=== PATIENT | female | born 1955 | race Caucasian/White ===

== ENCOUNTER 2022-12-12 07:56 | Outpatient (OUT) | payer MEDICARE, OTHER, SELFPAY ==
--- NOTE | 2022-12-12 07:59 | MM_ITS ---
Patient: RAZA LUGO Exam Date: 12/12/2022 : 1955 Gender:F Ordering : JESSICA MCKEON M.D. Admission #: [id number] Family : Order #: [id number] CLICK HERE TO VIEW EXAM RADIOLOGY REPORT PROCEDURE: MM TOMOSYNTHESIS DIAGNOSTIC RT, 12/12/2022, 07:55 US BREAST RT LIMITED, 12/12/2022, 08:10 COMPARISON: MG MAMM KESHA SCRN W CAD DIG, 01/25/2016. MG MAMM SCREEN 3D KESHA CAD, 10/31/2022. INDICATIONS: ABNORMAL MAMMOGRAM R92.8 Calculator Name NCI Breast Cancer Risk Assessment Tool 5 Year Breast Cancer Risk 1.90% Lifetime Breast Cancer Risk 6.70% Personal Breast Cancer No Personal Ovarian Cancer No Treatments None Family Cancers Mother with leukemia cancer at age 84; Sister with colon cancer at age 46. LOCATION: [facility] BREAST COMPOSITION: Scattered areas fibroglandular density. FINDINGS: DIAGNOSTIC CATEGORY 2--BENIGN FINDING: Two spot compression views of the right breast demonstrate a persistent oval 6 x 5.2 mm well-circumscribed nodule. Ultrasound demonstrates at the 8 o'clock position a focal oval well-circumscribed 5.7 x 3.6 x 3.4 mm area of anechoic echogenicity with some internal low-level echoes. Mixed increased and decreased is 2 stick through transmission. I favor a complex cyst. Additionally identified at the 9 o'clock position is a nonspecific 1.7 mm area of oval hypoechogenicity. RECOMMENDATIONS: ROUTINE MAMMOGRAM AND CLINICAL EVALUATION IN 12 MONTHS. PLEASE NOTE: A NORMAL MAMMOGRAM DOES NOT EXCLUDE THE POSSIBILITY OF BREAST CANCER. A CLINICALLY SUSPICIOUS PALPABLE LUMP SHOULD BE BIOPSIED. Dictated by: Alfredo Can MD on 12/12/2022 at 08:31 Approved by: Alfredo Can MD on 12/12/2022 at 08:34
--- NOTE | 2022-12-12 08:02 | US_ITS ---
Patient: RAZA LUGO Exam Date: 12/12/2022 : 1955 Gender:F Ordering : JESSICA MCKEON M.D. Admission #: [id number] Family : Order #: [id number] CLICK HERE TO VIEW EXAM RADIOLOGY REPORT PROCEDURE: MM TOMOSYNTHESIS DIAGNOSTIC RT, 12/12/2022, 07:55 US BREAST RT LIMITED, 12/12/2022, 08:10 COMPARISON: MG MAMM KESHA SCRN W CAD DIG, 01/25/2016. MG MAMM SCREEN 3D KESHA CAD, 10/31/2022. INDICATIONS: ABNORMAL MAMMOGRAM R92.8 Calculator Name NCI Breast Cancer Risk Assessment Tool 5 Year Breast Cancer Risk 1.90% Lifetime Breast Cancer Risk 6.70% Personal Breast Cancer No Personal Ovarian Cancer No Treatments None Family Cancers Mother with leukemia cancer at age 84; Sister with colon cancer at age 46. LOCATION: [facility] [place] BREAST COMPOSITION: Scattered areas fibroglandular density. FINDINGS: DIAGNOSTIC CATEGORY 2--BENIGN FINDING: Two spot compression views of the right breast demonstrate a persistent oval 6 x 5.2 mm well-circumscribed nodule. Ultrasound demonstrates at the 8 o'clock position a focal oval well-circumscribed 5.7 x 3.6 x 3.4 mm area of anechoic echogenicity with some internal low-level echoes. Mixed increased and decreased is 2 stick through transmission. I favor a complex cyst. Additionally identified at the 9 o'clock position is a nonspecific 1.7 mm area of oval hypoechogenicity. RECOMMENDATIONS: ROUTINE MAMMOGRAM AND CLINICAL EVALUATION IN 12 MONTHS. PLEASE NOTE: A NORMAL MAMMOGRAM DOES NOT EXCLUDE THE POSSIBILITY OF BREAST CANCER. A CLINICALLY SUSPICIOUS PALPABLE LUMP SHOULD BE BIOPSIED. Dictated by: Alfredo Can MD on 12/12/2022 at 08:31 Approved by: Alfredo Can MD on 12/12/2022 at 08:34
== END 2022-12-12 07:57 | disposition home or self-care (01) ==
LOC: MAMMO 07:56
DX: R92.8 Other abnormal and inconclusive findings on diagnostic imaging of breast (principal); Z80.0 Family history of malignant neoplasm of digestive organs; Z80.6 Family history of leukemia
CPT/HCPCS: 76642; 77065; G0279

== ENCOUNTER 2023-07-24 14:41 | Outpatient (RCR) | payer MEDICARE, OTHER, SELFPAY | END 2023-08-22 13:31 | disposition home or self-care (01) | LOC: PT 14:41 | PROVIDERS: Visit Provider Nurse Practitioner Family | DX: M54.16 Radiculopathy, lumbar region (principal) | CPT/HCPCS: 97110; 97113; 97163 ==

== ENCOUNTER 2023-11-08 08:28 | Outpatient (OUT) | payer MEDICARE, OTHER, SELFPAY ==
--- NOTE | 2023-11-08 | MM_ITS ---
Patient Name: RAZA LUGO MR#: [id number] : 1955 Exam Date: 11/08/2023 Ordering Doctor: Non-Staff Physician RADIOLOGY REPORT PROCEDURE: MM TOMOSYNTHESIS SCREENING BI COMPARISON: MM TOMOSYNTHESIS DIAGNOSTIC RT, 12/12/2022. MG MAMM SCREEN 3D KESHA CAD, 10/31/2022. MG MAMM SCREEN KESHA W CAD, 08/26/2017. MG MAMM KESHA SCRN W CAD DIG, 01/25/2016. INDICATIONS: Encounter for screening mammogram for malignant neoplasm of Calculator Name NCI Breast Cancer Risk Assessment Tool 5 Year Breast Cancer Risk 1.90% Lifetime Breast Cancer Risk 6.40% Personal Breast Cancer No Personal Ovarian Cancer No Treatments None Family Cancers Mother with leukemia cancer at age 84; Sister with colon cancer at age 46. LOCATION: [facility] BREAST COMPOSITION: There are scattered areas of fibroglandular density. FINDINGS: DIAGNOSTIC CATEGORY 2--BENIGN FINDING: RIGHT BREAST: No significant suspicious finding. Scattered benign-appearing calcifications are present. Stable 6 mm circumscribed complex cyst seen on prior mammography and ultrasound within the anterior lower-outer quadrant. No significant change has occurred. LEFT BREAST: No significant suspicious finding. No significant change has occurred. RECOMMENDATIONS: ROUTINE MAMMOGRAM AND CLINICAL EVALUATION IN 12 MONTHS. PLEASE NOTE: A NORMAL MAMMOGRAM DOES NOT EXCLUDE THE POSSIBILITY OF BREAST CANCER. A CLINICALLY SUSPICIOUS PALPABLE LUMP SHOULD BE BIOPSIED. Dictated by: Nahid Morton M.D. on 11/12/2023 at 11:30 Approved by: Nahid Morton M.D. on 11/12/2023 at 11:41
--- NOTE | 2023-11-08 | CT_ITS ---
[address] [address] Patient Name: RAZA LUGO MRN: [id number] date: 1955 Sex: F Assigned Patient Location: CT Current Patient Location: CT Accession/Order Number: [id number] Exam Date: 11/08/2023 08:40 Report Date: 11/08/2023 11:09 At the request of: NON-STAFF PHYSICIAN Procedure: CT lung screening low-dose EXAMINATION: CT lung screening low-dose HISTORY: Tobacco user, Cigarette smoker COMPARISON: No relevant comparison available. TECHNIQUE: Multi-planar CT images were obtained without and/or with IV contrast as indicated by examination type. Axial, Coronal, and Sagittal images. Dose reduction techniques were achieved by using automated exposure control and/or adjustment of mA and/or kV according to patient size and/or use of iterative reconstruction technique. FINDINGS: LUNGS: No visible pulmonary disease. PLEURA: No mass, effusion, or pneumothorax. VASCULATURE: No abnormality. YOLANDA: No mass or adenopathy. MEDIASTINUM: No mass or adenopathy. CARDIAC: No enlargement, pericardial thickening, or significant calcification. Coronary artery calcifications: Absent. AORTA: No aneurysm or dissection. CHEST WALL: No mass or axillary adenopathy. BONES: No bone lesion or fracture. LIMITED ABDOMEN: Stable left renal cyst. Stable bilateral adrenal nodules. Limited images of the upper abdomen. OTHER: Negative. CT/CT lung screening low-dose IMPRESSION: 1. Lung-RADS Category 1 Negative. No nodules and definitely benign nodules. Continue annual screening with LDCT in 12 months. 2. Stable left renal cysts and bilateral nonspecific adrenal nodules. Electronically authenticated by: LUIS FERNANDO HENRIQUEZ Date: 11/08/2023 11:09
== END 2023-11-08 08:29 | disposition home or self-care (01) ==
LOC: CT 08:28
DX: Z12.31 Encounter for screening mammogram for malignant neoplasm of breast (principal); F17.210 Nicotine dependence, cigarettes, uncomplicated; N28.1 Cyst of kidney, acquired; Z80.6 Family history of leukemia; Z80.0 Family history of malignant neoplasm of digestive organs
CPT/HCPCS: 71271; 77063; 77067

== ENCOUNTER 2025-05-14 07:52 | Outpatient (OUT) | payer MEDICARE, OTHER, SELFPAY ==
--- OUTSIDE RECORDS SUMMARY | 2025-05-03 08:30 | XMS_ITS | Encounter Summary ---
Author Organization [facility] tem Address [id number] [address] 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 Inspector Name Role Phone Eyad Tee MD Primary Care Provider [phone] Reason for Referral * Consultation (Routine) - Pending ReviewSpecialtyDiagnoses / ProceduresReferred By ContactReferred To ContactGastroenterology Diagnoses Special screening for malignant neoplasm of colon Gastroesophageal reflux disease without esophagitis Eyad Tee MD [address], [facility] [address] [place] [address] Phone: tel: fax: Alfredo Strickland, [address] [address] Phone: tel: fax: Referral IDStatusReasonStart DateExpiration DateVisits RequestedVisits [id number] Review Specialty Services Required Reason for Visit * ReasonCommentsreview labs Encounter Details DateTypeDepartmentCare Team (Latest Contact Info)Vazqlorseli79/17/2025 8:30 AM ESTOffice Visit [facility] [address] [place] [address] Eyad Tee MD [address] [place] [address] Type 2 diabetes mellitus without complication, without long-term current use of insulin (CMS-HCC) (Primary Dx); Special screening for malignant neoplasm of colon; Primary hypertension; Anxiety; Pure hypercholesterolemia; Gastroesophageal reflux disease without esophagitis; Chronic bilateral low back pain without sciatica; Former cigarette smoker; Vitamin D deficiency Social History Tobacco UseTypesPacks/DayYears UsedDateSmoking Tobacco: FormerCigarettes0.552.6 1971 - 01/27/2024Smokeless Tobacco: Never Tobacco Cessation:Counseling Given: Not Answered Alcohol UseStandard Drinks/WeekCommentsYes0 (1 standard drink = 0.6 oz pure alcohol)MONTHLYPHQ-2AnswerDate RecordedTotal Xdmbj362/17/2025ChildcareAnswerDate PhcmfznrLdkfyibcxXtzlgiu52/12/2019EmploymentAnswerDate RecordedEmploymentUnknown 11/26/2018Hunger ScreeningAnswerDate RecordedWithin the past 12 months we worried whether our food would run out before we got money to buy more.Never True05/03/2025Within the past 12 months the food we bought just didn't last and we didn't have money to get more.Never True05/03/2025Purpose - LifeAnswerDate RecordedPurpose and direction in hxypCmcniyb89/11/2021CommentsNoSex and Gender InformationValueDate RecordedSex Assigned at BirthNot on fileLegal Sex Hjipxy9501/20/2015 12:14 PM EDTGender IdentityNot on fileSexual OrientationNot on filedocumented as of this encounter Last Filed Vital Signs Vital SignReadingTime TakenCommentsBlood Rnoluigr984/6805/03/2025 8:38 AM EST Avkts599105/03/2025 8:38 AM ESTTemperature--Respiratory Rate--Oxygen Sillrqrqiv86% 05/03/2025 8:38 AM ESTInhaled Oxygen Concentration--Rqfbjq67.8 kg (220 lb) 05/03/2025 8:38 AM NOSMwartg247.6 cm (5' 4 )05/03/2025 8:38 AM ESTBody Mass Index37.7611 8:38 AM ESTdocumented in this encounter Progress Notes * Eyad Tai MD - 05/03/2025 8:30 AM EST Subjective Patient ID: Shana Anne is a 70 y.o. female. HPI: Shana Anne is here to evaluate and manage chronic medical problems listed below. Chief Complaint Patient presents with review labs Here in office for a review of labs. JSC,AKIL Follow Up: Diabetes Follow Up: Patient Reports: doing well with diabetes control since last visit Comorbid Illnesses: Eye exam is up to date Symptoms: currently asymptomatic Medications: the patient is adherent with the medication regime, denies medication side effects Interval events: Her A1c now is under control. Patient has no polyuria no polydipsia. Hypertension Follow Up: Patient Reports: BP has been well controlled since last visit Medications: taking medications as prescribed Interval Events: no significant interval events Symptoms: the patient is currently asymptomatic Home Monitoring: the patient reports monitoring blood pressure regularly Goals: the patient is doing well with the BP goals Hyperlipidemia Follow Up: Patient Reports: hyperlipidemia has been under good control Interval events: no significant interval events Symptoms: the patient is currently asymptomatic Medications: the patient is adherent with the medication regime, denies medication side effects, patient is doing well with the hyperlipidemia goals Smoking: patient quit smoking about About a year ago. She was counseled. She is due for CT chest now. Insomnia: patient is taking trazodone. It Is helping her very well. She has no side effects from it. No snoring at night. No apnea. Back pain: Patient's back pain overall is under control. She is following up with pain management. She is following up with Neurosurgery. She is still on gabapentin. She is taking ibuprofen as needed. Depression and anxiety: patient is still working full-time job. Her mood is normal. Patient said she gets stress with her from time to time. Patient declined having any urinary complaints in his last time we saw her. She is still following up with her Urology. No blood in the urine. No dysuria no frequency no hesitancy. Current medication: Outpatient Medications Prior to Visit Medication Sig Dispense Refill BABY ASPIRIN ORAL Take 81 mg by mouth. blood sugar diagnostic (pic5UCH ULTRA TEST) strip USE DIRECTED 2 TIMES DAILY FOR DX E11.9 100 strip 3 cholecalciferol, vitamin D3, (VITAMIN D3) 5,000 units capsule Take 1 capsule (5,000 Units total) bymouth in the morning. escitalopram (LEXAPRO) 20 mg tablet Take 1 tablet (20 mg total) by mouth in the morning. 90 tablet 3 gabapentin (NEURONTIN) 600 mg tablet Take 1 tablet (600 mg total) by mouth in the morning and 1 tablet (600 mg total) before bedtime. 180 tablet 2 glipiZIDE-metFORMIN (METAGLIP) 5-500 mg per tablet Take 1 tablet by mouth in the morning and 1 tablet in the evening. Take before meals. 180 tablet 1 ibuprofen (MOTRIN) 800 mg tablet TAKE 1 TABLET EVERY 12 HOURS NEEDED FOR PAIN 180 tablet 3 lisinopriL (PRINIVIL,ZESTRIL) 10 mg tablet Take 1 tablet (10 mg total) by mouth in the morning. 90 tablet 3 rOPINIRole (REQUIP) 0.5 mg tablet TAKE 1 TABLET EVERY NIGHT 90 tablet 3 traZODone (DESYREL) 100 mg tablet Take 2 tablets (200 mg total) by mouth nightly. 180 tablet 3 atorvastatin (LIPITOR) 20 mg tablet Take 1 tablet (20 mg total) by mouth nightly. 90 tablet 3 TRULICITY 3 mg/0.5 mL pen injector INJECT 3 MG (0.5 ML) UNDER THE SKIN ONCE A WEEK 6 mL 0 tiotropium (SPIRIVA) 18 mcg per inhalation capsule Place 1 capsule into inhaler and inhale in the morning. (Patient not taking: Reported on 05/03/2025) 90 capsule 3 busPIRone (BUSPAR) 10 mg tablet Take 0.5 tablets (5 mg total) by mouth in the morning and 0.5 tablets (5 mg total) before bedtime. (Patient not taking: Reported on 05/03/2025) 180 tablet 1 No facility-administered medications prior to visit. Past Surgical History: Procedure Laterality Date ARTHROSCOPY KNEE wth partial medial and lateral menisectomy chondroplasty medial and lateral femeral condyle Right 03/26/2017 Performed by Jr Raul Massey DO at [facility] BACK SURGERY disc l2-l3 07/03/2022 l3,l4,l5 07/19/22 BACK SURGERY 01/27/2024 fusion rods and screws CARDIAC CATHETERIZATION SECTION x2 CHOLECYSTECTOMY HYSTERECTOMY KNEE SURGERY left, scope KNEE SURGERY Bilateral knee scopes NEUROPLASTY / TRANSPOSITION MEDIAN NERVE AT CARPAL TUNNEL Family History Problem Relation Age of Onset Heart disease Mother Heart disease Father Past Medical History: Diagnosis Date Diabetes mellitus type 2, controlled ([facility]) Hyperlipidemia Hypertension Peptic ulceration Social History Socioeconomic History Marital status: Spouse name: Not on file Number of children: Not on file Years of education: Not on file Highest education level: Not on file Occupational History Not on file Tobacco Use Smoking status: Former Current packs/day: 0.00 Average packs/day: 0.5 packs/day for 52.6 years (26.3 ttl pk-yrs) Types: Cigarettes Start date: 1971 Quit date: 01/27/2024 Years since quittin.2 Smokeless tobacco: Never Substance and Sexual Activity Alcohol use: Yes Comment: MONTHLY Drug use: No Sexual activity: Not on file Other Topics Concern Not on file Social History Narrative Not on file Social Drivers of Health Financial Resource Strain: Not on file Food Insecurity: No Food Insecurity (05/03/2025) Hunger Screening Food Insecurity - Worry: Never True Food Insecurity - Inability: Never True Transportation Needs: Not on file Physical Activity: Not on file Stress: Not on file Social Connections: Not on file Interpersonal Safety: Not on file Housing Instability: Not on file No Known Allergies Current Outpatient Medications Medication Sig Dispense Refill BABY ASPIRIN ORAL Take 81 mg by mouth. blood sugar diagnostic (RewardIt.comTOUCH ULTRA TEST) strip USE DIRECTED 2 TIMES DAILY FOR DX E11.9 100 strip 3 cholecalciferol, vitamin D3, (VITAMIN D3) 5,000 units capsule Take 1 capsule (5,000 Units total) [facility] the morning. escitalopram (LEXAPRO) 20 mg tablet Take 1 tablet (20 mg total) by mouth in the morning. 90 tablet 3 gabapentin (NEURONTIN) 600 mg tablet Take 1 tablet (600 mg total) by mouth in the morning and 1 tablet (600 mg total) before bedtime. 180 tablet 2 glipiZIDE-metFORMIN (METAGLIP) 5-500 mg per tablet Take 1 tablet by mouth in the morning and 1 tablet in the evening. Take before meals. 180 tablet 1 ibuprofen (MOTRIN) 800 mg tablet TAKE 1 TABLET EVERY 12 HOURS NEEDED FOR PAIN 180 tablet 3 lisinopriL (PRINIVIL,ZESTRIL) 10 mg tablet Take 1 tablet (10 mg total) by mouth in the morning. 90 tablet 3 rOPINIRole (REQUIP) 0.5 mg tablet TAKE 1 TABLET EVERY NIGHT 90 tablet 3 traZODone (DESYREL) 100 mg tablet Take 2 tablets (200 mg total) by mouth nightly. 180 tablet 3 albuterol (PROVENTIL HFA;VENTOLIN HFA) 90 mcg/actuation inhaler Inhale 2 puffs every 6 (six) hours as needed for wheezing. 15 g 4 atorvastatin (LIPITOR) 20 mg tablet TAKE 1 TABLET EVERY DAY 90 tablet 3 semaglutide (OZEMPIC) 0.25 mg or 0.5 mg (2 mg/3 mL) pen injector Inject 0.5 mg under the skin once a week. 2 mL 0 tiotropium (SPIRIVA) 18 mcg per inhalation capsule Place 1 capsule into inhaler and inhale in the morning. (Patient not taking: Reported on 05/03/2025) 90 capsule 3 No current facility-administered medications for this visit. Review of Systems: General/Constitutional: Feeling Poorly denies. Feeling Tired denies. Chills denies. Fever denies. Ophthalmologic: Change in Vision denies. Cardiovascular: Lower Extremity Edema denies. Chest pain denies. Palpitations denies. Respiratory: Dyspnea denies. Cough denies. Shortness of breath denies. Wheezing denies. Gastrointestinal: Abdominal pain denies. Constipation denies. Diarrhea denies. Nausea denies. Vomiting denies. Musculoskeletal: Arthralgia denies. Back pain Admits Neurologic: Dizziness denies. Fainting denies. Headache denies. Objective Physical Exam: Vitals: 05/03/25 0838 BP: 134/68 BP Site: Left Arm BP Postition: Sitting BP CUFF SIZE: L (13-17 inches) Pulse: 69 SpO2: 96% Weight: 99.8 kg (220 lb) Height: 162.6 cm (5' 4 ) Wt Readings from Last 3 Encounters: 05/03/25 99.8 kg (220 lb) 10/28/24 99.8 kg (220 lb) 04/21/24 98 kg (216 lb) Temp Readings from Last 3 Encounters: 10/03/23 36.8 ??C (98.2 ??F) 03/26/17 36.3 ??C (97.3 ??F) BP Readings from Last 3 Encounters: 05/03/25 134/68 10/28/24 130/60 04/21/24 122/62 Pulse Readings from Last 3 Encounters: 05/03/25 69 10/28/24 78 04/21/24 80 Body mass index is 37.76 kg/m??. Physical Exam General Examinations: GENERAL APPEARANCE: alert, in no acute distress. obese ENT: Bilateral, Normal, TM, Canals normal, oropharynx normal. EYES: normal sclera/conjunctiva, PERRLA. NECK: normal appearance, supple. Thyroid is normal PULMONARY: no respiratory distress, normal respiratory rhythm and effort, normal breath sounds. LYMPH NODES: no anterior or posterior cervical, supraclavicular and axillary adenopathy. CARDIO: normal PMI, regular rate and rhythm, S1, S2 normal, no gallops, no murmurs, no rubs. ABDOMEN: normal bowel sounds, soft, nontender, no HSM, no masses palpable, no hernias present. MUSCULOSKELETAL normal gait, normal ROM all extremities, normal strength/tone . Lumbar spine: rangeof motion is Slightly limited with flexion. Straight leg raising is negative bilaterally. Did not reflexes 2+ symmetrical bilaterally. SKIN: normal color, good turgor. Extremities: Normal pulses. No edema. Bilateral carotids are normal. No bruit. NEUROLOGIC: nonfocal, cranial nerves 2-12 grossly intact. PSYCH: oriented x3. Mood is normal. Diabetic foot exam: Visual exam was normal without lesions. Left: Pulses Dorsalis Pedis: present Posterior Tibial: present Vibratory sensation not done Filament test present Right: Pulses Dorsalis Pedis: present Posterior Tibial: present Vibratory sensation not done Filament test present No results found for this or any previous visit (from the past 24 hours). Results for orders placed or performed in visit on 04/27/25 CBC auto differential Collection Time: 04/27/25 7:56 AM Result Value Ref Range WBC 5.8 4 - 11 X10^9/L RBC Count 3.86 3.8 - 5.2 X10^12/L Hemoglobin 11.6 (L) 11.7 - 15.5 g/dL Hematocrit 34.3 (L) 35 - 47 % MCV 89 80 - 100 fL MCH 30.2 27 - 34 pg MCHC 34.0 32 - 36 g/dL RDW 13.9 11.5 - 15 % Platelet Count 252 150 - 450 X10^9/L MPV 8.6 7 - 12 fL Neutrophils % 61.4 % Lymphocytes % 28.0 % Monocytes % 8.3 % Eosinophils % 1.4 % Basophils % 0.9 % Neutrophils Absolute (A) 3.5 1.5 - 6.6 X10^9/L Lymphocytes Absolute 1.6 1.0 - 3.5 X10^9/L Monocytes Absolute 0.5 0.0 - 0.9 X10^9/L Eosinophils Absolute 0.1 0.0 - 0.4 X10^9/L Basophils Absolute 0.1 0.0 - 0.2 X10^9/L Differential Type AUTOMATED DIFFERENTIAL Hemoglobin A1c Collection Time: 04/27/25 7:56 AM Result Value Ref Range HEMOGLOBIN A1C 7.8 (H) 4.4 - 5.6 % EST. AVERAGE GLUCOSE 177 mg/dL Basic Metabolic Panel Collection Time: 04/27/25 7:56 AM Result Value Ref Range SODIUM 142 134 - 146 mmol/L POTASSIUM 4.9 3.5 - 5.0 mmol/L CHLORIDE 104 98 - 109 mmol/L CARBON DIOXIDE 29 22 - 32 mmol/L ANION GAP 9 5 - 15 mmol/L BLOOD UREA NITROGEN 24 5 - 27 mg/dL CREATININE 0.89 0.40 - 1.00 mg/dL GLUCOSE 148 (H) 65 - 99 mg/dL CALCIUM 9.6 8.5 - 10.5 mg/dL EGFR Non-Race Dependent 70 >=60 ml/min/1.73sq.m Above labs and x-ray were reviewed. Adjustments were made in the assessment and plan Assessment/Plan Differential diagnosis and medical decision making Below medicines were either prescribed new or a continuation. We evaluated for side effects of these medications and reviewed compliance. Adjustments were made in dosing and frequency in the medicinereconciliation. 1. Type 2 diabetes mellitus without complication, without long-term current use of insulin ([facility]) - semaglutide (OZEMPIC) 0.25 mg or 0.5 mg (2 mg/3 mL) pen injector; Inject 0.5 mg under the skin once a week. Dispense: 2 mL; Refill: 0 - CBC auto differential; Future - Comprehensive metabolic panel; Future - Hemoglobin A1c; Future - TSH; Future - T4, free; Future - Lipid profile; Future - Hepatitis C(HCV) Ab w/ Reflex to PCR; Future - Vitamin D 25 hydroxy; Future - CK Total; Future - Uric acid; Future 2. Special screening for malignant neoplasm of colon - Ambulatory referral to Gastroenterology (Non[facility]); Future 3. Primary hypertension - CBC auto differential; Future - Comprehensive metabolic panel; Future - Hemoglobin A1c; Future - TSH; Future - T4, free; Future - Lipid profile; Future - Hepatitis C(HCV) Ab w/ Reflex to PCR; Future - Vitamin D 25 hydroxy; Future - CK Total; Future - Uric acid; Future 4. Anxiety - CBC auto differential; Future - Comprehensive metabolic panel; Future - Hemoglobin A1c; Future - TSH; Future - T4, free; Future - Lipid profile; Future - Hepatitis C(HCV) Ab w/ Reflex to PCR; Future - Vitamin D 25 hydroxy; Future - CK Total; Future - Uric acid; Future 5. Pure hypercholesterolemia - CBC auto differential; Future - Comprehensive metabolic panel; Future - Hemoglobin A1c; Future - TSH; Future - T4, free; Future - Lipid profile; Future - Hepatitis C(HCV) Ab w/ Reflex to PCR; Future - Vitamin D 25 hydroxy; Future - CK Total; Future - Uric acid; Future 6. Gastroesophageal reflux disease without esophagitis - Ambulatory referral to Gastroenterology (Non-[facility]); Future - CBC auto differential; Future - Comprehensive metabolic panel; Future - Hemoglobin A1c; Future - TSH; Future - T4, free; Future - Lipid profile; Future - Hepatitis C(HCV) Ab w/ Reflex to PCR; Future - Vitamin D 25 hydroxy; Future - CK Total; Future - Uric acid; Future 7. Chronic bilateral low back pain without sciatica 8. Former cigarette smoker - albuterol (PROVENTIL HFA;VENTOLIN HFA) 90 mcg/actuation inhaler; Inhale 2 puffs every 6 (six) hours as needed for wheezing. Dispense: 15 g; Refill: 4 9. Vitamin D deficiency - Vitamin D 25 hydroxy; Future Medications Discontinued During This Encounter Medication Reason busPIRone (BUSPAR) 10 mg tablet TRULICITY 3 mg/0.5 mL pen injector Plan: Blood work discussed With the patient. Her A1c is higher than last time. Medications adjusted. She will be careful with her diet and her carbohydrate intake. She will continue to follow up withthe Neurosurgery and pain management. She was counseled for smoking cessation. She quit smoking 1.5years ago. CT scan is scheduled for next week. Also her mammogram is scheduled for next week. I will wait for the result. Keep follow up with Rheumatology for her DAHLIA.She will follow-up with Cardiology as needed. Her mood is under control. Gynecology has cleared her. Patient did not do her colonoscopy. Another order was given. Colonoscopy was done in May 2018.They recommended repeat in 5 years. Patient has no GERD symptoms a Her EGD was done in November 2021. They recommended repeat in 3-5 years. I will refer her to the GI so that she can do both at the same time. She will continue to followup with her Urology. She never had pancreatitis. Family history is negative for thyroid cancer. Call if any concern Patient noted to have elevated BMI and the following intervention(s) were applied: prescribed diet education. Return in about 6 months (around 11/05/2025). Patient was advised to call us in 2 weeks if they don't hear back from us about any testing results. I advised never to assume that the testing is normal if they do not hear back from us. I advised that if they do not hear back from us, this means that we do not have the results. Patient verbalizedunderstanding. This note is created with the assistance of a speech recognition program. While intending to generate a document that actually reflects the content of the visit, the document can still have some errors including those of syntax and sound a like substitutions which may escape proof reading. It such instances, actual meaning can be extrapolated by contextual derivation documented in this encounter Plan of Treatment DateTypeDepartmentCare Team (Latest Contact Info)Vsilhhevkcx81/19/2026 8:00 AM EDTOffice Visit [facility] [address] [place] [address] Eyad Tee MD [address], [address] [place] [address] NameTypePriorityAssociated DiagnosesOrder ScheduleCBC auto differentialLab Routine Type 2 diabetes mellitus without complication, without long-term current use of insulin ([facility]) Primary hypertension Anxiety Pure hypercholesterolemia Gastroesophageal reflux disease without esophagitis Expected: 08/31/2025 (Approximate), Expires: 05/03/2026omprehensive metabolic panelLabRoutine Type 2 diabetes mellitus without complication, without long-term current use of insulin ([facility]) Primary hypertension Anxiety Pure hypercholesterolemia Gastroesophageal reflux disease without esophagitis Expected: 08/31/2025 (Approximate), Expires: 05/03/2026Hemoglobin [id number] Type 2 diabetes mellitus without complication, without long-term current use of insulin ([facility]) Primary hypertension Anxiety Pure hypercholesterolemia Gastroesophageal reflux disease without esophagitis Expected: 08/31/2025 (Approximate), Expires: 05/03/2026TSHLabRoutine Type 2 diabetes mellitus without complication, without long-term current use of insulin ([facility]) Primary hypertension Anxiety Pure hypercholesterolemia Gastroesophageal reflux disease without esophagitis Expected: 08/31/2025 (Approximate), Expires: 05/03/2026T4, freeLabRoutine Type 2 diabetes mellitus without complication, without long-term current use of insulin ([facility]) Primary hypertension Anxiety Pure hypercholesterolemia Gastroesophageal reflux disease without esophagitis Expected: 08/31/2025 (Approximate), Expires: 05/03/2026Lipid profileLabRoutine Type 2 diabetes mellitus without complication, without long-term current use of insulin ([facility]) Primary hypertension Anxiety Pure hypercholesterolemia Gastroesophageal reflux disease without esophagitis Expected: 10/31/2025 (Approximate), Expires: 05/03/2026Hepatitis C(HCV) Ab w/ Reflex to PCRLabRoutine Type 2 diabetes mellitus without complication, without long-term current use of insulin ([facility]) Primary hypertension Anxiety Pure hypercholesterolemia Gastroesophageal reflux disease without esophagitis Expected: 08/31/2025 (Approximate), Expires: 05/03/2026Vitamin D 25 hydroxyLab Routine Type 2 diabetes mellitus without complication, without long-term current use of insulin ([facility]) Primary hypertension Anxiety Pure hypercholesterolemia Gastroesophageal reflux disease without esophagitis Vitamin D deficiency Expected: 08/31/2025 (Approximate), Expires: 05/03/2026K TotalLabRoutine Type 2 diabetes mellitus without complication, without long-term current use of insulin ([facility]) Primary hypertension Anxiety Pure hypercholesterolemia Gastroesophageal reflux disease without esophagitis Expected: 08/31/2025 (Approximate), Expires: 05/03/2026Uric acidLabRoutine Type 2 diabetes mellitus without complication, without long-term current use of insulin ([facility]) Primary hypertension Anxiety Pure hypercholesterolemia Gastroesophageal reflux disease without esophagitis Expected: 08/31/2025 (Approximate), Expires: 05/03/2026NameTypePriority Associated DiagnosesOrder ScheduleAmbulatory referral to Gastroenterology (Non-[facility])Outpatient ReferralRoutine Special screening for malignant neoplasm of colon Gastroesophageal reflux disease without esophagitis 1 Occurrences starting 05/03/2025 until 05/03/2026documented as of this encounter Visit Diagnoses Diagnosis Type 2 diabetes mellitus without complication, without long-term current use of insulin ([facility])- Primary Special screening for malignant neoplasm of colon Special screening for malignant neoplasms, colon Primary hypertension Unspecified essential hypertension Anxiety Anxiety state, unspecified Pure hypercholesterolemia Gastroesophageal reflux disease without esophagitis Esophageal reflux Chronic bilateral low back pain without sciatica Former cigarette smoker Personal history of tobacco use, presenting hazards to health Vitamin D deficiency documented in this encounter Additional Health Concerns AssessmentNoted TimePHQ-9 Depression Total Score: 8:40 AM ESTA Body Mass Index follow-up plan has been documented for the eozczld1205/09/2025 7:03 PM ESTdocumented as of this encounter Care Teams Team MemberRelationshipSpecialtyStart DateEnd Date Eyad Tee MD [address], [address] [address] PCP - General01/26/14documented as of this encounter
--- OUTSIDE RECORDS SUMMARY | 2025-05-14 07:55 | XMS_ITS | Encounter Summary ---
Author Organization [facility] tem Address [id number] [address] [place] [address] Care Team Providers Care Refrigeration Mechanic Name Role Phone Eyad Tee MD Primary Care Provider +1- [phone] Encounter Details DateTypeDepartmentCare Team (Latest Contact Info)Xwhemkxsrub95/17/2025Travel Social History Tobacco UseTypesPacks/DayYears UsedDateSmoking Tobacco: FormerCigarettes0.552.6 1971 - 01/27/2024Smokeless Tobacco: NeverAlcohol UseStandard Drinks/WeekComments Yes0 (1 standard drink = 0.6 oz pure alcohol)MONTHLYPHQ-2AnswerDate Recorded Total Ukkdy749/17/2025ChildcareAnswerDate QcmjghgrLpiuzcttmEmtjhoj56/12/2019 EmploymentAnswerDate AynlxhkhXftsabsqomDtbfdlt47/12/2019Hunger ScreeningAnswer Date RecordedWithin the past 12 months we worried whether our food would run out before we got money to buy more.Never True05/03/2025Within the past 12 months the food we bought just didn't last and we didn't have money to get more.Never True05/03/2025Purpose - LifeAnswerDate RecordedPurpose and direction in life Eiyykbh0207/28/2020CommentsNoSex and Gender InformationValueDate Recorded Sex Assigned at BirthNot on fileLegal JkmLkfgyg27/06/2015 12:14 PM EDTGender IdentityNot on fileSexual OrientationNot on filedocumented as of this encounter Plan of Treatment DateTypeDepartmentCare Team (Latest Contact Info)Dqpsqgqsdme66/19/2026 8:00 AM EDTOffice Visit [facility] [address] [facility] [address] [place] [address] Eyad Tee MD [address], [facility] [address] [place] [address] documented as of this encounter Visit Diagnoses Not on filedocumented in this encounter Additional Health Concerns AssessmentNoted TimePHQ-9 Depression Total Score: 8:40 AM ESTA Body Mass Index follow-up plan has been documented for the prookrh8505/09/2025 7:03 PM ESTdocumented as of this encounter Care Teams Team MemberRelationshipSpecialtyStart DateEnd Date Eyad Tee MD [address], [facility] [address] [place] [address] PCP - General01/26/14documented as of this encounter
--- OUTSIDE RECORDS SUMMARY | 2025-05-14 07:55 | XMS_ITS | Encounter Summary ---
Author Organization [facility] tem Address [id number] [address] [place] [address] Care Team Providers Care Vmware Consultant Name Role Phone Eyad Tee MD Primary Care Provider +1- [phone] Encounter Details DateTypeDepartmentCare Team (Latest Contact Info)Innnntlrdxo24/15/2025Travel Social History Tobacco UseTypesPacks/DayYears UsedDateSmoking Tobacco: FormerCigarettes0.552.6 1971 - 01/27/2024Smokeless Tobacco: NeverAlcohol UseStandard Drinks/WeekComments Yes0 (1 standard drink = 0.6 oz pure alcohol)MONTHLYPHQ-2AnswerDate Recorded Total Qwwvf679hildcareAnswerDate TyjusjwgPtyckxswcOqfrezv16/12/2019 EmploymentAnswerDate CrdmogywRwasimcwxtLaeakkk69/12/2019Hunger ScreeningAnswer Date RecordedWithin the past 12 months we worried whether our food would run out before we got money to buy more.Never True10/28/2024Within the past 12 months the food we bought just didn't last and we didn't have money to get more.Never True10/28/2024Purpose - LifeAnswerDate RecordedPurpose and direction in life Lqhqcbx4207/28/2020CommentsNoSex and Gender InformationValueDate Recorded Sex Assigned at BirthNot on fileLegal AxeDwwrpt14/06/2015 12:14 PM EDTGender IdentityNot on fileSexual OrientationNot on filedocumented as of this encounter Plan of Treatment DateTypeDepartmentCare Team (Latest Contact Info)Zlxyotbnjie83/19/2026 8:00 AM EDTOffice Visit [facility] [address] [facility] [address] [place] [address] Eyad Tee MD [address], [facility] [address] [place] [address] documented as of this encounter Visit Diagnoses Not on filedocumented in this encounter Additional Health Concerns AssessmentNoted TimePHQ-9 Depression Total Score: 8:13 AM EDTA Body Mass Index follow-up plan has been documented for the utpdctx3910/28/2024 12:51 PM EDTdocumented as of this encounter Care Teams Team MemberRelationshipSpecialtyStart DateEnd Date Eyad Tee MD [address], [facility] [address] [place] [address] PCP - General01/26/14documented as of this encounter
--- OUTSIDE RECORDS SUMMARY | 2025-05-14 07:55 | XMS_ITS | Clinical Summary ---
Author Organization [facility] Address [address] [place] [address] Phone Care Team Providers Care Student Affairs Vice President Name Role Phone Unavailable Primary Care Provider Unavailabl e Social History Tobacco UseTypesPacks/DayYears UsedDateSmoking Tobacco: Never Assessed CommentsUnknownSex and Gender InformationValueDate RecordedSex Assigned at Not on fileLegal YdbGogygc91/26/2022 3:12 PM ESTGender IdentityNot on fileSexual OrientationNot on file Plan of Treatment Not on file
--- OUTSIDE RECORDS SUMMARY | 2025-05-14 07:56 | XMS_ITS | Encounter Summary ---
Author Organization [facility] tem Address [facility]-[id number] [address] [place] [address] Care Team Providers Care Adventure Challenge Instructor Name Role Phone Eyad Tee MD Primary Care Provider +1- [phone] Reason for Visit * ReasonOnset DateCommentsBS issue05/10/2025 Encounter Details DateTypeDepartmentCare Team (Latest Contact Info)Zitmkgcjmbb06/24/2025Telephone [facility] [address] [facility] [address] [place] [address] Rosy Cortes LPN BS issue Social History Tobacco UseTypesPacks/DayYears UsedDateSmoking Tobacco: FormerCigarettes0.552.6 1971 - 01/27/2024Smokeless Tobacco: NeverAlcohol UseStandard Drinks/WeekComments Yes0 (1 standard drink = 0.6 oz pure alcohol)MONTHLYPHQ-2AnswerDate Recorded Total Hmrbz16807/03/2024hildcareAnswerDate LumbejhdBwyuaavsaStlrdkl79/12/2019 EmploymentAnswerDate KkfiodqzLupvaixgfnZszmwba62/12/2019Hunger ScreeningAnswer Date RecordedWithin the past 12 months we worried whether our food would run out before we got money to buy more.Never True05/03/2025Within the past 12 months the food we bought just didn't last and we didn't have money to get more.Never True05/03/2025Purpose - LifeAnswerDate RecordedPurpose and direction in life Cidasfm35/11/2021CommentsNoSex and Gender InformationValueDate Recorded Sex Assigned at BirthNot on fileLegal LpoMsnwwy45/06/2015 12:14 PM EDTGender IdentityNot on fileSexual OrientationNot on filedocumented as of this encounter Miscellaneous Notes * Telephone Encounter - Rosy Cortes LPN - 05/10/2025 4:19 PM EST Pt had incident yest where her BS went up to 430. She only had one meal all day, then felt sick. Ptwas having diarrhea, sweating, felt like she was going to pass out. Pt didn't eat the rest of the day, didn't take any meds, slept from 5pm to 9pm. (No one else was sick) When she woke up, she was weak but felt better, took some Tums. BS 365 at 9pm. Pt took meds then went to bed. This morning felt b manisha but tired and weak, BS was 145. (Pt taking glipizide/metformin 5/500 1 BID, not on ozempic, but is taking trulicity 3mg once a weekand was taken yest in morning) * Telephone Encounter - Eyad Tai MD - 05/10/2025 4:19 PM EST If it happens again she needs to go the emergency room. Please ask her to increase her fluid intake. Ask her to check her blood sugar 3 times a day for tomorrow in his the day after tomorrow. If she has anything above 200 let us know. * Telephone Encounter - Rosy Cortes LPN - 05/10/2025 4:19 PM EST Pt notified, will keep us updated. documented in this encounter Plan of Treatment DateTypeDepartmentCare Team (Latest Contact Info)Iojsecsieyw19/19/2026 8:00 AM EDTOffice Visit [facility] [address] [address] Eyad Tee MD [address] [address] documented as of this encounter Visit Diagnoses Not on filedocumented in this encounter Additional Health Concerns AssessmentNoted TimePHQ-9 Depression Total Score: 8:40 AM ESTA Body Mass Index follow-up plan has been documented for the cpudvqq3305/09/2025 7:03 PM ESTdocumented as of this encounter Care Teams Team MemberRelationshipSpecialtyStart DateEnd Date Eyad Tee MD [address] [address] PCP - General01/26/14documented as of this encounter
--- OUTSIDE RECORDS SUMMARY | 2025-05-14 07:56 | XMS_ITS | Encounter Summary ---
Author Organization [facility] tem Address [facility]-[id number] [address] [place] [address] Care Team Providers Care Hotel General Manager Name Role Phone Eyad Tee MD Primary Care Provider +1- [phone] Reason for Visit * ReasonOnset DateCommentselevated bs05/11/2025 Encounter Details DateTypeDepartmentCare Team (Latest Contact Info)Vswptdzsbrc52/25/2025Telephone [facility] [address] [facility] [address] [place] [address] Rosy Cortes, AIRFRAME DESIGN ENGINEER elevated bs Social History Tobacco UseTypesPacks/DayYears UsedDateSmoking Tobacco: FormerCigarettes0.552.6 1971 - 01/27/2024Smokeless Tobacco: NeverAlcohol UseStandard Drinks/WeekComments Yes0 (1 standard drink = 0.6 oz pure alcohol)MONTHLYPHQ-2AnswerDate Recorded Total Wihza318/17/2025ChildcareAnswerDate KkojwmowKtsdctbswKfdoowb47/12/2019 EmploymentAnswerDate NmyyadphDlknbmdobyIulcqns57/12/2019Hunger ScreeningAnswer Date RecordedWithin the past 12 months we worried whether our food would run out before we got money to buy more.Never True05/03/2025Within the past 12 months the food we bought just didn't last and we didn't have money to get more.Never True05/03/2025Purpose - LifeAnswerDate RecordedPurpose and direction in life Yujiupk68/11/2021CommentsNoSex and Gender InformationValueDate Recorded Sex Assigned at BirthNot on fileLegal PbkHciigg93/06/2015 12:14 PM EDTGender IdentityNot on fileSexual OrientationNot on filedocumented as of this encounter Miscellaneous Notes * Telephone Encounter - Rosy Cortes LPN - 05/11/2025 10:48 AM EST Pt calling with update on bs, yesterday afternoon she ate a turkey sandwich and then 2 hrs later her bs was 230. States she felt fine. This morning her bs was 125, she had some coffee with equal and then bs was 187. Feels fine this morning too. States she made sure to drink fluids yesterday. Pt wondering if elevated bs has to do with her taking motrin 800mg BID for her back pain? Please advise. * Telephone Encounter - Rosy Cortes LPN - 05/11/2025 10:48 AM EST Pt notified, will keep us updated as needed. documented in this encounter Plan of Treatment DateTypeDepartmentCare Team (Latest Contact Info)Xruvwdncrtq42/19/2026 8:00 AM EDTOffice Visit [facility] [address] [place] [address] Eyad Tee MD [address] [place] [address] documented as of this encounter Visit Diagnoses Not on filedocumented in this encounter Additional Health Concerns AssessmentNoted TimePHQ-9 Depression Total Score: 8:40 AM ESTA Body Mass Index follow-up plan has been documented for the nlgpkwf5005/09/2025 7:03 PM ESTdocumented as of this encounter Care Teams Team MemberRelationshipSpecialtyStart DateEnd Date Eyad Tee MD [address], [address] [place] [address] [facility] - General01/26/14documented as of this encounter
--- OUTSIDE RECORDS SUMMARY | 2025-05-14 07:56 | XMS_ITS | Clinical Summary ---
Author Organization [facility] Address [address] [facility] [address], [address] [place] [address] Care Team Providers Care Refiner Operator Name Role Phone Eyad Tee MD Primary Care Provider +1- [phone] Allergies No known active allergies Medications MedicationSigDispense QuantityRefillsLast FilledStart DateEnd DateStatus atorvastatin (LIPITOR) 20 MG tablet Take 1 tablet by mouth daily12/16/2022ctive Cholecalciferol 50 MCG (1999) TABS Take 2.5 tablets by mouth dailyActive dulaglutide (TRULICITY) 1.5 MG/0.5ML SC injection Inject 0.5 mLs into the skin every 7 daysActive escitalopram (LEXAPRO) 20 MG tablet Take 1 tablet by mouth daily05/01/2023ctive gabapentin (NEURONTIN) 300 MG capsule Take 1 capsule by mouth 3 times daily.12/10/2022ctive ONETOUCH ULTRA strip USE DIRECTED 2 TIMES DAILY FOR DX E11.9Active glyBURIDE (DIABETA) 5 MG tablet Take 1 tablet by mouth 2 times daily05/12/2023ctive lisinopril (PRINIVIL;ZESTRIL) 10 MG tablet Take 1 tablet by mouth daily05/01/2023ctive meloxicam (MOBIC) 15 MG tablet Take 1 tablet by mouth daily12/03/2022ctive metFORMIN (GLUCOPHAGE) 1000 MG tablet Take 1 tablet by mouth 2 times daily05/01/2023ctive rOPINIRole (REQUIP) 0.25 MG tablet Take 1 tablet by mouth plgnkuj5110/07/2023ctive tiotropium (SPIRIVA) 18 MCG inhalation capsule Inhale 1 capsule into the lungs daily04/18/2023ctive traZODone (DESYREL) 100 MG tablet TAKE 2 TABLETS ONE TIME DAILY AT CDIECRU1305/01/2023ctive aspirin 81 MG EC tablet Take 1 tablet by mouth dailyActive Sodium Sulfate-Mag Sulfate-KCl (SUTAB) 8068-320-586 MG TABS Indications:Screening for colon cancer,Family history of colon cancerTake as directed by office for colonoscopy. 24 tablet 10/23/2023ctive Active Problems ProblemNoted DateDiagnosed PsfyDlblriyf76/16/2023ardiac uhbawp49 Esophageal ladnfd2504/01/2023Type 2 diabetes mellitus without complication 01/15/2023 Overview (03/17/2025): Replacing diagnoses that were inactivated after the 03/17 regulatory import Essential xjcdumcahdob42/01/2023Lumbar momstfabytsya13/01/2023yslipidemia 01/15/2023Left bundle branch block01/15/2023Osteoarthritis of knee01/15/2023 Social History Tobacco UseTypesPacks/DayYears UsedDateSmoking Tobacco: Every DayCigarettes Smokeless Tobacco: Never Tobacco Cessation:Ready to Q uit: Not Asked; Counseling Given: Not Answered Alcohol UseStandard Drinks/WeekCommentsNever0 (1 standard drink = 0.6 oz pure alcohol)CommentsUnknownSex and Gender InformationValueDate RecordedSex Assigned at BirthNot on fileLegal NapFrhmsv02/10/2013 2:05 PM ESTGender Identity Not on fileSexual OrientationNot on file Last Filed Vital Signs Vital SignReadingTime TakenCommentsBlood Wbxsympf056/7105 9:28 AM EDT Zpkbe695710/17/2023 9:28 AM EDTTemperature--Respiratory Spgm491610/17/2023 9:28 AM EDTOxygen Upmccywspr64%10/17/2023 9:28 AM EDTInhaled Oxygen Concentration-- Ocofvv247.6 kg (224 lb)10/17/2023 9:28 AM PBZHlfkty464.6 cm (5' 4 )10/17/2023 9:28 AM EDTBody Mass Index38.45010/17/2023 9:28 AM EDT Plan of Treatment Health MaintenanceDue DateLast NmzbHccmnmisY3L test (Diabetic or Prediabetic) 02/10/1966Diabetic foot exam02/10/19668511Dlhowl90/27/1966Depression Screen 1968Diabetic Alb to Cr ratio (uACR) test02/10/1974Diabetic retinal exam 02/10/1974GFR test (Diabetes, CKD 3-4, OR last GFR 15-59)02/10/1974Hepatitis C guxdxj6002/10/1974Breast cancer jfpabp0402/11/19961598Otzfmqjyxvd70/27/2001Colorectal Cancer Hblmba6002/10/2001FIT/FOBT: Average risk02/10/2001Fecal-DNA (Cologuard): Average risk02/10/2001Sigmoidoscopy/CT fpxabmiyftoa27/27/2001DEXA (modify frequency per FRAX score)02/10/2011nnual Wellness Visit (Medicare)10/11/2023Flu vaccine (#1)5107/15/2021, 05/01/2021, 09/02/2020, Additional history existsCOVID-19 Vaccine ( - season)2025Respiratory Syncytial Virus (RSV) or age 60 yrs+ (1 - 1-dose 75+ series)1DTaP/Tdap/Td vaccine (3 - Td or Tdap), 12/03/2011Shingles vaccine Mnxdeiimt51/18/2021, 04/27/2020Pneumococcal 50+ years VaccineCompleted 05/15/2022, 05/01/2021, 01/04/2014, Additional history existsHepatitis A vaccine Aged OutNo longer eligible based on patient's age to complete this topic Hepatitis B vaccineAged OutNo longer eligible based on patient's age to complete this topicHib vaccineAged OutNo longer eligible based on patient's age to complete this topicMeningococcal (ACWY) vaccineAged OutNo longer eligible based on patient's age to complete this topicMeningococcal B vaccineAged OutNo longer eligible based on patient's age to complete this topicPolio vaccineAged OutNo longer eligible based on patient's age to complete this topic Insurance Care Teams Team MemberRelationshipSpecialtyStart DateEnd Date Eyad Tee MD [address] [place] [address] PCP - GeneralFamily Medicine10/17/23
--- OUTSIDE RECORDS SUMMARY | 2025-05-14 07:56 | XMS_ITS | Patient Health Record ---
Author Organization [facility] [place] in [place] Address [address] [place] [address] Care Team Providers Care Print Production Associate Name Role Phone None, Unknown or Primary Care Provider Unavailab le Allergies Allergen (clinical drug ingredient) Drug/Non Drug Allergy documented on EMR Reaction Allergy Type Onset Date Status naproxen Naprosyn stomach upset Drug Allergy Active Reason For Referral No Information Medications Medication SIG (Take, Route, Frequency, Duration) Notes Start Date End Date Status Actos 30 MG 1 tablet Orally Once a day; Dura tion: 90 days 05/24/2021Not-TakingMeloxicam 15 MGTAKE 1 TABLET BY MOUTH EVERY DAY FOR 90 DAYS; Duration: 90Not-TakingLovenox 100 MG/ML100 mg Injection every 12 hrs; Duration: 30 days07/30/2022Not-TakingLisinopril 10 MGTAKE 1 TABLET EVERY DAY; Duration: 90 ActiveglyBURIDE 5 MGTAKE 1 TABLET TWICE DAILY; Duration: 90ActiveGabapentin 300 MG1 CAPSULE IN THE MORNING 2 AT BEDTIME Orally DAILYActiveWarfarin Sodium 10 MG TAKE DIRECTED PER COUMADIN CLINIC; Duration: 60ActiveEscitalopram Oxalate 20 MGTAKE 1 TABLET EVERY DAY; Duration: 90ActiveVitamin D 2000 UNITTAKE 5,000 Orally Once a dayActiveAtorvastatin Calcium 20 MGTAKE 1 TABLET EVERY DAY; Duration: 90 daysActiveTrulicity 1.5 MG/0.5MLas directed Subcutaneous inject 1.5mg under the skin once weekly; Duration: 90 days06/22/2021ctiveAspir-Low 81 MG1 tablet Orally Once a dayActiveTriamcinolone Acetonide 0.5 %1 application to affected area Externally Twice a day; Duration: 14 days04/30/2020ActiveLantus SoloStar 100 UNIT/OV06tcqec Subcutaneous Daily; Duration: 90 days05/24/2021 Not-TakingtraZODone HCl 100 MGTAKE 2 TABLETS ONE TIME DAILY AT BEDTIME; Duration: 90ActiveEliquis 5 MG2 tabs twice daily for 7 days and the 1 tab twice daily Orally Twice a day; Duration: 30 day(s)07/30/2022Not-TakingOneTouch Ultra -as directed Dx: Diabetes Type II TWO TIMES; Duration: 30 daysDX E11.9Active metFORMIN HCl 1000 MGTAKE 1 TABLET TWICE DAILY; Duration: 90Active Immunizations Vaccine Route Administration Date Status Comme nts Flu, (05382) -historic- Split, Prsrvtve Free, for Intradermal use Unknown 04/16/2008 Pending 16 Apr 2008 Flu, FluLaval (77050) 6mo+, single-dose syringe (3657-5969) IM Intramuscular 04/27/2020 Administered Flu, Fluzone (34603) 6 mos+, single-dose syringe/vial (7665-3584)IM Mdcqmjifetfhy94/01/2017AdministeredFlu, Fluzone (86469) 6 mos+, single-dose syringe/vial (5309-7341)IM Bjzajhyvyirwb40/14/2019Administeredpt tolerated well Flu, Fluzone High-Dose (77902) 65 yrs+ (7108-5305)IM Bqnmqfgxdonfm97/15/2021 AdministeredFlu, Fluzone High-Dose (42477) 65 yrs+ (1576-1345)IM Intramuscular 2Administeredtolerated wellPneumococcal (Pneumovax 23)Ljycska0504/16/2008 Sytrabs5516 Apr 2008Pneumococcal (Pneumovax 23)IM Pnswoclcfuebf45/21/2014 Sisfevpcwrbz55Lsu0722 02:49PMPneumococcal (Pneumovax 23)IM Intramuscular 1AdministeredPneumococcal (Prevnar 13)IM Octktlsjmnfcu48/04/2016 Wjkoaetjgbuu06Sxb1189 10:18AMPneumococcal (Prevnar 13)IM Phegpahknxuwu02/29/2022 Administeredtolerated vzfrHEET-OIE-2 (COVID 19 Pfizer 30mcg/0.3mL)Unknown 8075IluvicbeqljyXGVY-OSA-3 (COVID 19 Pfizer 30mcg/0.3mL)Kfsvgxh1202/07/2021 AdministeredShingrix (Zoster)IM Tcsiueszhyruw85/11/2020AdministeredShingrix (Zoster)IM Bqstvcsnzxacc83/18/2021AdministeredTb Intradermal TestUnknown 04/16/20087829Prbmmmp61 Mar 2008Td, Adult, absorbedIM Ktezhwylcpnxh94/16/2022 AdministeredTdapIM Nnbhughefdgtn11/18/9128Zwllydcvpwoc31Otr8722 08:28AM Social History Tobacco Use: Social History Observation Description Date Details (start date - stop date) Former Smoker NA - NA Tobacco Use/Smoking Question Answer Notes Patient is a former smoker How long has it been since you last smoked?1-5 yearsAlcohol Screen (Audit-C) Question Answer Notes Did you have a drink containing alcohol in the p ast year? No Eldbvx9TalijoaqxwxarwAxkhhdhiJkwrfjj Notes: quit smoking about 1.5 tears ago smoke 1 pac a day for 40 years quit smoking about 1.5 tears ago smoke 1 pac a day for 40 years quit smoking about 1.5 tears ago smoke 1 pac a day for 40 years Problems Problem Type SNOMED Code ICD Code Onset Dates Problem Status W/U Status Risk Notes Problem Essential hypertension (94138189 ) Essential (primary) hypertension (I10) ActiveconfirmedProblemPure hyperglyceridemia (326208683)Pure hyperglyceridemia (E78.1)ActiveconfirmedProblemHypomagnesemia (717174296)Hypomagnesemia (E83.42) ActiveconfirmedProblemTobacco user (225983628)Nicotine dependence, cigarettes, uncomplicated (F17.210)ActiveconfirmedProblemTobacco user (697985545)Nicotine dependence, cigarettes, in remission (F17.211)ActiveconfirmedProblemMajor depression, single episode (95741521)Major depressive disorder, single episode, unspecified (F32.9)ActiveconfirmedProblemPrimary insomnia (0867567)Primary insomnia (F51.01)ActiveconfirmedProblemInsomnia (321832731)Insomnia, unspecified (G47.00)ActiveconfirmedProblemIrritable bowel syndrome with diarrhea (042996462) Irritable bowel syndrome with diarrhea (K58.0)ActiveconfirmedProblemSolitary sacroiliitis (260823927)Sacroiliitis, not elsewhere classified (M46.1)Active confirmedProblemPain in right leg (651592314)Pain in right leg (M79.604)Active confirmedProblemDisorder of bone (64182261)Other specified disorders of bone density and structure, unspecified site (M85.80)ActiveconfirmedProblemHeart murmur (finding) (83235578)Cardiac murmur, unspecified (R01.1)Activeconfirmed ProblemAbnormal findings on diagnostic imaging of breast (630898264)Other abnormal and inconclusive findings on diagnostic imaging of breast (R92.8)Active confirmedProblemScreening for malignant neoplasm of breast (662163380)Encounter for screening mammogram for malignant neoplasm of breast (Z12.31)Activeconfirmed ProblemTobacco abuse (7521529188)Tobacco abuse (Z72.0)ActiveconfirmedProblemLeft bundle branch block (88988678)LBBB (left bundle branch block) (I44.7)Active confirmedProblemBarrett's esophagus (684543809)Barretts esophagus without dysplasia (K22.70)ActiveconfirmedProblemDegeneration of lumbar intervertebral disc (61993794)Lumbar degenerative disc disease (M51.36)ActiveconfirmedProblem Carotid artery occlusion (236671349)Occlusion and stenosis of unspecified carotid artery (I65.29)ActiveconfirmedProblemHyperlipidemia (14249413) Hyperlipidemia, unspecified (E78.5)ActiveconfirmedProblemGastroesophageal reflux disease without esophagitis (332491313)Gastroesophageal reflux disease without esophagitis (K21.9)ActiveconfirmedProblemMixed anxiety and depressive disorder (945393503)Depression with anxiety (F41.8)ActiveconfirmedProblemPain in limb (78801428)Pain of left leg (M79.605)ActiveconfirmedProblemBilateral carotid bruits (R09.89)ActiveconfirmedProblemDiverticulitis of colon (894632106)Acute diverticulitis (K57.92)ActiveconfirmedProblemRaised antinuclear antibody (800823745)DAHLIA positive (R76.8)ActiveconfirmedProblemAcute maxillary sinusitis (54596213)Acute non-recurrent maxillary sinusitis (J01.00)ActiveconfirmedProblem Type II diabetes mellitus without complication (262107798)Type 2 diabetes mellitus without complication, unspecified terminal superintendent insulin use status (E11.9) ActiveconfirmedProblemIrritable bowel syndrome (75675924)Irritable bowel syndrome with both constipation and diarrhea (K58.2)ActiveconfirmedProblem Adrenal mass (880985675)Adrenal mass (E27.8)Activeconfirmed Plan Of Treatment Pending Test Test Name Order Date T3 FREE, T4 FREE and TSH 01/18/2020 XR Chest 2 Views * 06/21/2021 [facility] Mammo Digital Diagnostic Right 2022 [facility] Mammo Digital Screening Bilateral* US Breast Limited Right 11/05/2022 Future Test Test Name Order Date CT Chest Lung Cancer Scr w/o Contrast VASC Venous Duplex Lower Right CBC w/ Diff 04/13/2023 CMP - Comprehensive Metabolic Panel 03/18 Lipid Panel 04/13/2023 TSH - Thyroid Stimulating Hormone 2022 Uric Acid 04/13/2023 Free T4 04/13/2023 Vitamin D, 25-Hydroxy 04/13/2023 Hemoglobin A1C (HA1C) 04/13/2023 Insurance Providers Payer Name Payer Address Payer Phone Subscriber Number Group Number Insured Name Patient Relationship to Insured Coverage Start Date Coverage End Date MEDICARE RAILROAD [address] [address] [place], [place] [id number] Carol Anne - patient is the [id number] [id number] MEDICARE SUPPLEMENT [address] [place] [id number] Carol Anne - patient is the insured Medical (General) History Medical History History ICD Code HYPERTENSION type 2 diabeteshigh cholesterolSurgical History Surgery Date(Month/Year) L3, L4,L5 disc disease 07/19/2022 cholecystectomy Blood vessel repairNeuroplasty decompression median nerve at carpal tunnelKnee scope right03/20176724tonmujmqwzjr42/2020heart cath06/220left knee scope05/2020L2 and L3 disc07/03/2022
--- OUTSIDE RECORDS SUMMARY | 2025-05-14 07:56 | XMS_ITS | Clinical Summary ---
Author Organization [employer] tem Address [id number] [address] [place] [address] Care Team Providers Care Ore Grader Name Role Phone Eyad Tee MD Primary Care Provider [phone] Allergies No known active allergies Medications MedicationSigDispense QuantityRefillsLast FilledStart DateEnd DateStatus BABY ASPIRIN ORAL Take 81 mg by mouth.Active cholecalciferol, vitamin D3, (VITAMIN D3) 5,000 units capsule Take 1 capsule (5,000 Units total) by mouth in the morning.Active tiotropium (SPIRIVA) 18 mcg per inhalation capsule Indications:SOB (shortness of breath)Place 1 capsule into inhaler and inhale in the morning. 90 capsule 3Active Additional Information Patient not taking.Reported on 05/03/2025 escitalopram (LEXAPRO) 20 mg tablet Indications:AnxietyTake 1 tablet (20 mg total) by mouth in the morning. 90 tablet 5Active lisinopriL (PRINIVIL,ZESTRIL) 10 mg tablet Indications:Primary hypertensionTake 1 tablet (10 mg total) by mouth in the morning. 90 tablet 5Active blood sugar diagnostic (ONETOUCH ULTRA TEST) strip Indications:Type 2 diabetes mellitus without complication, without long-term current use of insulin ([facility])USE DIRECTED 2 TIMES DAILY FOR DX E11.9 100 strip 5Active traZODone (DESYREL) 100 mg tablet Take 2 tablets (200 mg total) by mouth nightly. 180 tablet 5Active gabapentin (NEURONTIN) 600 mg tablet Indications:Chronic bilateral low back pain without sciaticaTake 1 tablet (600 mg total) by mouth in the morning and 1 tablet (600 mg total) before bedtime. 180 tablet 5Active ibuprofen (MOTRIN) 800 mg tablet Indications:Degenerative joint disease of low backTAKE 1 TABLET EVERY 12 HOURS NEEDED FOR PAIN 180 tablet 5Active rOPINIRole (REQUIP) 0.5 mg tablet TAKE 1 TABLET EVERY NIGHT 90 tablet 5Active glipiZIDE-metFORMIN (METAGLIP) 5-500 mg per tablet Indications:Type 2 diabetes mellitus without complication, without long-term current use of insulin ([facility])Take 1 tablet by mouth in the morning and 1 tablet in the evening. Take before meals. 180 tablet 5Active semaglutide (OZEMPIC) 0.25 mg or 0.5 mg (2 mg/3 mL) pen injector Indications:Type 2 diabetes mellitus without complication, without long-term current use of insulin ([facility])Inject 0.5 mg under the skin once a week. 2 mL 5Active albuterol (PROVENTIL HFA;VENTOLIN HFA) 90 mcg/actuation inhaler Indications:Former cigarette smokerInhale 2 puffs every 6 (six) hours as needed for wheezing. 15 g 5Active atorvastatin (LIPITOR) 20 mg tablet Indications:Pure hypercholesterolemiaTAKE 1 TABLET EVERY DAY 90 tablet 5Active busPIRone (BUSPAR) 10 mg tablet Indications:AnxietyTake 0.5 tablets (5 mg total) by mouth in the morning and 0.5 tablets (5 mg total) before bedtime. 180 tablet Discontinued atorvastatin (LIPITOR) 20 mg tablet Indications:Pure hypercholesterolemiaTake 1 tablet (20 mg total) by mouth nightly. 90 tablet /Discontinued metFORMIN (GLUCOPHAGE) 1000 mg tablet Indications:Type 2 diabetes mellitus without complication, without long-term current use of insulin ([facility])Take 1 tablet (1,000 mg total) by mouth in the morning and 1 tablet (1,000 mg total) in the evening. Take with meals. 180 tablet Discontinued glyBURIDE (DIABETA) 5 mg tablet TAKE 1 TABLET TWICE DAILY 180 tablet Discontinued TRULICITY 3 mg/0.5 mL pen injector Indications:Type 2 diabetes mellitus without complication, without long-term current use of insulin ([facility])INJECT 3 MG (0.5 ML) UNDER THE SKIN ONCE A WEEK 6 mL 5106/18/2024Discontinued TRULICITY 3 mg/0.5 mL pen injector Indications:Type 2 diabetes mellitus without complication, without long-term current use of insulin ([facility])INJECT 3 MG (0.5 ML) UNDER THE SKIN ONCE A WEEK 6 mL 5107/03/2024Discontinued Active Problems ProblemNoted DateDiagnosed DateObesity, hnzgfz9910/05/2023iabetes mellitus 04/01/2023ardiac tccauj836655Ogetfhsn84/16/2023Essential hypertension 04/01/20239759Fczngzvoqmlqux71/16/8195Yimqzwwbhatoguqgx77/16/2023Major depressive zperpcpn19/16/2023Esophageal fzqdjt8104/01/2023 Encounters DateTypeDepartmentCare GitsTdmslqfdsun56/25/2025Telephone [facility] [address] [place] [address] Rosy Cortes LPN elevated bs05/10/2025[facility]phone [facility] [address] [facility] [place] [address] Rosy Cortes LPN BS issue05/07/2025[facility] [address] [facility] [phone] Eyad Tee MD Pure svmnciubdlannnyiafss77/17/2025 8:30 AM ESTOffice Visit [facility] [address] [facility] [place] [place] [address] Eyad Tee MD Type 2 diabetes mellitus without complication, without long-term current use of insulin ([facility]) (Primary Dx); Special screening for malignant neoplasm of colon; Primary hypertension; Anxiety; Pure hypercholesterolemia; Gastroesophageal reflux disease without esophagitis; Chronic bilateral low back pain without sciatica; Former cigarette smoker; Vitamin D /17/6696Cawluf19/15/2422Pnrstl78/12/2025Results Follow-Up [facility] [address] [place] [address] Eyad Tee MD CBC auto differential, Hemoglobin A1c, Basic Metabolic Panel04/27/2025Travel 04/18/2025[facility] [address] [place] [id number] Eyad Tee MD Type 2 diabetes mellitus without complication, without long-term current use of insulin ([facility])04/15/2025Telephone [facility] [address] [facility] [place] [address] Catalina Broderick, MARGUERITE Medication Icnftks5903/20/2025Refill [facility] [address] [place] [address] Eyad Tee MD 02/23/2025[facility] [address] [facility] [place] [address] Eyad Tee MD Degenerative joint disease of low backfrom Last 3 Months Immunizations ImmunizationAdministration DatesNext DueInfluenza, High-dose, Quadrivalent 05/15/2022,05/01/2021Influenza, Im Trivalent Xauepfmjrykr86/01/2019Influenza, Injectable, quadrivalent (PF)09/02/2020,04/27/2020,03/30/2019,04/17/2017 Influenza, Trivalent, Rzcsmcxmua14/05/2024Pneumococcal Conjugate 13-Valent 2Pneumococcal Rdpnfurciaminz81/15/2021,01/04/2014,06/17/2012Td (adult), 5 Lf tetanus toxoid, preservative free, rsunrjjf35/16/5372Opft95/18/2012Zoster Vaccine Uftffwrdmgc98/18/2021,04/27/2020 Family History Medical HistoryRelationNameCommentsHeart diseaseFatherHeart diseaseMother RelationNameStatusCommentsFatherMother Social History Tobacco UseTypesPacks/DayYears UsedDateSmoking Tobacco: FormerCigarettes0.552.6 1971 - 01/27/2024Smokeless Tobacco: Never Tobacco Cessation:Counseling Given: Not Answered Alcohol UseStandard Drinks/WeekCommentsYes0 (1 standard drink = 0.6 oz pure alcohol)MONTHLYPHQ-2AnswerDate RecordedTotal Eknro007/17/2025ChildcareAnswerDate UcvltrzvZcibxtbhmWklnwmj43/12/2019EmploymentAnswerDate RecordedEmploymentUnknown 11/26/2018Hunger ScreeningAnswerDate RecordedWithin the past 12 months we worried whether our food would run out before we got money to buy more.Never True05/03/2025Within the past 12 months the food we bought just didn't last and we didn't have money to get more.Never True05/03/2025Purpose - LifeAnswerDate RecordedPurpose and direction in ipwuIhpfnjj54/11/2021CommentsNoSex and Gender InformationValueDate RecordedSex Assigned at BirthNot on fileLegal Sex Fqkwdu8401/20/2015 12:14 PM EDTGender IdentityNot on fileSexual OrientationNot on file Last Filed Vital Signs Vital SignReadingTime TakenCommentsBlood Qumdbfql925/6805/03/2025 8:38 AM EST Ggwjb169305/03/2025 8:38 AM BNOJbaymfmnctd52.8 ??C (98.2 ??F)10/03/2023 4:11 PM EDTRespiratory Jhfj0157 11:48 AM EDTOxygen Clpabzcdly40%05/03/2025 8:38 AM ESTInhaled Oxygen Concentration--Hwiqbv74.8 kg (220 lb)05/03/2025 8:38 AM EST Yaiuab427.6 cm (5' 4 )05/03/2025 8:38 AM ESTBody Mass Index37.7605/03/2025 8:38 AM EST Plan of Treatment DateTypeDepartmentCare Team (Latest Contact Info)Bjnepqyaxhp48/19/2026 8:00 AM EDTOffice Visit [facility] [address] [place] [address] Eyad Tee MD [address] [facility] [address] [place] [address] Health MaintenanceDue DateLast DoneCommentsDiabetic Ophthalmology Exam07/25/2024 07/25/2023Medicare Annual Wellness Visit/OVID-19 Vaccine ( season)/, 02/17/2021, 01/17/2021Influenza Vaccine /10/2023, 05/15/2022, 05/01/2021, Additional history existsAdult BMI Follow Up [place] BMI Giizjwgtc23 Depression Obbcusvoc72Diabetic Foot Exam Fall Risk Qbkzimbln46Tobacco Hasqtwepc56 Statin Use: Mboqmrln94RSV ( or age 60+ yrs) (1 - 1- dose 75+ series)1DTaP,Tdap and Td Vaccines (3 - Td or Tdap)10/31/2031 10/30/2021, 12/03/2011Zoster (Shingles) WgvhrhkWzamkeupq74/18/2021, 04/27/2020 Medical Devices Not on file Procedures Procedure NamePriorityDate/TimeAssociated DiagnosisCommentsBASIC METABOLIC PANEL Pnzfqvu2504/27/2025 7:56 AM EST Type 2 diabetes mellitus without complication, without long-term current use of insulin ([facility]) HEMOGLOBIN U5EHrcguvn03/11/2025 7:56 AM EST Type 2 diabetes mellitus without complication, without long-term current use of insulin ([facility]) CBC WITH AUTO RFXQFYNDMAKYIbwwgwa26/11/2025 7:56 AM EST Type 2 diabetes mellitus without complication, without long-term current use of insulin ([facility]) HM DIABETES EYE IXVRYybfeai87/08/2024from Last 3 Months or Most Recently Relevant to Health Maintenance Results * (ABNORMAL) CBC auto differential (04/27/2025 7:56 AM EST)ComponentValueRef RangeTest MethodAnalysis TimePerformed AtPathologist SignatureWBC5.84 - 11 X10^9/L106/27/2024 1:20 PM [facility] LABORATORYRBC Count3.86 3.8 - 5.2 X10^12/L106/27/2024 1:20 PM [facility] Zsrqfdpsrz69.6(L)11.7 - 15.5 g/dL04/27/2025 1:20 PM [facility] YPXWVNOEJEUjsfflague43.3(L)35 - 47 %04/27/2025 1:20 PM [facility] PBKGHFDBRLXGJ0775 - 100 fL04/27/2025 1:20 PM [facility] BHUJQIGPBHFCR61.227 - 34 pg04/27/2025 1:20 PM [facility] EDTHXMAVGHLSLT69.032 - 36 g/dL04/27/2025 1:20 PM [facility] HEZRXPSEDVAKU25.911.5 - 15 %04/27/2025 1:20 PM [facility] LABORATORYPlatelet Obtpu218699 - 450 X10^9/L106/27/2024 1:20 PM [facility] LABORATORYMPV8.67 - 12 fL04/27/2025 1:20 PM [facility] LABORATORYNeutrophils %61.4%04/27/2025 1:20 PM [facility] LABORATORYLymphocytes %28.0%04/27/2025 1:20 PM [facility] LABORATORYMonocytes %8.3%04/27/2025 1:20 PM [facility] LABORATORYEosinophils %1.4%04/27/2025 1:20 PM [facility] LABORATORYBasophils %0.9%04/27/2025 1:20 PM [facility] LABORATORYNeutrophils Absolute (A)3.51.5 - 6.6 X10^9/L 04/27/2025 1:20 PM [facility] LABORATORYLymphocytes Absolute 1.61.0 - 3.5 X10^9/L106/27/2024 1:20 PM [facility] Monocytes Absolute0.50.0 - 0.9 X10^9/L106/27/2024 1:20 PM [facility] LABORATORYEosinophils Absolute0.10.0 - 0.4 X10^9/L106/27/2024 1:20 PM [facility] LABORATORYBasophils Absolute0.10.0 - 0.2 X10^9/L 04/27/2025 1:20 PM [facility] LABORATORYDifferential Type AUTOMATED LRVVSRTMRAJJ08/11/2025 1:20 PM [facility] LABORATORYSpecimen (Source)Anatomical Location / LateralityCollection Method / VolumeCollection TimeReceived TimeBloodVenous blood / UnknownVenipuncture / Ttxahfy2204/27/2025 7:56 AM EST04/27/2025 7:56 AM EST Narrative Authorizing ProviderResult TypeResult StatusMohammajim TOLBERT BLOOD ORDERABLESFinal ResultPerforming OrganizationAddressCity/State/ZIP CodePhone Number [facility] [address] [place] [address], * (ABNORMAL) Hemoglobin A1c (04/27/2025 7:56 AM EST)ComponentValueRef RangeTest MethodAnalysis TimePerformed AtPathologist SignatureHEMOGLOBIN A1C7.8(H)4.4 - 5.6 %04/27/2025 1:52 PM [facility] LABORATORYComment: ?ADA Guidelines ?Result ?HgbA1c ? Normal : ? less than 5.7 % ? Prediabetes : ?5.7 % ??to 6.4 % Diabetes : > 6.4 % ?Use with caution in patients with abnormal hemoglobin variants as ??the half-life of red blood cells and in vivo glycation rates are ??affected. EST. AVERAGE GLKDPUP932nj/dL04/27/2025 1:52 PM [facility] LABORATORYSpecimen (Source)Anatomical Location / LateralityCollection Method / VolumeCollection TimeReceived TimeBloodVenous blood / UnknownVenipuncture / Kqviexk8504/27/2025 7:56 AM EST04/27/2025 7:56 AM EST Narrative Authorizing ProviderResult TypeResult StatusMohamlilliana TOLBERT BLOOD ORDERABLESFinal ResultPerforming OrganizationAddressCity/State/ZIP CodePhone Number [facility] [address] [place] [address], * (ABNORMAL) Basic Metabolic Panel (04/27/2025 7:56 AM EST)ComponentValueRef RangeTest MethodAnalysis TimePerformed AtPathologist ArbcgxxxsNKDUSI910990 - 146 mmol/L106/27/2024 2:33 PM [facility] LABORATORYPOTASSIUM 4.93.5 - 5.0 mmol/L106/27/2024 2:33 PM [facility] WOAQCYLX01569 - 109 mmol/L106/27/2024 2:33 PM [facility] LABORATORYCARBON FPJYTMS7364 - 32 mmol/L106/27/2024 2:33 PM [facility] LABORATORYANION GAP95 - 15 mmol/L106/27/2024 2:33 PM [facility] LABORATORYBLOOD UREA XVBIJFXU150 - 27 mg/dL04/27/2025 2:33 PM [facility] LABORATORYCREATININE0.890.40 - 1.00 mg/dL 04/27/2025 2:33 PM [facility] LABORATORYComment:METHOD TRACEABLE TO IDMS ZAQLCPUDVRUSLMW455(H)65 - 99 mg/dL04/27/2025 2:33 PM [facility] LABORATORYCALCIUM9.68.5 - 10.5 mg/dL04/27/2025 2:33 PM [facility] LABORATORYEGFR Non-Race Fruwkyosa88>=60 ml/min/1.73sq.m106/27/2024 2:33 PM [facility] Comment: Reported eGFR is based on the CKD-EPI 2020 equation that does not use a race coefficient. Specimen (Source)Anatomical Location / LateralityCollection Method / Volume Collection TimeReceived TimeBloodVenous blood / UnknownVenipuncture / Unknown 04/27/2025 7:56 AM EST04/27/2025 7:56 AM EST Narrative Authorizing ProviderResult TypeResult StatusMoluz maria TOLBERT BLOOD ORDERABLESFinal ResultPerforming OrganizationAddressCity/State/ZIP CodePhone Number [facility] [address] [place] [address], * DIABETES EYE EXAM (07/25/2023) Narrative Authorizing ProviderResult TypeResult StatusScanning Provider ExternalHEALTH MAINTENANCEFinal ResultPerforming OrganizationAddressCity/State/ZIP CodePhone Number MANUALLY TRANSCRIBED RESULTS from Last 3 Months or Most Recently Relevant to Health Maintenance Insurance Care Teams Team MemberRelationshipSpecialtyStart DateEnd Date Eyad Tee MD [address], [address] [address] [facility] - General01/26/14
--- OUTSIDE RECORDS SUMMARY | 2025-05-14 07:56 | XMS_ITS | CCD ---
Author Organization [facility] [employer] [facility] Care Team Providers Care Inspector Rag Sorting Name Role Phone Lala Ramon Unavailable NON STAFF Primary Care Provider UnavailDO Eric Durbin Emergency Provider DO Raul Massey Jr Attending Provider MD Idalmis Rico Attending Provider [phone] MD Idalmis Rico Admit Provider Idalmis Rico Unavailable MISC, DR MCCARTNEY Primary Care Unavailable FAWWAHeydi, MEJIAS H Admitting Unavailable FAWWAHeydi, MEJIAS H Attending Unavailable IMAN, DR SOLEDAD Serna Admitting Unavailabl e MISC, DR MCCARTNEY Primary Care Unavailable NEFTALI, DR LOUISE Smith Consulting Unavailable REINECK, DR SOLEDAD Serna Attending Unavailabl e GRECHNY ., KVNG MANLEY Consulting Unavailabl e MISC, DR MCCARTNEY Primary Care Unavailable MISC, DR MCCARTNEY Admitting Unavailable NEFTALI, DR LOUISE Smith Consulting Unavailable MISC, DR MCCARTNEY Attending Unavailable MISC, DR MCCARTNEY Consulting Unavailable FLORENCE, DR LUIS FERNANDO Hudson Consulting Unavailable MISC, DR MCCARTNEY Admitting Unavailable MISC, DR MCCARTNEY Primary Care Unavailable MISC, DR MCCARTNEY Attending Unavailable MISC, DR MCCARTNEY Consulting Unavailable SATNAM FITZGERALD Consulting Unavailable MISC, DR MCCARTNEY Admitting Unavailable MISC, DR MCCARTNEY Attending Unavailable MISC, DR MCCARTNEY Consulting Unavailable MISC, DR MCCARTNEY Primary Care Unavailable FAWCHRISTY, H Attending Unavailable FAWWAHeydi, MEJIAS H Admitting Unavailable MISC, DR MCCARTNEY Primary Care Unavailable MISC, DR MCCARTNEY Primary Care Unavailable FAWWAHeydi, MEJIAS H Admitting Unavailable FASamiWAHeydi, MEJIAS H Attending Unavailable MISC, DR MCCARTNEY Primary Care Unavailable FAWWAHeydi, MEJAIS H Admitting Unavailable SHAIKH Jose GRIJALVA Attending Unavailable Malathi NURSING UNIT COORDINATOR-C Noemy Attending Provider MD Eyad Garland Primary Care Provider Malathi NURSING UNIT COORDINATOR-Lele Salguero Attending Provider MD Eyad Garland Primary Care Provider MD Eyad Garland Primary Care Provider Malathi NURSING UNIT COORDINATOR-Lele Salguero Attending Provider MD Eyad Garland Primary Care Provider Malatih NURSING UNIT COORDINATOR-Lele Salguero Attending Provider MD Eyad Garland Primary Care Provider MD Jacques Foy Attending Provider MD Jacques Foy Admit Provider MD Misty Hamilton Other Provider MD Ramirez Wallis Other Provider REILLY Pringle Other Provider DO Temo Chavez Jr L Other Provider MD Blake Morris Other Provider [phone] MD Blake Morris Admit Provider MD Blake Morris Attending Provider ROSCOE Shah Other Provider Unavailable ROSCOE Cordova Other Provider Unavailable ROSCOE Crowder Other Provider Unavailable ROSCOE Thomas Other Provider Unavailable ROSCOE Nieto Other Provider Unavailable MD Georgie Foley Other Provider DO Ladan Sánchez Other Provider MD Titi Hare Other Provider DO Manuel Nuñez Other Provider MD Sherwin Mortensen Other Provider [phone] MD Citlaly Raymond Other Provider MD Dino Herman Other Provider Unavailable REILLY Mcrae Other Provider MD Guru Batista Other Provider MD Brenden Mckee Other Provider MD Aliyah Jacinto Other Provider MD Bri Guerrero Other Provider DO Ignacio De La Torre Other Provider MD Jason Leung Other Provider MD Chris Douglas Other Provider RONY Earl-C Rhina Rowe Other Provider REILLY Espinoza Other Provider Unavailable MD Kingsley Aburto Other Provider MD Johnson Lorenz Other Provider MD Ish Beverly Other Provider MD Ben Jacobs Other Provider Unavailable MD Brandon Traore Other Provider DO Abigail Morales Other Provider DO Binu Tate Other Provider REILLY Whittaker Other Provider DO Magdaleno Hernandez Other Provider MD Raúl Martin Other Provider REILLY Arthur Other Provider REILLY Chiu Other Provider MD Raquel Davies Other Provider MD Gaurav Christensen Other Provider DO Missael Hatch Other Provider DO Dallas Ponce Other Provider MD Barry Beverly Other Provider MD Gaston Pike Other Provider REILLY Cheng Other Provider MD Kimberlee Lizarraga Other Provider MD Sid Perez Other Provider ROSCOE Klein Other Provider Unavailable REILLY Pringle Other Provider [phone] EL SAYYAD, MOHAMMAD MAHMOUD Primary Care Physici an MARINA ROCHA Attending Unavailab le EL SAYYAD, MOHAMMAD Primary Care Unavailable JOSEFINAMARINA Attending Unavailab le EL SAYYAD, MOHAMMAD Primary Care Unavailable JOSEFINAMARINA Attending Unavailab le EL SAYYAD, MOHAMMAD Primary Care Unavailable JOSEFINAMARINA Attending Unavailab le EL SAYYAD, MOHAMMAD Primary Care Unavailable JOSEFINAMARINA Attending Unavailab le EL SAYYAD, MOHAMMAD Primary Care Unavailable JOSEFINAMARINA Admitting Unavailab le JOSEFINAMARINA Attending Unavailab le EL SAYYAD, MOHAMMAD Primary Care Unavailable ANNE PringleN Vianney Other Provider EL SAYYAD, MOHAMMAD Referring Unavailable EL SAYYAD, MOHAMMAD Primary Care Unavailable EL SAYYAD, MOHAMMAD Referring Unavailable EL SAYYAD, MOHAMMAD Primary Care Unavailable EL SAYYAD, MOHAMMAD Referring Unavailable EL SAYYAD, MOHAMMAD Primary Care Unavailable Eyad Garland MD Primary Care Provider Eyad Garland MD Primary Care Provider Blake Morris MD Admit Provider [phone] Blake Morris MD Attending Provider [phone] Jessica Shah RN Other Provider Unavailable Art MALHOTRA, Elke Other Provider Unavailable Lakesha RN, Savana Other Provider Unavailable William RN, Michelle Other Provider Unavailable Gerson RN, Chula Other Provider Unavailable Georgie Foley MD Other Provider Ladan Sánchez DO Other Provider Titi Hare MD Other Provider Manuel Nuñez DO Other Provider [phone] Balbina SOLORIO, Sherwin Other Provider [phone] Citlaly Raymond MD Other Provider Virgil SOLORIO, Dino Other Provider Unavailable Clementina GROVER, Holil Other Provider Lynne SOLORIO, Guru Other Provider [phone] Rafi SOLORIO, Brenden Other Provider Ophelia SOLORIO, Aliyah Other Provider Bri Guerrero MD Other Provider Ignacio De La Torre DO Other Provider Jason Leung MD Other Provider Chris Douglas MD Other Provider Mady NURSING UNIT COORDINATOR-C, Rhina Rowe Other Provider Alexis GROVER, Mp Reyes Other Provider Unavailable Lamonte SOLORIO, Kingsley Westbrook Other Provider Johnson Lorenz MD Other Provider Ish Beverly MD Other Provider Arlene SOLORIO, Ben Other Provider Unavailable Brandon Traore MD Other Provider Abigail Morales DO Other Provider Binu Tate DO Other Provider Amanda Whittaker APRN Other Provider Magdaleno Hernandez DO Other Provider [phone] Veronica SOLORIO, Raúl Reyes Other Provider Keren Arthur APRN Other Provider Apple GROVER, Genna Royal Other Provider Keke SOLORIO, Raquel Other Provider Fermin SOLORIO, Gaurav Rowe Other Provider [phone] Hatch DO, Missael T Other Provider Kris DO, Lenyanshu Other Provider Siria SOLORIO, Barry Kaiser Other Provider Shahzad SOLORIO, Gaston Ellison Other Provider Prosper GROVER, Urvashi Other Provider Zia SOLORIO, Kimberlee Other Provider Chris SOLORIO, Sid Other Provider Latoya RN, Kristin Other Provider Unavailable Jacques Foy MD Attending Provider [phone] Amy White MD Primary Care Provider Eyad Garland MD Primary Care Provider Jacques Foy MD Attending Provider Eyad Garland MD Primary Care Provider [phone] EL SAYYAD, MOHAMMAD Referring Unavailable EL SAYYAD, MOHAMMAD Primary Care Unavailable EL SAYYAD, MOHAMMAD Referring Unavailable EL SAYYAD, MOHAMMAD Primary Care Unavailable EL SAYYAD, MOHAMMAD Attending Unavailable EL SAYYAD, MOHAMMAD Referring Unavailable EL SAYYAD, MOHAMMAD Primary Care Unavailable EL SAYYAD, MOHAMMAD Attending Unavailable EL SAYYAD, MOHAMMAD Referring Unavailable EL SAYYAD, MOHAMMAD Primary Care Unavailable EL SAYYAD, MOHAMMAD Attending Unavailable EL SAYYAD, MOHAMMAD Referring Unavailable EL SAYYAD, MOHAMMAD Primary Care Unavailable Eyad Garland MD M Primary Care Provider Jacques Foy MD Attending Provider [phone] Phil SOLORIO, Thom Velazco Attending Provider Phil SOLORIO, Thom Velazco Other Provider Arturo SOLORIO, Blake Soliz Attending Provider Cristopher Mckeon MD, Eyad Primary Care Provider Jacques Foy MD Attending Provider Cristopher Mckeon MD, Galinaheydi Primary Care Provider Phil SOLORIO, Thom Velazco Attending Provider [phone] Cristopher Mckeon MD, Eyad Primary Care Provider Phil SOLORIO, Thom Velazco Attending Provider Cristopher Mckeon MD, Galinaheydi Primary Care Provider Phil SOLORIO, Thom Velazco Attending Provider Cristopher Mckeon MD, Mariluznilson Primary Care Provider Phil SOLORIO, Thom Velazco Attending Provider Jacques Foy Attending Unavailable Eyad Garland Primary Care Unavailabl e Foy, Jacques E Admitting Unavailable Jacques Foy Attending Unavailable Eyad Garland Primary Care Unavailabl e Jacques Foy E Admitting Unavailable El Eyad Mckeon Primary Care Unavailabl e Phil, Thom S Attending Unavailable Phil, Thom S Admitting Unavailable Phil, Thom S Admitting Unavailable Eyad Garland Primary Care Unavailabl e Phil, Thom S Attending Unavailable El Eyad Mckeon Primary Care Unavailabl e Phil, Thom S Attending Unavailable Phil, Thom S Admitting Unavailable Foy Jacques E Attending Unavailable El Eyad Mckeon Primary Care Unavailabl e Foy, Jacques E Admitting Unavailable Danii Jacques E Admitting Unavailable El Eyad Mckeon Primary Care Unavailabl e Foy, Jacques E Attending Unavailable Danii Jacques E Admitting Unavailable El Eyad Mckeon Primary Care Unavailabl e Danii Jacques E Attending Unavailable Amy White MD Primary Care Provider NATHALIE SANCHEZ Attending Unavailable NATHALIE SANCHEZ Attending Unavailable NATHALIE SANCHEZ Attending Unavailable NATHALIE SANCHEZ Attending Unavailable EYAD GARLAND Referring Unavailable EYAD GARLAND Primary Care Unavailable EYAD GARLAND Referring Unavailable EYAD GARLAND Primary Care Unavailable Allergies Allergy ClassificationReported Allergen(s)Allergy TypeDate of OnsetReaction(s) Facility (1 source)Ciprofloxacin; Translations: [ciprofloxacin]Drug AllergyFisher [facility] Repository (10 sources)NaproxenDrug Udsdtyf95-61-8773ZJ intoleranceNOMS Healthcare Medications Current Medications MedicationDrug Class(es)DatesSig (Normalized)Sig (Original)[id number] 200 actuat albuterol 0.09 mg/actuat metered dose inhaler (13 sources)beta2-Adrenergic AgonistStart: 19-76-6672hfnf 2 puff(s) by inhalation every four hours as neededaspirin 81 mg chewable tablet (20 sources)Platelet Aggregation Inhibitor, Nonsteroidal Anti-inflammatory Drug Start: 78-92-4104lplgvgo 81 MG chewable tablet 01/13/2024 ActiveStart: 11-20-2019 End: 34-29-2620gktj 1 tablet by mouth once daily in the eveningAspirin (Aspirin Childrens) 81 mg Tablet,Chewable Discontinued 81 MG PO Every evening November 20, 2019 12:00am August 17, 2023 8:24amBABY ASPIRIN ORAL Take 81 mg by mouth. Active atorvastatin 20 mg oral tablet (20 sources)HMG-CoA Reductase InhibitorStart: 11-20-2019 End: 76-01-1028rogj 1 tablet by mouth once dailyatorvastatin (LIPITOR) 20 mg tablet Indications: Pure hypercholesterolemia Take 1 tablet (20 mg total) by mouth nightly. 90 tablet 3 10/28/2024 ActiveAtorvastatin Calcium Active betamethasone 0.5 mg/ml topical cream (8 sources)CorticosteroidStart: 05-20-2024 End: 72-17-3619zouvnaozprfoh dipropionate 0.05 % cream Indications: Granuloma annulare Apply to affected areas, upto twice a day when flared, do not use one the face, groin, or underarms, 30 day supply 45 g 11 05/20/2024 01/07/2025 Discontinued (Ineffective)bethanechol chloride 10 mg oral tablet (20 sources)Cholinergic Muscarinic AgonistStart: 03-03-2024 End: 49-20-3066skoe 1 tablet by mouth once dailybethanechol 10 mg oral tablet 10 mg = 1 tab(s), Oral, Daily, X 30 day(s), # 30 tab(s), Refills(s) 1, Pharmacy: [facility]/pharmacy #[id number], 162, cm, 02/18/24 14:14:00 EDT, Height/Length Dosing, 90, kg, 02/18/24 14:14:00 EDT, Weight Dosing Start Date: 03/03/24 Stop Date: 05/02/24 Status: OrderedStart: 01-30-2024 End: 67-69-0477gjyz 1 tablet by mouth three times dailyBethanechol Chloride 10 mg Tablet Discontinued 10 MG PO Three times daily 45 15 0 February 06, 2024 10:17am November 20, 2024 9:10ambusPIRone hydrochloride 10 mg oral tablet (9 sources)Start: 90-27-2631nfqq 0.5 tablet by mouth in the morning, then take 0.5 tablet by mouth at bedtimebusPIRone (BUSPAR) 10 mg tablet Indications: Anxiety Take 0.5 tablets (5 mg total) by mouth in the morning and 0.5 tablets (5 mg total) before bedtime. 180 tablet 1 10/28/2024 Activecholecalciferol 0.05 mg oral tablet (20 sources)Vitamin DStart: 01-13-2024 End: 45-24-7358hzmn 1 tablet by mouth once dailyCholecalciferol (Vitamin D3) (Vitamin D3) 50 mcg (2,000 unit) tablet Active 2000 UNIT PO daily 30 0Augus2023 10:17am Complies with drug therapyStart: 06-29-2022 End: 98-02-8483fcag 1 tablet by mouth once dailyCholecalciferol (Vitamin D3) (Vitamin D3) 125 mcg (5,000 unit) Tablet Discontinued 5000 MCG PO Daily June 29, 2022 1:00am August 17, 2023 8:24amtake 1 capsule by mouth in the morning cholecalciferol, vitamin D3, (VITAMIN D3) 5,000 units capsule Take 1 capsule (5,000 Units total) bymouth in the morning. Activetake 2.5 tablets by mouth in the morningcholecalciferol, vitamin D3, 2,000 units tablet Take 2.5 tablets (5,000 Units total) by mouth in the morning. Activeciprofloxacin 500 mg oral tablet (17 sources)Quinolone AntimicrobialStart: 04-21-2024 End: 75-34-4371nzhk 1 tablet by mouth at bedtimeciprofloxacin (Cipro) 500 MG tablet TAKE 1 TABLET (500 MG TOTAL) BY MOUTH IN THE MORNING AND BEFOREBEDTIME FOR 5 DAYS 04/21/2024 01/07/2025 DiscontinuedStart: 53-44-7374zcvf 1 tablet by mouth every twelve hoursCipro 500 MG 1 tablet Orally every 12 hrs for 7 days Jul, Active0.5 ml dulaglutide 3 mg/ml auto-injector (20 sources)GLP-1 Receptor AgonistStart: 44-71-1616qewnqr 1 mg by subcutaneous injection every weekTrulicity Pen 1.5 mg/0.5 mL subcutaneous solution mg, SubCutaneous, qWeek, Refills(s) 0 Start Date:02/18/24 Status: OrderedStart: 07-73-5708Wehvgznrxed (Trulicity) 1.5 mg/0.5 mL Pen Injector Active 1.5 MG SUBCUT every week November 20, 2019 12:00am Sundaystart: 12-02-4806Jmcqwmipwnj (Trulicity) 1.5 mg/0.5 mL Pen Injector Active 3 MG SUBCUT every week November 20, 2019 12:00am Saturday Complies with drug therapyTrulicity Not-Takingdulaglutide (TRULICITY) 3 mg/0.5 mL pen injector (1 source)Start: 04-21-2024 End: 19-28-2445zpbjef 3 mg by subcutaneous injection every weekdulaglutide (TRULICITY) 3 mg/0.5 mL pen injector Indications: Type 2 diabetes mellitus without complication, without long-term current use of insulin ([facility]) Inject 3 mg under the skin once a week.4 mL 5 04/21/2024 04/27/2024 Discontinued escitalopram 20 mg oral tablet (20 sources)Serotonin Reuptake InhibitorStart: 05-01-2023 End: 05-05-8863ccnc 1 tablet by mouth in the morningescitalopram (LEXAPRO) 20 mg tablet Indications: Anxiety Take 1 tablet (20 mg total) by mouth in the morning. 90 tablet 3 10/28/2024 ActiveStart: 11-20-2019 End: 09-73-6424cmlv 2 tablets by mouth once dailyEscitalopram Oxalate (Lexapro) 10 mg Tablet Discontinued 20 MG PO Daily November 20, 2019 12:00am August 17, 2023 8:25amStart: 91-10-3952sudg 1 tablet by mouth once dailyEscitalopram Oxalate (Lexapro) 10 mg Tablet Active 10 MG PO Daily November 19, 2019 11:00pmfluconazole 100 mg oral tablet (12 sources)Azole AntifungalStart: 14-23-4360ckxf 1 tablet by mouth once daily Fluconazole 100 MG 1 tablet Orally per day for 10 day(s) Jul, Active furosemide 20 mg oral tablet (11 sources)Loop DiureticStart: 02-12-2024 End: 02-09-9074swzt 1 tablet by mouth in the morningfurosemide (Lasix) 20 MG tablet Take 20 mg by mouth in the morning. 02/12/2024 01/07/2025 Discontinued gabapentin 600 mg oral tablet (20 sources)Anti-epileptic AgentStart: 79-28-6863xyqq 1 tablet by mouth in the morning, then take 1 tablet by mouth at bedtimegabapentin (NEURONTIN) 600 mg tablet Indications: Chronic bilateral low back pain without sciatica Take 1 tablet (600 mg total) by mouth in the morning and 1 tablet (600 mg total) before bedtime. 180tablet 2 10/28/2024 ActiveStart: 04-09-2024 End: 19-89-6685Wrxqctonya 600 mg tablet Discontinued 900 MG PO Twice daily April 09, 2024 12:00am 2024 9:11amStart: 04-38-3894bdyp 900 mg by mouth twice dailyGabapentin Active 900 MG PO Twice daily April 09, 2024 12:00amStart: 08-17-2023 End: 32-32-0560mxfh 2 capsules by mouth once daily in the morning, then take 3 capsules by mouth at bedtimeGabapentin 300 mg capsule Discontinued 0 PO Daily November 03, 2024 8:22am November 20, 2024 9:12am take 600 mg (2 capsules) in the morning, Take 900 mg (2 capsules at bedtime)Start: 08-17-2023 End: 60-25-9245kisd 600 mg by mouth once daily in the eveningGabapentin Active 600 MG PO Every evening 60 February 06, 2024 10:17amStart: 12-10-2022 End: 52-62-6275fhqrnadfpg (Neurontin) 300 MG capsule 12/10/2022 ActiveStart: 07-12-2022 End: 44-78-4399khkr 1 capsule by mouth after breakfastGabapentin 300 mg capsule Discontinued 300 MG PO After breakfast and lunch 60 July 12, 2022 2:09pm July 21, 2022 10:55amStart: 06-17-2022 End: 82-89-8560ntrm 2 capsules by mouth once daily at bedtimeGabapentin 300 mg Capsule Discontinued 600 MG PO Daily at bedtime 14 June 17, 2022 2:50pm July 20, 2022 3:05pmStart: 06-17-2022 End: 56-24-3658kkrw 600 mg by mouth once daily at bedtimeGabapentin Discontinued 600 MG PO Daily at bedtime June 17, 2022 2:50pm July 20, 2022 3: 05pmStart: 11-20-2019 End: 01-75-8722sita 1 capsule by mouth once dailyGabapentin 300 mg capsule Discontinued 300 MG PO Daily 30 February 06, 2024 10:17am June 30, 2024 10:55amglipiZIDE 5 mg / metFORMIN hydrochloride 500 mg oral tablet (2 sources)Biguanide, SulfonylureaStart: 54-34-3753cxup 1 tablet by mouth once in the morningglipiZIDE-metFORMIN (METAGLIP) 5-500 mg per tablet Indications: Type 2 diabetes mellitus without complication, without long-term current use of insulin (CMS-HCC) Take 1 tablet by mouth in the morningand 1 tablet in the evening. Take before meals. 180 tablet 1 04/15/2025 Activeibuprofen 800 mg oral tablet (20 sources)Nonsteroidal Anti-inflammatory DrugStart: 08-05-1262rpiomlkrb (MOTRIN) 800 mg tablet Indications: Degenerative joint disease of low back TAKE 1 TABLET EVERY 12 HOURS NEEDED FOR PAIN 180 tablet 3 02/23/2025 ActiveStart: 10-28-2024 End: 00-47-9120sbsl 1 tablet by mouth once as neededibuprofen (MOTRIN) 800 mg tablet Indications: Degenerative joint disease of low back Take 1 tablet (800 mg total) by mouth every 12 (twelve) hours as needed for pain. 180 tablet 1 10/28/2024 02/23/2025 DiscontinuedStart: 88-03-4708xdxw 1 tablet by mouth every eight hours for painIbuprofen 800 mg tablet Active 0 .ROUTE .COMPLEX 90 2 September 30, 2024 4:40pm TAKE 1 TABLET BY MOUTH EVERY 8 HOURS FOR PAIN Complies with drug therapyStart: 06-30-2024 End: 52-35-0614zttc 1 tablet by mouth every eight hoursIbuprofen 800 mg tablet Discontinued 800 MG PO Every 8 hours 90 30 2 June 30, 2024 1:00am September 30, 2024 4:41pm painlisinopril 10 mg oral tablet (20 sources)Angiotensin Converting Enzyme InhibitorStart: 11-20-2019 End: 66-24-8788omft 1 tablet by mouth in the morninglisinopriL (PRINIVIL,ZESTRIL) 10 mg tablet Indications: Primary hypertension Take 1 tablet (10 mg total) by mouth in the morning. 90 tablet 3 10/28/2024 ActiveLisinopril ActiveMagnesium (20 sources)Start: 05-51-6817wfkm 2 tablets by mouth once dailyMagnesium 250 mg tablet Active 500 MG PO Daily January 13, 2024 12:00am Complies with drug therapy Start: 89-78-0893jlth 2 tablets by mouth once dailyStart: 22-46-2603erfn 2 tablets by mouth once dailyMagnesium 250 mg tablet Active 500 MG PO Daily January 13, 2024 12:00amStart: 33-43-3495qyvx 2 tablets by mouth once dailyMagnesium 250 mg tablet Active 500 MG PO Daily January 12, 2024 11:00pmStart: 01-13-2024 take 500 mg by mouth once dailyMagnesium Active 500 MG PO Daily January 13, 2024 12:00amStart: 06-29-2022 End: 86-95-3410opfs 1 tablet by mouth at bedtimeMagnesium 250 mg Tablet Discontinued 250 MG PO Bedtime June 29, 2022 1:00am August 17, 2023 8:26am Start: 06-29-2022 End: 27-81-6339exxt 1 tablet by mouth at bedtimeMagnesium 250 mg Tablet Discontinued 250 MG PO Bedtime June 29, 2022 12:00am August 17, 2023 7:26am Start: 06-29-2022 End: 36-51-3223szjm 250 mg by mouth at bedtimeMagnesium Discontinued 250 MG PO Bedtime June 29, 2022 1:00am August 17, 2023 8:26amStart: 52-92-4383uzqe 250 mg by mouth at bedtimeMagnesium Active 250 MG PO Bedtime June 29, 2022 12:00amStart: 20-29-1099phdx 250 mg by mouth once dailyMagnesium Active 250 MG PO Daily June 29, 2022 12:00ammethylPREDNISolone 4 mg oral tablet (13 sources)CorticosteroidStart: 46-30-2050lqhp 4 mg by mouth once daily Multivitamin (Daily Multi-Vitamin) tablet (20 sources)Start: 77-12-8773jhxh 1 tablet by mouth once dailyMultivitamin (Daily Multi-Vitamin) tablet Active 1 TAB PO Daily January 13, 2024 12:00am Complies with drug therapyStart: 70-08-8363lffv 1 tablet by mouth once daily Start: 19-09-3206hzju 1 tablet by mouth once dailyMultivitamin (Daily Multi- Vitamin) tablet Active 1 TAB PO Daily January 12, 2024 11:00pmStart: 01-13-2024 take 1 tablet by mouth once dailyMultivitamin (Daily Multi-Vitamin) tablet Active 1 TAB PO Daily January 13, 2024 12:01rxMllpnzslvuqx-St-Bepr-Minerals (Multiple Vitamin, Womens) Tablet (2 sources)Start: 25-16-3091czvg 1 tablet by mouth once daily Ptbsmpxfxrnm-Zw-Ljza-Minerals (Multiple Vitamin, Womens) Tablet Active 1 TAB PO Daily June 12:00ampioglitazone (13 sources)Peroxisome Proliferator Receptor alpha Agonist, Peroxisome Proliferator Receptor gamma Agonist, ThiazolidinedioneActos ActiverOPINIRole 0.5 mg oral tablet (20 sources)Nonergot Dopamine AgonistStart: 10-28-2024 End: 25-52-8081gGAJKRSnfq (REQUIP) 0.5 mg tablet TAKE 1 TABLET EVERY NIGHT 90 tablet 3 03/21/2025 ActiveStart: 01-13-2024 End: 93-15-0108wwbj 2 tablets by mouth once daily in the eveningRopinirole 0.25 mg tablet Discontinued 0.5 MG PO Every evening January 13, 2024 12:00am January 10:20amStart: 01-13-2024 End: 13-96-6853lmja 0.5 mg by mouth once daily in the eveningRopinirole Discontinued 0.5 MG PO Every evening January 13, 2024 12:00am February 06, 2024 10:20amStart: 01-12-2024 End: 83-58-6325iYMEXVPddu (REQUIP) 0.25 mg tablet TAKE 1 TABLET (0.25 MG TOTAL) BY MOUTH NIGHTLY FOR 1 WEEK AND THEN 2 TABLETS AT NIGHT 173 tablet 3 01/12/2024 10/28/2024 Discontinued (Reorder)traZODone hydrochloride 100 mg oral tablet (20 sources)Serotonin Reuptake InhibitorStart: 21-49-2778xheo 1 tablet by mouth three times dailytraZODONE 100 mg Tab 100 mg = 1 tab(s), Oral, TID, # 90 tab(s), Refills(s) 0 Start Date: 02/18/24 Status: OrderedStart: 01-13-2024 End: 92-41-9203iuby 200 mg by mouth once daily in the eveningTrazodone Active 200 MG PO Every evening 60 30 February 06, 2024 10:17amStart: 11-20-2019 End: 47-47-6428yfyq 2 tablets by mouth once dailytraZODone (DESYREL) 100 mg tablet Take 2 tablets (200 mg total) by mouth nightly. 180 tablet 3 10/28/2024 ActiveStart: 11-20-2019 End: 31-60-5607eltz 200 mg by mouth once daily at bedtimeTrazodone Discontinued 200 MG PO Daily at bedtime November 20, 2019 12:00am August 17, 2023 8:27am traZODone (Desyrel) 100 MG tablet 1 (one) time each day at the same time Active traZODone HCl ActiveTRULICITY 3 mg/0.5 mL pen injector (19 sources)Start: 31-87-2951gnqlxc 3 mg by subcutaneous injection every week TRULICITY 3 mg/0.5 mL pen injector Indications: Type 2 diabetes mellitus without complication, without long-term current use of insulin ([facility]) INJECT 3 MG (0.5 ML) UNDER THE SKIN ONCE A WEEK 6 mL 04/18/2025 ActiveStart: 02-05-2025 End: 00-80-1745ufcpyd 3 mg by subcutaneous injection every weekTRULICITY 3 mg/0.5 mL pen injector Indications: Type 2 diabetes mellitus without complication, without long-term current use of insulin (CMS-HCC) INJECT 3 MG (0.5 ML) UNDER THE SKIN ONCE A WEEK 6 mL 02/05/2025 04/18/2025 Discontinued Start: 62-50-3080jnqkpq 3 mg by subcutaneous injection every weekTRULICITY 3 mg/0.5 mL pen injector Indications: Type 2 diabetes mellitus without complication, without long-term current use of insulin (CMS-HCC) INJECT 3 MG (0.5 ML) UNDER THE SKIN ONCE A WEEK 6 mL 02/05/2025 ActiveStart: 11-27-2024 End: 72-04-9703uldugt 3 mg by subcutaneous injection every weekTRULICITY 3 mg/0.5 mL pen injector Indications: Type 2 diabetes mellitus without complication, without long-term current use of insulin (CMS-HCC) INJECT 3 MG (0.5 ML) UNDER THE SKIN ONCE A WEEK 6 mL 11/27/2024 02/05/2025 Discontinued Start: 00-22-1811takhug 3 mg by subcutaneous injection every weekTRULICITY 3 mg/0.5 mL pen injector Indications: Type 2 diabetes mellitus without complication, without long-term current use of insulin (CMS-HCC) INJECT 3 MG (0.5 ML) UNDER THE SKIN ONCE A WEEK 6 mL 11/27/2024 ActiveStart: 09-18-2024 End: 50-89-6559kdcfap 3 mg by subcutaneous injection every weekTRULICITY 3 mg/0.5 mL pen injector Indications: Type 2 diabetes mellitus without complication, without long-term current use of insulin (CMS-HCC) INJECT 3 MG (0.5 ML) UNDER THE SKIN ONCE A WEEK 6 mL 09/18/2024 11/27/2024 Discontinued Start: 47-12-2727ykhqrp 3 mg by subcutaneous injection every weekTRULICITY 3 mg/0.5 mL pen injector Indications: Type 2 diabetes mellitus without complication, without long-term current use of insulin (CMS-HCC) INJECT 3 MG (0.5 ML) UNDER THE SKIN ONCE A WEEK 6 mL 09/18/2024 ActiveStart: 07-10-2024 End: 24-01-9206rsnhpp 3 mg by subcutaneous injection every weekTRULICITY 3 mg/0.5 mL pen injector Indications: Type 2 diabetes mellitus without complication, without long-term current use of insulin (CMS-HCC) INJECT 3 MG (0.5 ML) UNDER THE SKIN ONCE A WEEK 6 mL 07/10/2024 09/18/2024 Discontinued Start: 02-83-0943wheuzq 3 mg by subcutaneous injection every weekTRULICITY 3 mg/0.5 mL pen injector Indications: Type 2 diabetes mellitus without complication, without long-term current use of insulin (CMS-HCC) INJECT 3 MG (0.5 ML) UNDER THE SKIN ONCE A WEEK 6 mL 07/10/2024 ActiveStart: 04-27-2024 End: 71-45-8379khihzn 3 mg by subcutaneous injection every weekTRULICITY 3 mg/0.5 mL pen injector Indications: Type 2 diabetes mellitus without complication, without long-term current use of insulin (CMS-HCC) INJECT 3 MG (0.5 ML) UNDER THE SKIN ONCE A WEEK 6 mL 04/27/2024 07/10/2024 Discontinued Start: 21-04-0043tdnxff 3 mg by subcutaneous injection every weekTRULICITY 3 mg/0.5 mL pen injector Indications: Type 2 diabetes mellitus without complication, without long-term current use of insulin (CMS-HCC) INJECT 3 MG (0.5 ML) UNDER THE SKIN ONCE A WEEK 6 mL 04/27/2024 Active Completed/Discontinued Medications MedicationDrug Class(es)DatesSig (Normalized)Sig (Original)acetaminophen 325 mg oral tablet (20 sources)Start: 01-30-2024 End: 21-79-4143jyvy 2 tablets by mouth every four hours as needed for pain Acetaminophen (Tylenol) 325 mg Tablet Discontinued 650 MG PO Q4H as needed for pain 1-5 0 0 January 30, 2024 12:00am November 03, 2024 8:22amStart: 01-13-2024 End: 32-18-7532kgvc 2 tablets by mouth every six hours as needed for pain Acetaminophen (Tylenol Extra Strength) 500 mg tablet Discontinued 1000 MG PO Every 6 hours as needed for pain January 13, 2024 12:00am January 30, 2024 1:29pmacetaminophen 325 mg / HYDROcodone bitartrate 5 mg oral tablet (20 sources)Opioid AgonistStart: 07-03-2022 End: 30-75-9060gyor 1 tablet by mouth every six hours as needed for pain Hydrocodone-Acetaminophen 5-325 mg Tablet Discontinued 1 TAB PO Q6H as needed for Pain Scale 1 - 5 56 14 0 July 03, 2022 July 12, 2022 3:04pm Herniation of intervertebral disc Acute lumbar radiculopathy Radiculopathy, lumbar regionaluminum hydroxide 40 mg/ml / magnesium hydroxide 40 mg/ml / simethicone 4 mg/ml oral suspension (20 sources)Start: 01-30-2024 End: 28-02-0722iuat 1 mL by mouth every four hours as needed for gastroesophageal reflux diseaseAlum-Mag Hydroxide-Simeth (Mag-Al Plus) 200-200-20 mg/5 mL Suspension Discontinued 30 ML PO Q4H as needed for Heartburn 0 0 January 30, 2024 12:00am January 30, 2024 1:30pmbacitracin 0.4 unt/mg / neomycin 0.0035 mg/mg / polymyxin b 5 unt/mg topical ointment (20 sources)Aminoglycoside Antibacterial, Polymyxin-class AntibacterialStart: 02-06-2024 End: 16-64-5497Iaajuvjr-Bacitracnzn-Polymyxnb (Triple Antibiotic) 3.5mg-400 unit- 5,000 unit/gram Ointment Discontinued 1 APPLIC TOPICAL Daily 100 0 February 06, 2024 12:00am November 20, 2024 9:12amdocusate sodium 50 mg / sennosides, nursing home 8.6 mg oral tablet (20 sources)Start: 01-30-2024 End: 00-54-1359leqd 2 tablets by mouth twice dailySennosides-Docusate Sodium 8.6-50 mg Tablet Discontinued 2 TAB PO Twice daily 0 0 January 292:00am February 06, 2024 10:20amfamotidine 20 mg oral tablet (20 sources)Histamine-2 Receptor AntagonistStart: 01-30-2024 End: 02-27-7168ehvt 1 tablet by mouth twice dailyFamotidine 20 mg Tablet Discontinued 20 MG PO Twice daily 60 30 0 February 06, 2024 10:17am November 20, 2024 9:10amglyBURIDE 5 mg oral tablet (20 sources)SulfonylureaStart: 86-62-2546wcpa 1 tablet by mouth once daily glyBURIDE micronized 6 mg Tab 6 mg = 1 tab(s), Oral, Daily, # 30 tab(s), Refills(s) 0 Start Date: 02/18/24 Status: OrderedStart: 08-17-2023 End: 17-93-5421qvyp 1 tablet by mouth once dailyGlyburide 2.5 mg tablet Discontinued 2.5 MG PO Daily August 17, 2023 1:00am January 30, 2024 1:33pm Start: 11-20-2019 End: 41-42-6671sqbJYCWCF (DIABETA) 5 mg tablet TAKE 1 TABLET TWICE DAILY 180 tablet 3 12/23/2024 04/15/2025 DiscontinuedStart: 11-20-2019 End: 53-87-4912nxpq 1 tablet by mouth once daily in the eveningGlyburide 5 mg Tablet Discontinued 5 MG PO Every evening November 20, 2019 12:00am June 29, 2022 12:36pmglyBURIDE ActiveInsulin Aspart U-100 (Novolog Flexpen U-100 Insulin) 100 unit/mL (3 mL) Insulin Pen (17 sources)Start: 02-06-2024 End: 27-77-7103Rkvtjbw Aspart U-100 (Novolog Flexpen U-100 Insulin) 100 unit/mL (3 mL) Insulin Pen Discontinued 0 UNIT SUBCUT 3X/Day with meals and bedtime February 06, 2024 12:00am Mary 6th, 2025 9:11am Use while on steroid taper Please contact the information source for Protocol details.Start: 02-06-2024 Insulin Aspart U-100 (Novolog Flexpen U-100 Insulin) 100 unit/mL (3 mL) Insulin Pen Active 0 UNIT SUBCUT 3X/Day with meals and bedtime February 05, 2024 11:00pm Use while on steroid taper Please contact the information source for Protocol details.Start: 03-76-3574Vkhrldt Aspart U-100 (Novolog Flexpen U-100 Insulin) 100 unit/mL (3 mL) Insulin Pen Active 0 UNIT SUBCUT 3X/Day with meals and bedtime February 06, 2024 12:00am Use while on steroid taperStart: 01-30-2024 End: 15-93-7924Bthqhfj Aspart U-100 (Novolog Flexpen U-100 Insulin) 100 unit/mL (3 mL) Insulin Pen Discontinued 0 UNIT SUBCUT 3X/Day with meals and bedtime 0 January 30, 2024 12:00am February 06, 2024 10:20am Please contact the information source for Protocol details.Start: 01-30-2024 End: 11-51-8788Kwqqqdh Aspart U-100 (Novolog Flexpen U-100 Insulin) 100 unit/mL (3 mL) Insulin Pen Discontinued 0 UNIT SUBCUT 3X/Day with meals and bedtime 0 January 29, 2024 11:00pm February 06, 2024 9:20am Please contact the information source for Protocol details.Start: 01-30-2024 End: 63-59-9624Veulbvx Aspart U-100 (Novolog Flexpen U-100 Insulin) 100 unit/mL (3 mL) Insulin Pen Discontinued 0 UNIT SUBCUT 3X/Day with meals and bedtime 0 January 30, 2024 12:00am February 06, 2024 10:20amStart: 17-94-0418Ndchpkv Aspart U-100 (Novolog Flexpen U-100 Insulin) 100 unit/mL (3 mL) Insulin Pen Active 0 UNIT SUBCUT 3X/Day with meals and bedtime 0 January 30, 2024 12:00am3 ml insulin aspart, human 100 unt/ml pen injector (20 sources)Insulin AnalogStart: 02-06-2024 End: 64-93-2654Ecvylyd Aspart U-100 (Novolog Flexpen U-100 Insulin) 100 unit/mL (3 mL) Insulin Pen Discontinued 0 UNIT SUBCUT 3X/Day with meals and bedtime Protocol: *If the corrective scale dose has been administered within the past 4 hours, do not use corrective scale again unless approved by prescriber* Conditi on: Corrective Scale #3 (TDI 51-75 UNITS) Condition: Dose/Route: Instructions: Condition: Fingerstick Blood Glucose Dose/Route:Insulin Units Condition: 150-199 mg/dl Dose/Route: 3 unit Condition: 200-249 mg/dl Dose/Route: 4 unit Condition: 250-299 mg/dl Dose/Route: 7 unit Condition: 300-349 mg/dl Dose/Route: 10 unit Condition: 350-399 mg/dl Dose/Route: 12 unit Condition: greater than or = 400 mg/dl Dose/Route: 14 unit Instructions: Call Provider February 06, 2024 12:00am November 20, 2024 9:11am Use while on steroid taper Please contact the information source for Protocol details.Start: 01-30-2024 End: 64-30-2485Auyxuun Aspart U-100 (Novolog Flexpen U-100 Insulin) 100 unit/mL (3 mL) Insulin Pen Discontinued 0 UNIT SUBCUT 3X/Day with meals and bedtime Protocol: *If the corrective scale dose has been administered within the past 4 hours, do not use corrective scale again unless approved by prescriber* Conditi on: Corrective Scale #2 (TDI 26-50 UNITS) Condition: Dose/Route: Instructions: Condition: Fingerstick Blood Glucose Dose/Route:Insulin Units Condition: 150-199 mg/dl Dose/Route: 2 unit Condition: 200-249 mg/dl Dose/Route: 3 unit Condition: 250-299 mg/dl Dose/Route: 5 unit Condition: 300-349 mg/dl Dose/Route: 7 unit Condition: 350-399 mg/dl Dose/Route: 8 unit Condition: greater than or = 400 mg/dl Dose/Route: 9 unit Instructions: Call Provider 0 0 January 30, 2024 12:00am February 06, 2024 10:20am Please contact the information source for Protocol details.ketorolac tromethamine 10 mg oral tablet (20 sources)Nonsteroidal Anti-inflammatory Drug, Cyclooxygenase InhibitorStart: 08-05-2023 End: 97-86-3225pwop 1 tablet by mouth every six hours as needed for pain Ketorolac 10 mg tablet Discontinued 10 MG PO Every 6 hours as needed for pain 20 5 0 July 1:00am January 13, 2024 10:04amlidocaine 0.05 mg/mg medicated patch (20 sources)Antiarrhythmic, Amide Local AnestheticStart: 08-17-2023 End: 51-77-4108Ypfzligxv 5 % adhesive patch,medicated Discontinued 1 PATCH TOPICAL Daily August 17, 2023 1:00am January 13, 2024 10:04am FreeTextSi patch remove after 12 hours Externally Once a day; Note: SourceStatus: Start; Refills: 1; Provider: Malathi Salguero Rmagnesium hydroxide 80 mg/ml oral suspension (20 sources)Start: 01-30-2024 End: 90-95-1121nqfq 1 mL by mouth at bedtime as needed for constipationMagnesium Hydroxide (Milk Of Magnesia) 400 mg/5 mL Suspension Discontinued 30 ML PO Bedtime as needed for Constipation 0 0 January 30, 2024 12:00am February 06, 2024 10:20amStart: 01-30-2024 End: 37-29-9904cesw 1 mL by mouth at bedtime as needed for constipationMagnesium Hydroxide (Milk Of Magnesia) 400 mg/5 mL Suspension Discontinued 30 ML PO Bedtime as needed for Constipation 0 January 30, 2024 12:00am February 06, 2024 10:20amStart: 01-30-2024 End: 43-36-0565ufrq 1 mL by mouth at bedtime as needed for constipationMagnesium Hydroxide (Milk Of Magnesia) 400 mg/5 mL Suspension Discontinued 30 ML PO Bedtime as needed for Constipation 0 January 29, 2024 11:00pm February 06, 2024 9:20amStart: 01-30-2024 End: 30-47-2962rcnh 1 mL by mouth at bedtimeMagnesium Hydroxide (Milk Of Magnesia) 400 mg/5 mL Suspension Discontinued 30 ML PO Bedtime 0 January 30, 2024 12:00am February 06, 2024 10:20amStart: 74-35-4687vzlw 1 mL by mouth at bedtimeMagnesium Hydroxide (Milk Of Magnesia) 400 mg/5 mL Suspension Active 30 ML PO Bedtime 0 January 30, 2024 12:00ammeloxicam 15 mg oral tablet (20 sources)Nonsteroidal Anti-inflammatory DrugStart: 06-29-2022 End: 11-43-4419xxmj 1 tablet by mouth once dailyMeloxicam 15 mg tablet Discontinued 15 MG PO Daily August 17, 2023 1:00am February 06, 2024 10:20am metFORMIN hydrochloride 1000 mg oral tablet (20 sources)BiguanideStart: 11-20-2019 End: 43-43-7795yipi 1 tablet by mouth in the morning, then take 1 tablet by mouth at mealtimemetFORMIN (GLUCOPHAGE) 1000 mg tablet Indications: Type 2 diabetes mellitus without complication, without long-term current use of insulin ([facility]) Take 1 tablet (1,000 mg total) by mouth in the morning and 1 tablet (1,000 mg total) in the evening. Take with meals. 180 tablet 3 10/28/2024 04/15/2025 Discontinuedtake 1 tablet by mouth in the morning, then take 1 tablet by mouth every twenty-four hours at mealtimemetFORMIN, MOD, (Glumetza) 1000 MG 24 hr tablet Take 1,000 mg by mouth in the morning and 1,000 mg in the evening. Take with meals. ActiveMetformin Activemethocarbamol 500 mg oral tablet (20 sources)Muscle RelaxantStart: 41-72-3765hdsl 1000 mg by mouth every six hoursMethocarbamol Active 1000 MG PO Every 6 hours 240 March 03, 2024 11:50amStart: 02-06-2024 End: 41-58-3616qgua 1 tablet by mouth three times dailymethocarbamoL (ROBAXIN) 500 mg tablet Take 1 tablet (500 mg total) by mouth 3 (three) times a day. 0 02/06/2024 10/28/2024 DiscontinuedStart: 02-06-2024 End: 43-12-0644csafieinyalcy (Robaxin) 500 MG tablet 1,000 mg 02/06/2024 Active Start: 02-06-2024 End: 46-20-3958axyl 1000 mg by mouth every six hoursMethocarbamol Discontinued 1000 MG PO Q6H 60 15 February 20, 2024 8:29am March 03, 2024 11:51am Start: 06-17-2022 End: 08-99-9686Akodgxrebqtlv 750 mg tablet Discontinued 750 MG PO EVERY 8-10 HOURS as needed for pain June 1:00am June 17, 2022 2:49pm Gysveqikjacb-Fq-Vxxd-Minerals (20 sources)Start: 06-29-2022 End: 12-76-3572qufv 1 tablet by mouth once fpvveSyblmowzegsr-Yn-Ffua-Minerals Discontinued 1 TAB PO Daily June 29, 2022 1:00am August 1648:26am Start: 69-87-2548wsvz 1 tablet by mouth once vygquBmnfqtdfijfi-Ns-Krve-Minerals Active 1 TAB PO Daily June 29, 2022 12:10xnTlrwcpfrplpb-It-Bpld-Minerals Tablet (15 sources)Start: 06-29-2022 End: 48-34-9249hnxa 1 tablet by mouth once tpcflMvnzxopyeryi-Ud-Cbvr-Minerals Tablet Discontinued 1 TAB PO Daily June 29, 2022 1:00am August 17, 2023 8:26amStart: 06-29-2022 End: 65-76-2613cqdn 1 tablet by mouth once dcavrZcoxaactbblg-Oz-Vizd-Minerals Tablet Discontinued 1 TAB PO Daily June 29, 2022 12:00am August 17, 2023 7:26amoxyCODONE hydrochloride 5 mg oral tablet (20 sources)Opioid AgonistStart: 04-14-2024 End: 81-95-7730omrz 1 tablet by mouth every twelve hours as needed for pain Oxycodone 5 mg tablet Discontinued 5 MG PO Every 12 hours as needed for Pain Scale 8-10 14 7 0 April 14, 2024 May 07, 2024 1:56pm Spinal stenosis of lumbar region with neurogenic claudication Spinal stenosis, lumbar region with neurogenic claudicationStart: 02-18-2024 End: 54-90-4519iska 1 tablet by mouth every eight hours as needed for pain Oxycodone 5 mg tablet Discontinued 5 MG PO Every 8 hours as needed for Pain Scale 8-10 21 7 0 March 12, 2024 March 19, 2024 3:27pm Spinal stenosis of lumbar region with neurogenic claudication Spinal stenosis, lumbar region with neurogenic claudicationStart: 02-12-2024 End: 84-91-6594vnud 1 tablet by mouth every six hours as needed for pain oxyCODONE (ROXICODONE) 5 mg immediate release tablet Indications: Degenerative joint disease of lowback Take 1 tablet (5 mg total) by mouth every 6 (six) hours as needed for pain. Max Daily Amount: 20 mg 42 tablet 02/12/2024 10/28/2024 DiscontinuedStart: 2024 End: 21-84-8262obvk 2 tablets by mouth every eight hours as needed for pain Oxycodone 5 mg tablet Discontinued 10 MG PO Every 8 hours as needed for Pain Scale 8-10 42 7 0 2024 February 18, 2024 4:40pm Spinal stenosis of lumbar region with neurogenic claudication Spinal stenosis, lumbar region with neurogenic claudicationStart: 2024 End: 94-27-5598dlwb 10 mg by mouth every eight hoursOxycodone Discontinued 10 MG PO Every 8 hours 42 7 2024 February 18, 2024 4:40pmStart: 02-06-2024 End: 08-34-5540mbee 2 tablets by mouth every four hours as needed for pain Oxycodone 5 mg Tablet Discontinued 10 MG PO Every 4 hours as needed for Pain Scale 8-10 42 7 0 February 06, 2024 2024 3:46pm Spinal stenosis of lumbar region with neurogenic claudicationSpinal stenosis, lumbar region with neurogenic claudicationStart: 02-06-2024 End: 04-78-4496omgs 10 mg by mouth every four hoursOxycodone Discontinued 10 MG PO Every 4 hours 42 7 February 06, 2024 2024 3:46pmStart: 01-30-2024 End: 32-37-5558oimx 1 tablet by mouth every six hours as needed for pain Oxycodone 5 mg Tablet Discontinued 5 MG PO Every 6 hours as needed for Pain Scale 6-7 0 0 January 30, 2024 February 06, 2024 10:20amStart: 01-30-2024 End: 48-64-9192cfqt 2 tablets by mouth every six hours as needed for pain Oxycodone 5 mg Tablet Discontinued 10 MG PO Every 6 hours as needed for Pain Scale 8-10 0 0 January 30, 2024 February 06, 2024 10:20amStart: 01-30-2024 End: 31-28-9017hoqs 10 mg by mouth every six hoursOxycodone Discontinued 10 MG PO Every 6 hours 0 January 30, 2024 February 06, 2024 10:20amStart: 07-12-2022 End: 15-17-9821njzg 1 tablet by mouth every six hours as needed for pain Oxycodone 5 mg tablet Discontinued 5 MG PO Q6H as needed for pain 56 14 0 July 12, 2022 August 07, 2023 9:47am Acute lumbar radiculopathy Radiculopathy, lumbar regionpredniSONE 10 mg oral tablet (20 sources)Start: 06-30-2024 End: 03-30-4699Pgiibwxaln 10 mg tablet Discontinued 10 MG PO As Directed 18 9 0 June 30, 2024 1:00am November 03, 2024 8:22am Spinal stenosis of cervical region Spinal stenosis, cervical region take 3 tablets for3 days take 2 tablets for 3 days take 1 tablet for 3 daysStart: 02-06-2024 End: 45-70-0066gvsf 3 tablets by mouth once dailyPrednisone 10 mg Tablet Discontinued 30 MG PO Daily Taper: Start: February 05, 2024 9:00am End: February 08, 2024 8:59am Frequency: DAILY Days: 1 Hours: 0 Dose: 30 Start: February 08, 2024 9:00am End: 2024 8:59am Frequency: DAILY Days: 3 Hours: 0 Dose: 20 Start: 2024 9:00am End: February 14, 2024 8:59am Frequency: DAILY Days: 3 Hours: 0 Dose: 10 10 0 February 06, 2024 12:00am May 07, 2024 1:56pm Please contact the information source for Taper Schedule details.Start: 44-65-2854vhjw 30 mg by mouth once dailyPrednisone Active 30 MG PO Daily February 06, 2024 12:00amStart: 06-17-2022 End: 31-43-6489ccbl 2 tablets by mouth once dailyPrednisone 20 mg tablet Discontinued 40 MG PO Daily June 17, 2022 1:00am June 29, 2022 12:37pm As directedStart: 06-17-2022 End: 60-72-0436cled 40 mg by mouth once dailyPrednisone Discontinued 40 MG PO Daily June 17, 2022 1:00am June 29, 2022 12:37pm As directedtamsulosin hydrochloride 0.4 mg oral capsule (20 sources)alpha-Adrenergic BlockerStart: 02-06-2024 End: 39-56-4546jblb 1 capsule by mouth at bedtimeTamsulosin 0.4 mg Capsule Discontinued 0.4 MG PO Bedtime 30 0 February 06, 2024 12:00am November 20, 2024 9:12am60 actuat tiotropium 0.93284 mg/actuat inhalation spray (20 sources)AnticholinergicStart: 01-13-2024 End: 27-12-5274goje 1 puff(s) by inhalation once dailyTiotropium [place] (Spiriva Respimat) 1.25 mcg/actuation mist Discontinued 2 PUFF INHALATION Daily January 13, 2024 12:00am November 20, 2024 9:12amStart: 21-75-1370xpiq 1 capsule by inhalation once in the morningtiotropium (SPIRIVA) 18 mcg per inhalation capsule Indications: SOB (shortness of breath) Place 1 capsule into inhaler and inhale in the morning. 90 capsule 3 04/18/2023 ActivetiZANidine 4 mg oral tablet (20 sources)Central alpha-2 Adrenergic AgonistStart: 07-03-2022 End: 51-43-2341octg 1 tablet by mouth twice daily as needed for muscle spasms Tizanidine 4 mg Tablet Discontinued 4 MG PO Twice daily as needed for Muscle Spasm 28 14 1 July 12, 2022 2:09pm August 17, 2023 8:26am Herniation of intervertebral disc Acute lumbar radiculopathy Radiculopathy, lumbar region Start: 06-17-2022 End: 34-37-5054ilgc 1 tablet by mouth three times daily as neededTizanidine (Zanaflex) 4 mg tablet Discontinued 4 MG PO Three times daily as needed for muscle spasticity June 17, 2022 1:00am June 29, 2022 12:37pm traMADol hydrochloride 50 mg oral tablet (20 sources)Opioid AgonistStart: 12-05-2023 End: 12-50-6772oouh 1 tablet by mouth every six hours as needed for painTramadol 50 mg tablet Discontinued 50 MG PO Every 6 hours as needed for pain 5 December 042:00am January 30, 2024 8:15am Spondylosis of lumbosacral region Spondylosis without myelopathy or radiculopathy, lumbosacral regiontriamcinolone acetonide 10 mg/ml injectable suspension (6 sources)CorticosteroidStart: 04-15-2025 End: 96-45-3528srjuwpyyfkrfo acetonide (Kenalog) injection 2.5 mgStart: 04-15-2025 End: 52.5 mg, Intradermal, Once, On Evelyn 04/15/25 at 0945, For 1 dose Start: 01-07-2025 End: 98-81-8204cemcbfjvwfved acetonide (Kenalog) injection 2.5 mgStart: 01-07-2025 End: 78-49-0826tbzqfzewzbpcq acetonide (Kenalog) injection 2.5 mgStart: 01-07-2025 End: 52.5 mg, Intra-lesional, Once, On Evelyn 01/07/25 at 0900, For 1 dose Start: 01-07-2025 End: 52.5 mg, Intra-lesional, Once, On Evelyn 01/07/25 at 0900, For 1 dose Problems Active Problems Problem ClassificationProblemDateDocumented DateEpisodic/Chronic Administrative/social admission (20 sources)Other reduced mobility; Translations: [Impaired mobility and activities of daily living]43-76-8591QxcdjzkxDtozxmg disorders (4 sources)Anxiety; Translations: [Anxiety disorder, unspecified]Onset: [id number]b disorders (14 sources)Left bundle branch block; Translations: [Left bundle-branch block, unspecified]Onset: 881631-58-5200WanvxemHpyvhnzrer and other anemia (20 sources)Anemia; Translations: [Anemia, unspecified]74-83-6329Ojcdbhvu Deficiency and other anemia (6 sources)Anemia, unspecified; Translations: [Anemia, unspecified]02-07-2024 EpisodicDiabetes mellitus without complication (20 sources)Type 2 diabetes mellitus without complication; Translations: [Type 2 diabetes mellitus without complications]Onset: hronic Disorders of lipid metabolism (20 sources)Pure hypercholesterolemia; Translations: [Pure hypercholesterolemia, unspecified]Onset: 570205-73-8658SsnehwwVvearfdogi disorders (14 sources)Gastroesophageal reflux disease; Translations: [Gastro-esophageal reflux disease without esophagitis]Onset: 306979-74-5132RcyqhcdWdjracobb hypertension (20 sources)Essential hypertension; Translations: [Essential (primary) hypertension]Onset: 752126-31-5606GlbdsjfEdppyagbkeyvu symptoms and ill- defined conditions (20 sources)Retention of urine; Translations: [Retention of urine, unspecified] Onset: 948202-41-5398AafdpjcgXniga disorders and dislocations; trauma-related (14 sources)Derangement of left knee; Translations: [Unspecified internal derangement of left knee]Onset: 489696-95-6425FbhlcfmQcfi disorders (14 sources)Major depressive disorder; Translations: [Major depressive disorder, single episode, unspecified]Onset: 004602-97-8726RindagqKvqlbuzfaessls (20 sources)Arthropathy of right hip joint; Translations: [Unilateral primary osteoarthritis, right hip]Onset: 125378-62-6142PnvdkufDuzjt acquired deformities (20 sources)Lumbar spondylolisthesis; Translations: [Spondylolisthesis, lumbar region]77-52-5729ZshlwynrZszlg aftercare (5 sources)Encounter for therapeutic drug level monitoring; Translations: [ENC THERAPEUTC DRUG LEVL MONITORING]Onset: 26-68-0190VmitwlzsImjrv aftercare (1 source)[facility] (current) use of anticoagulants; Translations: [CALL CENTER SPECIALIST CURRNT USE ANTICOAGULANTS]Onset: 29-18-1688GzstiebwJzzoy connective tissue disease (1 source)Other specified soft tissue disordersEpisodicOther connective tissue disease (4 sources)Pain in right leg; Translations: [PAIN IN RIGHT LEG]Onset: 09-27-2022 EpisodicOther connective tissue disease (20 sources)History of lumbar fusion; Translations: [Arthrodesis status] 22-56-3470DlssqvbqOamar connective tissue disease (3 sources)Arthrodesis status; Translations: [Arthrodesis status]Onset: 919633-93-9792RczmbqjgGhyjz connective tissue disease (1 source)Foot pain; Translations: [Pain in left foot]69-09-2595KqjjdbchWkjcm connective tissue disease (19 sources)Pain in left foot; Translations: [Pain in left foot]11-20-2024 EpisodicOther inflammatory condition of skin (5 sources)Granuloma annulare; 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]05-20-2024 EpisodicOther inflammatory condition of skin (3 sources)Erythema of skin; Translations: [Other specified erythematous conditions]73-13-3873DibagjpwBwhqv nervous system disorders (20 sources)Chronic pain; Translations: [Other chronic pain]Onset: 01-15-2023 28-75-2312ImxwbxsBvqoe nervous system disorders (20 sources)Other chronic pain; Translations: [Other chronic pain]08-19-2023 ChronicOther nutritional; endocrine; and metabolic disorders (15 sources)Morbid obesity; Translations: [Morbid (severe) obesity due to excess calories]Onset: 492111-17-8701DuphkowHyytq skin disorders (2 sources)Seborrheic keratosis; Translations: [Other seborrheic keratosis] 33-29-4793GwedwumcLeqwr skin disorders (2 sources)Eruption; Translations: [Rash and other nonspecific skin eruption] 89-58-3387DhijstmyYnfacqstj; thrombophlebitis and thromboembolism (11 sources)Acute embolism and thrombosis of unspecified deep veins of distal lower extremity, bilateral; Translations: [Acute embolism and thrombosis of unspecified deep veins of right lower extremity]Onset: 50-19-1951Bvpqdhag Residual codes; unclassified (12 sources)History of operative procedure on lumbar spinal structure; Translations: [Other specified postprocedural states]EpisodicResidual codes; unclassified (1 source)Other specified postprocedural statesEpisodicResidual codes; unclassified (1 source)Asymptomatic menopausal state; Translations: [ASYMPTOMATIC MENOPAUSAL STATE]Onset: 11-12-1128GdfhcwbqJhzzslnt codes; unclassified (1 source)Family history of malignant neoplasm of digestive organs; Translations: [FAM HX MALIG NEOPLASM DIGESTIV ORGN]Onset: 72-62-9056Maxtyzlc Residual codes; unclassified (1 source)Family history of leukemia; Translations: [FAMILY HISTORY OF LEUKEMIA] Onset: 08-25-5643RauuozogRubfbfvzfbt; intervertebral disc disorders; other back problems (20 sources)Displacement of intervertebral disc, site unspecified, without myelopathy; Translations: [Herniation of intervertebral disc]Onset: 06-20-2022 34-95-9130SnemdjpUsdqslj on above:Problem List clean-up per request of Phys. EHR CmteSubstance-related disorders (5 sources)Nicotine dependence, cigarettes, in remission; Translations: [Nicotine dependence, cigarettes, uncomplicated]Onset: 28-16-8890Qkbasds Unclassified (3 sources)LOW BACK PAIN, UNSPECIFIED; Translations: [LOW BACK PAIN, UNSPECIFIED]Onset: 23-52-5937Pmzuoexsdpct (1 source)6 Month Follow UpOnset: 04-21-2024 Past or Other Problems Problem ClassificationProblemDateDocumented DateEpisodic/ChronicChronic obstructive pulmonary disease and bronchiectasis (1 source)Bronchitis, not specified as acute or chronicOnset: 06-13-2021 Resolved: 76-14-4220ZgsbdmarZntrm valve disorders (14 sources)Heart murmur; Translations: [Cardiac murmur, unspecified]Onset: 950158-99-8293TfftkrlwVvoizyebpsgyy and screening for infectious disease (20 sources)Exposure to communicable disease; Translations: [Contact with and (suspected) exposure to unspecified communicable disease]Onset: 06-13-2021 Resolved: 54-35-3300QysamgdpIpws disorders (14 sources)Mood disordersOnset: 04-21-2024 Resolved: 252579-83-0610Rnxxxgmzpgcd breast conditions (15 sources)Unspecified lump in the right breast, lower outer quadrant; Translations: [Breast lump]Onset: 536331-79-3442OrbmwmadZtjar acquired deformities (20 sources)Spondylolisthesis, lumbar region; Translations: [Acquired spondylolisthesis]Onset: 920708-18-1174ThesalyfKdpae aftercare (1 source)Other fpc (current) drug therapy; Translations: [OTH CALL CENTER SPECIALIST CURRENT DRUG THERAPY]Onset: 95-72-2486MueipwnyXmbko aftercare (1 source)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; Translations: [SHELTER USE ORAL HYPOGLYCEMIC DX]Onset: 43-96-3673OlcdjavzQccic connective tissue disease (14 sources)Pain of right calf; Translations: [Pain in right lower leg]Onset: 787771-74-8904VytoitcjNdpbw connective tissue disease (2 sources)Pain in left foot; Translations: [Pain in limb]Onset: 12-09-2024 20-14-6413XrfonjtlVleyz non-traumatic joint disorders (15 sources)Pain in right knee; Translations: [Pain in joint, lower leg]Onset: 857347-01-3793VymlwquoVmagl screening for suspected conditions (not mental disorders or infectious disease) (6 sources)Encounter for screening mammogram for malignant neoplasm of breast; Translations: [Patient encounter status]Onset: 924072-52-1028HudtfiiaOrqqp skin disorders (2 sources)Localized swelling, mass and lump, lower limb, bilateral; Translations: [Localized swelling, mass and lump, lower limb, bilateral]Onset: 04-24-5515SocmoynkJjcuo skin disorders (2 sources)Rash and other nonspecific skin eruption; Translations: [Rash and other nonspecific skin eruption]Onset: 03-34-7656AwmqwxjfPfiielmr codes; unclassified (14 sources)Insomnia; Translations: [Insomnia, unspecified]Onset: 04-01-2023 44-26-8636KlafhpoaIqzjjnyn codes; unclassified (2 sources)Tobacco use; Translations: [Tobacco use]Onset: 10-85-6198Dpfnoesn Residual codes; unclassified (1 source)EdemaOnset: 02-25-8669PwxegpzbLgfzwspf codes; unclassified (1 source)Pain, unspecified; Translations: [Pain, unspecified]Onset: 11-18-2023 EpisodicScreening and history of mental health and substance abuse codes (4 sources)Ex-cigarette smoker; Translations: [Personal history of nicotine dependence]Onset: 765227-15-8089IdbukzavIxgplueiwro; intervertebral disc disorders; other back problems (20 sources)Lumbar radiculopathy; Translations: [Radiculopathy, lumbar region] Onset: 558725-31-6169XlraudztMflhusj on above:Problem List clean-up per request of Phys. EHR CmteUnclassified (1 source)LOW BACK PAIN, UNSPECIFIED; Translations: [LOW BACK PAIN, UNSPECIFIED] Onset: 53-51-4726Lwgarietqlxw (14 sources)Onset: 04-21-2024 Resolved: 293161-88-3643Hoxzutzsdlsi (1 source)Patient encounter rohxjv63-22-6843Uhxtskx tract infections (3 sources)Urinary tract infection, site not specified; Translations: [Urinary tract infection, site not specified]Onset: 40-15-9821Stofyozp Results Test NameValueInterpretationReference RangeFacilityBASIC METABOLIC PANELon 75-42-8079Gimnb gap [Moles/Vol]9 mmol/LNormal5-15[facility] Comment on above:Performed By: #### HA1C #### [facility] ([facility]) [address] [place] [address] VIRCalcium [Mass/Vol]9.6 mg/dLNormal8.5-10.5[facility]'S Health CenterComment on above:Performed By: #### HA1C #### [facility] ([facility]) [address] [place] [address] VIRChloride [Moles/Vol]104 mmol/GPdasog32-098WnaRtfhszMemorial Hermann Sugar Land HospitalComment on above:Performed By: #### HA1C #### [facility] ([facility]) [address] [place] [address] VIRCO2 [Moles/Vol]29 mmol/RHuwbxj35-74NigPvtuja [facility] HospitalComment on above:Performed By: #### HA1C #### [facility] ([facility]) [address] [place] [address] VIRCreatinine [Mass/Vol]0.89 mg/dLNormal0.40-1.00[facility] HospitalComment on above:Result Comment: METHOD TRACEABLE TO IDMS STANDARDPerformed By: #### HA1C #### [facility] ([facility]) [address] [place] [address] VIRGFR/1.73 sq M.predicted among non-blacks MDRD (S/P/Bld) [Vol rate/Area]70 mL/min/{1.73_m2}Normal>=60[facility] HospitalComment on above:Result Comment: Reported eGFR is based on the CKD-EPI 2020 equation that does not use a race coefficient.Performed By: #### HA1C #### [facility] ([facility]) [address] [place] [address] VIRGlucose [Mass/Vol]148 mg/hZItvu92-39LevAcbwqsMemorial Hermann Sugar Land HospitalComment on above:Performed By: #### HA1C #### [facility] ([facility]) [address] [place] [address] VIRPotassium [Moles/Vol]4.9 mmol/LNormal3.5-5.0[facility] HospitalComment on above:Performed By: #### HA1C #### [facility] ([facility]) [address] [place] [address] VIRSodium [Moles/Vol]142 mmol/JKbseig716-532PfrNxjewxWilson Memorial HospitalComment on above:Performed By: #### HA1C #### [facility] ([facility]) [address] [place] [address] VIRUrea nitrogen [Mass/Vol]24 mg/dLNormal5-27ProMemorial Hermann Sugar Land HospitalComment on above:Performed By: #### HA1C #### [facility] ([facility]) [address] [place] [address] VIRCBC WITH AUTO DIFFERENTIALon 90-87-3877ELLAZNGEH ABSOLUTE COUNT BY AUTOMATED COUNT0.1 X10^9/LNormal0.0-0.2PMemorial Health System [facility] on above:Performed By: #### CBCA #### [facility] ([facility]) [address] [place] [address] VIRBASOPHILS RELATIVE PERCENT BY AUTOMATED COUNT0.9 %Normal [facility] HospitalComment on above:Performed By: #### CBCA #### [facility] ([facility]) [address] [place] [address] VIRCELLAVISION DIFFERENTIAL TYPEAUTOMATED DIFFERENTIALNormal [facility] HospitalComment on above:Performed By: #### CBCA #### [facility] ([facility]) [address] [place] [address] VIREosinophils (Bld) [#/Vol]0.1 10*3/uLNormal0.0-0.4[facility] HospitalComment on above:Performed By: #### CBCA #### [facility] ([facility]) [address] [place] [address] VIREOSINOPHILS RELATIVE PERCENT BY AUTOMATED COUNT1.4 %Normal [facility] HospitalComment on above:Performed By: #### CBCA #### [facility] ([facility]) [address] [place] [address] VIRErythrocyte distribution width (RBC) [Ratio]13.9 %Normal 11.5-15ProMemorial Hermann Sugar Land HospitalComment on above:Performed By: #### CBCA #### [facility] ([facility]) [address] [place] [address] VIRHematocrit (Bld) [Volume fraction]34.3 %Swq96-75WxjImomyfMemorial Hermann Sugar Land HospitalComment on above:Performed By: #### CBCA #### [facility] ([facility]) [address] [place] [address] VIRHemoglobin (Bld) [Mass/Vol]11.6 g/dLLow11.7-15.5PAultman Alliance Community HospitalComment on above:Performed By: #### CBCA #### [facility] ([facility]) [address] [place] [address] VIRLymphocytes (Bld) [#/Vol]1.6 10*3/uLNormal1.0-3.5PAultman Alliance Community HospitalComment on above:Performed By: #### CBCA #### [facility] ([facility]) [address] [place] [address] VIRLYMPHOCYTES RELATIVE PERCENT BY AUTOMATED COUNT28.0 %Normal [facility] HospitalComment on above:Performed By: #### CBCA #### [facility] ([facility]) [address] [place] [address] VIRMCH (RBC) [Entitic mass]30.2 qeYamidg16-88OrfSqiksa [facility]remont HospitalComment on above:Performed By: #### CBCA #### [facility] ([facility]) [address] [place] [address] VIRMCHC (RBC) [Mass/Vol]34.0 g/lATfqqzs80-84HztXmcqihMemorial Hermann Sugar Land HospitalComment on above:Performed By: #### CBCA #### [facility] ([facility]) [address] [place] [address] VIRMCV (RBC) [Entitic vol]89 yCJnkonu41-736PbsIumqwvWilson Memorial HospitalComment on above:Performed By: #### CBCA #### [facility] ([facility]) [address] [place] [address] VIRMonocytes (Bld) [#/Vol]0.5 10*3/uLNormal0.0-0.9[facility] HospitalComment on above:Performed By: #### CBCA #### [facility] ([facility]) [address] [place] [address] VIRMONOCYTES RELATIVE PERCENT BY AUTOMATED COUNT8.3 %Normal [facility] HospitalComment on above:Performed By: #### CBCA #### [facility] ([facility]) [address] [place] [address] VIRNEUTROPHILS ABSOLUTE COUNT BY AUTOMATED COUNT3.5 X10^9/L Normal1.5-6.6[facility] HospitalComment on above:Performed By: #### CBCA #### [facility] ([facility]) [address] [place] [address] VIRNEUTROPHILS RELATIVE PERCENT BY AUTOMATED COUNT61.4 %Normal [facility] HospitalComment on above:Performed By: #### CBCA #### [facility] ([facility]) [address] [place] [address] VIRPlatelet mean volume (Bld) [Entitic vol]8.6 fLNormal7-12 [facility] HospitalComment on above:Performed By: #### CBCA #### [facility] ([facility]) [address] [place] [address] VIRPlatelets (Bld) [#/Vol]252 10*3/rLEwsufz888-656NihSxzuux [facility] HospitalComment on above:Performed By: #### CBCA #### [facility] ([facility]) [address] [place] [address] VIRRBC COUNT3.86 X10^12/LNormal3.8-5.2ProMedMotion Picture & Television HospitalComment on above:Performed By: #### CBCA #### [facility] ([facility]) [address] [place] [address] VIRWBC (Bld) [#/Vol]5.8 10*3/uLNormal4-11ProMemorial Hermann Sugar Land HospitalComment on above:Performed By: #### CBCA #### [facility] ([facility]) [address] [place] [address] VIRHEMOGLOBIN A1Con 47-05-6275Wnvjiyn [Mass/Vol]177 mg/dLNormal [facility] HospitalComment on above:Performed By: #### HA1C #### [facility] ([facility]) [address] [place] [address] HRNZnT2n (Bld) [Mass fraction]7.8 %High4.4-5.6[facility] Memorial HospitalComment on above:Result Comment: ADA Guidelines Result HgbA1c Normal : less than 5.7 % Prediabetes : 5.7 % to 6.4 % Diabetes : > 6.4 % Use with caution in patients with abnormal hemoglobin variants as the half-life of red blood cells and in vivo glycation rates are affected.Performed By: #### HA1C #### [facility] ([facility]) [address] [place] [address] VIRCT lumbar spine wo [facility] 23-75-1504CG lumbar spine wo [facility] [address] CT Scan Report Signed Patient: Shana Lugo MR#: [id number] : 1955 Acct:[id number] Age/Sex: 70 / F ADM Date: 02/25/25 Loc: [facility]: Jacques Foy MD Copies to: Jacques Foy MD Ordering Provider: Jacques Foy MD Date of Service: 02/25/25 CT/CT lumbar spine wo con: evaluate fusion CT lumbar spine wo con 02/25/2025 8:20 PM History:Lumbar fusion TECHNIQUE: Multi detector CT axial slices of the lumbar spine were obtained without IV contrast. Volumetric acquisition sagittal, coronal reconstructions were performed and reviewed on a separate workstation. CT was performed with one or more of the following dose reduction techniques: Automated exposure control, adjustment of the mA and/or kV according to patient size, or use of iterative reconstruction technique. COMPARISON: X-ray 03/11/2024 FINDINGS: Mild levocurvature. Redemonstration of postsurgical changes status post multilevel L2-S1 posterior instrumented fusion and multilevel discectomy with spacer spacer device. There is minimal bony ankylosis at L5-S1 interspace with fracture lucency extending through the interspace noted suggestive of incomplete union. There is redemonstration of the fracture lucency extending through the right sacral screw. Remaining hardware is intact. Laminectomy at L3-L4. Multilevel degenerative changes elsewhere. L4-5: diffuse ossific bridging noted causing moderate foraminal narrowing. Mild canal narrowing. L5-S1: Diffuse endplate osteophytosis and bridging noted with moderate neural foraminal narrowing. Mild canal narrowing. Right adrenal nodule noted. CT/CT lumbar spine wo con IMPRESSION: Multilevel postsurgical changes L2-S1 status post posterior instrument fusion and discectomy with spacer devices. Incomplete/failed bony bridging at L5-S1 noted with subtle lucency involving the interspace. Redemonstration of the fracture through the right pedicle screw at S1. Impression dictated by: Trey Lee M.D. 02/26/2025 2:53 PM Dictation Location: [facility] Transcribed By: [facility] 02/26/25 1454 Dictated By: Trey Lee MD 02/26/25 1447 Signed By: 02/26/25 1453[facility] Physician GroupX-ray reportOrdered By: Chris Beckford on 90-68-7092Mfzwo reportPROMEDICA [place]IAL [place] [address] XRay Report Signed Patient: Shana Lugo MR#: [id number] : 1955 Acct:[id number] Age/Sex: 69 / F ADM Date: Loc: XD Room: Type: REG CLI Attending Dr: Jacques Foy MD Copies to: Jacques Foy MD~ Ordering Provider: Jacques Foy MD Date of Service: 02/08/25 XR/XR lumbar spine AP/LAT/FLX/EXT: M48.062 - Spinal stenosis, lumbar region with neurogenic ... AP with lateral neutral, flexion-extension views Lumbar Spine HISTORY: Follow-up lumbar surgery. COMPARISON: 10/29/2024 POSTSURGICAL CHANGES: Stable hardware BONY ALIGNMENT: Stable HYPERMOBILITY:No hypermobility LISTHESIS:None FRACTURE: None DEGENERATIVE CHANGES: Similar degenerative change SOFT TISSUES: Unremarkable BONY MINERALIZATION:Adequate XR/XR lumbar spine AP/LAT/FLX/EXT IMPRESSION: Stable degenerative and postoperative changes. No hypermobility. Impression dictated by: Chris Beckford M.D. 02/08/2025 9:37 AM Dictation Location: [place] [address] Transcribed By: [facility] 02/08/25 0937 Dictated By: Chris Beckford DO 02/08/25 0935 Signed By: 02/08/25 0937 [facility]/LAT/FLX/EXTon 1956ZQ lumbar spine AP/LAT/FLX/EXTPROMEDICA [facility]ORIAL [facility] [place] [address] [place] [address] XRay Report Signed Patient: Shana Lugo MR#: [id number] : 1955 Acct:[id number] Age/Sex: 69 / F ADM Date: 02/08/25 Loc: XD Room: Type: REG CLI Attending Dr: Jacques Foy MD Copies to: Jacques Foy MD Ordering Provider: Jacques Foy MD Date of Service: 02/08/25 XR/XR lumbar spine AP/LAT/FLX/EXT: M48.062 - Spinal stenosis, lumbar region with neurogenic ... AP with lateral neutral, flexion-extension views Lumbar Spine HISTORY: Follow-up lumbar surgery. COMPARISON: 10/29/2024 POSTSURGICAL CHANGES: Stable hardware BONY ALIGNMENT: Stable HYPERMOBILITY:No hypermobility LISTHESIS:None FRACTURE: None DEGENERATIVE CHANGES: Similar degenerative change SOFT TISSUES: Unremarkable BONY MINERALIZATION:Adequate XR/XR lumbar spine AP/LAT/FLX/EXT IMPRESSION: Stable degenerative and postoperative changes. No hypermobility. Impression dictated by: Chris Beckford M.D. 02/08/2025 9:37 AM Dictation Location: [facility] Transcribed By: [facility] 02/08/25 0937 Dictated By: Chris Beckford DO 02/08/25 0935 Signed By: 02/08/25 0937[facility] Physician GroupISTAT XRay CREon 64-19-5913ZKSGH GFR54.733NoOn license of [facility] Physician GroupComment on above:Result Comment: PERFORMED BY: [place] [address] PATHOLOGIST STORE CLERK JOYCE MERCADO M.D.Performed By: #### ISCRE #### [address] lumbar spine wo/w [facility] 29-51-5449SB lumbar spine wo/w [facility] [place] [address] [place] [address] MRI Report Signed Patient: Shana Lugo MR#: [id number] : 1955 Acct:[id number] Age/Sex: 69 / F ADM Date: 12/21/24 Loc: MR Room: Type: [facility] Attending Dr: Thom Villarreal MD Copies to: Thom Villarreal MD Ordering Provider: Thom Villarreal MD Date of Service: 12/21/24 MR/MR lumbar spine wo/w con: M47.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 MR lumbar spine wo/w con 12/21/2024 7:55 AM SIGNS AND SYMPTOMS: Low back pain radiating down left leg PROTOCOL: Multiplanar multisequence MR images of the lumbar spine with and without IV contrast CONTRAST: 20 mL of intravenous ProHance COMPARISON: 08/02/2023 FINDINGS: The bones of the lumbar spine are in anatomic alignment. There is preservation of vertebral body heights. There is posterior decompression with posterior and intervertebral fusion from L2 through S1. Fusion hardware is new compared prior exam. There is mild disc height loss at T11-T12 and T12. The marrow signal is within normal limits. The conus terminates at the L1-L2 intervertebral disc level. No epidural or paraspinous fluid collection is appreciated. There is a simple cyst in the left renal cortex requiring no further follow-up. Adrenal nodules are redemonstrated bilaterally measuring 2.2 cm on the left and 1.3 cm on the right. No abnormal postcontrast enhancement. At T12-L1: There is a normal disc, central canal, and neural foramen. At L1-L2: There is a normal disc, central canal, and neural foramen. At L2-L3: There is a normal disc, central canal, and neural foramen. At L3-L4: There is a normal disc and spinal canal. The neural foramina are partially obscured by hardware artifact. At L4-L5: There is a normal disc and spinal canal. The neural foramina are partially obscured by hardware artifact. At L5-S1: Facet hypertrophy and endplate osteophyte formation contributes to xquy-ye-ekcsxmyw bilateral neural foraminal stenosis similar to her study. No significant spinal canal narrowing. MR/MR lumbar spine wo/w con IMPRESSION: Interval posterior and intervertebral fusion from L2 through S1. No abnormal postcontrast enhancement. At L3-L4: There is a normal disc and spinal canal. The neural foramina are partially obscured by hardware artifact. At L4-L5: There is a normal disc and spinal canal. The neural foramina are partially obscured by hardware artifact. At L5-S1: Facet hypertrophy and endplate osteophyte formation contributes to djqk-lq-trmieagq bilateral neural foraminal stenosis similar to her study. No significant spinal canal narrowing. Impression dictated by: David Ambriz M.D. 12/21/2024 9:50 AM Dictation Location: [place] [address] Transcribed By: SELWYN 12/21/24 0950 Dictated By: David Ambriz II, MD 12/21/24 0944 Signed By: 12/21/24 0950[facility] Physician GroupMagnetic resonance imaging reportOrdered By: David Ambriz on 49-38-5207Gldnd reportPROMEDICA MEMORIAL HOSPITAL [place] [address] [place] [address] MRI Report Signed Patient: Shana Lugo MR#: [id number] : 1955 Acct:[id number] Age/Sex: 69 / F ADM Date: 5 Loc: MR Room: Type: [facility] Attending Dr: Thom Villarreal MD Copies to: Thom Villarreal MD~ Ordering Provider: Thom Villarreal MD Date of Service: 12/21/24 MR/MR lumbar spine wo/w con: M47.817 - Spondylosis without myelopathy orradiculopathy... MR lumbar spine wo/w con 12/21/2024 7:55 AM SIGNS AND SYMPTOMS: Low back pain radiating down left leg PROTOCOL: Multiplanar multisequence MR images of the lumbar spine with and without IV contrast CONTRAST: 20 mL of intravenous ProHance COMPARISON: 08/02/2023 FINDINGS: The bones of the lumbar spine are in anatomic alignment. There is preservation of vertebral body heights. There is posterior decompression with posterior and intervertebral fusion from L2 through S1. Fusion hardware is new compared prior exam. There is mild disc height loss at T11-T12 andT12. The marrow signal is within normal limits. The conus terminates at the L1-L2 intervertebral disc level. No epidural or paraspinous fluid collection is appreciated. There is a simple cyst in the left renal cortex requiring no further follow-up. Adrenal nodules are redemonstrated bilaterally measuring 2.2cm on the left and 1.3 cm on the right. No abnormal postcontrast enhancement. At T12-L1: There is a normal disc, central canal, and neural foramen. At L1-L2: There is a normal disc, central canal, and neural foramen. At L2-L3: There is a normal disc, central canal, and neural foramen. At L3-L4: There is a normal disc and spinal canal. The neural foramina are partially obscured by hardware artifact. At L4-L5: There is a normal disc and spinal canal. The neural foramina are partially obscured by hardware artifact. At L5-S1: Facet hypertrophy and endplate osteophyte formation contributes to nnbb-tb-wiwgmvnk bilateral neural foraminal stenosis similar to her study. No significant spinal canal narrowing. MR/MR lumbar spine wo/w con IMPRESSION: Interval posterior and intervertebral fusion from L2 through S1. No abnormal postcontrast enhancement. At L3-L4: There is a normal disc and spinal canal. The neural foramina are partially obscured by hardware artifact. At L4-L5: There is a normal disc and spinal canal. The neural foramina are partially obscured by hardware artifact. At L5-S1: Facet hypertrophy and endplate osteophyte formation contributes to dgzz-lx-przudgjo bilateral neural foraminal stenosis similar to her study. No significant spinal canal narrowing. Impression dictated by: David Ambriz M.D. 12/21/2024 9:50 AM Dictation Location: [facility]- Transcribed By: [facility] 12/21/24 0950 Dictated By: David Ambriz II, MD 12/21/24 0944 Signed By: 12/21/24 0950 [facility] Work Phone: No Panel InformationOrdered By: Thom Villarreal on 80-00-0905Jgyacwn Estimated GFR (eGFR)54.733[facility] Whole blood creatinine measurementOrdered By: Thom Villarreal on 12-21-2024 Creatinine [Mass/Vol]1.1 mg/dLNormal0.6-1.3FMorrow County Hospital Comment on above:ER/ESD physician is notified/shown all ISTAT results.Critical values may be confirmed by laboratorytesting ifdeemed necessary by ER attending doctor.Result Comment: ER/ESD physician is notified/shown all ISTAT results. Critical values may be confirmed by laboratory testing if deemed necessary by ER attending doctor.Performed By: #### ISCRE #### [address] [address] USAXR lumbar spine 2-3V*on 65-77-8295QG lumbar spine 2-3V* [facility] Main [place] [address] [place], [place] [id number] XRay Report Signed Patient: Shana Lugo MR#: [id number] : 1955 Acct:[id number] Age/Sex: 69 / F ADM Date: 10/29/24 Loc: XD Room: Type: [facility] Attending Dr: Jacques Foy MD Copies to: Jacques Foy MD Ordering Provider: Jacques Foy MD Date of Service: 10/29/24 XR/XR lumbar spine 2-3V*: Z98.1 - Arthrodesis status 2 view Lumbar Spine HISTORY: Follow-up lumbar surgery COMPARISON: 05/07/2024 POSTSURGICAL CHANGES: Stable hardware BONY ALIGNMENT: Adequate HYPERMOBILITY:No bending imaging. LISTHESIS:None FRACTURE: None DEGENERATIVE CHANGES: Similar SOFT TISSUES: Atherosclerosis BONY MINERALIZATION:Adequate XR/XR lumbar spine 2-3V* IMPRESSION: Stable postsurgical changes. Impression dictated by: Chris Beckford M.D. 10/29/2024 3:58 PM Dictation Location: [place] [address] Transcribed By: [facility] 10/29/24 1558 Dictated By: Chris Beckford DO 10/29/24 1558 Signed By: 10/29/24 1558[facility] GroupGOOD [facility] WITH AUTO DIFFERENTIALon 80-26-1090MNYYWFOWO ABSOLUTE COUNT (10*3/UL) BY AUTOMATED COUNT0.0 10*3/uLNormal [facility] HospitalComment on above:Performed By: #### CBCA #### [facility] ([facility]) [address] [place] [address] VIRBASOPHILS RELATIVE PERCENT BY AUTOMATED COUNT0.4 %Normal [facility] HospitalComment on above:Performed By: #### CBCA #### [facility] ([facility]) [address] [place] [address] VIRCELLAVISION DIFFERENTIAL TYPEAUTOMATED DIFFERENTIALNoMorrow County HospitalComment on above:Performed By: #### CBCA #### [facility] ([facility]) [address] [place] [address] VIREosinophils (Bld) [#/Vol]0.1 10*3/uLNoGeorgetown Behavioral HospitalComment on above:Performed By: #### CBCA #### [facility] ([facility]) [address] [place] [address] VIREOSINOPHILS RELATIVE PERCENT BY AUTOMATED COUNT0.9 %Normal [facility] HospitalComment on above:Performed By: #### CBCA #### [facility] ([facility]) [address] [place] [address] VIRErythrocyte distribution width (RBC) [Ratio]13.8 %Normal 11.5-15[facility] HospitalComment on above:Performed By: #### CBCA #### [facility] ([facility]) [address] [place] [address] VIRHematocrit (Bld) [Volume fraction]34.7 %Skf68-56FjnFlgxcfWilson Memorial HospitalComment on above:Performed By: #### CBCA #### [facility] ([facility]) [address] [place] [address] VIRHemoglobin (Bld) [Mass/Vol]11.5 g/dLLow11.7-15.5PAultman Alliance Community HospitalComment on above:Performed By: #### CBCA #### [facility] ([facility]) [address] [place] [address] VIRLYMPHOCYTES ABSOLUTE COUNT (10*3/UL) BY AUTOMATED COUNT1.8 10*3/uLNoGeorgetown Behavioral HospitalComment on above:Performed By: #### CBCA #### [facility] ([facility]) [address] [place] [address] VIRLYMPHOCYTES RELATIVE PERCENT BY AUTOMATED COUNT23.7 %Normal [facility] HospitalComment on above:Performed By: #### CBCA #### [facility] ([facility]) [address] [place] [address] VIRMCH (RBC) [Entitic mass]29.0 jzNfywhf12-07DahUhbqhn [facility]remont HospitalComment on above:Performed By: #### CBCA #### [facility] ([facility]) [address] [place] [address] VIRMCHC (RBC) [Mass/Vol]33.3 g/sXDuhjxn06-19YfxYdwvkmWilson Memorial HospitalComment on above:Performed By: #### CBCA #### [facility] ([facility]) [address] [place] [address] VIRMCV (RBC) [Entitic vol]87 pKIbvewe47-766ExdCphooi [facility]ont HospitalComment on above:Performed By: #### CBCA #### [facility] ([facility]) [address] [place] [address] VIRMONOCYTES ABSOLUTE COUNT (10*3/UL) BY AUTOMATED COUNT0.6 10*3/uLNoGeorgetown Behavioral HospitalComment on above:Performed By: #### CBCA #### [facility] ([facility]) [address] [place] [address] VIRMONOCYTES RELATIVE PERCENT BY AUTOMATED COUNT7.4 %Normal [facility] HospitalComment on above:Performed By: #### CBCA #### [facility] ([facility]) [address] [place] [address] VIRNEUTROPHILS ABSOLUTE COUNT BY AUTOMATED COUNT5.2 10*3/uL NormalWilson Memorial HospitalComment on above:Performed By: #### CBCA #### [facility] ([facility]) [address] [place] [address] VIRNEUTROPHILS RELATIVE PERCENT BY AUTOMATED COUNT67.6 %Normal [facility] HospitalComment on above:Performed By: #### CBCA #### [facility] ([facility]) [address] [place] [address] VIRPlatelet mean volume (Bld) [Entitic vol]8.5 fLNormal7-12 [facility] HospitalComment on above:Performed By: #### CBCA #### [facility] ([facility]) [address] [place] [address] VIRPlatelets (Bld) [#/Vol]249 10*3/aYZsqkov884-491OrtAmngoy [facility]remont HospitalComment on above:Performed By: #### CBCA #### [facility] ([facility]) [address] [place] [address] VIRRBC COUNT3.98 X10E12/LNormal3.8-5.2PAultman Alliance Community HospitalComment on above:Performed By: #### CBCA #### [facility] ([facility]) [address] [place] [address] VIRWBC (Bld) [#/Vol]7.7 10*3/uLNormal4-11[facility] HospitalComment on above:Performed By: #### CBCA #### [facility] ([facility]) [address] [place] [address] VIRCK TOTALon 27-44-2197ANC35 U/FSnipqs60-434YxeIpzwhkWilson Memorial HospitalComment on above:Performed By: #### CPK #### [facility] ([facility]) [address] [place] [address] VIRCOMPREHENSIVE METABOLIC PANELon 40-91-8849Pzljdts [Mass/Vol] 4.0 g/dLNormal3.2-5.3PAultman Alliance Community HospitalComment on above:Performed By: #### CMP #### [facility] ([facility]) [address] [place] [address] VIRALP [Catalytic activity/Vol]57 U/ZWajepr17-096UrtSrgqakMemorial Hermann Sugar Land HospitalComment on above:Performed By: #### CMP #### [facility] ([facility]) [address] [place] [address] VIRALT [Catalytic activity/Vol]14 U/LNormal<=31PAultman Alliance Community HospitalComment on above:Performed By: #### CMP #### [facility] ([facility]) [address] [place] [address] VIRAnion gap [Moles/Vol]11 mmol/LNormal5-15ProMemorial Hermann Sugar Land HospitalComment on above:Performed By: #### CMP #### [facility] ([facility]) [address] [place] [address] VIRAST [Catalytic activity/Vol]18 U/LNormal<=41ProMemorial Hermann Sugar Land HospitalComment on above:Performed By: #### CMP #### [facility] ([facility]) [address] [place] [address] VIRBilirubin [Mass/Vol]0.3 mg/dLNormal0.3-1.2PAultman Alliance Community HospitalComment on above:Performed By: #### CMP #### [facility] ([facility]) [address] [place] [address] VIRCalcium [Mass/Vol]9.4 mg/dLNormal8.5-10.5PAultman Alliance Community HospitalComment on above:Performed By: #### CMP #### [facility] ([facility]) [address] [place] [address] VIRChloride [Moles/Vol]105 mmol/RTvmzfm08-279QxjJbpariMemorial Hermann Sugar Land HospitalComment on above:Performed By: #### CMP #### [facility] ([facility]) [address] [place] [address] VIRCO2 [Moles/Vol]27 mmol/DPurzue33-39LozEaldsvAultman Alliance Community HospitalComment on above:Performed By: #### CMP #### [facility] ([facility]) [address] [place] [address] VIRCreatinine [Mass/Vol]0.84 mg/dLNormal0.40-1.00ProMemorial Hermann Sugar Land HospitalComment on above:Result Comment: METHOD TRACEABLE TO IDMS STANDARDPerformed By: #### CMP #### [facility] ([facility]) [address] [place] [address] VIRGFR/1.73 sq M.predicted among non-blacks MDRD (S/P/Bld) [Vol rate/Area]76 mL/min/{1.73_m2}Normal>=60ProMemorial Hermann Sugar Land HospitalComment on above:Result Comment: Reported eGFR is based on the CKD-EPI 2020 equation that does not use a race coefficient.Performed By: #### CMP #### [facility] ([facility]) [address] [place] [address] VIRGlucose [Mass/Vol]94 mg/dTOwscqo49-78RxaJkkvisMemorial Hermann Sugar Land HospitalComment on above:Performed By: #### CMP #### [facility] ([facility]) [address] [place] [address] VIRPotassium [Moles/Vol]4.4 mmol/LNormal3.5-5.0ProMemorial Hermann Sugar Land HospitalComment on above:Performed By: #### CMP #### [facility] ([facility]) [address] [place] [address] VIRProtein [Mass/Vol]6.9 g/dLNormal6.0-8.0[facility] HospitalComment on above:Performed By: #### CMP #### [facility] ([facility]) [address] [place] [address] VIRSodium [Moles/Vol]143 mmol/XOnkijh632-433AfwRonyyg [facility] HospitalComment on above:Performed By: #### CMP #### [facility] ([facility]) [address] [place] [address] VIRUrea nitrogen [Mass/Vol]17 mg/dLNormal5-27ProMemorial Hermann Sugar Land HospitalComment on above:Performed By: #### CMP #### [facility] ([facility]) [address] [place] [address] VIRHEMOGLOBIN A1Con 74-53-0001Ztoyaje [Mass/Vol]148 mg/dLNormal [facility] HospitalComment on above:Performed By: #### HA1C #### [facility] ([facility]) [address] [place] [address] HLYVyM4n (Bld) [Mass fraction]6.8 %High4.4-5.6Wilson Memorial HospitalComment on above:Result Comment: ADA Guidelines Result HgbA1c Normal : less than 5.7 % Prediabetes : 5.7 % to 6.4 % Diabetes : > 6.4 % Use with caution in patients with abnormal hemoglobin variants as the half-life of red blood cells and in vivo glycation rates are affected.Performed By: #### HA1C #### [facility] ([facility]) [address] [place] [address] VIRLIPID PROFILEon 55-45-3581Pvdwgmkzhlx [Mass/Vol]133 mg/dLLow 150-200ProMemorial Hermann Sugar Land HospitalComment on above:Performed By: #### LIPR #### [facility] ([facility]) [address] [place] [address] VIRCholesterol in HDL [Mass/Vol]58 mg/dLNormal>39ProMemorial Hermann Sugar Land HospitalComment on above:Result Comment: HDL <40 mg/dL - High Risk HDL > or = 40mg/dL- Desirable HDL >60 mg/dL - Negative RiskPerformed By: #### LIPR #### [facility] ([facility]) [address] [place] [address] VIRCholesterol in LDL [Mass/Vol]51 mg/dLNormal<130ProMemorial Hermann Sugar Land HospitalComment on above:Result Comment: LDL <100 mg/dL - Desirable LDL >160 mg/dL - High RiskPerformed By: #### LIPR #### [facility] ([facility]) [address] [place] [address] VIRCHOLESTEROL:HDL2.9Cirsyg8.0-5.0[facility] Comment on above:Performed By: #### LIPR #### [facility] ([facility]) [address] [place] [address] VIRTriglyceride [Mass/Vol]118 mg/uDEjsmvj40-737DxhBvjlog [facility] HospitalComment on above:Performed By: #### LIPR #### [facility] ([facility]) [address] [place] [address] VIRVERY LOW MMDOZCKPOXU79 mg/dLNormal0-30ProMemorial Hermann Sugar [facility] HospitalComment on above:Performed By: #### LIPR #### [facility] ([facility]) [address] [place] [address] VIRT4, FREEon 71-19-8769Abwu T4 [Mass/Vol]0.86 ng/dLNormal 0.61-1.60ProMemorial Hermann Sugar Land HospitalComment on above:Performed By: #### FT4 #### [facility] ([facility]) [address] [place] [address] VIRTSHon 25-17-6959SZZ3.79 uIU/mLNormal0.49-4.67[facility] HospitalComment on above:Performed By: #### TSH #### [facility] ([facility]) [address] [place] [address] VIRURIC ACIDon 73-80-4106Wuzdw [Mass/Vol]5.8 mg/dLNormal2.6-7.2 ProMLakewood Regional Medical CenterComment on above:Performed By: #### URIC #### [facility] ([facility]) [address] [place] [address] VIRNo Panel Informationon 14-10-3718Eggx of biopsy: punch Informed consent: discussed and consent obtained Informed consent comment: The risks and benefits were discussed. Risks include, but are not limited to, bleeding, infection, scarring, pain, & nerve damage. An opportunity to ask questions prior to the procedure was permitted and questions were answered. Patient was prepped and draped in usual sterile fashion: Area cleansed with alcohol. Anesthesia: the lesion was anesthetized in a standard fashion Anesthetic: 1% lidocaine w/ epinephrine 1-100,000 buffered w/ 8.4% NaHCO3 Punch size: 4 mm (A biopsy by punch method was performed using a dermal punch) Suture size: 4-0 Suture type: nylon Suture type comment: Hemostasis was achieved with suture. Hemostasis achieved with: suture Outcome: patient tolerated procedure well Post-procedure details: sterile dressing applied and wound care instructions given Post-procedure details comment: Emphasized the need to contact clinic for any signs of infection, uncontrollable bleeding, or complications. Dressing type: bandage Additional details: Amount of lidocaine used: 1.0 cc Number of sutures used: 2 Specimen sent for: H&E or DIF [facility]*on 05-07-2024 XR lumbar spine 2-3V*[facility] [place] [address] XRay Report Signed Patient: Shana Lugo MR#: [id number] : 1955 Acct:[id number] Age/Sex: 69 / F ADM Date: 05/07/24 Loc: D Room: Type: [facility] Attending Dr: Jacques Foy MD Copies to: Jacques Foy MD Ordering Provider: Jacques Foy MD Date of Service: 05/07/24 XR/XR lumbar spine 2-3V*: M47.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 LUMBAR SPINE - 2 views CLINICAL HISTORY: Follow-up surgery. Left leg and foot tingling. COMPARISON: Lumbar spine 03/04/2024 FINDINGS: Posterior hardware fixation L2-S1 without radiographic complication. Vertebral body heights appear maintained. SI joints demonstrate mild degenerative change. XR/XR lumbar spine 2-3V* IMPRESSION: NO HARDWARE COMPLICATION. Impression dictated by: Ramirez Whitt Jr., D.O.05/07/2024 4:05 PM Dictation Location: [place] [address] Transcribed By: [facility] 05/07/24 1605 Dictated By: Ramirez Whitt Jr, DO 05/07/241604 Signed By: 05/07/24 1605Community Hospital Physician GroupURINE CULTUREon 04-21-2024 Bacteria identified Cx Nom (U)CULTURE RESULTS NO GROWTH AT <1000 CFU/mLNormalProMedica Select Medical Cleveland Clinic Rehabilitation Hospital, BeachwoodComment on above: Performed By: #### 630-4 #### [facility] ([id number]) [address] [place] [address], [address] [place], [place] [address] Urineon 28-45-7183Qpcbunsz identified Cx Nom (U)Microbiology PROCEDURE: Urine Culture [R1] SOURCE: U CleanCatch BODY SITE: COLLECTED DATE/TIME: 03/26/2024 14:26 EDT RECEIVED DATE/TIME: 03/26/2024 18:24 EDT START DATE/TIME: 03/26/2024 18:24 EDT FREE TEXT SOURCE: COREY ROCHA PA-C, PA-C, JENNIFER E FINAL REPORTS Final Report [] Verified Date/Time: 03/28/2024 11:19 EDT >100,000 cfu/ml Enterococcus faecalis 2,000 cfu/ml Mixed skin contaminants SUSCEPTIBILITY RESULTS LEGEND: S=Susceptible, N/R=Not Reported, Blank=Data not available, or drug not advisable or tested, I=Intermediate, ESBL=Extended spectrum beta-lactamase, R=Resistant, TFG=Thymidine-dependent strain, JAYNE=Beta-lactamase positive, KIMO=mcg/m;(mg/L), S*=Predicted susceptible interp, R*=Predicted resistant interp Entfaeca Antibiotic KIMO Dilutn KIMO Interp Ampicillin <=2 S Ciprofloxacin <=1 S Daptomycin <=1 S Levofloxacin <=1 S Linezolid <=2 S Nitrofurantoin <=32 S Penicillin 2 S Rifampin 2 I Tetracycline >8 R Vancomycin 1 S Performing Locations R1: This test was performed at: [facility], [address] [place] [address], [facility] , , NvwrsxSzvfhmMercy Health West HospitalComment on above:Performed By: #### [id number] #### [facility] [address] [place] [id number] Visit Summaryon 62-31-5030Neeuhsuden Visit Summary Ambulatory Visit Summary ROGERIOSHAGGY SHANA Rowe :1955 Visit Date:03/26/2024 Ambulatory Visit Instructions Your Diagnosis Urinary retention Your Care Team Attending Physician - COREY ROCHA PA-C Primary Care Physician - EYAD GARLAND This Is Your Medications List Contact prescribing physician if questions or concerns atorvastatin (atorvastatin 20 mg Tab) dulaglutide (Trulicity Pen 1.5 mg/0.5 mL subcutaneous solution) escitalopram (escitalopram 20 mg Tab) gabapentin (gabapentin 300 mg Cap) glyBURIDE (glyBURIDE micronized 6 mg Tab) lisinopril (lisinopril 10 mg Tab) metformin (metformin 1000 mg Tab) methocarbamol (methocarbamol 500 mg Tab) trazodone (traZODONE 100 mg Tab) [Image Removed: STOP]Stop taking these medications bethanechol (bethanechol 10 mg oral tablet) Procedures Performed Arthroscopy of knee, section, Cholecystectomy, H/O: hysterectomy, Procedure on back. Discharge Vitals Heart Rate (Peripheral) 84 Respiratory Rate 19 Blood Pressure 121/59 Height 162 cm Height 64 in Weight 90 kg Weight 198 lb BMI 34.29 What to do next Scheduled Follow-Up Appointments Saturday 10:30 AM EDT Where: [facility] [address] [place] [address] [place] [address]- You Need to Schedule the Following Appointments Follow Up with 04/07 for PVR When: Medications What How Much When Instructions Unchanged atorvastatin (atorvastatin 20 mg Tab) 1 Tablets By Mouth Every day Contact prescribing physician if questions or concerns Unchanged dulaglutide (Trulicity Pen 1.5 mg/ 0.5 mL subcutaneous solution) Subcutaneous Every week Contact prescribing physician if questions or concerns Unchanged escitalopram (escitalopram 20 mg Tab) 1 Tablets By Mouth Every day Contact prescribing physician if questions or concerns Unchanged gabapentin (gabapentin 300 mg Cap) 1 Capsules By Mouth 3 times a day Contact prescribing physician if questions or concerns Unchanged glyBURIDE (glyBURIDE micronized 6 mg Tab) 1 Tablets By Mouth Every day Contact prescribing physician if questions or concerns Unchanged lisinopril (lisinopril 10 mg Tab) 1 Tablets By Mouth Every day Contact prescribing physician if questions or concerns Unchanged metformin (metformin 1000 mg Tab) 1 Tablets By Mouth 2 times a day Contact prescribing physician if questions or concerns Unchanged methocarbamol (methocarbamol 500 mg Tab) 2 Tablets Contact prescribing physician if questions or concerns Unchanged trazodone (traZODONE 100 mg Tab) 1 Tablets By Mouth 3 times a day Contact prescribing physician if questions or concerns What How Much When Comments Stop Taking bethanechol (bethanechol 10 mg oral tablet) 1 Tablets By Mouth Every day Duration: 30 Days Allergies No Known Allergies Problems Ongoing - Any problem that you are currently receiving treatment for. Anxiety Hyperlipidemia Hypertension Type 2 diabetes mellitus Urinary retention Patient Survey You may receive a survey via text or e-mail asking about your office visit. Please share your experience with us by completing your survey. We appreciate your feedback and thank you for choosing us for your care. Education Materials Acute Urinary Retention, Female Acute urinary retention is a condition in which a person is unable to pass urine or can only pass alittle urine. This condition can happen suddenly and last for a short time. If left untreated, it can become long-term (chronic) and result in kidney damage or other serious complications. What are the causes? This condition may be caused by: ? Obstruction or narrowing of the tube that drains the bladder (urethra). This may be caused by surgery, problems with nearby organs, or injury to the bladder or urethra. ? Problems with the nerves in the bladder. ? Pelvic organ prolapse. ? Tumors in the area of the pelvis, bladder, or urethra. ? Vaginal childbirth. ? Bladder or urinary tract infection. ? Constipation. ? Certain medicines. What increases the risk? This condition is more likely to develop in women over age 50. Other chronic health conditions can increase the risk of acute urinary retention. These include: ? Diseases such as multiple sclerosis. ? Spinal cord injuries. ? Diabetes. ? Degenerative cognitive conditions, such as delirium or dementia. ? Psychological conditions. A woman may hold her urine due to trauma or because she does not want to use the bathroom. ? History of preexisting urinary retention. ? History of prior pelvic surgery, incontinence surgery, or radical pelvic surgery. What are the signs or symptoms? Symptoms of this condition include: ? Trouble urinating. ? Pain in the lower abdomen. How is this diagnosed? This condition is diagnosed based on a physical exam and your medi (more content not included)...[facility] HospitalU[facility] Office/Clinic Noteon 57-89-9358Hrrielt Office/Clinic NoteUrology Office/Clinic Note Chief Complaint Incomplete bladder emptying and cloudy urine HPI Staff 69 yr old female here due to incomplete bladder emptying and cloudy urine Dysuria: Pt. states not having burning with urination but after Pt. is done voiding her insides hurt Incomplete bladder emptying: no, PVR 74mL Hematuria: UA shows trace today Frequency: 2-3x's Urgency: no Nocturia: 2x's Stream: good stream Post void dripping: no Wearing pads/ Depends: no Urge incontinence: no Stress incontinence: no Incontinence without sensory Awareness: no Abdominal pain: no Flank pain: Pt. states she has back pain but not sure if its from having back surgery. Review of Systems PHQ Score Initial Depression Screen Score: 0 SCORE no fever, chills, malaise, myalgia. no rash/lesions. no chest pain, palpitations, or SOB. no abdominal pain, nausea, vomiting. no unilateral calf swelling, redness, pain Physical Exam Vitals & Measurements HR: 84(Peripheral) RR: 19 BP: 121/59 HT: 64 in HT: 162 cm WT: 90 kg WT: 198 lb BMI: 34.29 General: nontoxic, NAD Mouth: moist mucosa Lungs: normal respiratory effort Cardio: regular rate, good distal perfusion Abdomen: nondistended, no suprapubic distention or tenderness, no CVA tenderness Neurologic: Grossly normal Skin: No rashes or suspicious lesions Assessment/Plan 1. Urinary retention (R33.9: Retention of urine, unspecified) Elective lumbar fusion 01/27/24. Bladder scans during inpt stay as follows: 650, 334, 519, 350, 564, 562, 417, 445, 627 Pt states during that time, her entire left side of her abdomen/leg were numb. She also had no sensation of needing to void. Straight cathed several times in hospital. Started Flomax & Bethanechol. which she is still taking. has never had retention previously. no issues w recurrent UTI. 02/17: PVR 194ml. Already stopped the Flomax on her own. Pt states sensation in left side has returned to normal. Urge to void has returned to normal. Mobility is improving. Pain continues, still taking Oxycodone daily. Not too constipated, on Senna. Will dc the Bethanechol, then will need another PVR in 1 week. 02/26: PVR 364 mL so I instructed her to resume Bethanechol TID 03/12: UA shows trace hgb and mod leuks. Pt denies any UTI sx so we will hold off on cx. PVR 127 mL.Pt admits she has really only been taking Bethanechol BID, always forgets the midday dose. Therefore we will decrease to QD. She will f/u in 3-4 week for PVR. If remains low, we can consider completely stopping the Bethanechol completely. TODAY: PVR 74ml only taking Bethanechol once daily. She will go to QOD x 1 week then dc completely. Return for PVR. If <200ml, schedule f/u in 1 mo w [facility]. If PVR >200ml, needs to resume Bethanechol once daily and f/u in 1 mo w [facility]. UA shows trace int hgb and sm leuks. C/o cloudy urine and some bladder spasms. Will send for cx andtreat if +. Ordered: [id number] Measure Post Void residual urine and/or bladder capacity by US- non-imaging Urnls Dip Stick Auto w/o Microscopy POC 39851 Follow-up With When Contact Information 04/07 for PVR Additional Instructions: Patient Education Acute Urinary Retention, Female Problem List/Past Medical History Ongoing Anxiety Hyperlipidemia Hypertension Type 2 diabetes mellitus Urinary retention Historical No qualifying data Procedure/Surgical History Arthroscopy of knee, section, Cholecystectomy, H/O: hysterectomy, Procedure on back. Medications atorvastatin 20 mg Tab, 20 mg= 1 tab(s), Oral, Daily escitalopram 20 mg Tab, 20 mg= 1 tab(s), Oral, Daily gabapentin 300 mg Cap, 300 mg= 1 cap(s), Oral, TID glyBURIDE micronized 6 mg Tab, 6 mg= 1 tab(s), Oral, Daily lisinopril 10 mg Tab, 10 mg= 1 tab(s), Oral, Daily metformin 1000 mg Tab, 1000 mg= 1 tab(s), Oral, BID methocarbamol 500 mg Tab, 1000 mg= 2 tab(s) traZODONE 100 mg Tab, 100 mg= 1 tab(s), Oral, TID Trulicity Pen 1.5 mg/0.5 mL subcutaneous solution, SubCutaneous, qWeek Allergies No Known Allergies Social History Tobacco Never (less than 100 in lifetime) Tobacco Use:. Never Smokeless Tobacco Use:. Household tobacco concerns: No. Yes, 03/26/2024 Family History Cancer of colon: Sister. Diabetes mellitus type 2: Mother. Leukemia: Mother. Lab Results Ambulatory Point of Care Results Bilirubin Urine Dipstick: Negative (03/26/24 13:30:00) Blood Urine Dipstick: Trace-intact (03/26/24 13:30:00) Glucose Urine Dipstick: Negative (03/26/24 13:30:00) Ketones Urine Dipstick: Trace - 5 mg/dl (03/26/24 13:30:00) Leukocytes Urine Dipstick: 1+ Small (03/26/24 13:30:00) Nitrite Urine Dipstick: Negative (03/26/24 13:30:00) Protein Urine Dipstick: 2+ (100 mg/dl) (03/26/24 13:30:00) Specific Portia Urine Dipstick: 1.020 (03/26/24 13:30:00) Urine Appearance Urine Dipstick: Clear (03/26/24 13:30:00) Urine Color Urine Dipstick: Yellow (03/26/24 13:30:00) Urobilinogen Urine Dipstick: Normal 0.2-1 EU/dl (more content not included)... [facility] HospitalComment on above:Result Comment: Electronically Signed By: COREY ROCHA PA-C\Date and Time Signed: 03/26/2414:25 EDT Urology Office/Clinic Noteon [id number] Office/Clinic NoteUrology Office/Clinic Note Chief Complaint urinary retention HPI Staff 69 yr old here f/u for Postoperative Urinary retention. Pt restarted the Bethanechol TID but is no longer taking Tamsulosin. PVR today is 127ml. Dysuria: denies Incomplete bladder emptying: pt feels she is emptying out Hematuria: denies Frequency: every 2-3 hours Urgency: denies Nocturia: 1x now since surgery Stream: good flow no straining involved Leaking: denies Post void dripping: denies Wearing pads/ Depends: denies Urge incontinence: denies Stress incontinence: denies Incontinence without Sensory Awareness: denies Abdominal pain: denies Flank pain: denies Sexual complaints: denies Review of Systems PHQ Score Initial Depression Screen Score: 0 SCORE no fever, chills, malaise, myalgia. no rash/lesions. no chest pain, palpitations, or SOB. no abdominal pain, nausea, vomiting. no unilateral calf swelling, redness, pain Physical Exam Vitals & Measurements T: 37 ?C(Temporal Artery) HR: 71(Peripheral) RR: 18 BP: 139/76 HT: 64 in HT: 162 cm WT: 90 kg WT: 198 lb BMI: 34.29 General: nontoxic, NAD Mouth: moist mucosa Lungs: normal respiratory effort Cardio: regular rate, good distal perfusion Abdomen: nondistended, no suprapubic distention or tenderness, no CVA tenderness Neurologic: Grossly normal Skin: No rashes or suspicious lesions Assessment/Plan 1. Urinary retention (R33.9: Retention of urine, unspecified) Elective lumbar fusion 01/27/24. Bladder scans during inpt stay as follows: 650, 334, 519, 350, 564, 562, 417, 445, 627 Pt states during that time, her entire left side of her abdomen/leg were numb. She also had no sensation of needing to void. Straight cathed several times in hospital. Started Flomax & Bethanechol. which she is still taking. has never had retention previously. no issues w recurrent UTI. 02/17: PVR 194ml. Already stopped the Flomax on her own. Pt states sensation in left side has returned to normal. Urge to void has returned to normal. Mobility is improving. Pain continues, still taking Oxycodone daily. Not too constipated, on Senna. Will dc the Bethanechol, then will need another PVR in 1 week. 02/26: PVR 364 mL so I instructed her to resume Bethanechol TID TODAY: UA shows trace hgb and mod leuks. Pt denies any UTI sx so we will hold off on cx. PVR 127 mL. Pt admits she has really only been taking Bethanechol BID, always forgets the midday dose. Therefore we will decrease to QD. She will f/u in 3-4 week for PVR. If remains low, we can consider completely stopping the Bethanechol completely. Ordered: [id number] Measure Post Void residual urine and/or bladder capacity by US- non-imaging E&M of Est. Patient Moderate 30-39 Min 75867 E&M of Est. Patient Moderate 30-39 Min 24347 Orders: bethanechol, 10 mg = 1 tab(s), Oral, Daily, X 30 day(s), # 30 tab(s), Refills(s) 1, Pharmacy: [facility]/pharmacy #[id number], 162, cm, 02/18/24 14:14:00 EDT, Height/Length Dosing, 90, kg, 02/18/24 14:14:00 EDT, Weight Dosing Urnls Dip Stick Auto w/o Microscopy POC 01545 Follow-up With When Contact Information COREY ROCHA PA-C, URL Within 1 month Additional Instructions: Patient Education Acute Urinary Retention, Female Problem List/Past Medical History Ongoing Urinary retention Historical No qualifying data Procedure/Surgical History Arthroscopy of knee, section, Cholecystectomy, H/O: hysterectomy, Procedure on back. Medications atorvastatin 20 mg Tab, 20 mg= 1 tab(s), Oral, Daily bethanechol 10 mg oral tablet, 10 mg= 1 tab(s), Oral, Daily, 1 refills escitalopram 20 mg Tab, 20 mg= 1 tab(s), Oral, Daily gabapentin 300 mg Cap, 300 mg= 1 cap(s), Oral, TID glyBURIDE micronized 6 mg Tab, 6 mg= 1 tab(s), Oral, Daily lisinopril 10 mg Tab, 10 mg= 1 tab(s), Oral, Daily metformin 1000 mg Tab, 1000 mg= 1 tab(s), Oral, BID traZODONE 100 mg Tab, 100 mg= 1 tab(s), Oral, TID Trulicity Pen 1.5 mg/0.5 mL subcutaneous solution, SubCutaneous, qWeek Allergies No Known Allergies Social History Tobacco Never (less than 100 in lifetime) Tobacco Use:. Never Smokeless Tobacco Use:. Household tobacco concerns: No. Yes, 03/12/2024 Family History Cancer of colon: Sister. Diabetes mellitus type 2: Mother. Leukemia: Mother. Lab Results Ambulatory Point of Care Results Bilirubin Urine Dipstick: Negative (03/12/24 10:45:00) Blood Urine Dipstick: Trace-intact (03/12/24 10:45:00) Glucose Urine Dipstick: Negative (03/12/24 10:45:00) Ketones Urine Dipstick: Negative (03/12/24 10:45:00) Leukocytes Urine Dipstick: 2+ Moderate (03/12/24 10:45:00) Nitrite Urine Dipstick: Negative (03/12/24 10:45:00) Protein Urine Dipstick: 1+ (30 mg/dl) (03/12/24 10:45:00) Specific Portia Urine Dipstick: 1.020 (03/12/24 10:45:00) Urine Appearance Urine Dipstick: Cloudy (03/12/24 10:45:00) Urine Color Urine Dipstick: Yellow (03/12/24 10:45:00) Urobilinogen Urine Dipstick: Normal 0.2-1 EU/dl (03/12 (more content not included)...[facility] HospitalComment on above:Result Comment: Electronically Signed By: COREY ROCHA PA-C\Date and Time Signed: 03/12/2413:35 EDTUrology Office/Clinic Noteon [id number] Office/Clinic NoteUrology Office/Clinic Note 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 pt states she does not feel like she has to urinate, the hospital showed concern and did straight cath her and did fill urinal. pt states she goes to the restroom every couple of hours as [place] [facility] fusion 01/27/24. Bladder scans during inpt stay as follows: 650, 334, 519, 350, 564, 562, 417, 445, 627 Pt states during that time, her entire left side of her abdomen/leg were numb. She also had no sensation of needing to void. Straight cathed several times in hospital. started Flomax & Bethanechol. which she is still taking. PVR IO today much better but still abnl, 194ml. Pt states sensation in left side has returned to normal. Urge to void has returned to normal. Mobility is improving. Pain continues, still taking Oxycodone daily. Not too constipated, on Senna. has never had retention previously. no issues w recurrent UTI. Dysuria: no Hematuria: no Frequency: q3-4 hrs Urgency: no Nocturia: 2x Stream: normal Leaking: no Review of Systems PHQ Score Initial Depression Screen Score: 0 SCORE no fever, chills, malaise, myalgia. no rash/lesions. no chest pain, palpitations, or SOB. no abdominal pain, nausea, vomiting. no unilateral calf swelling, redness, pain Physical Exam Vitals & Measurements HR: 78(Peripheral) BP: 121/48 HT: 64 in HT: 162 cm WT: 90 kg WT: 198 lb BMI: 34.29 General: nontoxic, NAD Mouth: moist mucosa Lungs: normal respiratory effort Cardio: regular rate, good distal perfusion Abdomen: nondistended, no suprapubic distention or tenderness, no CVA tenderness Neurologic: Grossly normal Skin: No rashes or suspicious lesions Assessment/Plan 1. Urinary retention (R33.9: Retention of urine, unspecified) most likely secondary to anesthesia, constipation, and immobility appears to be improving as hospital PVRs were ranging 350-600+ today 194ml will dc the Bethanechol f/u in 1 week for repeat PVR: -as long as no worsening will dc Flomax. then will need another PVR in 1 week after stopping Flomax. -if PVR worse next week, continue Flomax and send message to [facility] for further instructions. Ordered: [id number] Measure Post Void residual urine and/or bladder capacity by US- non-imaging Body Mass Index (BMI) documented 3008F Current tobacco non-user 1036F Depression Screening Negative 3352F E&M of New Patient Moderate 45-59 Min 20140 Influenza immunization status assessed 1030F Medication list documented in medical record 1159F Most recent diastolic blood pressure <80 mm Hg 3078F Patient screen for fall risk: no falls in last year or 1 fall with no injury in last year 1101F Review of all meds by a prescribing practitioner or clinical pharmacist documented in EHR 1160F Systolic BP <130 mm Hg (Most Recent) 3074F Urnls Dip Stick Auto w/o Microscopy POC 36631 Follow-up With When Contact Information JOSEFINA GRAY, COREY [place], URL In 1 week [address] [place] [address] Additional Instructions: Patient Education Acute Urinary Retention, Female Problem List/Past Medical History Ongoing No qualifying data Historical No qualifying data Medications atorvastatin 20 mg Tab, 20 mg= 1 tab(s), Oral, Daily escitalopram 20 mg Tab, 20 mg= 1 tab(s), Oral, Daily gabapentin 300 mg Cap, 300 mg= 1 cap(s), Oral, TID glyBURIDE micronized 6 mg Tab, 6 mg= 1 tab(s), Oral, Daily lisinopril 10 mg Tab, 10 mg= 1 tab(s), Oral, Daily metformin 1000 mg Tab, 1000 mg= 1 tab(s), Oral, BID traZODONE 100 mg Tab, 100 mg= 1 tab(s), Oral, TID Trulicity Pen 1.5 mg/0.5 mL subcutaneous solution, SubCutaneous, qWeek Allergies No Known Allergies Social History Tobacco Never (less than 100 in lifetime) Tobacco Use:. Never Smokeless Tobacco Use:., 02/18/2024 Lab Results Ambulatory Point of Care Results Bilirubin Urine Dipstick: Negative (02/18/24 14:14:00) Blood Urine Dipstick: Negative (02/18/24 14:14:00) Glucose Urine Dipstick: Negative (02/18/24 14:14:00) Ketones Urine Dipstick: Trace - 5 mg/dl (02/18/24 14:14:00) Leukocytes Urine Dipstick: Trace (02/18/24 14:14:00) Nitrite Urine Dipstick: Negative (02/18/24 14:14:00) Protein Urine Dipstick: Trace (02/18/24 14:14:00) Specific Portia Urine Dipstick: >=1.030 (02/18/24 14:14:00) Urine Color Urine Dipstick: Yellow (02/18/24 14:14:00) Urobilinogen Urine Dipstick: Normal 0.2-1 EU/dl (02/18/24 14:14:00) pH Urine Dipstick: 5.5 (02/18/24 14:14:00)[facility] Comment on above:Result Comment: Electronically Signed By: COREY ROCHA PA-C.ro\Date and Time Signed: 02/17/2414:47 EDTGlucose Glucometer ([facility]) [Mass/Vol]Ordered By: Blake Morris on 76-79-4894Dzdcfmf [Mass/Vol]144 mg/dLOhiohealth Riverside Methodist HospitalComment on above:Random Glucose Reference Range is dependent on time and content of last meal. Glucose of more than 200 mg/dL in a nonstressed, ambulatory subject supports the diagnosis of Diabetes Mellitus.Glucose [Mass/Vol]Capillary blood glucose measurement by glucometer (mass/volume)[facility] HospitalComment on above:Random Glucose Reference Range is dependent on time and content of last meal. Glucose of more than 200 mg/dL in a nonstressed, ambulatory subject supports the diagnosis of Diabetes Mellitus.No Panel InformationOrdered By: Blake Morris on 23-74-9405Nsuttgp Glucose CommentGlu2: cleaned [facility] HospitalNo Panel InformationOrdered By: Blake Morris on 11-50-4594Mafkybw Glucose #2 CommentCleaned meterOhiohealth Riverside Methodist HospitalAnisocytosis LM Ql (Bld)Ordered By: Holli Mcrae on 62-90-4599Hcxvulvnctye Ql (Bld) ModerateOhiohealth Riverside Methodist HospitalAnisocytosis Ql (Bld)Anisocytosis [Presence] in Blood by Light microscopyOhiohealth Riverside Methodist Hospital Basophils Auto (Bld) [#/Vol]Ordered By: Holli Mcrae on 02-03-2024 Basophils (Bld) [#/Vol]0.0 10*3/uL0.0-0.2FMorrow County Hospital Basophils (Bld) [#/Vol]Automated basophil count0.0-0.2FMorrow County HospitalBasophils/100 WBC Auto (Bld)Ordered By: Holli Mcrae on 44-40-7129Lvmiyvdrf/100 WBC (Bld)0.1 %.[facility] Basophils/100 WBC (Bld)Automated basophil %.[facility] Eosinophils Auto (Bld) [#/Vol]Ordered By: Holli Mcrae on 02-03-2024 Eosinophils (Bld) [#/Vol]0.0 10*3/uL0.0-0.45[facility] Eosinophils (Bld) [#/Vol]Automated eosinophil count0.0-0.45[facility] HospitalEosinophils/100 WBC Auto (Bld)Ordered By: Holli Mcrae on 36-09-4483Yssefwxwbvm/100 WBC (Bld)0.2 %.[facility] Eosinophils/100 WBC (Bld)Automated eosinophil %.[facility] HospitalErythrocyte distribution width Auto (RBC) [Ratio]Ordered By: Holli Mcrae on 12-94-1208Gifnxeptmct distribution width (RBC) [Ratio]13.2 % 11.9-15.3FMorrow County HospitalErythrocyte distribution width (RBC) [Ratio]Erythrocyte distribution width [Ratio] by Automated count11.9-15.3 [facility] HospitalErythrocyte morphology finding [Identifier] in BloodOrdered By: Holli Mcrae on 81-72-0430YKX morphology finding Nom (Bld)RBC morphologyOhiohealth Riverside Methodist HospitalHematocrit Auto (Bld) [Volume fraction]Ordered By: Holli Mcrae on 71-60-3468Tnzwwujjcp (Bld) [Volume fraction]25.9 %Low34.0-46.4FMorrow County HospitalHematocrit (Bld) [Volume fraction]Hematocrit [Volume Fraction] of Blood by Automated count Low34.0-46.4FMorrow County HospitalHemoglobin [Mass/volume] in Blood Ordered By: Holli Mcrae on 72-84-7893Vkjosobzak (Bld) [Mass/Vol]8.9 g/dLLow11.8-15.4FMorrow County HospitalHemoglobin (Bld) [Mass/Vol] Hemoglobin [Mass/volume] in WqhoeLjw94.8-15.4FMorrow County Hospital Leukocytes [#/volume] corrected for nucleated erythrocytes in Blood by Automated counOrdered By: Holli Mcrae on 98-12-2009KCL corrected for nucl RBC Auto (Bld) [#/Vol]14.8 10*3/uLHigh3.8-11.6FMorrow County HospitalWBC corrected for nucl RBC Auto (Bld) [#/Vol]Leukocytes [#/volume] corrected for nucleated erythrocytes in Blood by Automated counHigh3.8-11.6FMorrow County HospitalLymphocytes Auto (Bld) [#/Vol]Ordered By: Holli Mcrae on 37-68-4673Plxkusdaore (Bld) [#/Vol]3.1 10*3/uL1.00-4.8[facility] HospitalLymphocytes (Bld) [#/Vol]Lymphocytes [#/volume] in Blood by Automated count1.00-4.8[facility] HospitalLymphocytes/100 WBC Auto (Bld) Ordered By: Holli Mcrae on 73-30-1301Olsosqmmwyb/100 WBC (Bld)21.3 %. [facility] HospitalLymphocytes/100 WBC (Bld)Lymphocytes/100 leukocytes in Blood by Automated count.[facility] HospitalMCH Auto (RBC) [Entitic mass]Ordered By: Holli Mcrae on 95-35-0537HLN (RBC) [Entitic mass]30.8 pg24.7-34.3FUniversity Hospitals Portage Medical CenterH (RBC) [Entitic mass]MCH [Entitic mass] by Automated count24.7-34.3FUniversity Hospitals Portage Medical CenterHC Auto (RBC) [Mass/Vol]Ordered By: Holli Mcrae on 26-77-6088QVRY (RBC) [Mass/Vol]34.4 g/dL32.0-35.0[facility] CenterHC (RBC) [Mass/Vol]MCHC [Mass/volume] by Automated count32.0-35.0 [facility] CenterV Auto (RBC) [Entitic vol]Ordered By: Holli Mcrae on 09-01-0856IAK (RBC) [Entitic vol]89.4 zY87-577VlnychuvvSt. Mary's Medical CenterV (RBC) [Entitic vol]MCV [Entitic volume] by Automated ugwow70-653MmmfrkfuaOhiohealth Riverside Methodist HospitalMicrocytes LM Ql (Bld)Ordered By: Holli Mcrae on 72-30-0411Hkbojqdcof Ql (Bld)ModerateOhiohealth Riverside Methodist HospitalMicrocytes Ql (Bld)Microcytes [Presence] in Blood by Light microscopyOhiohealth Riverside Methodist HospitalMonocytes Auto (Bld) [#/Vol]Ordered By: Holli Mcrae on 03-63-1952Gcnffbsdp (Bld) [#/Vol]1.4 10*3/uLHigh 0.0-0.8[facility] HospitalMonocytes (Bld) [#/Vol]Automated blood monocyte countHigh0.0-0.8[facility] HospitalMonocytes/100 WBC Auto (Bld)Ordered By: Holli Mcrae on 84-43-2131Oxpqedxkr/100 WBC (Bld)9.3 % .[facility] HospitalMonocytes/100 WBC (Bld)Automated monocyte %. [facility] HospitalNeutrophils Auto (Bld) [#/Vol]Ordered By: Hloli Mcrae on 99-87-6423Hyeueqxtveg (Bld) [#/Vol]10.2 10*3/uLHigh1.8-7.7 [facility] HospitalNeutrophils (Bld) [#/Vol]Neutrophils [#/volume] in Blood by Automated countHigh1.8-7.7FMorrow County Hospital Neutrophils/100 WBC Auto (Bld)Ordered By: Holli Mcrae on 02-03-2024 Neutrophils/100 WBC (Bld)69.1 %.[facility] HospitalNeutrophils/100 WBC (Bld)Automated neutrophil %.[facility] HospitalNucleated erythrocytes [Presence] in Blood by Automated countOrdered By: Holli Vergara on 12-24-2370Bzxxwmxfi RBC Auto Ql (Bld)0.2 /100{WBC}0-0.5FMorrow County HospitalNucleated RBC Auto Ql (Bld)Nucleated erythrocytes [Presence] in Blood by Automated count0-0.5FMorrow County Hospital Platelet adequacy [Presence] in Blood by Light microscopyOrdered By: Holli Mcrae on 97-39-8608Tjvzkykzh LM Ql (Bld)DecreasedNoSelect Medical Cleveland Clinic Rehabilitation Hospital, Edwin ShawPlatenashoba valley medical center LM Ql (Bld)Platelet adequacy [Presence] in Blood by Light microscopyNoSelect Medical Cleveland Clinic Rehabilitation Hospital, Edwin ShawPlatelet mean volume Auto (Bld) [Entitic vol]Ordered By: Holli Mcrae on 02-03-2024 Platelet mean volume (Bld) [Entitic vol]8.0 fL6.3-10.7FMorrow County HospitalPlatelet mean volume (Bld) [Entitic vol]Platelet mean volume [Entitic volume] in Blood by Automated count6.3-10.7FMorrow County Hospital Platelet morphology finding [Identifier] in BloodOrdered By: Holli Vergara on 43-98-0220Rtjyhpyt morphology finding Nom (Bld)NormalNoSelect Medical Cleveland Clinic Rehabilitation Hospital, Edwin ShawPlatelet morphology finding Nom (Bld)Platelet morphology finding [Identifier] in BloodNoSelect Medical Cleveland Clinic Rehabilitation Hospital, Edwin ShawPlatelets Auto (Bld) [#/Vol]Ordered By: Holli Mcrae on 53-02-1062Kuzauhndp (Bld) [#/Vol]333 10*3/yJ677-770IkxfvhjlkOhiohealth Riverside Methodist HospitalPlatelets (Bld) [#/Vol]Platelets [#/volume] in Blood by Automated nbueo756-194XrtenunvkOhiohealth Riverside Methodist HospitalPolychromasia [Presence] in Blood by Light microscopyOrdered By: Holli Mcrae on 73-27-1468Tcmhvfqzjcdhn LM Ql (Bld)SlightOhiohealth Riverside Methodist HospitalPolychromasia LM Ql (Bld)Polychromasia [Presence] in Blood by Light microscopyOhiohealth Riverside Methodist HospitalRBC Auto (Bld) [#/Vol] Ordered By: Holli Mcrae on 38-80-7992KCO (Bld) [#/Vol]2.90 10*6/uLLow 3.60-5.00[facility] (d) [#/Vol]Erythrocytes [#/volume] in Blood by Automated countLow3.60-5.00[facility] morphologyOrdered By: Holli Mcrae on 42-41-2489TXY morphology finding Nom (Bld)N/AFMorrow County HospitalWBC Auto (Bld) [#/Vol] Ordered By: Holli Mcrae on 16-92-2646DXL (Bld) [#/Vol]14.8 10*3/uLHigh 3.8-11.6FMorrow County HospitalWBC (Bld) [#/Vol]Leukocytes [#/volume] in Blood by Automated countHigh3.8-11.6FMorrow County Hospital Appearance of UrineOrdered By: Vianney Pringle on 28-20-4707Koisthoxew (U)Urine appearanceCleMetroHealth Parma Medical CenterBacteria [Presence] in Urine by AutomatedOrdered By: Vianney Pringle on 30-90-1638Wohlozmq Auto Ql (U)None seen [HPF]None SeenOhiohealth Riverside Methodist HospitalBacteria Auto Ql (U)Bacteria [Presence] in Urine by AutomatedNone SeenOhiohealth Riverside Methodist Hospital Bilirubin Test strip Ql (U)Ordered By: Vianney Pringle on 17-92-5711Fhuwrjbjc Ql (U)NegativeNegativeOhiohealth Riverside Methodist HospitalBilirubin Ql (U) Bilirubin.total [Presence] in Urine by Test stripNegativeOhiohealth Riverside Methodist HospitalColor Auto (U)Ordered By: Vianney Pringle on 17-70-3929Yarzl (U) YellowYellowOhiohealth Riverside Methodist HospitalColor (U)Color of Urine by Auto YellowOhiohealth Riverside Methodist HospitalEpithelial cells.squamous [#/area] in Urine sediment by Automated countOrdered By: iVanney Pringle on 02-02-2024 Epithelial cells.squamous Auto (Urine sed) [#/Area]1-2 [HPF]0-2FMorrow County HospitalEpithelial cells.squamous Auto (Urine sed) [#/Area] Epithelial cells.squamous [#/area] in Urine sediment by Automated count0-2 [facility] HospitalErythrocytes [#/area] in Urine sediment by Automated countOrdered By: Vianney Pringle on 01-19-9624GRR Auto (Urine sed) [#/Area]Innumerable [HPF]High0-4FMorrow County HospitalRBC Auto (Urine sed) [#/Area]Erythrocytes [#/area] in Urine sediment by Automated countHigh0-4 [facility] HospitalGlucose [Mass/volume] in Urine by Test strip Ordered By: Vianney Pringle on 35-31-6731Yjtvooj Test strip (U) [Mass/Vol] >=1000 mg/dLFulton County Health CenterGlucose Test strip (U) [Mass/Vol]Glucose [Mass/volume] in Urine by Test stripHighWilson Street HospitalHemoglobin Test strip Ql (U)Ordered By: Vianney Pringle on 57-04-2264Vwzudoeaal Ql (U)3+HighNegSelect Medical Specialty Hospital [facility] Hemoglobin Ql (U)Hemoglobin [Presence] in Urine by Test stripHighNegative [facility] HospitalHyaline casts [#/area] in Urine sediment by Automated countOrdered By: Vianney Pringle on 98-24-7146Imwgdxt casts Auto (Urine sed) [#/Area]0-8 [LPF]0-8[facility] HospitalHyaline casts Auto (Urine sed) [#/Area]Hyaline casts [#/area] in Urine sediment by Automated count0-8[facility] HospitalKetones Test strip Ql (U)Ordered By: Vianney Pringle on 61-94-8179Ndxhxwn Ql (U)NegativeNegativeOhiohealth Riverside Methodist HospitalKetones Ql (U)Ketones [Presence] in Urine by Test stripNegative [facility] HospitalLeukocyte esterase [Presence] in Urine by Test stripOrdered By: Vianney Pringle on 43-02-0405Vwmyehewc esterase Test strip Ql (U)NegativeNegativeOhiohealth Riverside Methodist HospitalLeukocyte esterase Test strip Ql (U)Leukocyte esterase [Presence] in Urine by Test stripNegative [facility] HospitalLeukocytes [#/area] in Urine sediment by Automated countOrdered By: Vianney Pringle on 99-74-4665SZE Auto (Urine sed) [#/Area]5-9 [HPF]High0-4FMorrow County HospitalWBC Auto (Urine sed) [#/Area]Leukocytes [#/area] in Urine sediment by Automated countHigh0-4FMorrow County HospitalMucus [Presence] in Urine by AutomatedOrdered By: Vianney Pringle on 82-47-7330Mfipp Auto Ql (U)Rare [LPF][facility] HospitalMucus Auto Ql (U)Mucus [Presence] in Urine by AutomatedOhiohealth Riverside Methodist HospitalNitrite Test strip Ql (U)Ordered By: Vianney Pringle on 57-17-0784Pzbqpah Ql (U)NegativeNegSelect Medical Specialty Hospital - ColumbusNitrite Ql (U)Nitrite [Presence] in Urine by Test stripNegSelect Medical Specialty Hospital - ColumbusProtein Test strip (U) [Mass/Vol]Ordered By: Vianney Pringle on 82-09-2620Xvbdsaf (U) [Mass/Vol]30 mg/dLHighNegSelect Medical Specialty Hospital - ColumbusProtein (U) [Mass/Vol]Protein [Mass/volume] in Urine by Test stripHigh NegativeMercy Health Clermont Hospitalpecific gravity Test strip (U) [Rel density]Ordered By: Vianney Pringle on 30-20-4793Tnefzoie gravity (U) [Rel density]1.0231.001-1.030[facility] Hospitalpecific gravity (U) [Rel density]Specific gravity of Urine by Test strip1.001-1.030[facility] HospitalUrine appearanceOrdered By: Vianney Pringle on 07-77-2980Uufmdstqbc (U)ClearClearFMorrow County HospitalUrobilinogen Test strip (U) [Mass/Vol]Ordered By: Vianney Pringle on 48-11-5021Kjcgkdmdkglt (U) [Mass/Vol]Normal mg/dLNoSelect Medical [facility] Hospital, Edwin ShawUrobilinogen (U) [Mass/Vol]Urobilinogen [Mass/volume] in Urine by Test stripNormUC HealthpH Test strip (U)Ordered By: Vianney Pringle on 73-44-4561vF (U)5.0 [pH]5.0-9.0[facility] HospitalpH (U)pH of Urine by Test strip5.0-9.0[facility] HospitalAlanine aminotransferase [Enzymatic activity/volume] in Serum or PlasmaOrdered By: Blake Morris on 75-16-7573PEI [Catalytic activity/Vol]20 U/L7- [facility] HospitalALT [Catalytic activity/Vol]Alanine aminotransferase [Enzymatic activity/volume] in Serum or PlasmaOhiohealth Riverside Methodist HospitalAlbumin [Mass/volume] in Serum or Plasma by Bromocresol green (BCG) dye binding methoOrdered By: Blake Morris on 01-31-2024 Albumin BCG dye [Mass/Vol]3.1 g/dLLow3.5-5.7FMorrow County Hospital Albumin BCG dye [Mass/Vol]Albumin [Mass/volume] in Serum or Plasma by Bromocresol green (BCG) dye binding methoLow3.5-5.7FMorrow County HospitalAlkaline phosphatase [Enzymatic activity/volume] in Serum or PlasmaOrdered By: Blake Morris on 36-99-6336TML [Catalytic activity/Vol]48 U/L34-104 [facility] HospitalALP [Catalytic activity/Vol]Alkaline phosphatase [Enzymatic activity/volume] in Serum or Qwfkzr69-354RksimwzmrOhiohealth Riverside Methodist HospitalAspartate aminotransferase [Enzymatic activity/volume] in Serum or PlasmaOrdered By: Blake Morris on 82-18-0118FHK [Catalytic activity/Vol]21 U/J72-10EdyailpzpOhiohealth Riverside Methodist HospitalAST [Catalytic activity/Vol]Aspartate aminotransferase [Enzymatic activity/volume] in Serum or Xftldh00-59EyucztzddOhiohealth Riverside Methodist HospitalBilirubin.total [Mass/volume] in Serum or PlasmaOrdered By: Blake Morris on 31-00-6997Xnxxtjyxj [Mass/Vol]0.4 mg/dL0.3-1.0[facility] HospitalBilirubin [Mass/Vol] Bilirubin.total [Mass/volume] in Serum or Plasma0.3-1.0[facility] HospitalCalcium [Mass/volume] in Serum or PlasmaOrdered By: Blake Morris on 43-91-7652Csgfntk [Mass/Vol]8.4 mg/dLLow8.6-10.3FMorrow County HospitalCalcium [Mass/Vol]Calcium [Mass/volume] in Serum or PlasmaLow 8.6-10.3FMorrow County HospitalCarbon dioxide, total [Moles/volume] in Serum or PlasmaOrdered By: Blake Morris on 94-04-9496QQ2 [Moles/Vol] 25.6 mmol/L21.0-31.0[facility] HospitalCO2 [Moles/Vol]Carbon dioxide, total [Moles/volume] in Serum or Lhlvdz64.0-31.0[facility] HospitalChloride [Moles/volume] in Serum or PlasmaOrdered By: Blake Morris 46-45-0643Bduxxbgc [Moles/Vol]105 mmol/N64-626AdsqfxyqwOhiohealth Riverside Methodist HospitalChloride [Moles/Vol]Chloride [Moles/volume] in Serum or Plasma 98-107[facility] HospitalCreatinine [Mass/volume] in Serum or PlasmaOrdered By: Blake Morris on 63-88-6041Vxdvczuajf [Mass/Vol]0.74 mg/dL0.60-1.20[facility] HospitalCreatinine [Mass/Vol]Creatinine [Mass/volume] in Serum or Plasma0.60-1.20[facility] Globulin Calc (S) [Mass/Vol]Ordered By: Blake Morris on 01-31-2024 Globulin (S) [Mass/Vol]2.2 g/dLOhiohealth Riverside Methodist HospitalGlobulin (S) [Mass/Vol]Serum globulin measurement by calculation (mass/volume)[facility] HospitalGlucose [Mass/volume] in Serum or PlasmaOrdered By: Blake Morris on 86-92-6593Dimrthc [Mass/Vol]77 mg/bT74-356GmtuwrdtsOhiohealth Riverside Methodist HospitalComment on above:Delta: 212 on 01/29/24 recommended reference rangeRandom Glucose Reference Range is dependent on time and content of last meal. Glucose of more than 200 mg/dL in a nonstressed, ambulatory subject supports the diagnosis of Diabetes Mellitus.Glucose [Mass/Vol]Glucose [Mass/volume] in Serum or PlasmaSignificant change oobo24-345 [facility] HospitalComment on above:Delta: 212 on 01/29/24 recommended reference rangeRandom Glucose Reference Range is dependent on time and content of last meal. Glucose of more than 200 mg/dL in a nonstressed, ambulatory subject supports the diagnosis of Diabetes Mellitus.No Panel InformationOrdered By: Blake Morris on 43-04-6191Rorwezkky GFR (CKD-EPI) > 60.0 mL/MinOhiohealth Riverside Methodist HospitalPharmacy Creatinine Clearance (Chem78.75[facility] HospitalPotassium [Moles/volume] in Serum or PlasmaOrdered By: Blaek Morris on 66-51-0618Alzuxvudk [Moles/Vol]4.4 mmol/L3.5-5.1FMorrow County HospitalPotassium [Moles/Vol]Potassium [Moles/volume] in Serum or Plasma3.5-5.1FMorrow County Hospital Prealbumin [Mass/volume] in Serum or PlasmaOrdered By: Blake Morris on 51-42-5300Byezmsgvdo [Mass/Vol]16.6 mg/dLLow17.0-34.0[facility] HospitalPrealbumin [Mass/Vol]Prealbumin [Mass/volume] in Serum or PlasmaLow 17.0-34.0[facility] HospitalProtein [Mass/volume] in Serum or PlasmaOrdered By: Blake Morris on 19-88-8773Pxizrsj [Mass/Vol]5.3 g/dL Low6.4-8.9[facility] HospitalProtein [Mass/Vol]Protein [Mass/volume] in Serum or PlasmaLow6.4-8.9[facility] Hospitalerum or plasma albumin/globulin mass ratioOrdered By: Blake Morris on 01-50-4391Divojhd/Globulin [Mass ratio]1.4 {ratio}[facility] HospitalAlbumin/Globulin [Mass ratio]Serum or plasma albumin/globulin mass ratio [facility] Hospitalerum or plasma anion gap determinationOrdered By: Blake Morris on 21-28-3244Mnwav gap [Moles/Vol]11.8 mmol/L6.0-15.0 [facility] HospitalAnion gap [Moles/Vol]Serum or plasma anion gap determination6.0-15.0[facility] Hospitalodium [Moles/volume] in Serum or PlasmaOrdered By: Blake Morris on 28-63-3741Pljszu [Moles/Vol] 138 mmol/M913-100UilyempwlMercy Health Clermont Hospitalodium [Moles/Vol]Sodium [Moles/volume] in Serum or Fzypaz290-433DkfwhawcfOhiohealth Riverside Methodist HospitalUrea nitrogen [Mass/volume] in Serum or PlasmaOrdered By: Blake Morris on 65-14-8232Hylj nitrogen [Mass/Vol]26 mg/dLHigh7-25[facility] HospitalUrea nitrogen [Mass/Vol]Urea nitrogen [Mass/volume] in Serum or PlasmaHigh 7-25[facility] HospitalGlucose Glucometer (BldC) [Mass/Vol]Ordered By: Jacques Foy on 59-21-4331Angespg [Mass/Vol]468 mg/dLOhioHealth Doctors HospitalComment on above:Random Glucose Reference Range is dependent on time and content of last meal. Glucose of more than 200 mg/dL in a nonstressed, ambulatory subject supports the diagnosis of Diabetes Mellitus.No Panel InformationOrdered By: Jacques Foy on 35-67-2912Brhcplz Glucose CommentSee [facility] Willard HospitalComment on above:Glu2: WILL NOTIFY DR/ROSCOE Basophils Auto (Bld) [#/Vol]Ordered By: Jacques Foy on 87-20-4882Nkxofcgbm (Bld) [#/Vol]0.0 10*3/uL0.0-0.2FMorrow County HospitalBasophils/100 WBC Auto (Bld)Ordered By: Jacques Foy on 26-72-8395Jdccsmbts/100 WBC (Bld)0.2 %.[facility] HospitalCalcium [Mass/volume] in Serum or PlasmaOrdered By: Jacques Foy on 42-92-9555Chxxrpb [Mass/Vol]8.5 mg/dLLow8.6-10.3FMorrow County HospitalCarbon dioxide, total [Moles/volume] in Serum or PlasmaOrdered By: Jacques Foy on 18-92-7472LP7 [Moles/Vol]23.0 mmol/L21.0-31.0[facility] HospitalChloride [Moles/volume] in Serum or PlasmaOrdered By: Jacques Foy on 43-79-6427Ffwcrenn [Moles/Vol]107 mmol/O56-542LflcylizxOhiohealth Riverside Methodist HospitalCreatinine [Mass/volume] in Serum or PlasmaOrdered By: Jacques Foy on 32-10-5706Zudozwcehp [Mass/Vol]0.79 mg/dL0.60-1.20[facility] HospitalEosinophils Auto (Bld) [#/Vol]Ordered By: Jacques Foy on 01-29-2024 Eosinophils (Bld) [#/Vol]0.0 10*3/uL0.0-0.45[facility] Eosinophils/100 WBC Auto (Bld)Ordered By: Jacques Foy on 01-29-2024 Eosinophils/100 WBC (Bld)0.0 %.[facility] HospitalErythrocyte distribution width Auto (RBC) [Ratio]Ordered By: Jacques Foy on 01-29-2024 Erythrocyte distribution width (RBC) [Ratio]13.4 %11.9-15.3FMorrow County HospitalGlucose [Mass/volume] in Serum or PlasmaOrdered By: Jacques Foy on 20-71-2807Hfmdltn [Mass/Vol]212 mg/mXUscx81-956BvbksiwdnOhiohealth [facility]ide [facility] Hospital Comment on above:ADA recommended reference rangeRandom Glucose Reference Range is dependent on time and content of last meal. Glucose of more than 200 mg/dL in a nonstressed, ambulatory subject supports the diagnosisof Diabetes Mellitus. Hematocrit Auto (Bld) [Volume fraction]Ordered By: Jacques Foy on 01-29-2024 Hematocrit (Bld) [Volume fraction]27.1 %Low34.0-46.4FMorrow County HospitalHemoglobin [Mass/volume] in BloodOrdered By: Jacques Foy on 01-29-2024 Hemoglobin (Bld) [Mass/Vol]9.3 g/dLLow11.8-15.4FMorrow County Hospital Leukocytes [#/volume] corrected for nucleated erythrocytes in Blood by Automated counOrdered By: Jacques Foy on 51-02-8257XHL corrected for nucl RBC Auto (Bld) [#/Vol]14.4 10*3/uLHigh3.8-11.6FMorrow County HospitalLymphocytes Auto (Bld) [#/Vol]Ordered By: Jacques Foy on 38-38-2910Rgmpxmtflvm (Bld) [#/Vol]1.4 10*3/uL1.00-4.8[facility] HospitalLymphocytes/100 WBC Auto (Bld) Ordered By: Jacques Foy on 40-56-1651Hxjabrmubrn/100 WBC (Bld)10.0 %.[facility] Auto (RBC) [Entitic mass]Ordered By: Jacques Foy on 17-23-9163KWY (RBC) [Entitic mass]30.9 pg24.7-34.3FUniversity Hospitals Portage Medical CenterHC Auto (RBC) [Mass/Vol]Ordered By: Jacques Foy on 50-83-4828WNGH (RBC) [Mass/Vol]34.2 g/dL32.0-35.0[facility] HospitalMCV Auto (RBC) [Entitic vol]Ordered By: Jacques Foy on 41-72-3829LTY (RBC) [Entitic vol]90.3 fL 80-100[facility] HospitalMonocytes Auto (Bld) [#/Vol]Ordered By: Jacques Foy on 77-61-3537Vsxzcxcok (Bld) [#/Vol]1.5 10*3/uLHigh0.0-0.8[facility] HospitalMonocytes/100 WBC Auto (Bld)Ordered By: Jacques Foy on 70-59-5509Dclferyjs/100 WBC (Bld)10.6 %.[facility] Neutrophils Auto (Bld) [#/Vol]Ordered By: Jacques Foy on 48-94-7235Boyiizuumwe (Bld) [#/Vol]11.4 10*3/uLHigh1.8-7.7FMorrow County Hospital Neutrophils/100 WBC Auto (Bld)Ordered By: Jacques Foy on 01-29-2024 Neutrophils/100 WBC (Bld)79.2 %.[facility] HospitalNo Panel InformationOrdered By: Jacques Foy on 53-43-1141Heffullrt GFR (CKD-EPI)> 60.0 mL/MinOhiohealth Riverside Methodist HospitalPharmacy Creatinine Clearance (Chem81.03 [facility] HospitalNucleated erythrocytes [Presence] in Blood by Automated countOrdered By: Jacques Foy on 75-13-4729Lnkeocumz RBC Auto Ql (Bld) 0.1 /100{WBC}0-0.5FMorrow County HospitalPlatelet mean volume Auto (Bld) [Entitic vol]Ordered By: Jacques Foy on 46-31-5279Wngueksm mean volume (Bld) [Entitic vol]8.4 fL6.3-10.7FMorrow County HospitalPlatelets Auto (Bld) [#/Vol]Ordered By: Jacques Foy on 40-97-3847Eggbyeujt (Bld) [#/Vol]194 10*3/vV073-546AbwlqdqmnOhiohealth Riverside Methodist HospitalPotassium [Moles/volume] in Serum or PlasmaOrdered By: Jacques Foy on 40-83-9687Hxplhfcmx [Moles/Vol]4.8 mmol/L 3.5-5.1FMorrow County HospitalComment on above:Hemolysis is present at a level that could interfere with the result.Contact lab if redraw is required RBC Auto (Bld) [#/Vol]Ordered By: Jacques Foy on 06-51-3529HCV (Bld) [#/Vol]3.01 10*6/uLLow3.60-5.00[facility] Hospitalerum or plasma anion gap determinationOrdered By: Jacques Foy on 66-85-7056Hedqy gap [Moles/Vol]10.8 mmol/L6.0-15.0[facility] Hospitalodium [Moles/volume] in Serum or PlasmaOrdered By: Jacques Foy on 93-82-4930Dqubvy [Moles/Vol]136 mmol/D100-333 [facility] HospitalUrea nitrogen [Mass/volume] in Serum or Plasma Ordered By: Jacques Foy on 28-30-1595Qtkl nitrogen [Mass/Vol]16 mg/dL7-25 [facility] HospitalWBC Auto (Bld) [#/Vol]Ordered By: Jacques Foy on 79-37-3599GFY (Bld) [#/Vol]14.4 10*3/uLHigh3.8-11.6FMorrow County HospitalBasophils Auto (Bld) [#/Vol]Ordered By: Jacques Foy on 59-23-3377Xmzbobmlu (Bld) [#/Vol]0.0 10*3/uL0.0-0.2FMorrow County HospitalBasophils/100 WBC Auto (Bld)Ordered By: Jacques Foy on 64-71-0605Hexjjqmzc/100 WBC (Bld)0.8 %. [facility] HospitalCalcium [Mass/volume] in Serum or PlasmaOrdered By: Jacques Foy on 75-51-4228Phblscd [Mass/Vol]9.4 mg/dL8.6-10.3FMorrow County HospitalCarbon dioxide, total [Moles/volume] in Serum or Plasma Ordered By: Jacques Foy on 23-72-6419SQ6 [Moles/Vol]28.8 mmol/L21.0-31.0[facility] HospitalChloride [Moles/volume] in Serum or PlasmaOrdered By: Jacques Foy on 08-47-4933Qoiadheo [Moles/Vol]106 mmol/J07-676SambmptvtOhiohealth Riverside Methodist HospitalCreatinine [Mass/volume] in Serum or PlasmaOrdered By: Jacques Foy on 35-42-3660Jleozhnmtc [Mass/Vol]0.78 mg/dL0.60-1.20[facility] HospitalEosinophils Auto (Bld) [#/Vol]Ordered By: Jacques Foy on 01-13-2024 Eosinophils (Bld) [#/Vol]0.1 10*3/uL0.0-0.45[facility] Eosinophils/100 WBC Auto (Bld)Ordered By: Jacques Fyo on 01-13-2024 Eosinophils/100 WBC (Bld)1.6 %.[facility] HospitalErythrocyte distribution width Auto (RBC) [Ratio]Ordered By: Jacques Foy on 01-13-2024 Erythrocyte distribution width (RBC) [Ratio]13.7 %11.9-15.3FMorrow County HospitalGlucose [Mass/volume] in Serum or PlasmaOrdered By: Jacques Foy on 42-04-8386Zljijhb [Mass/Vol]96 mg/pB59-076YjajepjlrOhiohealth [facility]ide [facility] Hospital Comment on above:ADA recommended reference rangeRandom Glucose Reference Range is dependent on time and content of last meal. Glucose of more than 200 mg/dL in a nonstressed, ambulatory subject supports the diagnosisof Diabetes Mellitus. Hematocrit Auto (Bld) [Volume fraction]Ordered By: Jacques Foy on 01-13-2024 Hematocrit (Bld) [Volume fraction]35.9 %34.0-46.4FMorrow County HospitalHemoglobin [Mass/volume] in BloodOrdered By: Jacques Foy on 01-13-2024 Hemoglobin (Bld) [Mass/Vol]12.1 g/dL11.8-15.4FMorrow County Hospital Leukocytes [#/volume] corrected for nucleated erythrocytes in Blood by Automated counOrdered By: Jacques Fyo on 90-97-0452OZP corrected for nucl RBC Auto (Bld) [#/Vol]6.6 10*3/uL3.8-11.6FMorrow County HospitalLymphocytes Auto (Bld) [#/Vol]Ordered By: Jacques Foy on 17-53-7771Smxsniuptue (Bld) [#/Vol]2.5 10*3/uL1.00-4.8[facility] HospitalLymphocytes/100 WBC Auto (Bld) Ordered By: Jacques Foy on 08-80-1831Wdjdsvcdblx/100 WBC (Bld)38.5 %.[facility] Auto (RBC) [Entitic mass]Ordered By: Jacques Foy on 30-43-6362YCL (RBC) [Entitic mass]30.6 pg24.7-34.3FUniversity Hospitals Portage Medical CenterHC Auto (RBC) [Mass/Vol]Ordered By: Jacques Foy on 73-57-7689SVZR (RBC) [Mass/Vol]33.8 g/dL32.0-35.0[facility] HospitalMCV Auto (RBC) [Entitic vol]Ordered By: Jacques Foy on 63-10-7065DJC (RBC) [Entitic vol]90.5 fL 80-100[facility] HospitalMonocytes Auto (Bld) [#/Vol]Ordered By: Jacques Foy on 22-32-7266Kdwohelpf (Bld) [#/Vol]0.6 10*3/uL0.0-0.8[facility] HospitalMonocytes/100 WBC Auto (Bld)Ordered By: Jacques Foy on 15-73-0193Wruvrumys/100 WBC (Bld)8.5 %.[facility] Neutrophils Auto (Bld) [#/Vol]Ordered By: Jacques Foy on 28-21-9561Lmkrvyookfd (Bld) [#/Vol]3.3 10*3/uL1.8-7.7FMorrow County HospitalNeutrophils/100 WBC Auto (Bld)Ordered By: Jacques Foy on 45-50-6357Oxmdzzgwmwk/100 WBC (Bld)50.6 %.[facility] HospitalNo Panel InformationOrdered By: Jacques Foy on 62-59-2308Pxbejdmgm GFR (CKD-EPI)> 60.0 mL/MinOhiohealth Riverside Methodist Hospital Pharmacy Creatinine Clearance (ChemN/AFMorrow County HospitalNucleated erythrocytes [Presence] in Blood by Automated countOrdered By: Jacques Foy on 68-58-4042Nvyhypwhy RBC Auto Ql (Bld)0.1 /100{WBC}0-0.5FMorrow County HospitalPlatelet mean volume Auto (Bld) [Entitic vol]Ordered By: Jacques Foy on 74-60-5646Czwqfhke mean volume (Bld) [Entitic vol]8.3 fL6.3-10.7 [facility] HospitalPlatelets Auto (Bld) [#/Vol]Ordered By: Jacques Foy on 16-32-5160Fnrapphgr (Bld) [#/Vol]217 10*3/eI022-846BtzejqazsOhiohealth Riverside Methodist HospitalPotassium [Moles/volume] in Serum or PlasmaOrdered By: Jacques Foy on 30-34-9268Cihoneyuc [Moles/Vol]4.5 mmol/L3.5-5.1FMorrow County HospitalRBC Auto (Bld) [#/Vol]Ordered By: Jacques Foy on 02-24-8919GGL (Bld) [#/Vol]3.96 10*6/uL3.60-5.00[facility] Hospitalerum or plasma anion gap determinationOrdered By: Jacques Foy on 39-68-6790Squpj gap [Moles/Vol] 9.7 mmol/L6.0-15.0[facility] Hospitalodium [Moles/volume] in Serum or PlasmaOrdered By: Jacques Foy on 88-14-4662Euaktf [Moles/Vol]140 mmol/L 136-145[facility] HospitalUrea nitrogen [Mass/volume] in Serum or PlasmaOrdered By: Jacques Foy on 58-41-7842Rxmp nitrogen [Mass/Vol]24 mg/dL7-25 [facility] HospitalWBC Auto (Bld) [#/Vol]Ordered By: Jacques Foy on 45-03-1220AMW (Bld) [#/Vol]6.6 10*3/uL3.8-11.6FMorrow County Hospital URINE CULTUREon 42-19-3226Quuhupye identified Cx Nom (U)CULTURE RESULTS 10-50,000 ORGANISMS/mL NORMAL UROGENITAL FLORANormalProMedica [facility] [place] Comment on above:Performed By: #### 630-4 #### [facility] ([id number]) [address] [place] [address], [address] [place], [place] [address]Ruyeyfdvf Auto (Bld) [#/Vol]Ordered By: Noemy Shane on 34-59-2880Adlbmclim (Bld) [#/Vol]0.1 10*3/uL0.0-0.2FMorrow County HospitalBasophils/100 WBC Auto (Bld)Ordered By: Noemy Shane on 08-09-2023 Basophils/100 WBC (Bld)0.7 %.[facility] HospitalC reactive protein [Mass/volume] in Serum or PlasmaOrdered By: Noemy Shane on 79-69-2013YEA [Mass/Vol]< 0.5 mg/dL0.0-0.5FMorrow County HospitalEosinophils Auto (Bld) [#/Vol]Ordered By: Noemy Shane on 71-54-4462Wpdqsyfvrvl (Bld) [#/Vol] 0.1 10*3/uL0.0-0.45[facility] HospitalEosinophils/100 WBC Auto (Bld)Ordered By: Noemy Shane on 60-39-1826Zuayjhhmjvg/100 WBC (Bld)1.2 %. [facility] HospitalErythrocyte distribution width Auto (RBC) [Ratio]Ordered By: Noemy Shane on 00-19-5912Qkqxslnihmc distribution width (RBC) [Ratio]13.6 %11.9-15.3FMorrow County HospitalErythrocyte sedimentation rate by Photometric methodOrdered By: Noemy Shane on 11-22-1825LKB Photometric method (Bld) [Velocity]11 mm/hr0-29[facility] HospitalFolate [Mass/volume] in Serum or PlasmaOrdered By: Noemy Shane on 22-86-6842Ayytfm [Mass/Vol]29.0 ng/mL>5.9[facility] HospitalComment on above:Folate reference range: >5.9 ng/mlThe WHO technical consultation on folate and vitamin x05baamuumjpkcp has determined that folate concentrations lessthan 4 ng/ml are considered deficient.Hematocrit Auto (Bld) [Volume fraction]Ordered By: Noemy Shane on 34-09-4409Mfokvglfqn (Bld) [Volume fraction]36.0 %34.0-46.4FMorrow County HospitalHemoglobin [Mass/volume] in BloodOrdered By: Noemy Shane on 04-15-5408Ijcucnpeex (Bld) [Mass/Vol]12.3 g/dL11.8-15.4FMorrow County HospitalLeukocytes [#/volume] corrected for nucleated erythrocytes in Blood by Automated coun Ordered By: Noemy Shane on 88-65-7007DDM corrected for nucl RBC Auto (Bld) [#/Vol]8.6 10*3/uL3.8-11.6FMorrow County HospitalLymphocytes Auto (Bld) [#/Vol]Ordered By: Noemy Shane on 60-55-1700Qjquylxvdqc (Bld) [#/Vol] 2.6 10*3/uL1.00-4.8[facility] HospitalLymphocytes/100 WBC Auto (Bld)Ordered By: Noemy Shane on 85-29-7634Jjfmkbztirm/100 WBC (Bld)30.1 %. [facility] Auto (RBC) [Entitic mass]Ordered By: Noemy Shane on 30-20-2943NBC (RBC) [Entitic mass]29.8 pg24.7-34.3FMorrow County HospitalMCHC Auto (RBC) [Mass/Vol]Ordered By: Noemy Shane on 95-48-6025ZFOX (RBC) [Mass/Vol]34.0 g/dL32.0-35.0[facility] HospitalMCV Auto (RBC) [Entitic vol]Ordered By: Noemy Shane on 54-28-5774YMH (RBC) [Entitic vol]87.8 zH30-794ZkqdydnorOhiohealth Riverside Methodist HospitalMonocytes Auto (Bld) [#/Vol]Ordered By: Noemy Shane on 53-46-5796Skwcmaqxl (Bld) [#/Vol] 0.6 10*3/uL0.0-0.8[facility] HospitalMonocytes/100 WBC Auto (Bld) Ordered By: Noemy Shane on 49-26-6573Rvedsuhnz/100 WBC (Bld)7.5 %.[facility] HospitalNeutrophils Auto (Bld) [#/Vol]Ordered By: Noemy Shane on 36-75-6973Oozpfpinqbx (Bld) [#/Vol]5.2 10*3/uL1.8-7.7FMorrow County HospitalNeutrophils/100 WBC Auto (Bld)Ordered By: Noemy Shane on 92-33-4583Qhahpgubmdf/100 WBC (Bld)60.5 %.[facility] HospitalNo Panel InformationOrdered By: Noemy Shane on 13-45-0708Iuss- Nuclear Antibody Comment 2See comment.[facility] HospitalComment on above:Pattern Potential Disease Association Homogeneous Systemic Lupus Erythematosus, Drug Induced Systemic Lupus Erythematosus, Chronic Autoimmune hepatitis, Juvenile Idiopathic Arthritis Speckled Sjogren Syndrome, Systemic Lupus Erythematosus, Subacute Cutaneous Lupus, Lupus, Congenital Heart Block, Mixed Connective Tissue Disease, Scleroderma-diffuse, Scleroderma- Autoimmune Myositis Overlap Syndrome, Systemic Lupus Aqusfgxbwsfko-Slksxfjzewz-Mzqzamlawi Myositis Overlap Syndrome, Systemic Autoimmune Rheumatic Disease, Undifferentiated Connective Tissue Disease Nucleolar Systemic Sclerosis, Scleroderma-Autoimmune Myositis Overlap Syndrome, Sjogren Syndrome, Raynaud phenomenon, Pulmonary Arterial Hypertension, Systemic Autoimmune Rheumatic Disease, Cancer Centromere Scleroderma-CREST, Limited Cutaneous SSc, Raynaud's Phenomenon, Primary Biliary Cholangit is Nuclear Dot Primary Biliary Cholangitis Nuclear Primary Biliary Cholangitis, AutoimmuneMembrane Hepatitis/Liver disease, Systemic Autoimmune Rheumatic Disease, Autoimmune Cytopenias, Linear Scleroderma, Antiphospholipid Syndrome Performed at: [facility] [address] [id number] Director: Toan Rudd PhD, Phone: [phone] erythrocytes [Presence] in Blood by Automated countOrdered By: Noemy Shane on 65-77-1610Tehpfypsc RBC Auto Ql (Bld)0.0 /100{WBC}0-0.5FMorrow County HospitalPlatelet mean volume Auto (Bld) [Entitic vol]Ordered By: Noemy Shane on 30-29-7248Edjyudpr mean volume (Bld) [Entitic vol]8.5 fL6.3-10.7FMorrow County Hospital Platelets Auto (Bld) [#/Vol]Ordered By: Noemy Shane on 72-98-8315Eucorqyti (Bld) [#/Vol]240 10*3/vB873-543YyvygyfaoOhiohealth Riverside Methodist HospitalRBC Auto (Bld) [#/Vol]Ordered By: Noemy Shane on 81-57-2478LVF (Bld) [#/Vol]4.11 10*6/uL 3.60-5.00[facility] Clermont Hospitalerum homogeneous pattern antinuclear antibody (DAHLIA) titerOrdered By: Noemy Shane on 23-91-1002Hbauirikez nuclear Ab pattern (S) [Titer]1:320.[facility] Methodist HospitalComment on above: ICAP nomenclature: AC-1Serum nuclear antibody titerOrdered By: Noemy Shane on 99-40-8454Qpkiejy Ab (S) [Titer]Positive.[facility] Comment on above:Negative <1:80 Borderline 1:80 Positive >1:80Serum or plasma pyridoxine measurement (mass/volume)Ordered By: Noemy Shane on 08-09-2023 Pyridoxine [Mass/Vol]20.9 ug/L3.4-65.2FMorrow County HospitalComment on above:This test was developed and its performance characteristicsdetermined by [employer]. It has not been cleared orapproved by the Food and Drug Administration. Deficiency: <3.4 Marginal: 3.4 - 5.1 Adequate: >5.1Performed at: [facility] [address] [id number] Director: Jorge Concepcion MD, Phone: [phone] or plasma rheumatoid factor measurement (units/volume)Ordered By: Noemy Shane on 97-98-0716Uvsfsxngzm factor Qn[IU]/mL<14.0[facility] Methodist HospitalComment on above:Performed at: [facility] [employer] [id number] Director: Toan Rudd PhD, Phone: [phone] B12 ser/plasOrdered By: Noemy Shane on 10-30-0661Ehamqqggg (Vitamin B12) [Mass/Vol]304 pg/jK123-091 [facility] HospitalWBC Auto (Bld) [#/Vol]Ordered By: Noemy Shane on 84-56-1266KWA (Bld) [#/Vol]8.6 10*3/uL3.8-11.6FMorrow County HospitalCreatinine (Bld) [Mass/Vol]Ordered By: Noemy Shane on 38-76-7175Vozdlyzled [Mass/Vol]0.8 mg/dL0.6-1.3FMorrow County Hospital Comment on above:ER/ESD physician is notified/shown all ISTAT results.Critical values may be confirmed by laboratorytesting ifdeemed necessary by ER attending doctor.No Panel InformationOrdered By: Noemy Shane on 79-09-3368Zjqayyl Estimated GFR (eGFR)> 60.0[facility] Methodist HospitalCT LUNG CANCER SCREENINGon 94-71-4996NZ LUNG CANCER SCREENINGEXAMINATION: CT LUNG CANCER SCREENING HISTORY: Nicotine dependence in remission COMPARISON: CT abdomen pelvis 12/04/2020, 04/06/2019 TECHNIQUE: Axial, Coronal, and Sagittal images were created without the administration of IV contrast material. Dose reduction techniques were achieved by using automated exposure control and/or adjustment of mA and/or kV according to patient size and/or use of iterative reconstruction technique. FINDINGS: LUNGS: No visible pulmonary disease. PLEURA: No mass, effusion, or pneumothorax. VASCULATURE: No abnormality. YOLANDA: No mass or pathologic adenopathy. MEDIASTINUM: No mass or pathologic adenopathy. CARDIAC: No enlargement, pericardial thickening, or significant calcification. AORTA: No aneurysm or dissection. CHEST WALL: No mass or axillary adenopathy BONES: No bone lesion or fracture. LIMITED ABDOMEN: Bilateral adrenal masses, 2.0 cm on right, 2.9 cm on left; both contain areas of fat density favoring benign adenomas. Limited images of the upper abdomen. OTHER: Negative. IMPRESSION: 1. Lung-RADS Category 1 Negative. No nodules and definitely benign nodules. Continue annual screening with LDCT in 12 months. 2. Chronic bilateral adrenal masses favoring benign adenomas. Electronically authenticated by: LUIS FERNANDO HENRIQUEZ Date: 2022-10-31 08:[address] [place], [place] [address]MG MAMM SCREEN 3D ABDI CADon 11-19-7220OW MAMM SCREEN 3D ABDI CAD Patient: SHANA LUGO Exam Date: 10/31/2022 : 1955 Gender:F Ordering : EYAD MCKEON M.D. Admission #: [id number] Family : Order #: [id number] CLICK HERE TO VIEW EXAM RADIOLOGY REPORT PROCEDURE: MAMMOGRAM SCREENING 3D BILATERAL CAD COMPARISON: MG MAMM SCREEN ABDI W CAD, 08/26/2017. MG MAMM ABDI SCRN W CAD DIG, 01/25/2016. INDICATIONS: Screening mammography Calculator Name NCI Breast Cancer Risk Assessment Tool 5 Year Breast Cancer Risk 1.90% Lifetime Breast Cancer Risk 6.70% Personal Breast Cancer No Personal Ovarian Cancer No Treatments None Family Cancers Mother with leukemia cancer at age 84; Sister with colon cancer at age 46. LOCATION: [facility] BREAST COMPOSITION: Scattered areas fibroglandular density. FINDINGS: DIAGNOSTIC CATEGORY 0--INCOMPLETE: NEED ADDITIONAL IMAGING EVALUATION. RIGHT BREAST: New 6 mm circumscribed nodule within anterior lower-outer quadrant. While not overtly suspicious, spot magnification views and ultrasound evaluation are recommended. LEFT BREAST: No significant suspicious finding. No significant change has occurred. RECOMMENDATIONS: ADDITIONAL MAMMOGRAPHIC VIEWS REQUIRED: RIGHT BREAST - RIGHT CRANIOCAUDAL SPOT MAGNIFICATION VIEW - RIGHT OBLIQUE SPOT MAGNIFICATION VIEW - ULTRASOUND: RIGHT BREAST PLEASE NOTE: A NORMAL MAMMOGRAM DOES NOT EXCLUDE THE POSSIBILITY OF BREAST CANCER. A CLINICALLY SUSPICIOUS PALPABLE LUMP SHOULD BE BIOPSIED. Dictated by: Luis Fernando Henriquez M.D. on 10/31/2022 at 11:43 Approved by: Luis Fernando Henriquez M.D. on 10/31/2022 at 12:03[facility] CampusXR DEXA BONE DENSITYon 67-12-6228JL DEXA BONE DENSITYEXAMINATION: XR DEXA BONE DENSITY, 10/31/2022 7:30 AM EDT HISTORY: Menopause present COMPARISON: None. TECHNIQUE: Dual-energy X-ray absorptiometry (DEXA) bone density study performed for the axial skeleton. FINDINGS: Bone mineral density left forearm radius measures 0.737 g/sq cm. T score 0.3. WHO classification: Normal. Lowest bone mineral density right femoral trochanter measures 0.841 g/sq cm. T score -0.1. WHO classification: Normal IMPRESSION: Normal bone mineral density. Low fracture risk Electronically authenticated by: LOUISE LINDSAY Date: 2022-10-31 08:18[facility] CampusUS SHAYY DOP LEG RTon 17-74-9557YG SHAYY DOP LEG RTUltrasound venous duplex scan right lower extremity CLINICAL: History of DVT from outside hospital imaging. TECHNIQUE: Carreno-scale, color Doppler and Duplex examination of the right lower extremity was performed with and without provocative maneuvers. FINDINGS: Comparison: None. Previous outside hospital imaging not available for review at time of dictation. Sonographic examination of the right lower extremity deep venous system to include the common femoral, superficial femoral and popliteal veins, demonstrates normal compressibility, color-flow, respiratory variation, and augmentation. The origin of the greater saphenous vein demonstrates normal compression, and there is normal color-flow in the proximal profunda femoral vein. There is normal color-flow in the peroneal, posterior tibial, and anterior tibial veins. Normal compression of the greater saphenous and small saphenous veins in the calf. There is mild subcutaneous edema in the calf. IMPRESSION: 1. Negative for deep venous thrombosis in the right lower extremity. Patient has history of deep venous thrombosis from outside hospital imaging, but no thrombus seen on current study. Electronically authenticated by: SATNAM FITZGERALD Date: 2022-09-27 15:41[facility] CampusPROTIMEon 29-83-2893SSJ Coag (PPP) [Relative time]1.01 {INR} NormalUk HealthcareComment on above:Performed By: #### PT #### [facility] [address] [place] [address] Dr. Gopi MarcosR GUIDELINESSEE BELOWFirelands Regional Medical Center South CampusComment on above:Result Comment: DESIRED INR: 2.0 - 3.0 CONDITIONS NOT LISTED BELOW 2.5 - 3.5 FOR PROSTHETIC HEART VALVE REPLACEMENT 2.5 - 3.5 RECURRENT THROMBOSIS Performed By: #### PT #### [facility] [address] [address] [address] Gopi Arriaga Coag (PPP) [Time]10.7 sNormal9.0-11.6ThOur [facility] of Mercy [facility] Comment on above:Performed By: #### PT #### [facility] [address] [address] [address] Gopi Owens venous duplex LE BIo 28-84-5888CO venous duplex LE [facility] Balanced Other [place] venous duplex LE [facility] [employer] Other US venous duplex LE [address] Balanced Other US venous duplex LE [address] [employer] Other US venous duplex LE [facility] [employer] Other US venous duplex LE [facility] [employer] Other US venous duplex LE BIPatient: Shana Lugo MR#: [id number] [employer] Other US venous duplex LE [id number] [employer] Other US venous duplex LE BIDOB: 1955 Acct:[id number] [place] [employer] Other US venous duplex LE BIAge/Sex: 67 / F ADM Date: 07/30/22[place] [employer] Other US venous duplex LE BILoc: UL Room: Type: [facility] Balanced Other US venous duplex LE BIAttending Dr: Idalmis Rico MDSan Antonio [employer] Other US venous duplex LE BIOrdering Provider: Idalmis Rico MDSan [place] [employer] Other US venous duplex LE BIDate of Service: 07/30/22[place] [employer] Other US venous duplex LE BIAccession #: ([id number]) US/US venous duplex LE BI: [id number] [employer] Other US venous duplex LE BICopies to: Idalmis Rico MD [place] [employer] Other US venous duplex LE BIINDICATION: Edema pain and tenderness status post recent lumbar surgerySan [place] [employer] Other US venous duplex LE BIFINDINGS:[employer] Other US venous duplex LE BILeft lower extremity: Compression color flow and augmentation were all normal. No thrombus wasSan [place] [employer] Other US venous duplex LE BIidentified.[employer] Other US venous duplex LE BIRight lower extremity: Compression and color flow were abnormal in the right lower extremitySan Antonio [employer] Other US venous duplex LE BIpopliteal posterior tibial and peroneal veins. Thrombus was identified.[employer] Other US venous duplex LE BIORDER #: [id number] US/US venous duplex LE [facility] [employer] Other us venous duplex LE BIImpression: Positive study for right lower extremity DVT involving the popliteal, posterior tibialSan [place] [employer] Other [place] venous duplex LE BIand peroneal veins. Anechoic area identified in the left popliteal space measuring 3.6 x 1.8 x 2.3Nosouthpointe hospital [employer] Other US venous duplex LE BIcm. This may represent a Cortez's cyst.[employer] Other US venous duplex LE BIImpression dictated by: Robin Akhtar MD07/31/2022 10:39 [facility] [employer] Other us venous duplex LE BIDictation Location: [place] [address] [employer] Other us venous duplex LE BITech: Korin MosenricoSaint John'S HospitalSeniorlink Other us venous duplex LE BITranscribed By: PWS 07/31/22 [facility] Other us venous duplex LE BIDictated By: Robin Akhtar MD 07/31/[address] [place], [place] [address] Other us venous duplex LE BISigned By:[employer] Other us venous duplex LE BI07/31/22 [facility] HospitalEc[facility] Other Urine Cultureon 33-34-7970Cwzvitdp identified Cx Nom (U)[employer] Other basophils Auto (Bld) [#/Vol]Ordered By: Idalmis Rico on 07-45-5301Ctnmdobii (Bld) [#/Vol]0.0 10*3/uL0.0-0.2FMorrow County HospitalBasophils/100 WBC Auto (Bld)Ordered By: Idalmis Rico on 14-73-6173Stinbgxti/100 WBC (Bld)0.2 %.[facility] Creatinine and Glomerular filtration rate.predicted panel (S/P/Bld)Ordered By: Idalmis Rico on 88-65-8800Hdelnqxgcb [Mass/Vol]0.95 mg/dL0.44-1.03[facility] HospitalEosinophils Auto (Bld) [#/Vol]Ordered By: Idalmis Rico on 06-43-4953Eefaudmzjvw (Bld) [#/Vol]0.0 10*3/uL0.0-0.45[facility] Methodist HospitalEosinophils/100 WBC Auto (Bld)Ordered By: Idalmis Rico on 42-57-2301Tvovrqmszso/100 WBC (Bld)0.0 %.[facility] Erythrocyte distribution width Auto (RBC) [Ratio]Ordered By: Idalmis Rico on 04-52-3935Iacovjqknmw distribution width (RBC) [Ratio]13.2 %11.9-15.3FMorrow County HospitalEstimated glomerular filtration rate (GFR) non- AmericanOrdered By: Idalmis Rico on 17-10-6934COW/1.73 sq M.predicted among non-blacks MDRD (S/P/Bld) [Vol rate/Area]59 mL/MinOhiohealth Riverside Methodist HospitalGlucose Glucometer (BldC) [Mass/Vol]Ordered By: Idalmis Rico on 23-93-3873Kvqkueh [Mass/Vol]192 mg/dLOhiohealth Riverside Methodist HospitalComment on above:Random Glucose Reference Range is dependent on time and content of last meal. Glucose of more than 200 mg/dL in a nonstressed, ambulatory subject supports the diagnosis of Diabetes Mellitus.Hematocrit Auto (Bld) [Volume fraction]Ordered By: Idalmis Rico on 45-99-9846Ekctcmwmgu (Bld) [Volume fraction]32.9 %34.0-46.4FMorrow County HospitalHemoglobin [Mass/volume] in BloodOrdered By: Idalmis Rico on 81-07-1636Xvcylzpetd (Bld) [Mass/Vol]11.0 g/dL11.8-15.4FMorrow County HospitalLeukocytes [#/volume] corrected for nucleated erythrocytes in Blood by Automated coun Ordered By: Idalmis Blades on 82-27-3866BYB corrected for nucl RBC Auto (Bld) [#/Vol]15.4 10*3/uL3.8-11.6FMorrow County HospitalLymphocytes Auto (Bld) [#/Vol]Ordered By: Idalmis Blades on 73-23-8270Qskcmnzlzwa (Bld) [#/Vol] 2.9 10*3/uL1.00-4.8[facility] Methodist HospitalLymphocytes/100 WBC Auto (Bld)Ordered By: Idalmis Blades on 26-33-1620Ggeaseubnmu/100 WBC (Bld)18.9 %. [facility] HospitalMCH Auto (RBC) [Entitic mass]Ordered By: Idalmis Blades on 39-84-2693NQL (RBC) [Entitic mass]29.9 pg24.7-34.3FMorrow County HospitalMCHC Auto (RBC) [Mass/Vol]Ordered By: Idalmis Blades on 61-48-7708MLMO (RBC) [Mass/Vol]33.4 g/dL32.0-35.0[facility] HospitalMCV Auto (RBC) [Entitic vol]Ordered By: Idalmis Blades on 97-65-0906HTH (RBC) [Entitic vol]89.5 uH17-846ZyrtsuiuyOhiohealth Riverside Methodist HospitalMonocytes Auto (Bld) [#/Vol]Ordered By: Idalmis Blades on 14-09-9190Eoplzbqct (Bld) [#/Vol]1.7 10*3/uL0.0-0.8[facility] HospitalMonocytes/100 WBC Auto (Bld) Ordered By: Idalmis Blades on 72-38-1581Iqpwtlwaa/100 WBC (Bld)11.2 %.[facility] Methodist HospitalNeutrophils Auto (Bld) [#/Vol]Ordered By: Idalmis Blades on 17-73-0836Debsvenmddz (Bld) [#/Vol]10.8 10*3/uL1.8-7.7FMorrow County HospitalNeutrophils/100 WBC Auto (Bld)Ordered By: Idalmis Rico on 96-02-5427Keqjiofqhra/100 WBC (Bld)69.7 %.[facility] HospitalNo Panel InformationOrdered By: Idalmis Rico on 31-55-5903Evxpmsd Glucose Comment Glu2: cleaned meterOhiohealth Riverside Methodist HospitalEstimated GFR ()> 60 mL/MinOhiohealth Riverside Methodist HospitalComment on above:GFR estimated reference range: According to KDOQI guidelines, <60 ml/min/1.73m2 is sufficient todiagnose a patient with chronic kidney disease.Pharmacy Creatinine Clearance (Chem68.62Ohio[facility] Methodist HospitalNucleated erythrocytes [Presence] in Blood by Automated countOrdered By: Idalmis Rico on 07-21-2022 Nucleated RBC Auto Ql (Bld)0.0 /100{WBC}0-0.5FMorrow County Hospital Platelet adequacy [Presence] in Blood by Light microscopyOrdered By: Idalmis Rico on 92-51-5620Zvafwghnf LM Ql (Bld)NormalNormalOhiohealth Riverside Methodist HospitalPlatelet mean volume Auto (Bld) [Entitic vol]Ordered By: Idalmis Rico on 11-65-1088Wxuvatsk mean volume (Bld) [Entitic vol]8.5 fL6.3-10.7FMorrow County HospitalPlatelet morphology finding [Identifier] in BloodOrdered By: Idalmis Rico on 59-82-2418Ybsqgvcq morphology finding Nom (Bld)Normal NormalOhiohealth Riverside Methodist HospitalPlatelets Auto (Bld) [#/Vol]Ordered By: Idalmis Rico on 53-40-1525Esqltxyhe (Bld) [#/Vol]244 10*3/wO943-318LdgxhnjvfOhiohealth Riverside Methodist HospitalRBC Auto (Bld) [#/Vol]Ordered By: Idalmis Rico on 26-77-3948OCO (Bld) [#/Vol]3.67 10*6/uL3.60-5.00[facility] Methodist HospitalRBC morphologyOrdered By: Idalmis Rico on 19-50-7837GMJ morphology finding Nom (Bld)NormalNormalMercy Health Clermont Hospitalerum or plasma anion gap determinationOrdered By: Idalmis Rico on 19-74-6075Hycvf gap [Moles/Vol]9.9 mmol/L6.0-15.0Mer[facility] Clerm[facility] Hospitalerum or plasma calcium measurement (mass/volume)Ordered By: Idalmis Rico on 24-59-1959Whxeqzz [Mass/Vol]9.0 mg/dL8.2-10.2FTrinity Health System East Campuserum or plasma chloride measurement (moles/volume)Ordered By: Idalmis Rico on 07-21-2022 Chloride [Moles/Vol]102 mmol/S38-448EuptfrrrrMercy Health Clermont Hospitalerum or plasma glucose measurement (mass/volume)Ordered By: Idalmis Rico on 07-21-2022 Glucose [Mass/Vol]158 mg/fV92-872IaooszqegOhiohealth Riverside Methodist HospitalComment on above:Delta: 356 on 07/20/22-0438ADA recommended reference rangeRandom Glucose Reference Range is dependent on time and content of last meal. Glucose of more than 200 mg/dL in a nonstressed, ambulatory subject supports the diagnosis of Diabetes Mellitus.Serum or plasma potassium measurement (moles/volume)Ordered By: Idalmis Rico on 70-59-3632Lkhkmdcmy [Moles/Vol]4.1 mmol/L3.5-5.1FTrinity Health System East Campuserum or plasma sodium measurement (moles/volume)Ordered By: Idalmis Rico on 85-83-5968Mmqgsz [Moles/Vol]136 mmol/S008-029SauzmawkxMercy Health Clermont Hospitalerum or plasma total carbon dioxide measurement (moles/volume)Ordered By: Idalmis Rico on 6969XU8 [Moles/Vol]28.2 mmol/L 22.0-30.0Mer[facility] Clermont Hospitalerum or plasma urea nitrogen measurement (mass/volume)Ordered By: Idalmis Rico on 82-67-0504Pjcm nitrogen [Mass/Vol]20 mg/dL9-23Ohio[facility] Methodist HospitalWBC Auto (Bld) [#/Vol] Ordered By: Idalmis Rico on 91-82-9259AOU (Bld) [#/Vol]15.4 10*3/uL3.8-11.6 [facility] HospitalUrine culture routineOrdered By: Idalmis Blades on 57-54-4238Yhlkdrom identified Cx Nom (U)2 DaysOhiohealth Riverside Methodist HospitalBasophils Auto (Bld) [#/Vol]Ordered By: Idalmis Blades on 07-11-2022 Basophils (Bld) [#/Vol]0.1 10*3/uL0.0-0.2FMorrow County Hospital Basophils/100 WBC Auto (Bld)Ordered By: Idalmis Blades on 07-11-2022 Basophils/100 WBC (Bld)0.8 %.[facility] HospitalCreatinine and Glomerular filtration rate.predicted panel (S/P/Bld)Ordered By: Idalmis Blades on 51-87-5032Lkusthrdsx [Mass/Vol]0.81 mg/dL0.44-1.03[facility] HospitalEosinophils Auto (Bld) [#/Vol]Ordered By: Idalmis Blades on 07-11-2022 Eosinophils (Bld) [#/Vol]0.0 10*3/uL0.0-0.45[facility] Eosinophils/100 WBC Auto (Bld)Ordered By: Idalmis Blades on 07-11-2022 Eosinophils/100 WBC (Bld)0.3 %.[facility] Methodist HospitalErythrocyte distribution width Auto (RBC) [Ratio]Ordered By: Idalmis Blades on 07-11-2022 Erythrocyte distribution width (RBC) [Ratio]13.2 %11.9-15.3FMorrow County HospitalEstimated glomerular filtration rate (GFR) non- Ordered By: Idalmis Blades on 75-49-6922TAS/1.73 sq M.predicted among non-blacks MDRD (S/P/Bld) [Vol rate/Area]> 60 mL/MinOhiohealth Riverside Methodist Hospital Hematocrit Auto (Bld) [Volume fraction]Ordered By: Idalmis Blades on 07-11-2022 Hematocrit (Bld) [Volume fraction]37.0 %34.0-46.4FMorrow County HospitalHemoglobin [Mass/volume] in BloodOrdered By: Idalmis Blades on 07-11-2022 Hemoglobin (Bld) [Mass/Vol]12.1 g/dL11.8-15.4FMorrow County Hospital Leukocytes [#/volume] corrected for nucleated erythrocytes in Blood by Automated counOrdered By: Idalmis Blades on 85-59-1258RKC corrected for nucl RBC Auto (Bld) [#/Vol]12.6 10*3/uL3.8-11.6FMorrow County HospitalLymphocytes Auto (Bld) [#/Vol]Ordered By: Idalmis Blades on 38-43-5589Utifytsdljj (Bld) [#/Vol]1.9 10*3/uL1.00-4.8[facility] HospitalLymphocytes/100 WBC Auto (Bld)Ordered By: Idalmis Blades on 76-36-7404Dedskzsclij/100 WBC (Bld)15.0 %.[facility] Methodist HospitalMCH Auto (RBC) [Entitic mass]Ordered By: Idalmis Blades on 40-80-7767KFO (RBC) [Entitic mass]29.5 pg24.7-34.3FMorrow County HospitalMCHC Auto (RBC) [Mass/Vol]Ordered By: Idalmis Blades on 94-56-6994UUTR (RBC) [Mass/Vol]32.8 g/dL32.0-35.0[facility] HospitalMCV Auto (RBC) [Entitic vol]Ordered By: Idalmis Blades on 81-80-0467WTM (RBC) [Entitic vol]90.1 iH41-377SxtdxiioiOhiohealth Riverside Methodist HospitalMonocytes Auto (Bld) [#/Vol]Ordered By: Idalmis Blades on 60-89-9432Qvvwfcekh (Bld) [#/Vol]1.0 10*3/uL0.0-0.8[facility] HospitalMonocytes/100 WBC Auto (Bld) Ordered By: Idalmis Blades on 06-62-7772Yggcfhuvv/100 WBC (Bld)7.7 %.[facility] Methodist HospitalNeutrophils Auto (Bld) [#/Vol]Ordered By: Idalmis Rico on 94-20-7236Rneohtxxxht (Bld) [#/Vol]9.6 10*3/uL1.8-7.7FMorrow County HospitalNeutrophils/100 WBC Auto (Bld)Ordered By: Idalmis Rico on 84-89-8429Provdgzghqv/100 WBC (Bld)76.2 %.[facility] HospitalNo Panel InformationOrdered By: Idalmis Rico on 11-56-1873Jyibngslw GFR ()> 60 mL/MinOhiohealth Riverside Methodist HospitalComment on above:GFR estimated reference range: According to KDOQI guidelines, <60 ml/min/1.73m2 is sufficient todiagnose a patient with chronic kidney disease.Pharmacy Creatinine Clearance (Chem78.67[facility] Methodist HospitalNucleated erythrocytes [Presence] in Blood by Automated countOrdered By: Idalmis Rico on 07-11-2022 Nucleated RBC Auto Ql (Bld)0.0 /100{WBC}0-0.5FMorrow County Hospital Platelet mean volume Auto (Bld) [Entitic vol]Ordered By: Idalmis Rico on 90-56-2772Txhjyhvq mean volume (Bld) [Entitic vol]7.9 fL6.3-10.7FMorrow County HospitalPlatelets Auto (Bld) [#/Vol]Ordered By: Idalmis Rico on 10-40-5871Hbkowtztw (Bld) [#/Vol]317 10*3/kF784-046UcoafjvzeOhiohealth Riverside Methodist HospitalRBC Auto (Bld) [#/Vol]Ordered By: Idalmis Rico on 19-22-0698UWR (Bld) [#/Vol]4.11 10*6/uL3.60-5.00Mer[facility]ermont Hospitalerum or plasma anion gap determinationOrdered By: Idalmis Rico on 16-88-2270Fqqfb gap [Moles/Vol]16.3 mmol/L6.0-15.0Mer[facility] Clermont Hospitalerum or plasma calcium measurement (mass/volume)Ordered By: Idalmis Rico on 93-28-1403Qcsocmp [Mass/Vol]10.6 mg/dL8.2-10.2FTrinity Health System East Campuserum or plasma chloride measurement (moles/volume)Ordered By: Idalmis Rico on 07-11-2022 Chloride [Moles/Vol]99 mmol/F50-625JgejyupdsMercy Health Clermont Hospitalerum or plasma glucose measurement (mass/volume)Ordered By: Idalmis Rico on 07-11-2022 Glucose [Mass/Vol]144 mg/dB48-640BfsyhiktyOhiohealth Riverside Methodist HospitalComment on above:ADA recommended reference rangeRandom Glucose Reference Range is dependent on time and content of last meal. Glucose of more than 200 mg/dL in a nonstressed, ambulatory subject supports the diagnosisof Diabetes Mellitus.Serum or plasma potassium measurement (moles/volume)Ordered By: Idalmis Rico on 56-48-3310Fqwkidhma [Moles/Vol]5.1 mmol/L3.5-5.1FTrinity Health System East Campuserum or plasma sodium measurement (moles/volume)Ordered By: Idalmis Rico on 34-58-3728Ifdmup [Moles/Vol]136 mmol/V548-092JhsoracweMercy Health Clermont Hospitalerum or plasma total carbon dioxide measurement (moles/volume) Ordered By: Idalmis Rico on 29-13-5579PV5 [Moles/Vol]25.8 mmol/L22.0-30.0 [facility] Hospitalerum or plasma urea nitrogen measurement (mass/volume)Ordered By: Idalmis Rico on 07-61-7303Ojyg nitrogen [Mass/Vol]18 mg/dL9-23[facility] HospitalWBC Auto (Bld) [#/Vol]Ordered By: Idalmis Rico on 23-03-7348YGG (Bld) [#/Vol]12.6 10*3/uL3.8-11.6FMorrow County HospitalGlucose Glucometer (BldC) [Mass/Vol]Ordered By: Idalmis Rico on 83-71-6765Hcqoqgq [Mass/Vol]161 mg/dLOhiohealth Riverside Methodist Hospital Comment on above:Random Glucose Reference Range is dependent on time and content of last meal. Glucose of more than 200 mg/dL in a nonstressed, ambulatory subject supports the diagnosis of Diabetes Mellitus.Automated erythrocytes count in urine sediment (number/area)Ordered By: Idalmis Rico on 66-94-5134DSK Auto (Urine sed) [#/Area]0-1 [HPF]0-4FMorrow County HospitalAutomated leukocytes count in urine sediment (number/area)Ordered By: Idalmis Rico on 77-96-0100FIH Auto (Urine sed) [#/Area]0-1 [HPF]0-4FMorrow County HospitalBilirubin Test strip Ql (U)Ordered By: Idalmis Rico on 07-02-2022 Bilirubin Ql (U)NegativeNegativeOhiohealth Riverside Methodist HospitalColor Auto (U) Ordered By: Idalmis Rico on 72-73-3150Szump (U)YellowYellowOhiohealth Riverside Methodist HospitalKetones Auto test strip (U) [Mass/Vol]Ordered By: Idalmis Rico on 65-48-4681Njfrbyt (U) [Mass/Vol]TraceNegativeOhiohealth Riverside Methodist HospitalLaboratory - UrinalysisOrdered By: Idalmis Rico on 99-19-4273Lkmuepb casts LM Ql (Urine sed)0-8 [LPF]0-8[facility] HospitalNitrite Test strip Ql (U)Ordered By: Idalmis Rico on 29-17-9690Ddxuhuz Ql (U)Negative NegativeOhiohealth Riverside Methodist HospitalProtein Auto test strip (U) [Mass/Vol] Ordered By: Idalmis Rico on 32-45-1774Fsxnmbg (U) [Mass/Vol]30 mg/dLNegative [facility] Hospitalpecific gravity Auto test strip (U) [Rel density]Ordered By: Idalmis Rico on 94-71-5491Ggvjjchh gravity (U) [Rel density]1.0231.001-1.030[facility] Hospitalquamous epithelial cells detection in urine sediment by light microscopyOrdered By: Idalmis Rico on 60-49-4212Tmycnuouea cells.squamous LM Ql (Urine sed)None seen [HPF]0-2 [facility] HospitalUrine bacteria detection by automated method Ordered By: Idalmis Rico on 90-05-2302Ceqlazma Auto Ql (U)None seenNone Seen [facility] HospitalUrine clarity by refractometry automatedOrdered By: Idalmis Rico on 12-51-2881Ryptqec Refractometry automated (U)ClearClear [facility] HospitalUrine glucose measurement by automated test strip (mass/volume)Ordered By: Idalmis Rico on 10-94-4714Aiqnoce Auto test strip (U) [Mass/Vol]100 mg/dLNormUC HealthUrine hemoglobin detection by automated test stripOrdered By: Idalmis Rico on 94-40-9025Fxnhooajmc Auto test strip Ql (U)NegativeNegativeOhiohealth Riverside Methodist HospitalUrine leukocyte esterase detection by automated test stripOrdered By: Idalmis Rico on 38-91-3030Iibwwsvpb esterase Auto test strip Ql (U)1+ NegativeOhiohealth Riverside Methodist HospitalUrobilinogen Auto test strip (U) [Mass/Vol]Ordered By: Idalmis Rico on 28-47-0222Wluoydnietny (U) [Mass/Vol] Normal mg/dLNormUC HealthpH Auto test strip (U)Ordered By: Idalmis Rico on 77-28-3962wX (U)7.0 [pH]5.0-9.0[facility] HospitalAutomated erythrocytes count in urine sediment (number/area)Ordered By: Idalmis Rico on 70-79-8120KEL Auto (Urine sed) [#/Area]3-4 [HPF]0-4FMorrow County HospitalAutomated leukocytes count in urine sediment (number/area)Ordered By: Idalmis Rico on 86-70-3416GNU Auto (Urine sed) [#/Area]20-49 [HPF]0-4FMorrow County HospitalAutomated urine hyaline casts count (number/volume)Ordered By: Idalmis Rico on 01-48-6454Gycamgd casts Auto (U) [#/Vol]50-100 [LPF]0-1FMorrow County HospitalAutomated urine sediment calcium oxalate crystal count by microscopy (number/high powOrdered By: Idalmis Rico on 47-30-2034Xsttbqg oxalate crystals LM.HPF (Urine sed) [#/Area]1+ [HPF][facility] HospitalBasophils Auto (Bld) [#/Vol] Ordered By: Idalmis Rico on 10-56-0202Vbzuyence (Bld) [#/Vol]0.1 10*3/uL 0.0-0.2FMorrow County HospitalBasophils/100 WBC Auto (Bld)Ordered By: Idalmis Rico on 88-77-3994Zzeptlilf/100 WBC (Bld)0.7 %.[facility] HospitalBilirubin Test strip Ql (U)Ordered By: Idalmis Rico on 76-61-9455Uplncrtdx Ql (U)NegativeNegativeOhiohealth Riverside Methodist HospitalCast typing in urine sediment by light microscopyOrdered By: Idalmis Rico on 20-83-7419Dcrnl LM Nom (Urine sed)None seen [LPF]None SeenOhiohealth Riverside Methodist HospitalColor Auto (U)Ordered By: Idalmis Rico on 25-70-9508Nkdyx (U) Dark yellowYellowOhiohealth Riverside Methodist HospitalCreatinine and Glomerular filtration rate.predicted panel (S/P/Bld)Ordered By: Idalmis Rico on 15-44-5278Qopowsyorx [Mass/Vol]1.08 mg/dL0.44-1.03[facility] HospitalEosinophils Auto (Bld) [#/Vol]Ordered By: Idalmis Rico on 06-29-2022 Eosinophils (Bld) [#/Vol]0.1 10*3/uL0.0-0.45[facility] Eosinophils/100 WBC Auto (Bld)Ordered By: Idalmis Rico on 06-29-2022 Eosinophils/100 WBC (Bld)1.1 %.[facility] HospitalErythrocyte distribution width Auto (RBC) [Ratio]Ordered By: Idalmis Rico on 06-29-2022 Erythrocyte distribution width (RBC) [Ratio]13.5 %11.9-15.3FMorrow County HospitalEstimated glomerular filtration rate (GFR) non- Ordered By: Idalmis Rico on 26-65-1325YZD/1.73 sq M.predicted among non-blacks MDRD (S/P/Bld) [Vol rate/Area]51 mL/MinOhiohealth Riverside Methodist Hospital Hematocrit Auto (Bld) [Volume fraction]Ordered By: Idalmis Rico on 06-29-2022 Hematocrit (Bld) [Volume fraction]36.0 %34.0-46.4FMorrow County HospitalHemoglobin [Mass/volume] in BloodOrdered By: Idalmis Rico on 06-29-2022 Hemoglobin (Bld) [Mass/Vol]12.0 g/dL11.8-15.4FMorrow County Hospital Ketones Auto test strip (U) [Mass/Vol]Ordered By: Idalmis Rico on 06-29-2022 Ketones (U) [Mass/Vol]TraceNegativeOhiohealth Riverside Methodist HospitalLeukocytes [#/volume] corrected for nucleated erythrocytes in Blood by Automated coun Ordered By: Idalmis Rico on 01-17-3203ATJ corrected for nucl RBC Auto (Bld) [#/Vol]9.0 10*3/uL3.8-11.6FMorrow County HospitalLymphocytes Auto (Bld) [#/Vol]Ordered By: Idalmis Rico on 38-99-5423Ezkdsqrzwss (Bld) [#/Vol] 2.7 10*3/uL1.00-4.8[facility] HospitalLymphocytes/100 WBC Auto (Bld)Ordered By: Idalmis Rico on 38-00-8072Idkzmglrobc/100 WBC (Bld)30.4 %. [facility] HospitalMCH Auto (RBC) [Entitic mass]Ordered By: Idalmis Rico on 81-83-9667ZOR (RBC) [Entitic mass]29.9 pg24.7-34.3FMorrow County HospitalMCHC Auto (RBC) [Mass/Vol]Ordered By: Idalmis Rico on 14-13-0401ISQA (RBC) [Mass/Vol]33.3 g/dL32.0-35.0[facility] HospitalMCV Auto (RBC) [Entitic vol]Ordered By: Idalmis Rico on 35-20-0667SNW (RBC) [Entitic vol]89.8 dH05-049NqgepryfzOhiohealth Riverside Methodist HospitalMonocytes Auto (Bld) [#/Vol]Ordered By: Idalmis Rico on 24-04-2590Wcfwfoykl (Bld) [#/Vol]0.7 10*3/uL0.0-0.8[facility] HospitalMonocytes/100 WBC Auto (Bld) Ordered By: Idalmis Rico on 81-61-7025Fecpigyga/100 WBC (Bld)7.3 %.[facility] HospitalNeutrophils Auto (Bld) [#/Vol]Ordered By: Idalmis Rico on 38-16-2922Lwfzccvdvsx (Bld) [#/Vol]5.4 10*3/uL1.8-7.7FMorrow County HospitalNeutrophils/100 WBC Auto (Bld)Ordered By: Idalmis Rico on 87-11-5937Qskeaaxefmp/100 WBC (Bld)60.5 %.[facility] Nitrite Test strip Ql (U)Ordered By: Idalmis Rico on 08-82-2230Fpyolwu Ql (U) NegativeNegativeOhiohealth Riverside Methodist HospitalNo Panel InformationOrdered By: Idalmis Rico on 21-25-7134Llslmwfgw GFR ()> 60 mL/Min [facility] HospitalComment on above:GFR estimated reference range: According to KDOQI guidelines, <60 ml/min/1.73m2 is sufficient todiagnose a patient with chronic kidney disease.Pharmacy Creatinine Clearance (ChemN/A [facility] HospitalNucleated erythrocytes [Presence] in Blood by Automated countOrdered By: Idalmis Rico on 33-81-0479Ucrglqmip RBC Auto Ql (Bld)0.1 /100{WBC}0-0.5FMorrow County HospitalPlatelet mean volume Auto (Bld) [Entitic vol]Ordered By: Idalmis Rico on 26-85-5314Iwsgrnlt mean volume (Bld) [Entitic vol]8.5 fL6.3-10.7FMorrow County Hospital Platelets Auto (Bld) [#/Vol]Ordered By: Idalmis Rico on 17-09-4460Sohwfbplg (Bld) [#/Vol]229 10*3/aS040-731SwavdrnncOhiohealth Riverside Methodist HospitalProtein Auto test strip (U) [Mass/Vol]Ordered By: Idalmis Rico on 18-81-6013Dlyvivl (U) [Mass/Vol]Trace mg/dLNegativeOhiohealth Riverside Methodist HospitalRBC Auto (Bld) [#/Vol]Ordered By: Idalmis Rico on 82-15-9291SOA (Bld) [#/Vol]4.01 10*6/uL 3.60-5.00[facility] Hospitalerum or plasma anion gap determinationOrdered By: Idalmis Rico on 02-35-1908Rgqwc gap [Moles/Vol]10.5 mmol/L6.0-15.0[facility] Hospitalerum or plasma calcium measurement (mass/volume)Ordered By: Idalmis Rico 99-50-7089Ccpjtws [Mass/Vol]10.3 mg/dL8.2-10.2FTrinity Health System East Campuserum or plasma chloride measurement (moles/volume)Ordered By: Idalmis Rico on 06-29-2022 Chloride [Moles/Vol]100 mmol/M79-291QzueqvormMercy Health Clermont Hospitalerum or plasma glucose measurement (mass/volume)Ordered By: Idalmis Rico on 06-29-2022 Glucose [Mass/Vol]143 mg/wZ61-338AypcgxqyzOhiohealth Riverside Methodist HospitalComment on above:ADA recommended reference rangeRandom Glucose Reference Range is dependent on time and content of last meal. Glucose of more than 200 mg/dL in a nonstressed, ambulatory subject supports the diagnosisof Diabetes Mellitus.Serum or plasma potassium measurement (moles/volume)Ordered By: Idalmis Rico 16-64-0905Mvklikgjv [Moles/Vol]4.7 mmol/L3.5-5.1FTrinity Health System East Campuserum or plasma sodium measurement (moles/volume)Ordered By: Idalmis Rico 06-24-1584Zdpxcx [Moles/Vol]135 mmol/S029-412PkezedugzMercy Health Clermont Hospitalerum or plasma total carbon dioxide measurement (moles/volume) Ordered By: Idalmis Rico 89-19-0319QT8 [Moles/Vol]29.2 mmol/L22.0-30.0 [facility] Hospitalerum or plasma urea nitrogen measurement (mass/volume)Ordered By: Idalmis Rico on 64-74-5112Xixb nitrogen [Mass/Vol]26 mg/dL9-23Mer[facility] Hospitalpecific gravity Auto test strip (U) [Rel density]Ordered By: Idalmis Rico on 48-07-8031Mdoctijw gravity (U) [Rel density]1.0241.001-1.030[facility] Hospitalquamous epithelial cells detection in urine sediment by light microscopyOrdered By: Idalmis Rico on 27-53-2464Tgmoutuvgf cells.squamous LM Ql (Urine sed)5-9 [HPF]0-2FMorrow County HospitalUrine bacteria detection by automated methodOrdered By: Idalmis Rico on 84-28-1391Cbdcvfoz Auto Ql (U)None seenNone SeenOhiohealth Riverside Methodist HospitalUrine clarity by refractometry automatedOrdered By: Idalmis Rico on 24-06-0820Ctnnnkb Refractometry automated (U)ClearClear [facility] HospitalUrine culture routineOrdered By: Idalmis Rico on 01-84-7927Cthuiico identified Cx Nom (U)Staphylococcus aureusOhiohealth Riverside Methodist HospitalUrine glucose measurement by automated test strip (mass/volume)Ordered By: Idalmis Rico 99-71-4472Zfkxedw Auto test strip (U) [Mass/Vol]250 mg/dLNormalOhiohealth Riverside Methodist HospitalUrine hemoglobin detection by automated test stripOrdered By: Idalmis Rico on 06-29-2022 Hemoglobin Auto test strip Ql (U)NegativeNegativeOhiohealth Riverside Methodist HospitalUrine leukocyte esterase detection by automated test stripOrdered By: Idalmis Rico on 46-76-7684Jpcuikmeu esterase Auto test strip Ql (U)4+Negative [facility] HospitalUrine sediment renal epithelial cell count by microscopy (number/high power field)Ordered By: Idalmis Rico on 06-29-2022 Epithelial cells.renal LM.HPF (Urine sed) [#/Area]None seen [HPF]0-1FMorrow County HospitalUrobilinogen Auto test strip (U) [Mass/Vol]Ordered By: Idalmis Rico on 81-01-9560Gmjqtlodbyub (U) [Mass/Vol]Normal mg/dLNormal [facility] HospitalWBC Auto (Bld) [#/Vol]Ordered By: Idalmis Blades on 54-07-9516IHW (Bld) [#/Vol]9.0 10*3/uL3.8-11.6FMorrow County HospitalpH Auto test strip (U)Ordered By: Idalmis Blades on 62-99-6232lV (U)5.0 [pH]5.0-9.0[facility] HospitalCT LSPINE WO CONon 06-15-2022 [facility] WO CONEXAMINATION: [facility] WO CON HISTORY: DORSALGIA, UNSPECIFIED COMPARISON: No relevant comparison available. TECHNIQUE: Axial, Coronal, and Sagittal CT images were created without I.V. contrast material. Dose reduction techniques were achieved by using automated exposure control and/or adjustment of mA and/or kV according to patient size and/or use of iterative reconstruction technique. FINDINGS: PARASPINAL AREA: Normal with no visible mass. BONES: Levocurvature centered at L3. Moderate degenerative spondylosis and facet osteoarthropathy. No acute fracture or spondylolisthesis DISC LEVELS: 12-L1: Moderate degenerative disc disease is present without visible neural impingement. L1-L2: Early degenerative disc disease is present without focal protrusion or neural impingement. L2-L3: Moderate disc space narrowing with endplate sclerosis, right greater than left. Moderate diffuse disc bulge with posterior central disc herniation the protrusion type best seen on sagittal image 25 extending up to 4.6 mm. No foraminal stenosis. L3-L4: Disc collapse with endplate sclerosis and vacuum disc. Broad-based disc herniation of the protrusion type extending posteriorly up to 3.3 mm best seen on sagittal image #24. Bilateral facet osteoarthropathy. Right foraminal stenosis. L4-L5: Disc collapse with endplate sclerosis and vacuum disc. Moderate posterior disc/osteophyte complex and facet osteoarthropathy. No definite central canal stenosis. No right foraminal stenosis. Moderate left foraminal stenosis. L5-S1: Disc collapse with endplate sclerosis and vacuum disc. Mild diffuse disc/osteophyte complex. Posterior broad-based disc herniation the protrusion type measuring up to 3.5 mm. No definite central or foraminal stenosis IMPRESSION: Moderate degenerative changes with disc herniations at multiple levels as detailed above. Consider MRI for further evaluation Electronically authenticated by: LOUISE LINDSAY Date: 2022-06-15 16:43[facility] Metabolic Panelon 39-79-1334Xndgq gap [Moles/Vol]13 mmol/QXvnwff19-59Loqutwug [place] Medical SpecialistComment on above:Result Comment: Effective 06/22/2019 reference range changed.Performed By: #### BMP #### [facility] [address], [place] [id number] [Mass/Vol]9.4 mg/dLNormal8.6-10.2[facility] [place] [facility] SpecialistComment on above:Performed By: #### BMP #### [facility] [address] [place], [place] [id number] [Moles/Vol]106 mmol/DZmbmod17-764Wdbhpify [place] [facility] SpecialistComment on above:Performed By: #### BMP #### [facility] [address], [place] [id number] [Moles/Vol]28 mmol/FQqmbop01-36Itmbbfbs [place] [facility] SpecialistComment on above:Performed By: #### BMP #### [facility] [address], [place] [id number] [Mass/Vol]0.6 mg/dLNormal0.6-1.4[facility] [place] [facility] SpecialistComment on above:Performed By: #### BMP #### [facility] [address], [place] [id number] mL/min/1.09d1Hroizf>60[facility] [place] [facility] SpecialistComment on above:Performed By: #### BMP #### [facility] [address], [place] [id number] mL/min/1.60d5Kwfdbz>60[facility] [place] [facility] SpecialistComment on above:Performed By: #### BMP #### [facility] [address], [place] [id number] [Mass/Vol]77 mg/nJPyrzwr93-80Erjgslxt [place] [facility] SpecialistComment on above:Result Comment: For FASTING Glucose --- ADA reference ranges: Normal 65-99 mg/dl Prediabetes 100-125 Diabetes >/= 126Performed By: #### BMP #### [facility] [address], [place] [id number] [Moles/Vol]4.4 mmol/LNormal3.5-5.5Nobetsy johnson regional hospitaln [facility] SpecialistComment on above:Performed By: #### BMP #### [facility] [address], [place] [id number] [Moles/Vol]143 mmol/WGsuqqu800-214Ydbjtptj [facility] SpecialistComment on above:Performed By: #### BMP #### [facility] [address], [place] [id number] nitrogen [Mass/Vol]19 mg/dLNormal7-25NortCleveland Clinic Lutheran Hospital SpecialistComment on above:Performed By: #### BMP #### [facility] [address], [place] [id number] A1Con 28-45-6654UKZ912.33NormalNortCleveland Clinic Lutheran Hospital SpecialistComment on above:Performed By: #### A1C #### [facility] [address], [place] [id number] (Bld) [Mass fraction]6.9 %High4.0-6.0NoLima Memorial Hospital SpecialistComment on above:Performed By: #### A1C #### [facility] [address], [place] [id number] Note - ED v2on 95-11-6746Pjgwxdpc Note - ED v2 Provider Note - ED v2: Chart Review: ED NOTES ED NOTES: 64-year-old female presents the ER with chief complaint of pain in her hand. Patient reports that she was bit by her dog yesterday. Patient has some slight redness associated with this bite at this time. Patient in the ED for evaluation. Patient is able to move her thumb without difficulty today HISTORY OF PRESENTING ILLNESS SHANA is a 64 year old Female and was seen by me at 28-Nov-2019 15:43 for a chief complaint of animal bite (dog) . Other complaints include: patient bit by her dog yesterday on her left thumb(1). Triage Information: Most recent Vital Sign Value Date Temp (F): 99.8 11-28-2019 15:42 Temp (C): 37.6 11-28-2019 15:42 Heart Rate (beats/min): 97 11-28-2019 15:42 Respirations (breaths/min): 18 11-28-2019 15:42 SpO2 (%): 97 11-28-2019 15:42 BP Systolic (mm Hg): 150 11-28-2019 15:42 BP Diastolic (mm Hg): 77 11-28-2019 15:42 PAST MEDICAL HISTORY ATTESTATION: I have reviewed and confirmed nurse's/medic's notes for patient's medications, allergies, medical history, and surgical history ALLERGIES/INTOLERANCES: No Known Allergies HEALTH HISTORY: No documented data. OUTPATIENT MEDICATIONS: Home Medications Review Status for Reconciliation: N/A Med Status: N/A No documented data. SIGNIFICANT EVENTS: No documented data. REVIEW OF SYSTEMS CONSTITUTIONAL: Negative for: anorexia, chills and fever EYES: Negative for: pain and vision changes ENMT Throat/Neck: Negative for: dysphagia, neck pain and neck stiffness CARDIOVASCULAR: Negative for: chest pain and tachycardia RESPIRATORY: Negative for: cough, dyspnea and wheezing GASTROINTESTINAL: Negative for: abdominal pain, diarrhea, nausea and vomiting; GENITOURINARY: Negative for: dysuria, frequency, hematuria and urgency; MUSCULOSKELETAL: Negative for: back pain, sensory deficits and weakness INTEGUMENTARY: Negative for: lesions; NEUROLOGICAL: Negative for: altered mental status, dizziness, headache, loss of consciousness, loss of function and low extremity numbness; PSYCHIATRIC: Negative for: anxiety, hallucinations and mood swings HEME/LYMPH: Negative for: anemia and jaundice ALLERGIC/IMMUNOLOGIC: Negative for: HIV; latex allergy PHYSICAL EXAM CONSTITUTIONAL: Well appearing, well nourished, awake, alert, oriented to person, place, time/situation and in no apparent distress. HENMT: Airway patent, ears with clear tympanic membranes bilaterally. Nasal mucosa clear. Mouth with normal mucosa. Throat has no vesicles, no oropharyngeal exudates and uvula is midline. Face with no lymph node enlargement. EYES: Clear bilaterally, pupils equal, round and reactive to light. CARDIOVASCULAR: Normal rate, regular rhythm. Heart sounds S1, S2. No murmurs, rubs or gallops. PMI non-displaced. RESPIRATORY: Breath sounds clear and equal bilaterally. GASTROINTESTINAL: Abdomen soft, non-distended, no rebound, no guarding. Bowel sounds normal in all 4 quadrants. GENITOURINARY: MUSCULOSKELETAL: Spine appears normal, range of motion is not limited, no muscle or joint tenderness. NEUROLOGICAL: Alert and oriented, no focal deficits, no motor or sensory deficits. SKIN: left thenar emence small puncture wound slight redness PSYCHIATRIC: Alert and oriented to person, place, time/situation. normal mood and affect. No apparent risk to self or others. HEME/LYMPH: No adenopathy or splenomegaly. No cervical, supraclavicular or inguinal lymphadenopathy. CLINICAL IMPRESSION Diagnosis/Annotation: ED Dx Name:Dog bite Code:W54.0XXA Name:Dog bite of hand Code:S61.459A Dispostion: discharged Type: home ATTESTATION Comments/Additional Findings: 64-year-old female presents the ER with chief complaint of pain in her hand. Patient reports that she was bit by her dog yesterday. Patient has some slight redness associated with this bite at this time. Patient in the ED for evaluation. Patient is able to move her thumb without difficulty today educated the patient that this should improve within 12 hours if it does not improve within 12 hours she is return to the ER for further intervention potential IV antibiotics. Patient understands and she will follow-up with her family doctor otherwise if it gets worse she will return to the ER. CRITICAL CARE TIME Is this a critically ill patient: no Electronic Signatures: Jonn Cheng) (Signed 28-Nov-2019 16:04) Authored: Provider Note - ED v2 Last Updated: 28-Nov-2019 16:04 by Jonn Cheng () References: 1. Data Referenced From Triage - ED 28-Nov-2019 15:42[facility]manRisk Screen - Adult Emergencyon 02-56-1434Pxph Screen - Adult Emergency Preferred Language: Preferred Language: Preferred Language for Discussing Health Care (patient/designee)Japanese Advanced Directives: Advance Directive/DNRno Family Violence Adult: Abuse Screen: Are you or have you been threatened or abused physically, emotionally, or sexually by anyoneno Learning Assessment (Patient): Learning Assessment (Patient): Patient is Able to be Assessed for Learningyes Factors Influencing Readiness to Learnacuteness of illness Factors that Impact Ability to Learnnone Devices/Methods Used to Communicatenone Learning Preferencesverbal instruction; written material Cultural Considerationsnone Developmental Considerationsnone Amish Considerationsnone Learning Assessment (Other Learner): Learning Assessment (Other Learner): Other learner availableno Pressure Injury/TB/Substance: Pressure Injury: Pressure Injury Present on Admissionno Do you have a coughno Substance Use Current or Former Historynever: e-Cigarette/Vaping, Alcohol, Street Drugs YES: Cigarette/Tobacco Smoking Statuslight tobacco smoker (<10 cigs or cigar/pipe equivalent) Admission Risk Screen: Significant IndicatorsComplete CAGE: CAGE: Is this an injured [place] a [place] Center [place] [place]/[place]): no Electronic Signatures: Brennan Kunz (RN) (Signed 28-Nov-2019 15:45) Authored: Preferred Language, Advanced Directives, Family Violence Adult, Learning Assessment (Patient), Learning Assessment (Other Learner), Pressure Injury/TB/Substance, CAGE Last Updated: 28-Nov-2019 15:45 by Brennan Kunz (RN)[facility] KaufmanTriage - EDon [id number] - EDChart Review: CHIEF COMPLAINT SHANA LUGO is a Female patient with a chief complaint of animal bite (dog). Onset of the Complaint: 27-Nov-2019 17:00 Other Complaints: patient bit by her dog yesterday on her left thumb Triage Date/Time: 28-Nov-2019 15:32 Pain location: left thumb Vital Signs: Temperature: 99.8F ( 37.6C) taken temporal Blood Pressure: 150/77 Mean: Heart Rate: 97 Respiratory Rate: 18 Pulse Oximetry: 97% on room air, no respiratory support. Height: 5 feet 4.00 inches. 162.5 CM Weight: 220.4 pounds. Calculated 100.0 kg. (stated) Calculated BMI (kg/m2): 37.869 Calculated BSA (m2) 2.12 Jaskaran Coma Scale: Best Eye Response: (E4) spontaneous Best Motor Response: (M6) obeys commands Best Verbal Response: (V5) oriented Jaskaran Score: 15 Cough lasting greater than 3 weeks: no Allergies: no Patient has homicidal thoughts: no FLAVIA: 3 Problem: Problem Type: dog bite on the left anterior hand. Image has been removed. Symptoms Are POSITIVE For: swelling. Symptoms Are Negative For: anxiety, bleeding, chills, diaphoresis, dyspnea, fever, nausea, rash and tingling. Risk Screens Suicide Risk Screen In the Past Month: Have you wished you were or wished you could go to sleep and not wake up no In the Past Month: Have you had any actual thoughts of killing yourself no In Your Lifetime: Have you ever done anything, started to do anything, or prepared to do anything to end your life no De Jesus Fall Scale Screening Has the patient fallen before (or is the patient in the ED as a result of a fall) has not had a fall Does the patient have an impaired gait does not have impaired gait Is the patient cognitively impaired not cognitively impaired Interventions: De Jesus Fall Interventions: *patient oriented to surroundings and call system, * patient/family falls education completed and documented, *patients fall status communicated during bedside handoff, *whiteboard updated, *mode of toileting discussed with patient, *bed in low position with brakes locked, *call light in reach, * non-skid footwear PAIN Pain Scale Used: GRAZYNA TRAVEL HISTORY Travel History Coronavirus Screening: no exposure or symptoms Past Medical History: Past Medical History Reviewedyes Electronic Signatures: Brennan Kunz (ROSCOE) (Signed 28-Nov-2019 15:44) Authored: Triage, Past Medical History Last Updated: 28-Nov-2019 15:44 by Brennan Kunz (ROSCOE)[facility] Vital Signs Date TimeVital SignValuePerforming HmbzbacniGfoloscs60-81-1920 08:14-0400Body waevsk42.5 kgEyad Mckeon MD Work Phone: [facility]10-09-2025 16:32-0400 Heart rate74 /minEyad Mckeon MD Work Phone: [facility]10-09-2025 16:32-0400 SaO2% (BldA) [Mass fraction]94 %Eyad Mckeon MD Work Phone: [facility]09-16-2025 10:38-0400 Diastolic blood plqdtqno22 mm[Hg]Eyad Mckeon MD Work Phone: 1(226)[address]09-16-2025 10:38-0400 Heart rate86 /Ashley Mckeon MD Work Phone: 1(478)[address]09-16-2025 10:38-0400 SaO2% (BldA) [Mass fraction]96 %Eyad Mckeon MD Work Phone: 1(930)[address]09-16-2025 10:38-0400 Systolic blood udvsdxfe319 mm[Hg]Eyad Mckeon MD Work Phone: 1(006)[address] [place], [place] 0607308-28-2025 08:27-0400 Body saidqx56.4 kgEyad Mckeon MD Work Phone: 1(677)[address]07-21-2025 16:23-0400 Diastolic blood yqjywkvv39 mm[Hg]Eyad Mckeon MD Work Phone: 1(913)[address]07-21-2025 16:23-0400 Heart rate77 /Ashley Mckeon MD Work Phone: 1(886)[address] [place], [place] 0607307-21-2025 16:23-0400 SaO2% (BldA) [Mass fraction]99 %Eyad Mckeon MD Work Phone: 1(176)46[address]07-21-2025 16:23-0400 Systolic blood aftjuarv993 mm[Hg]Eyad Mckeon MD Work Phone: 1(869)[address]07-07-2025 07:19-0400 Body .56 cmEyad Mckeon MD Work Phone: 1(194)05165 [address]07-07-2025 07:19-0400 Body .79 kgEyad Mckeon MD Work Phone: 1(081)[address]06-24-2025 09:27-0400 Diastolic blood qvdvdplo55 mm[Hg]Eyad Mckeon MD Work Phone: 1(561)[address]06-24-2025 09:27-0400 Heart rate78 /Ashley Mckeon MD Work Phone: 1419)[address] [place], [place] 0607306-24-2025 09:27-0400 SaO2% (BldA) [Mass fraction]98 %Eyad Mckeon MD Work Phone: 1419)[address] [place], [place] 0607306-24-2025 09:27-0400 Systolic blood npqtbqto901 mm[Hg]Eyad Mckeon MD Work Phone: 1(362)[address] [place], [place] 0607306-06-2025 09:06-0400 Body ortamq808.56 cmEyad Mckeon MD Work Phone: 1(918)[address] [place], [place] 0607306-06-2025 09:06-0400 Body mass index (BMI) [Ratio]38 kg/e6ChzetiysEyad Mckeon MD Work Phone: 1(479)[address] [place], [place] 0607306-06-2025 09:06-0400 Body .35 kgEyad Mckeon MD Work Phone: 1(724)[address] [place], [place] 0607306-06-2025 09:06-0400 Diastolic blood nzimtkcm41 mm[Hg]Eyad Mckeon MD Work Phone: 1419)[address] [place], [place] 0607306-06-2025 09:06-0400 Heart rate72 /Ashley Mckeon MD Work Phone: 1(621)[address] [place], [place] 0607306-06-2025 09:06-0400 SaO2% (BldA) [Mass fraction]97 %Eyad Mckeon MD Work Phone: 1(583)[address] [place], [place] 0607306-06-2025 09:06-0400 Systolic blood ymcortwr127 mm[Hg]Eyad Mckeon MD Work Phone: 1(976)50365 [address]05-20-2025 08:18-0400 Body exuxpx172.56 cmEyad Mckeon MD Work Phone: 1(975)[address]65 [address]05-20-2025 08:18-0400 Body mass index (BMI) [Ratio]38.1 kg/q7GydkvlnsEyad Mckeon MD Work Phone: 1(736)[address]05-20-2025 08:18-0400 Body uzhqpp266.8 kgEyad Mckeon MD Work Phone: 1(535)[address]05-20-2025 08:18-0400 Diastolic blood hxkhoekr22 mm[Hg]Eyad Mckeon MD Work Phone: 1(110)[address]05-20-2025 08:18-0400 Systolic blood lkhpypvy595 mm[Hg]Eyad Mckeon MD Work Phone: 1(283)[address]05-14-2025 08:11-0400 Body yyohwx773.6 cmMoluz maria Mckeon MD Work Phone: 1(137)[address]05-14-2025 08:11-0400Body mass index (BMI) [Ratio]37.76 kg/o4QygeqebbEyad Mckeon MD Work Phone: 1(105)[address]05-14-2025 08:11-0400Body klumhb08.79 kgEyad Mckeon MD Work Phone: 1(269)[address]05-14-2025 08:11-0400Diastolic blood vzudvsab38 mm[Hg]Eyad Mckeon MD Work Phone: 1(943)[address]05-14-2025 08:11-0400Heart rate 78 /minEyad Mckeon MD Work Phone: 1(960)628-[address] [place], [place] 6935005-14-2025 08:11-4977CaB5% (BldA) [Mass fraction]95 %Eyad Mckeon MD Work Phone: 1(608)865-[address] [place], [place] 6935005-14-2025 08:11-0400Systolic blood evohypvz623 mm[Hg]Eyad Mckeon MD Work Phone: 1(971)154-[address] [place], [place] 6935001-14-2025 08:24-0500Body wevzoa016.56 cmEyad Mckeon MD Work Phone: 1(765)[address]11-21-2024 12:54-0500 Body rmdvua41.97 kgEyad Mckeon MD Work Phone: 1(387)[address] [place], [place] 0607310-24-2024 10:33-0400 Body tllsel643.56 cmMD Eyad Mckeon Work Phone: 1(526)[address] [place], [place] 0607310-24-2024 10:33-0400 Body mass index (BMI) [Ratio]37.9 kg/m2MD Eyad Mckeon Work Phone: 1(612)[address]10-24-2024 10:33-0400 Body qndzuc397.24 kgMD Eyad Mckeon Work Phone: 1(409)[address]10-10-2024 13:20-0400 Blood Pressure LocationJENNIFER JOSEFINA [facility]10-10-2024 13:20-0400Diastolic blood urgfhdik13 mm[Hg]COREY JOSEFINA [facility]10-10-2024 13:20-0400Heart rate84 /minJENNIFER JOSEFINA [facility]10-10-2024 13:20-0400Respiratory rate19 /minJENNIFER JOSEFINA [facility]10-10-2024 13:20-0400Systolic blood qwptifvp217 mm[Hg]COREY JOSEFINA [facility]09-26-2024 13:01-0400Body .56 cmMD Eyad Mckeon Work Phone: [facility]09-26-2024 10:47-0400 Blood Pressure LocationJENNIFER JOSEFINA [facility]09-26-2024 10:47-0400Body pyhakzdpvph68.6 [degF]COREY JOSEFINA [facility]09-26-2024 10:47-0400Diastolic blood ubwcmnly06 mm[Hg]COREY JOSEFINA [facility]09-26-2024 10:47-0400Heart rate71 /minJENNIFER JOSEFINA [facility]09-26-2024 10:47-0400Respiratory rate18 /minJENNIFER JOSEFINA [facility]09-26-2024 10:47-0400Systolic blood oklmhblh136 mm[Hg]COREY JOSEFINA [facility]09-03-2024 14:11-0400Blood Pressure LocationJENNIFER JOSEFINA [facility]09-03-2024 14:11-0400Diastolic blood ehzwvrnv42 mm[Hg]COREY JOSEFINA [facility]09-03-2024 14:11-0400Heart rate78 /minCOREY ROCHA [facility]09-03-2024 14:11-0400Systolic blood plzxtear531 mm[Hg]COREY ROCHA [facility]08-27-2024 14:15-0400Body .56 cmMD Eyad Mckeon Work Phone: 1(991)850-[address] [place], [place] 6363708-23-2024 10:03-0400 Body zmfiacioort29.3 [degF]MD Eyad Mckeon Work Phone: 1(915)99465 [address]08-23-2024 10:03-0400 Diastolic blood eiwqyysj33 mm[Hg]MD Eyad Mckeon Work Phone: 1(673)214[address]08-23-2024 10:03-0400 Heart rate80 /minMD Eyad Mckeon Work Phone: 1(357)917-[address] [place], [place] 6363708-23-2024 10:03-0400 Respiratory rate18 /minMD Eyad Mckeon Work Phone: 1(222)219-[address] [place], [place] 6363708-23-2024 10:03-0400 SaO2% (BldA) [Mass fraction]94 %MD Eyad Mckeon Work Phone: 1(637)102-[address] [place], [place] 6363708-23-2024 10:03-0400 Systolic blood mm[Hg]MD Eyad Mckeon Work Phone: 1(132)434-[address] [place], [place] 6363708-23-2024 06:00-0400 Body qgaqpv296.9 kgMD Eyad Mckeon Work Phone: 1(042)409[address]08-20-2024 12:13-0400 Body orblpg868.56 cmMD Eyad Mckeon Work Phone: 1(525)907-[address] [place], [place] 6363708-15-2024 11:34-0400 Body vfifpqhihml17.6 [degF]MD Eyad Mckeon Work Phone: 1(962)[address]08-15-2024 11:34-0400 Diastolic blood lwcsiwvc82 mm[Hg]MD Eyad Mckeon Work Phone: 1(490)[address] [place], [place] 0607308-15-2024 11:34-0400 Heart rate99 /minMD Eyad Mckeon Work Phone: 1(356)[address]08-15-2024 11:34-0400 Respiratory rate16 /minMD Eyad Mckeon Work Phone: 1(693)[address]08-15-2024 11:34-0400 SaO2% (BldA) [Mass fraction]95 %MD Eyad Mckeon Work Phone: 1(693)[address]08-15-2024 11:34-0400 Systolic blood ysdrfrmt318 mm[Hg]MD Eyad Mckeon Work Phone: 1(501)[address] [place], [place] 0607308-15-2024 06:39-0400 Body xtgavd146 kgMD Eyad Mckeon Work Phone: 1(386)[address]08-13-2024 03:10-0400 Inhaled oxygen flow rate1 L/minMD Eyad Mckeon Work Phone: 1(171)[address]08-12-2024 05:45-0400 Body .56 cmMD Eyad Mckeon Work Phone: 1(927)[address]07-25-2024 09:26-0400 Body ysalui051.56 [facility]07-25-2024 09:26-0400Body mass index (BMI) [Ratio]38 kg/o7FjzwmxolwOhiohealth [facility]07-25-2024 09:26-0400Body xvsvvfebeny43.8 [degF][facility]07-25-2024 09:26-0400Body nrjdxy028.69 kgOhio[facility]07-25-2024 09:-0400Diastolic blood fxodsyeg21 mm[Hg][facility] 01-09-2024 09:0400Heart rate70 /[facility] 01-09-2024 09:0400Respiratory rate16 /[facility] 01-09-2024 09:8827OpW6% (BldA) [Mass fraction]98 %[facility]07-25-2024 09:0400Systolic blood spdccliq671 mm[Hg][facility]06-28-2024 12:11-0400Body uxkrml005.56 cmOhio[facility]06-28-2024 12:11-0400Body mass index (BMI) [Ratio]37.8 kg/m2 [facility]06-28-2024 12:11-0400Body kofqoq30.79 kg [facility]06-26-2024 11:17-0400Body uqtrdn810.56 cm [facility]06-26-2024 11:17-0400Body mass index (BMI) [Ratio]37.8 kg/w8GnnnmxumyOhiohealth [facility]ide [facility] Hospital06-26-2024 11:17-0400Body xytdlq73.[address] [facility]06-20-2024 09:00-0400Body height 162.56 cmOhio[facility]06-20-2024 09:00-0400Body mass index (BMI) [Ratio]37.8 kg/t2OukzzexnqOhiohealth [facility]06-20-2024 09:00-0400 Body .79 kg[facility]06-20-2024 09:00-0400 Diastolic blood cumtivuc19 mm[Hg][facility]06-20-2024 09:00-0400Heart rate69 /[facility]06-20-2024 09:00-2888MoY5% (BldA) [Mass fraction]96 %[facility] 12-05-2023 09:00-0400Systolic blood mm[Hg][facility]05-29-2024 16:03-0400Diastolic blood iabzpfvt85 mm[Hg]MD Eyad Mckeon Work Phone: 1(051)751-[address] [place], [place] 6363705-29-2024 16:03-0400 Heart rate75 /minMD Eyad Mckeon Work Phone: 1(757)[address]05-29-2024 16:03-0400 SaO2% (BldA) [Mass fraction]98 %MD Eyad Mckeon Work Phone: 1(570)36265 [address]05-29-2024 16:03-0400 Systolic blood wraunjns205 mm[Hg]MD Eyad Mckeon Work Phone: 1(939)[address]05-13-2024 15:47-0400 Diastolic blood mm[Hg]MD Eyad Mckeon Work Phone: 1(060)64865 [address]05-13-2024 15:47-0400 Heart rate81 /minMD Eyad Mckeon Work Phone: 1(279)20865 [address]05-13-2024 15:47-0400 SaO2% (BldA) [Mass fraction]98 %MD Eyad Mckeon Work Phone: 1(911)34165 [address]05-13-2024 15:47-0400 Systolic blood jwaevhzl455 mm[Hg]MD Eyad Mckeon Work Phone: 1(413)23365 [address]04-29-2024 16:35-0400 Diastolic blood fxpzguxr86 mm[Hg]MD Eyad Mckeon Work Phone: 1(402)[address]65 [address]04-29-2024 16:35-0400 Heart rate74 /minMD Eyad Mckeon Work Phone: 1(765)43765 [address]04-29-2024 16:35-0400 SaO2% (BldA) [Mass fraction]97 %MD Eyad Mckeon Work Phone: 1(545)272-[address] [place], [place] 6363704-29-2024 16:35-0400 Systolic blood kgqsyado915 mm[Hg]MD Eyad Mckeon Work Phone: 1(927)148[address]04-09-2024 10:10-0400 Diastolic blood ddfziifi98 mm[Hg]MD Eyad Mckeon Work Phone: 1(118)444[address]04-09-2024 10:10-0400 Heart rate72 /minMD Eyad Mckeon Work Phone: 1(614)40665 [address]04-09-2024 10:10-0400 SaO2% (BldA) [Mass fraction]98 %MD Eyad Mckeon Work Phone: 1(052)095[address]04-09-2024 10:10-0400 Systolic blood hrzeikrt504 mm[Hg]MD Eyad Mckeon Work Phone: 1(593)[address]03-20-2024 13:34-0400 Diastolic blood mm[Hg]MD Eyad Mckeon Work Phone: 1(478)[address]03-20-2024 13:34-0400 Heart rate83 /minMD Eyad Mckeon Work Phone: 1(211)[address]03-20-2024 13:34-0400 SaO2% (BldA) [Mass fraction]97 %MD Eyad Mckeon Work Phone: 1(164)888[address]03-20-2024 13:34-0400 Systolic blood mhlatfes945 mm[Hg]MD Eyad Mckeon Work Phone: 1(217)[address]03-04-2024 09:05-0500 Diastolic blood aejwwpyk88 mm[Hg]MD Eyad Mckeon Work Phone: 1(745)07[address]03-04-2024 09:05-0500 Heart rate76 /minMD Eyad Mckeon Work Phone: 1(952)171-[address] [place], [place] 6363703-04-2024 09:05-0500 SaO2% (BldA) [Mass fraction]96 %MD Eyad Mckeon Work Phone: 1(173)[address]03-04-2024 09:05-0500 Systolic blood ikhtkwef969 mm[Hg]MD Eyad Mckeon Work Phone: 1(364)[address]02-21-2024 08:43-0500 Body xqyxiw035.56 cmMD Mariluznilson Johnsonlenyheydi Work Phone: 1(288)[address] [place], [place] 0607302-21-2024 08:43-0500 Body mass index (BMI) [Ratio]38.6 kg/m2MD Mariluznilson Johnsonlenyheydi Work Phone: 1(889)[address] [place], [place] 0607302-21-2024 08:43-0500 Body blxapz391.05 kgMD Eyad Johnsonlenyheydi Work Phone: 1(370)[address] [place], [place] 0607302-01-2024 13:00-0500 Body zkjjvy645.56 cmMD Galinaheydi Cristopher Sweeneyheydi Work Phone: 1(174)[address]02-01-2024 13:00-0500 Body smancu476.51 kgMD Galinaheydi Cristopher Sweeneyheydi Work Phone: 1(828)[address] [place], [place] 0607304-10-2023 11:00-0400 Body gbgaqk155.56 cmDeborah Blades Other [employer] Other 04-10-2023 11:00-0400Body mass index (BMI) [Ratio]38.1 kg/s5Vnczvgv Blades Other [employer] Other 04-10-2023 11:00-0400Body yoqqee651.7 kgDeborah Blades Other [employer] Other 02-13-2023 09:40-0500Body esrbit244.56 cmDeborah Blades Other [employer] Other 02-13-2023 09:40-0500Body mass index (BMI) [Ratio]38.1 kg/e9Xvampvz Blades Other [employer] Other 02-13-2023 09:40-0500Body vszxyw883.7 kgDeborah Blades Other [employer] Other 02-13-2023 09:40-0500Diastolic blood xswybcqn58 mm[Hg] Idalmis Blades Other [employer] Other 02-13-2023 09:40-0500Systolic blood mm[Hg] Idalmis Blades Other [employer] Other 02-04-2023 08:30-0500Body tojojqgeqli39 [degF] [facility]02-04-2023 08:30-0500Diastolic blood nrfahfoy67 mm[Hg][facility]02-04-2023 08:30-0500Heart rate73 /min [facility]02-04-2023 08:30-0500Respiratory rate12 /min [facility]02-04-2023 08:30-1751UuJ7% (BldA) [Mass fraction]96 %[facility]02-04-2023 08:30-0500Systolic blood mm[Hg][facility]02-04-2023 04:51-0500 Body vqeppo788.5 kgOhio[facility]02-03-2023 00:15-0500Inhaled oxygen flow rate2 L/minOhio[facility]02-02-2023 11:30-0500 Body byzyak563.56 cmOhio[facility]02-02-2023 11:30-0500Body mass index (BMI) [Ratio]37.8 kg/i5WmilboeukOhiohealth Riverside [facility] Hospital01-26-2023 11:09-0500Body dfyciqwpcqd12.1 [degF][facility]01-26-2023 11:09-0500Diastolic blood eozposlb29 mm[Hg][facility] 07-12-2022 11:09-0500Heart rate76 /[facility] 07-12-2022 11:09-0500Respiratory rate16 /[facility] 07-12-2022 11:09-6188LoH0% (BldA) [Mass fraction]97 %[facility]01-26-2023 11:09-0500Systolic blood evodwgnb689 mm[Hg][facility]01-26-2023 06:00-0500Body xemgsd037 kgOhio[facility]01-25-2023 13:51-0500Body ayennl101.56 cmOhio[facility] 07-03-2022 17:00-0500Diastolic blood ytcljyzp03 mm[Hg][facility]01-17-2023 17:00-0500Heart rate86 /[facility] 07-03-2022 17:00-0500Respiratory rate16 /[facility] 07-03-2022 17:00-5174MaE2% (BldA) [Mass fraction]93 %[facility]01-17-2023 17:00-0500Systolic blood claynrdl791 mm[Hg][facility]01-17-2023 15:21-0500Body ykcfvbviybb48.8 [degF][facility]01-17-2023 14:46-0500Inhaled oxygen flow rate10 L/[facility]01-17-2023 12:58-0500Body .56 cmOhio[facility]01-17-2023 12:58-0500Body mass index (BMI) [Ratio]38 kg/c9LmowsdoxrOhiohealth Riverside [facility] Hospital01-17-2023 12:58-0500Body zqupgt626.6 kg [facility]01-13-2023 10:40-0500Body rhdpeq197.56 cm Idalmis Blades Other [employer] Other 01-13-2023 10:40-0500Body mass index (BMI) [Ratio] 38.17 kg/n7Gmglcea Blades Other [employer] Other 01-13-2023 10:40-0500Body jbqhet256.88 kgDebor Blades Other [employer] Other 01-01-2023 14:03-0500Diastolic blood kklfogzh92 mm[Hg] [facility]01-01-2023 14:03-0500Heart rate76 /[facility]01-01-2023 14:03-0500Respiratory rate20 /[facility]01-01-2023 14:03-9307WoI3% (BldA) [Mass fraction]97 % [facility]01-01-2023 14:03-0500Systolic blood osnsndlm257 mm[Hg][facility]01-01-2023 11:47-0500Body mlieqe868.1 cm [facility]01-01-2023 11:47-0500Body ekcryn05.71 kg [facility]01-01-2023 11:46-0500Body bemaxnrzimo92.8 [degF][facility]12-28-2021 17:35-0500Body vvifcy402.56 cm Lala Ramon Other [employer] Other 12-28-2021 17:35-0500Body mass index (BMI) [Ratio] 36.04 kg/r8KarocmtorLala Ramon Other [employer] Other 12-28-2021 17:35-0500Body bkjwthcyylf30.4 [degF] Lala Ramon Other [employer] Other 12-28-2021 17:35-0500Body qujylt49.26 kgStmelvi Ramon Other [employer] Other 12-28-2021 17:35-0500Respiratory rate18 /minSmike Ramon Other [employer] Other 12-28-2021 17:35-3100TgI0% (BldA) [Mass fraction]97 % Lala Ramon Other [employer] Other Encounters Encounter DateEncounter TypeCare ProviderFacilityStart: 85-95-7423gsnpgvyymnsterling [facility]: 04-18-2025 End: 41-95-9021IbpqhyRzbhvsul El Sayyad MD Work Phone: [facility] PHYSICIANSComment on above:Type 2 diabetes mellitus without complication, without long-term current use of insulin ([facility])Start: 04-15-2025 End: 51-61-0946Rmdzfv Tamela CALDERON Work Phone: no [facility]atologyStart: 04-15-2025 End: 77-40-0190Wxeqbn Tamela CALDERON Work Phone: no [facility]atologyStart: 04-15-2025 End: 96-42-4224Aybpxjwjb encounterCheryl Meggan CMAProMedica Physicians Family PracticeComment on above:Medication ProblemStart: 04-15-2025 End: 36-05-8836Opdijun encounter procedureNathalie CALDERON Work Phone: no [facility] DermatologyComment on above:Granuloma annulare (Primary Dx); Other specified erythematous conditionsStart: 04-15-2025 End: 96-97-1846befzzduyzhUSSWG NORTHEIMNot AvailableStart: 04-06-2025 End: 07-28-9385ptpxrdpakdIoxzpghzNavin Mckeon MD Work Phone: [phone]-Nmsogbmss Health NeurosurgeryStart: 04-06-2025 End: 00-70-8342Mgelpgg encounter procedureJacques Foy MD-[facility] Work Phone: start: 03-25-2025 End: 17-17-0060lqbkjtbmccYfxpxargNavin Mckeon MD Work Phone: [facility] Work Phone: Start: 03-25-2025 End: 92-85-0702Ybivylx encounter procedureSzach Villarreal MD-[facility] Pain [facility] Work Phone: Start: 03-20-2025 End: 70-52-5319VjswglFnzzqshs El Sayyad MD Work Phone: [facility] PracticeStart: 03-18-2025 End: 97-36-9819rorgxzpvysHjzzjsisNavin Mckeon MD Work Phone: [facility] Work Phone: Start: 03-18-2025 End: 52-80-8935Ugosmtm encounter procedureSzach Villarreal MD-[facility] Work Phone: Start: 03-02-2025 End: 10-25-5679rfbsbxqeazQiulphjwNavin Mckeon MD Work Phone: [facility] Work Phone: Start: 03-02-2025 End: 21-00-0910Qfvzjku encounter procedureSzach Villarreal MD-[facility] Pain [facility] Work Phone: Start: 02-25-2025 End: 72-93-0762Hoodizg encounter procedureJacques Foy MD-[facility] Work Phone: Start: 02-25-2025 End: 92-42-3157kaodyojcziXlouuykvNavin Mckeon MD Work Phone: [facility] Work Phone: Start: 02-23-2025 End: 21-07-7743MvahrtLswrbqku El Sayyad MD Work Phone: pPsych[facility] Hospital at VanderbiltComment on above: Degenerative joint disease of low backStart: 2025 End: 82-49-7822ybhvygnuxnBkrijcrmNavin Mckeon MD Work Phone: [facility] Work Phone: Start: 2025 End: 95-96-3779Pjffehf encounter procedureJacques Foy MD-[facility] Work Phone: start: 02-08-2025 End: 49-72-7941Tsbdpss encounter procedureJacques Foy MD-[facility] Work Phone: Start: 02-08-2025 End: 78-37-5575njqbtnpmrfQdqcqzgoNavin Mckeon MD Work Phone: [facility] Work Phone: Start: 02-05-2025 End: 70-56-7116PtxnqaBlgrnyreMary Mckeon MD Work Phone: [facility] CLINICSComment on above:Type 2 diabetes mellitus without complication, without long-term current use of insulin ([facility])Start: 98-08-3010Vnz-patient / Non-visitSzach Villarreal MD-[facility] Work Phone: Start: 01-26-2025 End: 67-98-7999plznvcoznvEgnaofatNavin Mckeon MD Work Phone: [facility] Work Phone: Start: 01-26-2025 End: 99-06-2732Vtvcqci encounter procedureSzach Villarreal MD-[facility] Work Phone: Start: 01-18-2025 End: 66-85-7003mqkodzlpkoSlwozovaNavin Mckeon MD Work Phone: [facility] Work Phone: Start: 01-18-2025 End: 23-05-7599Fhqvzlttzq Jose Villarreal MD-[facility] [place] Work Phone: start: 01-07-2025 End: 95-94-2110Dqnmmgw encounter procedureRyjacqueline Sanchez PA Work Phone: [facility] DERMComment on above:Granuloma annulare; Other specified erythematous conditionsStart: 01-07-2025 End: 35-83-3129tmdjouymifFMYJN NORTHEIMNot AvailableStart: 01-04-2025 End: 62-67-5421xbklvxmjvfSzrhepflNavin Mckeon MD Work Phone: [facility] Work Phone: Start: 01-04-2025 End: 68-16-7622Jnjvdne encounter procedureSzach Villarreal MD-[facility] Work Phone: Start: 19-68-6405Sjjenylmzx Jose Villarreal MD- [facility] [place] Work Phone: start: 12-23-2024 End: 40-40-5253TnthwuVfftynvb El Sayyad MD Work Phone: [facility] PHYSICIANSStart: 12-21-2024 End: 66-95-2438Xplrfxf encounter procedureSzach Villarreal MD-[facility] [place] Work Phone: Start: 12-21-2024 End: 06-54-1915myvhoitgoeEgttexhnNavin Mckeon MD Work Phone: [facility] Work Phone: Start: 97-82-2771Klxtokgkst Jose Villarreal MD- [facility] [place] Work Phone: start: 12-09-2024 End: 01-34-3216Kyldvhk encounter procedureSzach Villarreal MD-[facility] Work Phone: Start: 12-09-2024 End: 01-06-7414khhxmzgrjoRovrwcobNavin Mckeon MD Work Phone: [facility] Work Phone: Start: 44-90-0385Ocj-patient / Non-visitChristian Arturo Soliz MD-[facility] Work Phone: Start: 12-08-2024 End: 88-10-2945Zpjeulp encounter procedureSzach Villarreal MD-[facility] Work Phone: Start: 61-62-9218Zlpavzbjuo Recurringjem Villarreal MD- [facility] [place] Work Phone: start: 11-27-2024 End: 42-61-9531BkvmasTqldgpjt El Sayyad MD Work Phone: [facility]Comment on above:Type 2 diabetes mellitus without complication, without long-term current use of insulin ([facility])Start: 38-27-8081Rht-patient / Non-visitSzach Villarreal MD-[facility] Work Phone: Start: 11-20-2024 End: 13-22-8538xtpghfmlmaJbhrwuoaNavin Mckeon MD Work Phone: [facility] Work Phone: Start: 11-20-2024 End: 59-75-3765Bawyvly encounter procedureEyad Mckeon MD Work Phone: [facility] Work Phone: Start: 11-03-2024 End: 76-14-3637Igxfgjidt encounterRobin [facility], [facility] Department of [facility] Hospitaltart: 11-03-2024 End: 78-75-6028Luumjkw encounter procedureEyad Mckeon MD Work Phone: [facility] Neurosurgery Work Phone: start: 10-29-2024 End: 97-06-7351Eprzoki encounter procedureEyad Mckeon MD Work Phone: [facility] Work Phone: Start: 10-29-2024 End: 48-24-0263jjxjnkjizdKjqk E BraunFacility:[facility] Start: 10-28-2024 End: 41-71-1127Ntabiy outpatient visit 25 minutesEyad Mckeon MD Work Phone: [facility] Family PracticeComment on above: Type 2 diabetes mellitus without complication, without long-term current use of insulin ([facility]) (Primary Dx); Primary hypertension; Pure hypercholesterolemia; Anxiety; Encounter for screening mammogram for malignant neoplasm of breast; Special screening for malignant neoplasm of colon; Former cigarette smoker; Degenerative joint disease of low back; Chronic bilateral low back pain without sciatica; Obesity, morbid ([facility])Start: 10-28-2024 End: 09-10-0227lgcpsegipzDCKQZDDL [facility] Start: 03-14-5413snscxgunfoOOXOCJUK [facility] HospitalStart: 09-18-2024 End: 69-95-6929RtnxyuDuyhnwlg El Sayyad MD Work Phone: REPLACED BY [facility] PHYSICIANSComment on above:Type 2 diabetes mellitus without complication, without long-term current use of insulin ([facility])Start: 07-10-2024 End: 77-61-0556SzvneeLgqyyxwl El Sayyad MD Work Phone: [facility] PHYSICIANSComment on above:Type 2 diabetes mellitus without complication, without long-term current use of insulin ([facility])Start: 06-30-2024 End: 16-42-5675Xjpniz flowsheetRylee [facility] Work Phone: NOMS SWS DERMStart: 06-30-2024 End: 33-63-4624Ltxyhp flowsheetRylee [facility] Work Phone: NOXS SWS DERMStart: 06-30-2024 End: 48-72-2760iwbjgjulaoOceqfzimSheila Mckeon MD Work Phone: [facility] Work Phone: Start: 06-30-2024 End: 95-14-8912Ukphnxp encounter procedureEyad Mckeon MD Work Phone: [facility] Work Phone: start: 06-28-2024 End: 94-15-1188NmlqkeAuvlojji El Sayyad MD Work Phone: [facility] PHYSICIANSComment on above: Chronic bilateral low back pain without sciaticaStart: 06-18-2024 End: 32-96-0306Onzqxe flowsheetRylee [facility] Work Phone: NOMS SWS DERMStart: 06-18-2024 End: 00-16-7104Aswpmb flowsheetRylee [facility] Work Phone: NOMS SWS DERMStart: 06-18-2024 End: 48-84-5490Gqbypbv encounter procedureRylee [facility] Work Phone: NOMS SWS DERMComment on above:Rash and other nonspecific skin eruption (Primary Dx)Start: 06-18-2024 End: 76-62-2183ovpzgkbqmfGDMPL [facility]ITALMNot AvailableStart: 06-09-2024 End: 26-79-0588UgneyeNecplbjpLeeann Mckeon MD Work Phone: [facility] PHYSICIANSStart: 06-05-2024 End: 46-68-7618kjjcibgjdfNsmr E BraunFacility:[facility] Start: 06-05-2024 End: 70-73-8771Rxsvwknwty RecurringEyad Mckeon MD Work Phone: [facility]-Physical Therapy [place] Work Phone: start: 05-20-2024 End: 73-47-0080Pfxaeh flowsheetHorizon Medical Center PA Work Phone: NOMS SWS DERMStart: 05-20-2024 End: 95-00-5555Xwvrnl flowsHalifax Health Medical Center of [facility] PA Work Phone: NOMX SWS DERMStart: 05-20-2024 End: 94-81-3008Rzokdc outpatient new 30 minutesHorizon Medical Center PA Work Phone: noms SWS DERMComment on above:Granuloma annulare (Primary Dx); Seborrheic keratosisStart: 05-20-2024 End: 19-20-2173iwiqhejhgpGWFKX [facility]OSPITALMNot AvailableStart: 05-07-2024 End: 50-07-5534mpmyzdvbexJxfvrcwv M El Sayyad MD Work Phone: [facility] Work Phone: Start: 05-07-2024 End: 92-87-1828Rrxymsl encounter procedureEyad Mckeon MD Work Phone: [facility] Work Phone: start: 05-07-2024 End: 35-14-9420Tuepwgm encounter procedureEyad Mckeon MD Work Phone: [facility]-ay [facility] Work Phone: Start: 05-07-2024 End: 84-30-5720osnoddzxcrUwra E BraunFacility:[facility] Start: 65-32-7134Fqdcyzryjw RecurringEyad Mckeon MD Work Phone: [facility] [place] Work Phone: start: 04-25-2024 End: 66-75-1650GbomptYovgewaaLeeann Mckeon MD Work Phone: [facility] PHYSICIANSComment on above:Type 2 diabetes mellitus without complication, without long-term current use of insulin ([facility])Start: 04-21-2024 End: 94-41-9387uaaugulxxoHGUIZFKKKettering Health Main Campustart: 04-21-2024 End: 31-01-4762wqbrgzztclXQEAJEODOklahoma [facility] Start: 04-09-2024 End: 10-69-1591xbaxmtzjtaGBMD Eyad Mckeon Work Phone: [facility] Work Phone: Start: 04-09-2024 End: 69-32-3637Upfpgkt encounter procedureMD Eyad Mckeon Work Phone: [facility] Neurosurgery Work Phone: start: 90-30-0600Hxqjxjmxqa RecurringMD Eyad Mckeon Work Phone: [facility] [place] Work Phone: start: 64-03-0429ijctfgmxrxMMDanielito ROCHA Facility:EU [place]vueStart: 03-26-2024 End: 83-25-3866duucgicltqRPJules ROCHAFacility:FTMCStart: 03-26-2024 End: 46-70-9481Pri Nuvia ROCHA [facility] Start: 03-26-2024 End: 96-96-9108eqlwybpahoPXAmorC [place] PERKENYATTAFacility:EU BellevueStart: 03-26-2024 End: 90-22-2697Tlilqyk encounter procedureJENNIFER E JOSEFINA [facility] start: 03-12-2024 End: 43-41-0013yftyjkjllcWN Mariluzspenserheydi Nicholas Patelheydi Work Phone: [facility] Work Phone: Start: 03-12-2024 End: 34-54-0466Fvtdqrf encounter procedureMD Galinaheydi Nicholas Patelheydi Work Phone: [facility] Work Phone: start: 03-12-2024 End: 64-80-5794ufvlwmowvbAM-C [place] PERKENYATTAFacility:EU ueStart: 03-12-2024 End: 91-96-6055Wishtnq encounter procedureJENNIFER E JOSEFINA [facility] start: 53-72-6190Okeaxeynmf RecurringMD Galinaheydi Cristopher Sweeneyheydi Work Phone: [facility] [place] Work Phone: start: 03-04-2024 End: 38-97-8737bliylkwrblVU Mohammad M El Patelheydi Work Phone: [facility] Work Phone: Start: 03-04-2024 End: 45-25-5574Akwcfhn encounter procedureMD Mariluznilson Cristopher Sweeneyheydi Work Phone: [facility] Work Phone: Start: 02-27-2024 End: 25-41-0851bwtxhtzjrgMU-C [place] PERRYFacility:EU BellevueStart: 02-27-2024 End: 93-20-6662Preimyk encounter procedureJENNIFER E JOSEFINA [facility] start: 02-26-2024 End: 57-82-5948Unrhzxebw encounterSanitra Pradhan PTNOMS CI PTComment on above:re: OP PT (She called noting the PT's she has scheduled out, post PT Eval on 02/23, she'd like to cx out. I asked if there was anything we can help with or need to address; and she said due to being more convenient location [place] she wants to return to Home Health. I told her if she needs anything notto hesitate and contact.)Start: 02-24-2024 End: 55-80-4551Zzwyfn flowsheetSspenserntgiuseppe Pradhan PTNOMS CI PTStart: 02-24-2024 End: 78-05-6986Snztfw flowsheetSammantha Pradhan PTNOMS CI PTStart: 02-24-2024 End: 91-54-2308rxbdkvgyqnZiududrca Pradhan PTNOMS CI PTComment on above:Spinal stenosis, lumbar region with neurogenic claudication (Primary Dx)Start: 02-18-2024 End: 05-02-7672ztenuezrzgGH-C JENNIFER E PERRYFacility:EU [place]vueStart: 02-18-2024 End: 95-66-0503Oejrnpy encounter procedureCOREY ROCHA [facility] start: 02-12-2024 End: 42-69-3793bhcigwmukwNDCFILGZ [facility] Systemtart: 02-12-2024 End: 29-80-5371uzklbgiercACEVZUJVHill Country Memorial Hospital PPG Start: 2024 End: 61-85-0117kfqomoqcppEQ Eyad Mckeon Work Phone: [facility] Work Phone: Start: 2024 End: 23-99-5565Cehbeqz encounter procedureMD Eyad Sweeneyd Work Phone: [facility] Work Phone: start: 02-07-2024 End: 57-64-1202Sfp-patient / Non-visitMD Eyad Sweeneyd Work Phone: [facility] Work Phone: Start: 96-96-7901xflxtdjqfxOW-C [facility] Facility: [place]vueStart: 05-78-5421Crp-patient / Non-visitMD Eyad Sweeneyd Work Phone: [facility] Work Phone: Start: 01-30-2024 End: 98-52-6265Ungpgmxbkd and management of inpatientMD Eyad Sweeneyd Work Phone: [facility] [place] [facility] Work Phone: Start: 01-28-2024 End: 77-57-9774Nei-patient / Non-visitMD Eyad Sweeneyd Work Phone: [facility] Work Phone: Start: 01-28-2024 End: 17-58-0313Bzm-patient / Non-visitMD Eyad Sweeneyd Work Phone: [facility] Work Phone: start: 01-27-2024 End: 40-82-2398Kqs-patient / Non-visitMD Eyad Sweeneyd Work Phone: [facility] Work Phone: Start: 01-27-2024 End: 90-40-6158Pvnoexsgeb and management of inpatientMD Eyad Sweeneyd Work Phone: [facility] Work Phone: Start: 01-13-2024 End: 41-53-2236jtijzegifsWX Eyad Mckeon Work Phone: [facility] Work Phone: Start: 01-13-2024 End: 31-69-1352Xkcceuz encounter procedureMD Eyad Mckeon Work Phone: [facility]-Pre-Surgical Testing Work Phone: Start: 01-09-2024 End: 10-51-7289mhbxaedpntHjybgxmyjC[facility] Clinic [facility] Work Phone: Start: 01-09-2024 End: 24-01-8422Qrypesu encounter procedureFirsthealthcharis [facility] Work Phone: Start: 12-13-2023 End: 75-99-0920qapjpmsfqmLizyssdrzCleveland Clinic [facility] Work Phone: Start: 12-13-2023 End: 68-31-4007Sluelub encounter procedureFirelands Physician Group-[facility] Neurosurgery Work Phone: start: 12-11-2023 End: 56-86-5575rjqkpdqhmiVyakuvaukCleveland Clinic Medina Hospital Work Phone: Start: 12-11-2023 End: 63-51-7898Xrjypmr encounter procedureFirelands Physician Group-[facility] Neurosurgery Work Phone: start: 12-05-2023 End: 74-12-0088wbdhgwzailMyryoqmvnOhioHealth [facility] Work Phone: Start: 12-05-2023 End: 53-43-6926Aqqhvwx encounter procedureFirelands Physician Group-[facility] Management Work Phone: Start: 11-19-2023 End: 47-04-7183ymhcjqjodqUhkyuipyzCleveland Clinic [facility] Work Phone: Start: 11-19-2023 End: 37-10-9070Arhjivz encounter procedureFirchari Physician GroupSpearfish Regional Hospital Work Phone: Start: 16-77-0864Vhw-patient / Non-visitNov[facility] GroupSpearfish [facility] Work Phone: Start: 09-45-1576wbvlqqohtvMREXNCLR EL SAYYAKettering [facility] Ambulatory PPGStart: 11-13-2023 End: 07-78-3955imtwpgyoqxKXMD Eyad Mckeon Work Phone: [facility] Work Phone: Start: 11-13-2023 End: 59-01-4118Refstgf encounter procedureMD Eyad Mckeon Work Phone: [facility] Pain Management Work Phone: Start: 11-05-2023 End: 14-11-8537gsyyssrpaoEDMD Eyad Mckeon Work Phone: [facility] Work Phone: Start: 11-05-2023 End: 75-02-1770Yauwrsg encounter procedureMD Eyad Mckeon Work Phone: [facility] GroupSpearfish [facility] Hospital Work Phone: Start: 99-02-0064Vtr-patient / Non-visitMD Eyad Mckeon Work Phone: [facility] Work Phone: Start: 10-28-2023 End: 82-42-4274dsfxhqzxbpKAMarion Mckeon Work Phone: [facility] Work Phone: Start: 10-28-2023 End: 59-43-4547Mrzgzla encounter procedureMD Eyad Mckeon Work Phone: [facility] Work Phone: Start: 10-22-2023 End: 67-69-1613vsplvbmqrzNC Eyad Reyes El Sayyad Work Phone: [facility] Work Phone: Start: 10-22-2023 End: 54-53-2795Twunwka encounter procedureMD Eyad Nicholas Saylenyd Work Phone: [facility] Work Phone: Start: 95-93-5418Svq-patient / Non-visitMD Eyad Mckeon Work Phone: [facility] Work Phone: Start: 10-14-2023 End: 24-68-8120zdpcrfdiepDM Eyad Nicholas Sayloli Work Phone: [facility] Work Phone: Start: 10-14-2023 End: 85-25-4909Vchraah encounter procedureMD Eyad Mckeon Work Phone: [facility] Work Phone: Start: 10-03-2023 End: 33-59-1991xrceessqrmXXOLLHWE EL SAYYADPCrystal Clinic Orthopedic Centertart: 10-03-2023 End: 66-83-2083ffmhjlcnosOV Eyad Reyes El Sayyad Work Phone: [facility] Work Phone: Start: 10-03-2023 End: 40-08-1472Kfjkkgo encounter procedureMD Eyad Nicholas Sayloli Work Phone: [facility] Work Phone: Start: 57-68-4208Wnk-patient / Non-visitMD Mariluznilson Nicholas Sayyad Work Phone: [facility] Work Phone: Start: 09-24-2023 End: 29-79-6520qmgplcmpcuBG Eyad Reyes El Sayyad Work Phone: [facility] Work Phone: Start: 09-24-2023 End: 92-84-4899Lnaabpa encounter procedureMD Mariluznilson Nicholas Sayyad Work Phone: [facility] Work Phone: Start: 44-99-5628Nen-patient / Non-visitMD Mariluznilson Nicholas Sayyad Work Phone: [facility] Work Phone: Start: 09-12-2023 End: 66-46-2367xuvncrusddPS Eyad Reyes El Sayyad Work Phone: [facility] Work Phone: Start: 09-12-2023 End: 89-38-0287Zshfine encounter procedureMD Galinaheydi Nicholas Sayyad Work Phone: [facility] Work Phone: Start: 09-04-2023 End: 92-81-5795xalhtnqlodHV Eyad Reyes El Sayyad Work Phone: [facility] Work Phone: Start: 09-04-2023 End: 37-81-0301Uhpckyz encounter procedureMD Mariluznilson Nicholas Sayyad Work Phone: [facility] Work Phone: Start: 08-30-2023 End: 84-90-6248qrgbysjxgtWM Eyad Reyes El Sayyad Work Phone: [facility] Work Phone: Start: 08-30-2023 End: 41-94-9777Xbwywwr encounter procedureMD Eyad Mckeon Work Phone: [facility] Work Phone: Start: 53-22-8282Iwd-patient / Non-visitMD Eyad Mckeon Work Phone: [facility] Work Phone: Start: 08-19-2023 End: 59-34-7793Xdddqss encounter procedureMD Eyad Mckeon Work Phone: [facility] Pain Management Work Phone: Start: 08-19-2023 End: 03-30-6756Qwszvmu encounter procedureMD Eyad Mckeon Work Phone: [facility] [place] Work Phone: Start: 08-09-2023 End: 65-73-3610jsomzanbabIUMD Eyad Mckeon Work Phone: [facility] Work Phone: Start: 08-09-2023 End: 00-24-4707Upnfbcr encounter procedureMD Eyad Mckeon Work Phone: [facility] [place] Work Phone: Start: 08-07-2023 End: 18-00-4962pafivutgpfBJDiego Mckeon Work Phone: [facility] Work Phone: Start: 08-07-2023 End: 20-15-0416Tqdyigr encounter procedureMD Eyad Mckeon Work Phone: [facility] Work Phone: start: 08-02-2023 End: 81-51-2271usrvphiqneGYMD Eyad Mckeon Work Phone: [facility] Work Phone: Start: 08-02-2023 End: 37-62-3629Tmqanpy encounter procedureMD Eyad Mckeon Work Phone: [facility]-MRI [facility] [place] Work Phone: Start: 07-18-2023 End: 68-01-3057Nnjeogd encounter procedureMD Eyad Mckeon Work Phone: [facility] [place] Work Phone: Start: 07-18-2023 End: 15-14-3829Flirabj encounter procedureMD Eyad Mckeon Work Phone: [facility]-Start: 10-31-2022 End: 28-97-0116geaubfspdySV DOCTOR MISCFacility:P9Khwrp: 10-15-2022 End: 70-59-5754dogmjczhyfDIKVAT H FAWWADFacility:G1Snmlo: 09-27-2022 End: 20-49-4442lxbzevkvqeUA DOCTOR MISCFacility:F2Wgufm: 09-24-2022 End: 36-92-1121alezufxmtuUorsfiw [employer] Other [employer] Other start: 01-80-8070Qvvtby follow up visit related to original pxDeborah BladesFPG [facility] NeurosurgeryStart: 09-17-2022 End: 54-84-1064timhjxbetkFJ DOCTOR MISCFacility:C6Wfjty: 08-22-2022 End: 47-27-9202hvusecrahdThxfaue [employer]ades Other [employer] Other start: 67-95-5930Aflymlkdu encounterDeborah BladesFPG [facility] NeurosurgeryStart: 08-15-2022 End: 03-11-9274mifejbtmudRF DOCTOR MISCFacility:R6Kqnpj: 08-03-2022 End: 25-73-2711bpsnxaoxtjCV DOCTOR MISCFacility:O0Ulbin: 08-03-2022 End: 51-26-5595pelehcajeeWK DOCTOR MISCFacility:L8Gacyo: 08-01-2022 End: 49-61-5327vsooavjrurShfqxkw [employer] Other [employer] Other start: 76-68-7766Sdluerlmd encounterIdalmis CruzG [facility] NeurosurgeryStart: 06-45-2351Lvzkjw follow up visit related to original pxIdalmis BladesCLINTG [facility] NeurosurgeryStart: 07-30-2022 End: 58-72-9561crdbqighndTDC [facility] Work Phone: Start: 07-30-2022 End: 40-15-8539Hxcdzfy encounter procedureAkron [facility]- [facility] [place] Work Phone: Start: 07-25-2022 End: 19-66-4606dkrsxhmkihOzdrktm [employer] Other [employer] Other start: 02-34-3432Oawqiymwm encounterDemimi BladesCLINTG [facility] NeurosurgeryStart: 07-24-2022 End: 54-21-1311clliwkzkkkLirtlse [employer]ades Other [employer] Other start: 79-32-2951Hjittyzad encounterDemimi BladesFPG [facility] NeurosurgeryStart: 07-19-2022 End: 14-98-1661Qcmrmdayv to same day surgery [facility] Main CampusStart: 07-19-2022 End: 91-33-6830kwmanmaageGSH [facility] Work Phone: Start: 07-16-2022 End: 10-84-1927Bnfabmx encounter procedureAkron Children'S [facility]-Lab [facility] [place] Work Phone: Start: 07-16-2022 End: 53-45-5496koseumooopTUJ [facility] Work Phone: Start: 25-03-1259Rintuz follow up visit related to original pxDemimi BladesFPG [facility] NeurosurgeryStart: 07-13-2022 End: 71-31-4494jedjcjldcoDljdwcf [employer] Other [employer] Other start: 68-84-3765Fdfpezvfn encounterDemimi BladesFPG [facility] NeurosurgeryStart: 07-11-2022 End: 48-99-3978Zlhpczyqev and management of inpatientAkron Children'S Hospital [facility] [place] [facility] Work Phone: Start: 07-09-2022 End: 52-47-9316rnhtnuypydCfmgttd [employer] Other [employer] Other start: 64-69-4420Dbmbmcdqs encounterDemimi BladesFPG [facility] NeurosurgeryStart: 07-04-2022 End: 45-28-7579sbyxduxpavBmfrrru [employer]ades Other [employer] Other start: 00-29-4584Djmribofe encounterDemimi BladesFPG [facility] NeurosurgeryStart: 07-03-2022 End: 42-38-8334Ilrqqxdft to same day surgery [facility] Main CampusStart: 07-03-2022 End: 18-62-2377fzynpbvwwjIXP [facility] Work Phone: Start: 07-02-2022 End: 42-74-5200Lavphll encounter procedureAkron [facility] Paw-Ctl-Kiqwilsg Testing Work Phone: Start: 53-85-4687Admxwk outpatient new 30 minutes Idalmisjose CruzG [facility] NeurosurgeryStart: 06-29-2022 End: 23-04-4765mclinjihcrURF [facility] Work Phone: Start: 06-29-2022 End: 66-74-0422Hfcglgy encounter procedureAkron [facility]S Hospital Fks-Sma-Qmtoihkm Testing Work Phone: Start: 06-27-2022 End: 40-35-7233qtrdreocphVRI [facility] Work Phone: Start: 06-27-2022 End: 65-79-7262Poysirf encounter procedureAkron Children'S [facility]-MRI [facility] [place] Work Phone: Start: 06-17-2022 End: 97-89-0333Ksbbtjgnv department patient visitAkron Children'S Hospital Ctr- Emergency Room Work Phone: Start: 06-15-2022 End: 52-89-9417tqhmtwirtbBI SOLEDAD Serna REINECKFacility:C7Udanv: 06-13-2021 End: 66-25-6968npnhquqpidNsfpzabwo Breault Other [place] [employer] Other Start: 22-20-5830Upvgby outpatient visit 15 minutes [facility]ala [facility] Procedures DateProcedureProcedure DetailPerforming ClinicianStart: 24-16-7669LB of lumbar spine without contrastEyad Mckeon MD Work Phone: start: 06-19-2775O-ray of lumbar spine, four views Eyad Mckeon MD Work Phone: start: 01-27-0527YCX of lumbar spine with contrast Eyad Mckeon MD Work Phone: start: 49-66-9527H-ray of lumbar spine, two or three viewsEyad Mckeon MD Work Phone: start: 11-45-7795Ygpkh depression screening assessment Eyad Mckeon MD Work Phone: start: 44-33-8113HMYS / NAIL BIOPSYRylee Daniel CALDERON Work Phone: Start: 77-53-3752I-ray of lumbar spine, two or three viewsMoluz maria Mckeon MD Work Phone: start: 93-12-9782Hvmam depression screening assessment Eyad Mckeon MD Work Phone: start: 64-45-2469Gqvgruoijmal [Mass/volume] in Urine by Test stripEyad Mckeon MD Work Phone: start: 79-77-8680X-ray of lumbar spine, two or three viewsMD Eyad Mckeon Work Phone: start: 43-26-5044N-ray of lumbar spine, two or three viewsMD Eyad Mckeon Work Phone: start: 32-18-9759Hnlmgbwoj fusion of lumbar spine by anterior approachMD Eyad Mckeon Work Phone: start: 00-78-3114NuhouleymwxBeztsqumw Pradhan PT Start: 29-43-3977Pbdns X-ray of right hipMD Eyad Mckeon Work Phone: start: 58-98-3524Q-ray of lumbar spine, six views including bending viewsMD Eyad Mckeon Work Phone: start: 25-38-9058KOS of lumbar spine with contrastMD Eyad Mckeon Work Phone: start: 47-00-8407Nqmbeygv retinal eye examMoluz maria Mckeon MD Work Phone: start: 07-39-8068D-ray of lumbar spine, two or three viewsMD Eyad Mckeon Work Phone: start: 36-05-2445Dlepdttt of lumbar intervertebral discStart: 88-47-5755K-ray of lumbar spine, single viewStart: 99-86-0493Sbygv cultureStart: 04-03-9179YCR of right kneeStart: 83-97-5885N-ray of right knee Start: 42-26-8764QQJ of lumbar spine with contrastStart: 43-51-5674Pzuccpvd of lumbar intervertebral discStart: 22-41-2387W-ray of lumbar spine, two or three viewsStart: 54-62-9553Fmtnn cultureStart: 39-31-8959OA lumbar spine wo conStart: 44-13-2944YB pre/post mri xrayStart: 36-96-6361Yhvhb X-ray of right hip Arthroscopy of kneeJENNIFER JOSEFINA Cesarean sectionJENNIFER JOSEFINA Comment on above:x6XnjgiiizucgsotbFWPAWGOQ JOSEFINA H/O: hysterectomyJENNIFER JOSEFINA Procedure on backJENNIFER JOSEFINA Plan of Treatment DateCare ActivityDetailAuthorStart: 13-61-7049GLbA,Tdap and Td Vaccines (3 - Td or Tdap)DTaP,Tdap and Td Vaccines (3 - Td or Tdap)[facility] Yoono SystemStart: 09-66-2961BJC ( or age 60+ yrs) (1 - 1-dose 75+ series)RSV ( or age 60+ yrs) (1 - 1-dose 75+ series)[facility] Yoono SystemStart: 10-28-2025 Adult BMI Follow Up PlanAdult BMI Follow Up PlanProOhiohealth SystemStart: 88-06-8319Dffxy BMI ScreeningAdult BMI ScreeningProOhiohealth SystemStart: 60-93-0041Jrfcpkdsbv ScreeningDepression ScreeningProOhiohealth SystemStart: 16-63-3879Youx Risk ScreeningFall Risk ScreeningProOhiohealth SystemStart: 58-80-3127Gvmqxu Use: DiabeticStatin Use: DiabeticProOhiohealth SystemStart: 11-61-2613Rbjmuux ScreeningTobacco ScreeningProCleveland Clinic Akron Generaltart: 05-03-2025 End: 97-87-9241Wvnlyhk encounter vomopnypj70/17/2025 8:30 AM EST Office Visit [facility] [address] [place] [address] Eyad Garland MD [address] [place], [place] [facility]tart: 60-19-2031Ajrfv BMI Follow Up PlanAdult BMI Follow Up PlanFormerly [facility] Hospitaltart: 14-28-1353Evaei BMI ScreeningAdult BMI ScreeningProOhiohealth SystemStart: 21-12-5221Nfhsmtgmkt Screening Depression ScreeningCleveland Clinic SystemStart: 59-07-6023Liuq Risk Screening Fall Risk ScreeningCleveland Clinic SystemStart: 84-45-8547Kozvkpe Screening Tobacco ScreeningCleveland Clinic SystemStart: 35-80-2723Wqkaa screening for proteinUrine MicroalbuminFormerly [facility] Hospitaltart: 04-15-2025 End: 96-22-0359Ngceais encounter kymeaqzad17/30/2025 9:10 AM EDT Office Visit [facility] [address] [place] [address] Nathalie Sanchez PA [address] [place] [address] Jorge Grullon DermatologyComment on above:ArrivedStart: 03-01-2025 End: 48-70-1047Fvmnkad encounter bwucxyxia19/15/2025 8:40 AM EDT Office Visit [facility] [address] [place] [address] Nathalie Sanchez PA [address] [place] [address] [facility]MStart: 28-90-8005RL Lumbar spine WO contrastAkron Children'S Hospital CenterStart: 27-53-7164BG of lumbar spine without contrastCT lumbar spine wo [facility]tart: 02-25-2025 End: 46-37-4048Qxifa metabolic 2000 panel - Serum or PlasmaBasic Metabolic Panel Lab Routine Type 2 diabetes mellitus without complication, without long-term c urrent use of insulin ([facility]) Expected: 02/25/2025 (Approximate), Expires: 10/28/2025[facility] SystemComment on above:Expected: 02/25/2025 (Approximate), Expires: 10/28/2025Start: 02-25-2025 End: 18-55-8568MAZ W Auto Differential panel - BloodCBC auto differential Lab Routine Type 2 diabetes mellitus without complication, without long-term current use of insulin ([facility]) Expected: 02/25/2025 (Approximate), Expires: 10/28/2025[facility] SystemComment on above:Expected: 02/25/2025 (Approximate), Expires: 10/28/2025Start: 02-25-2025 End: 74-69-5936Zbqueiztyy A1c/Hemoglobin.total in BloodHemoglobin A1c Lab Routine Type 2 diabetes mellitus without complication, without long-term current use of insulin ([facility]) Expected: 02/25/2025 (Approximate), Expires: 10/28/2025 [facility] SystemComment on above:Expected: 02/25/2025 (Approximate), Expires: 10/28/2025Start: 38-00-3811KXVPA-19 Vaccine ( season)COVID- 19 Vaccine ( season)[facility] SystemStart: 76-39-4198ZLMMM-19 Vaccine ( season)COVID-19 Vaccine ( season)[facility] Start: 87-85-0077Rzhysgukl vaccinationProOhiohealth SystemStart: 11-07-2024 Screening for malignant neoplasm of breastMammogramNOMS HealthcareStart: 10-28-2024 End: 79-25-4904PC Chest for screening WO contrastCT low dose lung screening (Annual) Imaging Routine Former cigarette smoker Expected: 10/28/2024, Expires: 10/28/2025ProOhiohealth SystemComment on above:Expected: 10/28/2024, Expires: 10/28/2025Start: 10-28-2024 End: 29-26-6873TXZ Breast - bilateral screeningMammography screening bilateral with CAD Imaging Routine Encounter for screening mammogram for malignant neoplasm of breast Expected: 10/28/2024, Expires: 10/28/2025ProOhiohealth SystemComment on above:Expected: 10/28/2024, Expires: 10/28/2025Start: 10-21-2024 End: 65-78-7394Sucgkbd encounter procedureProGrove Hill [facility] (JUAN DANIEL FRANK)Start: 04-18-2025Medicare Annual Wellness VisitMedicare Annual Wellness VisitProCleveland Clinic Akron Generaltart: 81-36-0693Lanwlikp screeningDiabetic Ophthalmology ExamProCleveland Clinic Akron Generaltart: 06-30-2024 End: 93-58-0314Kcthlfl encounter /14/2025 11:20 AM EST Office Visit [facility] [address] [place] [address] Nathalie Sanchez PA [address] [place] [address] [facility] DERMStart: 06-18-2024 End: 63-62-7495Jrestws encounter procedureNOMS SWS DERMComment on above:Arrived Start: 05-20-2024 End: 77-51-0575Metepwb encounter zppmmfovf95/04/2024 1:00 PM EST Office Visit [facility] [address] [place] [address] Nathalie Sanchez PA [address] [place] [address] ArrivedNOMS SWS DERMComment on above:ArrivedStart: 21-93-9314Q-ray of lumbar spine, two or three viewsXR lumbar spine 2-3V* [facility]tart: 03-20-2024 End: 80-79-8028pgybxcapqu39/04/2024 12:30 PM EDT Treatment [facility] [address] [place] [address] Shadia Pradhan PTNOMS CI PTStart: 03-17-2024 End: 64-25-5308hmjnoedewq08/01/2024 12:30 PM EDT Treatment [facility] [address] [place] [address] Shadia Pradhan PTNOMS CI PTStart: 03-11-2024 End: 40-90-9511hisbkpawnw96/25/2024 1:00 PM EDT Treatment [facility] [address] [place] [address] Shadia Pradhan, PTNOMS CI PTStart: 03-09-2024 End: 47-35-6707prtksgcmqr38/23/2024 12:00 PM EDT Treatment [facility] [address] [place] [address] Shadia Pradhan, PTNOMS CI PTStart: 03-06-2024 End: 80-61-3960wudrhwnawg75/20/2024 9:00 AM EDT Treatment [facility] [address] [place] [address] Shadia Pradhan, PTNOMS CI PTStart: 03-04-2024 End: 30-02-3816jwhzavshjq43/18/2024 10:00 AM EDT Treatment [facility] [address] [place] [address] Shadia Pradhan, PTNOMS CI PTStart: 02-26-2024 End: 88-95-5793lvbfvrgeny41/11/2024 11:00 AM EDT Treatment [facility] [address] [place] [address] EmmanuelAraceli, HOLTER TECHNICIAN [facility] PTStart: 02-24-2024 End: 88-26-2437bfnwcnqylw68/09/2024 12:00 PM EDT Evaluation [facility] [address] [place] [address] Shadia Pradhan, PT ArrivedNOMS CI PTComment on above:ArrivedStart: 73-25-0220IPTWF-19 Vaccine ( season)COVID-19 Vaccine ( season)[facility] Start: 73-77-7743XRHVZ-19 Vaccine ( season)COVID-19 Vaccine ( season)[facility] SystemStart: 89-43-9845Vbqaokwch vaccination Influenza Vaccine (#1)[facility] HealthcareStart: 89-04-4377Yrhndcy referralParkview Health [facility] Hospital Work Phone: Start: 69-09-8213YrijvrikuOhiohealth [facility]ide [facility] Start: 85-69-4074Vslyjnhj admissionMercy Health Clermont Hospitaltart: 74-72-9851Iucfqdfd to clinical allergistMercy Health Clermont Hospitaltart: 25-15-2687NbakhtcdkMercy Health Clermont Hospitaltart: 07-13-0180Loaiucqt to rehabilitation physicianMercy Health Clermont Hospitaltart: 01-28-2024 Arrangement of care procedureMercy Health Clermont Hospitaltart: 01-27-2024 Hospital admissionMercy Health Clermont Hospitaltart: 96-04-4806Jhagzbnb of Left Thorax Muscle, Open ApproachDivision of Left Thorax Muscle, Open Approach [facility] Hospitaltart: 25-71-9535Ujmnpj of 2 or more Lumbar Vertebral Joints with Interbody Fusion Device, Anterior Approach, Anterior Column, Open ApproachFusion of 2 or more Lumbar Vertebral Joints with Interbody Fusion Device, Anterior Approach, Anterior Column, Open ApproachMercy Health Clermont Hospitaltart: 43-28-7265Ytwvly of Lumbosacral Joint with Interbody Fusion Device, Anterior Approach, Anterior Column, Open ApproachFusion of Lumbosacral Joint with Interbody Fusion Device, Anterior Approach, Anterior Column, Open ApproachMercy Health Clermont Hospitaltart: 93-05-9258Zswiurohg of Internal Fixation Device into Lumbar Vertebral Joint, Open ApproachInsertion of Internal Fixation Device into Lumbar Vertebral Joint, Open ApproachMercy Health Clermont Hospitaltart: 96-81-2998Yofleyy [facility] Work Phone: Start: 84-01-4539Hiupxwx [facility] Work Phone: Start: 60-43-7991Pissyfgoxh [Mass/volume] in Serum or PlasmaMercy Health Clermont Hospitaltart: 25-74-4459Ekqrgrxhbe factor [Units/volume] in Serum or PlasmaMercy Health Clermont Hospitaltart: 50-61-4819InscxobzwMercy Health Clermont Hospitaltart: 88-87-3598Gbweuhtq identified in Urine by CultureMercy Health Clermont Hospitaltart: 33-71-8564LftgkdhmbMercy Health Clermont Hospitaltart: 68-57-3738Qoslko scan of lower limb veinsUS venous duplex LE [facility]tart: 78-91-8889ED Lower extremity vein - bilateralMercy Health Clermont Hospitaltart: 07-21-2022 [facility]tart: 16-19-7458Oxgcpnfe admissionMercy Health Clermont Hospitaltart: 32-08-4428Jhfccebc identified in Urine by Culture [facility] Hospitaltart: 68-77-9999HjfxfmugbMercy Health Clermont Hospitaltart: 24-65-7068LpkijlokxMercy Health Clermont Hospitaltart: 07-06-2022 [facility]tart: 07-03-2022 End: 28-23-2058KgvgxrvfiMercy Health Clermont Hospitaltart: 43-71-2987Ajraqsge identified in Urine by CultureUrine CultureOhiohealth Riverside Methodist Hospital Start: 63-47-4378YE lumbar spine wo conMR lumbar spine wo [facility]tart: 82-54-7637NF Lumbar spine WO contrastMercy Health Clermont Hospitaltart: 39-86-1619NL pre/post mri xrayXR pre/post mri xrayMercy Health Clermont Hospitaltart: 80-83-9037PhxluxpimMercy Health Clermont Hospitaltart: 33-16-4814CSxV/Tdap/Td Vaccines (3 - Td or Tdap)DTaP/Tdap/Td Vaccines (3 - Td or Tdap)[facility] HealthcareStart: 93-22-6348Kjilqkzsw for malignant neoplasm of breastMammogramNOMS HealthcareStart: 73-96-4968Oexcnikx foot examinationDiabetic Foot ExamProOhiohealth SystemStart: 42-30-9465Vqqgcmity for malignant neoplasm of colonSANPETE [facility] HealthcareBilirubin measurement, urineOhiohealth Riverside Methodist HospitalColor of UrineOhiohealth Riverside Methodist HospitalCT Lumbar spine WO contrastOhiohealth Riverside Methodist HospitalDermatopathology examDermatopathology exam Pathology and Cytology Timed Rash and other nonspecific skin eruption ReleaseUpon Ordering for 1 Occurrences starting 06/18/2024NOSaint Luke's [facility] Work Phone: comment on above:Release Upon Ordering for 1 Occurrences starting 06/18/2024Detection of hemoglobinOhiohealth Riverside Methodist HospitalElectromyographyOhiohealth Riverside Methodist HospitalGlucose [Mass/volume] in Urine by Test stripOhiohealth Riverside Methodist HospitalHomogenous nuclear Ab pattern [Titer] in SerumOhiohealth Riverside Methodist HospitalMeasurement of ketones in urine using dipstickOhiohealth Riverside Methodist HospitalMR Lumbar spine WO and W contrast [facility] HospitalNuclear Ab [Titer] in Serum [facility] End: 23-37-3417Oolb Access ColonoscopyOpen Access Colonoscopy GI Routine Special screening for malignant neoplasm of colon 1 Occurrences starting 10/28/2024 until 10/28/2025[facility] Work Phone: comment on above:1 Occurrences starting 10/28/2024 until 10/28/2025Patient EducationAkron Children'S Hospital Ctr Work Phone: Patient referralAkron Children'S Hospital Ctr Work Phone: Protein measurement, urineOhiohealth Riverside Methodist HospitalPyridoxine [Mass/volume] in Serum or PlasmaOhiohealth Riverside Methodist HospitalRheumatoid factor [Units/volume] in Serum or PlasmaOhiohealth Riverside Methodist HospitalUrinalysis, specific gravity measurementOhiohealth Riverside Methodist HospitalUrine dipstick for nitriteOhiohealth Riverside Methodist HospitalUrine dipstick for specific gravityOhiohealth Riverside Methodist HospitalUrine pH testOhiohealth Riverside Methodist HospitalUrobilinogen concentration, test strip measurement [facility] HospitalXR Cervical spine Views W flexion and W extensionOhiohealth Riverside Methodist HospitalXR Lumbar spine 4 ViewsOhiohealth Riverside Methodist HospitalXR Lumbar spine ViewsOhiohealth Riverside Methodist HospitalXR Lumbar spine ViewsOhiohealth Riverside Methodist HospitalXR Thoracic spine 3 Views [facility] Immunizations Immunization DateImmunizationNotesCare RtlmovnaNrpwnron64-18-6117Smlhqacv trivalent influenza vaccine, adjuvanted, preservative freeEyad Mckeon MD Work Phone: pTriHealth Good Samaritan HospitalZsdtve04-69-0149ihxhtauci virus vaccine, unspecified formulationEyad Mckeon MD Work Phone: [phone] [place], [place] [address]11-29-2022Fluzone QIV High-Dose 65YR+MD Eyad Mckeon Work Phone: [facility]11-29-2022 pneumococcal conjugate vaccine, 13 valentMD Eyad Mckeon Work Phone: [facility]11-29-2022influenza virus vaccine, unspecified formulationSammantAmery Hospital and Clinic 54-23-6999hsbvzcy and diphtheria toxoids, adsorbed, preservative free, for adult use (5 Lf of tetanus toxoid and 2 Lf of diphtheria toxoid)MD Eyad Mckeon Work Phone: [facility]11-15-2021Fluzone QIV High-Dose 65YR+MD Eyad Mckeon Work Phone: [phone] [place], [place] [address]11-15-2021 pneumococcal polysaccharide vaccine, 23 valentMD Eyad Mckeon Work Phone: [phone] [place], [place] [address]09-24-2021COVID-19 mRNA, Comirnaty (Pfizer)[facility]09-03-2021COVID-19 Nahum Han (Pfizer)[facility]03-19-2021influenza, injectable, quadrivalent, preservative freeSammantgiuseppe [facility] 72-09-6955xfoann vaccine recombinantMD Mohammad El Sayyad Work Phone: [phone] [place], [place] [address]11-11-2020influenza, injectable, quadrivalent, preservative freeMD Mohammad El Sayyad Work Phone: [phone] [place], [place] [address]11-11-2020zoster vaccine recombinantMD Mohammad El Sayyad Work Phone: [phone]-14-2019influenza, injectable, quadrivalent, preservative freeMD Mohammad El Sayyad Work Phone: [phone] [place], [place] [address]10-01-2019influenza, seasonal, injectableMD Mohammad El Sayyad Work Phone: [phone] [place], [place] [address]11-01-2017influenza, injectable, quadrivalent, preservative freeMD Mohammad El Sayyad Work Phone: [phone] [place], [place] [address]07-21-2014 pneumococcal polysaccharide vaccine, 23 valentMD Mohammad El Sayyad Work Phone: [phone] [place], [place] 6363701-01-2013 pneumococcal polysaccharide vaccine, 23 valentMD Mohammad El Sayyad Work Phone: [phone] [place], [place] [address]06-18-2012tetanus toxoid, reduced diphtheria toxoid, and acellular pertussis vaccine, adsorbedMD Mohammad El Sayyad Work Phone: [phone] [place] [address] Payers DatePayer CategoryPayerPolicy [id number]-nmi [id number] IndemnityMED[employer] Member Subscriber Plan / Payer (Effective 2022-Present) Name: Shana Lugo Relation to Subscriber: Self Name: Shana Lugo Payer ID: Not on file Type: Not on file Address: [facility] [address] [id number]3-2046Hqjmlob Health Insurance1.2.840.737613.1.13.693.2.7.9.093705.051197.49116-75-5526QjyffbbNovant Health [facility] [id number] 2022- [address] [place] [address].2.840.727972.1.13.693.2.7.3.690135. Medicare1.2.840.194473.1.13.424.2.7.9.412762.102.315 2021Medicare [id number] [id number] 2..2.029399.943519 1960Medicare [id number] 2..8.89484[id number] 2..1.291072.3.57[id number] 2.0.1.680490.3.579.2.[id number] 2.0.1.970965.3.57[id number] 2.840.1.093093.3.579.2.88928-90-0953Ljfsshx0089232 2.840.1.870940.3.57[id number] 2.16.840.1.605203.3.579.2.74586-58-4400Bpbnlzu5124131 2.16.840.1.041066.3.579.2.72303-71-3761Yhewavf5120950 2.16840.1.423080.3.579.2.88684-13-0873Udhnnkn12113499 2.16840.1.473975.3.57[id number] 2.16840.1.243607.3.579.2.23922-75-9433Mowaddz68579262 2.840.1.790405.3.579.2.31164-02-6639Hrmngmf64251612 2.840.1.455926.3.57[id number] 2.16840.1.302353.3.579.2.53865-90-1141Zazqehz69157294 2.16840.1.015509.3.579.2.37557-84-9954Haxrute07750682 2.16840.1.400920.3.579.2.374492-33-8347Vpbvctp64400548 2.16840.1.816873.3.579.2.090014-85-3844Gdiyihs72140509 2.16840.1.482803.3.579.2.14[id number] 2.16840.1.937906.3.57[id number] 2.16840.1.095940.3.579.2.678547-91-0018Zmzufek31157792 2.16.840.1.436806.3.579.2.336986-30-9113Grgilwo69423663 2.16.840.1.122622.3.57[id number] 2.16.840.1.290645.3.579.2.757013-54-6676Rlcjcao07293810 2.16.840.1.737777.3.579.2.690399-97-4196Tdanzkb01148338 2.0.1.307538.3.579.2.810214-60-6876Ukcrnkm6140428 2.0.1.594044.3.579.2.839857-67-4994Jhhhgfh7519205 2.0.1.223810.3.579.2.006912-65-0208Rysabaz603792375 2.0.1.788794.3.579.2.2245[id number] 2.840.1.8772[id number] [id number]-[id number]-vqfBmhi Pay Cosmetic/Pain [id number] 3o1o6ca1-y16n-294g-[id number] 2.16.840.1.025066.3.579.2.732Lsscuvv98254785 2.16.840.1.494373.3.579.2.531 [id number] 2.16.840.1.600965.3.579.2.282Srdlajy48229545 2.16.840.1.275575.3.579.2.189Slxvexu75444345 2.16.840.1.007848.3.579.2.531 [id number] 2.16.840.1.100252.3.579.2.699Pmttsyx12383727 2.16.840.1.233955.3.579.2.452Bqaftum92185096 2.16.840.1.694025.3.579.2.531 Social History DateTypeDetailFacilityUnknown if ever smokedNorth [employer] Other Start: 07-28-2020 End: 38-91-1671Nve [facility] 06-17-1971 End: 38-05-7662Btuuxst smoking status NHISSmoker (finding)[facility]tart: 73-80-5219Fnh [facility]: 01-13-2024 End: 98-61-4325Qsuobvw smoking status NHISCurrent some day smokerMercy Health Clermont Hospitaltart: 02-18-2024 End: 77-38-4878Jqmlwqs smoking statusNever smoked tobacco (finding)[facility]: 12-24-8739Cpzrffb smoking statusNeverExecutive Urology of St. [facility] Hospitaltart: 02-12-2024 End: 99-72-8712Vbyhhiz smoking status NHISEx-smokerProMedica Health SystemStart: 06-17-1971 End: 68-57-3070Lmxhhzt of tobacco useCigarette SmokerNOMS HealthcareStart: 07-28-2020 End: 73-42-4183Kogunikgor smoked current (pack per day) - Reported0.5NOMS HealthcareStart: 80-29-3909Pejnoni use and exposureSmokeless tobacco non-user [facility] SystemStart: 04-21-2024 End: 12-14-2711Xwbxyucqe beverage intakeCurrent drinker of alcohol (finding) [facility] SystemStart: 38-01-3854Ljkqatm CommentMisericordia Hospital SystemStart: 17-85-5841Kbk assigned at birthNot on [facility] Start: 01-20-2015 End: 63-32-3989DrdHkcyjg (finding)[facility] SystemStart: 01-15-2023 Tobacco smoking status NHISSmokes tobacco dailyNOMS HealthcareStart: 2023 End: 61-78-4642Iydjghlvx beverage intakeLifetime non-drinker (finding)[facility] HealthcareStart: 01-32-4670Fldnkzv CommentSmokes 60 mins after waking upNOMS HealthcareStart: 33-69-4224Fsqhjl identityIdentifies as female gender (finding) [facility] Medical Equipment Procedure CodeEquipment CodeEquipment Original TextEquipment IdentifierDates Discectomy, lumbarDura mater sealant()[id number] FDA Start: 74-11-0079Zdsegllj lumbar interbody fusion (ALIF)STRATOFUSE DBM 10CCFDA Start: 07-96-5093Wgdigvyd lumbar interbody fusion (ALIF)Nvcdv-pofdh-zipqo internal spinal fixation system, sterile()[id number] FDAStart: 01-27-2024 Anterior lumbar interbody fusion (ALIF)Bone-screw internal spinal fixation system, non-sterile+[id number] FDAStart: 79-33-6281Zwcqrjiw lumbar interbody fusion (ALIF)STRATOFUSE DBM 5CCFDAStart: 67-67-2108Mfgvekqt lumbar interbody fusion (ALIF)Orthopaedic bone screw, non-bioabsorbable, non-sterile +[id number] FDAStart: 17-05-3724Ojaglnbr lumbar interbody fusion (ALIF) Orthopaedic bone screw, non-bioabsorbable, non-sterile+[id number] FDAStart: 13-69-6521Huhqyefp lumbar interbody fusion (ALIF)Orthopaedic bone screw, non- bioabsorbable, non-sterile+[id number] FDAStart: 81-27-9178Aacgbqvo lumbar interbody fusion (ALIF)Spinal fusion graft kit ()[id number] FDAStart: 88-68-9091Jqswauyc lumbar interbody fusion (ALIF)Bone-screw internal spinal fixation system, non-sterile +[id number] FDAStart: 55-26-7184Sxkjfxvy lumbar interbody fusion (ALIF)Bone- screw internal spinal fixation system, non-sterile+[id number] FDAStart: 85-67-4225Mampbfpz lumbar interbody fusion (ALIF)Metallic spinal fusion cage, non-sterile()[id number] FDAStart: 93-28-4036Zgliommn lumbar interbody fusion (ALIF)Metallic spinal fusion cage, non-sterile()[id number] FDA Start: 87-78-4185Icufufxa lumbar interbody fusion (ALIF)Metallic spinal fusion cage, non-sterile()[id number] FDAStart: 20-35-1619Ebrdykgz lumbar interbody fusion (ALIF)Metallic spinal fusion cage, non-sterile ()[id number] FDAStart: 14-14-3835Xefxpqkh lumbar interbody fusion (ALIF) Nznxy-bcoio-bxhyo internal spinal fixation system, sterile()[id number] FDA Start: 83-27-5273Yeyexinp lumbar interbody fusion (ALIF)STRATOFUSE DBM 10CCFDA Start: 42-76-4434Yietsydn lumbar interbody fusion (ALIF)STRATOFUSE DBM 5CCFDA Start: 78-67-8004Zadtljbz lumbar interbody fusion (ALIF)STRATOFUSE DBM 10CCFDA Start: 43-06-3064Foknzger lumbar interbody fusion (ALIF)STRATOFUSE DBM 5CCFDA Start: 33-63-2206Uetortwx lumbar interbody fusion (ALIF)STRATOFUSE DBM 10CCFDA Start: 48-92-0825Uuojrbph lumbar interbody fusion (ALIF)STRATOFUSE DBM 5CCFDA Start: 61-45-2352Mscwrxtl lumbar interbody fusion (ALIF)STRATOFUSE DBM 10CCFDA Start: 86-20-8624Fuxmwjaz lumbar interbody fusion (ALIF)STRATOFUSE DBM 5CCFDA Start: 88-96-4064Pzzvoyen lumbar interbody fusion (ALIF)STRATOFUSE DBM 10CCFDA Start: 18-27-7540Wxijfjju lumbar interbody fusion (ALIF)STRATOFUSE DBM 5CCFDA Start: 14-06-5784Ebkoiaiv lumbar interbody fusion (ALIF)STRATOFUSE DBM 10CCFDA Start: 71-80-5119Gftyrbgu lumbar interbody fusion (ALIF)STRATOFUSE DBM 5CCFDA Start: 57-59-9374Jdtwnqlr lumbar interbody fusion (ALIF)STRATOFUSE DBM 10CCFDA Start: 40-12-7578Bqjkfjqn lumbar interbody fusion (ALIF)STRATOFUSE DBM 5CCFDA Start: 12-03-4284Pxwygrna lumbar interbody fusion (ALIF)STRATOFUSE DBM 10CCFDA Start: 74-25-3510Aupleeiu lumbar interbody fusion (ALIF)STRATOFUSE DBM 5CCFDA Start: 80-65-9460Ptfxbvfv lumbar interbody fusion (ALIF)STRATOFUSE DBM 10CCFDA Start: 99-63-0652Jefcffyp lumbar interbody fusion (ALIF)STRATOFUSE DBM 5CCFDA Start: 02-46-2495Mgfttran lumbar interbody fusion (ALIF)STRATOFUSE DBM 10CCFDA Start: 11-79-9000Sieqthns lumbar interbody fusion (ALIF)STRATOFUSE DBM 5CCFDA Start: 81-61-5359Zsublvji lumbar interbody fusion (ALIF)STRATOFUSE DBM 10CCFDA Start: 94-31-9113Atlrmvdn lumbar interbody fusion (ALIF)STRATOFUSE DBM 5CCFDA Start: 18-90-7983Xcwrdjqh lumbar interbody fusion (ALIF)STRATOFUSE DBM 10CCFDA Start: 74-80-5302Dxsyryze lumbar interbody fusion (ALIF)STRATOFUSE DBM 5CCFDA Start: 21-92-5089Sgvnlone lumbar interbody fusion (ALIF)STRATOFUSE DBM 10CCFDA Start: 51-40-0856Utyjsghv lumbar interbody fusion (ALIF)STRATOFUSE DBM 5CCFDA Start: 70-07-8468Ygduetod lumbar interbody fusion (ALIF)STRATOFUSE DBM 10CCFDA Start: 04-47-8308Wfqepmrv lumbar interbody fusion (ALIF)STRATOFUSE DBM 5CCFDA Start: 36-70-1767Lrtjmlhj lumbar interbody fusion (ALIF)STRATOFUSE DBM 10CCFDA Start: 40-93-0020Zezrpiyg lumbar interbody fusion (ALIF)STRATOFUSE DBM 5CCFDA Start: 89-00-5686Hwtojkah lumbar interbody fusion (ALIF)STRATOFUSE DBM 10CCFDA Start: 70-70-5105Uzhduryg lumbar interbody fusion (ALIF)STRATOFUSE DBM 5CCFDA Start: 66-09-9162Rjthoyyr lumbar interbody fusion (ALIF)STRATOFUSE DBM 10CCFDA Start: [id number] lumbar interbody fusion (ALIF)STRATOFUSE DBM 5CCFDA Start: 55-16-1507Bxykatky lumbar interbody fusion (ALIF)STRATOFUSE DBM 10CCFDA Start: 79-31-3904Ganyubrk lumbar interbody fusion (ALIF)STRATOFUSE DBM 5CCFDA Start: [id number]: 01-02-2023 End: 17-87-7343BXF DIRECTED 2 TIMES DAILY FOR DX [id number]: 10-28-2024 Goals DatePatient GoalDesired Activity/State Functional Status VhhnTrgittdjvxSgffvkMnuunfcf29-33-3716Nbphghyzoz StatusN/A[facility]26-2024Functional StatusN/A[facility]09-03-2024Functional StatusN/A [facility]08-23-2024Functional statusPatient is Progressing [facility] Work Phone: [phone] statusPatient is Progressing Toward [facility] Work Phone: [phone] statusFunctional Status Comment [facility] Work Phone: [phone] statusPatient at Baseline [facility] Work Phone: [phone] statusPatient at Baseline [facility] Work Phone: Mental Status YuspFmiqowdithTaodfgOehiepze04-65-7732Bzbqnttft functionCognitive Status Patient at [facility] Work Phone: [phone]nr functionCognitive Status Patient at [facility] Work Phone: [phone] functionCognitive Status Patient at [facility] Work Phone: [phone] functionCognitive Status Patient at [facility] Work Phone: Clinical Notes 06-13-2021 to 04-15-2025 Note Date & [id number] Miscellaneous Notes* Telephone Encounter - Catalina Broderick CMA - 04/15/2025 9:52 AM EDT Glyburide will not be covered by her insurance starting in June. Glipizide is covered. Patient will need to change medications. Is there a pill that is a combination of metformin and glipizide? * Telephone Encounter - Josefina Sherwood CMA - 04/15/2025 9:52 AM EDT Pt advised. Will bring log to her next appt documented in this [facility] Telephone encounter Note* Telephone Encounter - Catalina Broderick CMA - 04/15/2025 9:52 AM EDT Glyburide will not be covered by her insurance starting in June. Glipizide is covered. Patient will need to change medications. Is there a pill that is a combination of metformin and glipizide? [facility] [id number] Telephone encounter Note* Telephone Encounter - Josefina Sherwood CMA - 04/15/2025 9:52 AM EDT Pt advised. Will bring log to her next appt [facility] [id number] History of Present illness Narrative* KVNG Burton - 04/15/2025 9:10 AM EDT Images from the original note were not included. Follow up Diagnosis: GA Location: right upper arm Last visit: 01/07/2025 Symptoms: red, scaly, painful Status: improvement with itching, redness, and pain. Patient denies any pain or itching today. Procedure: Kenalog injection K2.5 mg (1.0 ml) Date: last injection 01/07/2025 Treatments Tried: betamethasone dipropionate 0.05 % Current treatment: Patient tolerated last injection well. All pertinent medical history, medications, and allergies were reviewed. General Exam: alert, oriented to person, place, and time, normal affect, well appearing Unaccompanied A focused exam completed based on patient reported problems, see below: Skin Exam 1. 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 Improvement since last visit. Discussed that GA is a benign condition that often self-resolves in 1-2 years but in some patients can become a more chronic issue. Discussed the cause of this condition is unknown and treatment can be difficult. Discussed treatment options including topical steroids and ILK. Given symptoms, recommend treatment with ILK today. ILK today, see MAR for details. Consent: The risks and benefits of intralesional kenalog were discussed prior to the procedure. Specifically, the risk of skin atrophy was reviewed. It was also emphasized that multiple treatments may be necessary. Verbal consent was obtained from the patient/parent. Method: See MAR for details on administration. 0.2 ml of K2.5 was injected intradermally. The patient was instructed to massage the injection site(s) following the procedure. Instructed to call for any questions or problems that occur. Follow up as needed - triamcinolone acetonide (Kenalog) injection 2.5 mg - Right Upper Arm - Posterior 2. OTHER SPECIFIED ERYTHEMATOUS CONDITIONS Next Visit: prn for any new/bothersome lesions documented in this encounterSSM [facility]Paul Health [id number] Evaluation note* Diagnosis Onset Date Resolution Status Admit Date History of lumbar fusion acuteAu2024 8:15amLumbar stenosis with neurogenic claudicationacute 2025 8:15amSpondylolisthesis, lumbar regionacuteAugus2024 8:15amChronic painacuteSeptember 2024 10:26amPost laminectomy syndrome acuteSept2024 10:26amSacroiliitisacuteSeptember 2024 10:26am Chronic painacuteOctober 2024 4:11pmLumbosacral spondylosisacuteOctober 2024 4:11pmSacroiliitisacuteOctober 2024 4:11pmChronic painacute April 06, 2025 7:59amLumbosacral spondylosisacuteOctober 2024 7:59am SacroiliitisacuteOctober 2024 7:59am [facility] Work Phone: 1([phone] History of Present illness Narrative* KVNG Burton - 01/07/2025 8:50 AM EDT Images from the original note were not included. Follow up Diagnosis: GA Location: right upper arm Last visit: 06/18/2024 Symptoms: red, scaly, painful Status: no change Treatments Tried: betamethasone dipropionate 0.05 % Current treatment: Patient states she would like to try ILK injections All pertinent medical history, medications, and allergies were reviewed. General Exam: alert, oriented to person, place, and time, normal affect, well appearing Unaccompanied A focused exam completed based on patient reported problems, see below: Skin Exam 1. 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 Flaring today Discussed that GA is a benign condition that often self-resolves in 1-2 years but in some patients can become a more chronic issue. Discussed the cause of this condition is unknown and treatment can be difficult. Discussed treatment options including topical steroids and ILK. Patient tried and failed Betamethasone 0.05 % cream. Given symptoms, recommend treatment with ILK today. ILK today, see [facility] for details. Consent: The risks and benefits of intralesional kenalog were discussed prior to the procedure. Specifically, the risk of skin atrophy was reviewed. It was also emphasized that multiple treatments may be necessary. Verbal consent was obtained from the patient/parent. Method: See [facility] for details on administration. 1.0 ml of K2.5 was injected intradermally. The patient was instructed to massage the injection site(s) following the procedure. Instructed to call for any questions or problems that occur. Related Medications triamcinolone acetonide (Kenalog) injection 2.5 mg 2. OTHER SPECIFIED ERYTHEMATOUS CONDITIONS Next Visit: 4 weeks, follow up documented in this encounterSSM DePaul Health CenterQmzjhzxigw21-06-1449 Evaluation note* Diagnosis Onset Date Resolution Status Admit Date Chronic pain acuteJuly 2024 4:14pmLumbar radiculopathyacuteJuly 2024 4:14pm Lumbosacral spondylosisacuteJuly 2024 4:14pmSacroiliitisacuteJuly 2024 4:14pmHistory of lumbar fusionacuteAugust 2024 8:15amLumbar stenosis with neurogenic claudicationacuteAugust 2024 8:15amSpondylolisthesis, lumbar regionacuteAugust 2024 8:15amChronic painacuteSeptember 2024 10:26amPost laminectomy syndromeacuteSeptember 2024 10:26amSacroiliitis acuteSeptember 2024 10:26am [facility] Work Phone: 1([phone] 339-982307-21-2025 Evaluation note* Diagnosis Onset Date Resolution Status Admit Date Chronic pain acuteJuly 2024 4:14pmLumbar radiculopathyacuteJuly 2024 4:14pm Lumbosacral spondylosisacuteJuly 2024 4:14pmSacroiliitisacuteJuly 2024 4:14pmHistory of lumbar fusionacuteAugust 2024 8:15amLumbar stenosis with neurogenic claudicationacuteAugus2024 8:15amSpondylolisthesis, lumbar regionacuteAugust 2024 8:15amChronic painacuteSeptember 2024 10:26amPost laminectomy syndromeacuteSeptember 2024 10:26amSacroiliitis acuteSeptember 2024 10:26amChronic painacuteOctober 2024 4:11pm Lumbosacral spondylosisacuteOctober 2024 4:11pmSacroiliitisacuteOctober 2024 4:11pm [facility] Work Phone: 1([phone] 707-255206-24-2025 Evaluation note* Diagnosis Onset Date Resolution Status Admit Date Chronic pain acuteJune 2024 8:52amLumbosacral spondylosisacuteJune 2024 8:52am SacroiliitisacuteJune 2024 8:52amChronic painacuteJuly 2024 4:14pm Lumbar radiculopathyacuteJuly 2024 4:14pmLumbosacral spondylosisacuteJuly 2024 4:14pmSacroiliitisacuteJuly 2024 4:14pmHistory of lumbar fusion acuteAugust 2024 8:15amLumbar stenosis with neurogenic claudicationacute [place] 2024 8:15amSpondylolisthesis, lumbar regionacuteAugust 2024 8:15am [facility] Work Phone: 1(542) 431-410406-24-2025 Evaluation note* Diagnosis Onset Date Resolution Status Admit Date Chronic pain acuteJune 2024 8:52amLumbosacral spondylosisacuteJune 2024 8:52am SacroiliitisacuteJune 2024 8:52amChronic painacuteJuly 2024 4:14pm Lumbar radiculopathyacuteJuly 2024 4:14pmLumbosacral spondylosisacuteJuly 2024 4:14pmSacroiliitisacuteJuly 2024 4:14pmHistory of lumbar fusion acuteAugust 2024 8:15amLumbar stenosis with neurogenic claudicationacute 2025 8:15amSpondylolisthesis, lumbar regionacuteAugust 2024 8:15amChronic painacuteSeptember 2024 10:26amPost laminectomy syndrome acuteSeptember 2024 10:26amSacroiliitisacuteSeptember 2024 10:26am [facility] Work Phone: 1([phone] Evaluation note* Diagnosis Onset Date Resolution Status Admit Date Chronic pain acuteJune 2024 8:54amLeft foot painacuteJune 2024 8:54amLumbar stenosis with neurogenic claudicationacuteJune 2024 8:54amLumbosacral spondylosisacuteJune 2024 8:54amSacroiliitisacuteJune 2024 8:54am Chronic painacuteJune 2024 8:52amLumbosacral spondylosisacuteJune 2024 8:52amSacroiliitisacuteJune 2024 8:52amChronic painacuteJuly 2024 4:14pmLumbar radiculopathyacuteJuly 2024 4:14pmLumbosacral spondylosisacuteJuly 2024 4:14pmSacroiliitisacuteJuly 2024 4:14pm [facility] Work Phone: 1(772) 154-920806-06-2025 Evaluation note* Diagnosis Onset Date Resolution Status Admit Date Chronic pain acuteJune 2024 8:54amLeft foot painacuteJune 2024 8:54amLumbar stenosis with neurogenic claudicationacuteJune 2024 8:54amLumbosacral spondylosisacuteJune 2024 8:54amSacroiliitisacuteJune 2024 8:54am Chronic painacuteJune 2024 8:52amLumbosacral spondylosisacuteJune 2024 8:52amSacroiliitisacuteJune 2024 8:52amChronic painacuteJuly 2024 4:14pmLumbar radiculopathyacuteJuly 2024 4:14pmLumbosacral spondylosisacuteJuly 2024 4:14pmSacroiliitisacuteJuly 2024 4:14pm History of lumbar fusionacuteAugust 2024 8:15amLumbar stenosis with neurogenic claudicationacuteAugust 2024 8:15amSpondylolisthesis, lumbar regionacuteAugust 2024 8:15am [facility] Work Phone: 1([phone] Miscellaneous Notes* Telephone Encounter - Partha Ingram MA - 11/03/2024 11:44 AM EDT Attempted to reach patient today regarding OAC referral from PCP. A voicemail message was left. [employer] message sent as well. [employer] phone number provided as well. documented in this encounterC[facility]05-[facility]-2025 Telephone encounter Note* Telephone Encounter - Partha Ingram MA - 11/03/2024 11:44 AM EDT Attempted to reach patient today regarding OAC referral from PCP. A voicemail message was left. [employer] message sent as well. [employer] phone number provided as well. [facility]05-20-[facility]25 Evaluation note* Diagnosis Onset Date Resolution Status Admit Date History of lumbar fusion acuteMay 2024 8:13amLumbar stenosis with neurogenic claudicationacuteMay 2024 8:13amSpondylolisthesis, lumbar regionacuteMay 2024 8:13am Chronic painacuteJune 2024 8:54amLeft foot painacuteJune 2024 8:54am Lumbar stenosis with neurogenic claudicationacuteJune 2024 8:54am Lumbosacral spondylosisacuteJune 2024 8:54amSacroiliitisacuteJune 2024 8:54am [facility] Work Phone: 1(272) 527-212205-20-2025 Evaluation note* Diagnosis Onset Date Resolution Status Admit Date History of lumbar fusion acuteMay 2024 8:13amLumbar stenosis with neurogenic claudicationacuteMay 2024 8:13amSpondylolisthesis, lumbar regionacuteMay 2024 8:13am Chronic painacuteJune 2024 8:54amLeft foot painacuteJune 2024 8:54am Lumbar stenosis with neurogenic claudicationacuteJune 2024 8:54am Lumbosacral spondylosisacuteJune 2024 8:54amSacroiliitisacuteJune 2024 8:54amChronic painacuteJune 2024 8:52amLumbosacral spondylosisacuteJune 2024 8:52amSacroiliitisacuteJune 2024 8:52am [facility] Work Phone: 1([phone]) 476-778105-20-2025 Evaluation note* Diagnosis Onset Date Resolution Status Admit Date History of lumbar fusion acuteMay 2024 8:13amLumbar stenosis with neurogenic claudicationacuteMay 2024 8:13amSpondylolisthesis, lumbar regionacuteMay 2024 8:13am Chronic painacuteJune 2024 8:54amLeft foot painacuteJune 2024 8:54am Lumbar stenosis with neurogenic claudicationacuteJune 2024 8:54am Lumbosacral spondylosisacuteJune 2024 8:54amSacroiliitisacuteJune 2024 8:54amChronic painacuteJune 2024 8:52amLumbosacral spondylosisacuteJune 2024 8:52amSacroiliitisacuteJune 2024 8:52amChronic painacuteJuly 2024 4:14pmLumbar radiculopathyacuteJuly 2024 4:14pmLumbosacral spondylosisacuteJuly 2024 4:14pmSacroiliitisacuteJuly 2024 4:14pm [facility] Work Phone: 1([phone]) 601-104505-14-2025 History of Present illness Narrative* Eyad Mckeon MD - 10/28/2024 8:15 AM EDT Subjective Patient ID: Shana Lugo is a 69 y.o. female. HPI: Shana Lugo is here to evaluate and manage chronic medical problems listed below. Chief Complaint Patient presents with review labs Here in office for a review of labs. Wants to ask if she can goon 600 mg of gabapentin. BRANNON,AKIL Follow Up: Diabetes Follow Up: Patient Reports: [...] is still following up with her Urology. Current medication: Outpatient Medications Prior to Visit Medication Sig Dispense Refill BABY ASPIRIN ORAL Take 81 mg by mouth. cholecalciferol, vitamin D3, (VITAMIN D3) 5,000 units capsule Take 1 capsule (5,000 Units total) bymouth in the morning. glyBURIDE (DIABETA) 5 mg tablet take 1 tablet twice daily 180 tablet 3 TRULICITY 3 mg/0.5 mL pen injector INJECT 3 MG (0.5 ML) UNDER THE SKIN ONCE A WEEK 6 mL 0 atorvastatin (LIPITOR) 20 mg tablet TAKE 1 TABLET EVERY DAY 90 tablet 3 escitalopram (LEXAPRO) 20 mg tablet TAKE 1 TABLET EVERY DAY 90 tablet 3 gabapentin (NEURONTIN) 300 mg capsule TAKE 1 CAPSULE IN THE MORNING AND TAKE 2 CAPSULES AT BEDTIME (Patient taking differently: TAKE 2 CAPSULE IN THE MORNING AND TAKE 2 CAPSULES AT BEDTIME) 270 capsule 3 ibuprofen (MOTRIN) 800 mg tablet Take 1 tablet (800 mg total) by mouth every 12 (twelve) hours as needed for pain. lisinopriL (PRINIVIL,ZESTRIL) 10 mg tablet TAKE 1 TABLET EVERY DAY 90 tablet 3 metFORMIN (GLUCOPHAGE) 1000 mg tablet TAKE 1 TABLET TWICE DAILY 180 tablet 3 ONETOUCH ULTRA TEST strip USE DIRECTED 2 TIMES DAILY FOR DX E11.9 100 strip 3 rOPINIRole (REQUIP) 0.25 mg tablet TAKE 1 TABLET (0.25 MG TOTAL) BY MOUTH NIGHTLY FOR 1 WEEK AND THEN 2 TABLETS AT NIGHT 173 tablet 3 traZODone (DESYREL) 100 mg tablet TAKE 2 TABLETS ONE TIME DAILY AT BEDTIME 180 tablet 3 tiotropium (SPIRIVA) 18 mcg per inhalation capsule Place 1 capsule into inhaler and inhale in the morning. (Patient not taking: Reported on 10/28/2024) 90 capsule 3 furosemide (LASIX) 20 mg tablet Take 1 tablet (20 mg total) by mouth daily. (Patient not taking: Reported on 10/28/2024) 10 tablet 0 meloxicam (MOBIC) 15 mg tablet take 1 tablet every day (Patient not taking: Reported on 10/28/2024) 90 tablet 3 methocarbamoL (ROBAXIN) 500 mg tablet Take 1 tablet (500 mg total) by mouth 3 (three) times a day. (Patient not taking: Reported on 10/28/2024) oxyCODONE (ROXICODONE) 5 mg immediate release tablet Take 1 tablet (5 mg total) by mouth every 6 (six) hours as needed for pain. Max Daily Amount: 20 mg (Patient not taking: Reported on 10/28/2024) 42tablet 0 No facility-administered medications prior to visit. Past Surgical History: Procedure Laterality Date ARTHROSCOPY KNEE wth partial medial and lateral menisectomy chondroplasty medial and lateral femeral condyle Right 03/26/2017 Performed by Jr Ralu Massey, at [facility] BACK SURGERY disc l2-l3 07/03/2022 l3,l4,l5 07/19/22 BACK SURGERY 01/27/2024 fusion rods and screws CARDIAC CATHETERIZATION SECTION x2 CHOLECYSTECTOMY HYSTERECTOMY KNEE SURGERY left, scope KNEE SURGERY Bilateral knee scopes NEUROPLASTY / TRANSPOSITION MEDIAN NERVE AT CARPAL TUNNEL Family History Problem Relation Age of Onset Heart disease Mother Heart disease Father Past Medical History: Diagnosis Date Diabetes mellitus type 2, controlled ([facility]) Hyperlipidemia Hypertension Peptic ulceration Social History Socioeconomic [...] date: 1970 Quit date: 01/27/2024 Years since quittin.7 Smokeless tobacco: Never Substance and Sexual Activity Alcohol use: Yes Comment: MONTHLY Drug use: No Sexual activity: Not on file Other Topics Concern Not on file Social History Narrative Not on file Social Drivers of Health Financial Resource Strain: Not on file Food Insecurity: No Food Insecurity (10/28/2024) Hunger Screening Food Insecurity - Worry: Never True Food Insecurity - Inability: Never True Transportation Needs: Not on file Physical Activity: Not on file Stress: Not on file Social Connections: Not on file Interpersonal Safety: Not on file Housing Instability: Not on file No Known Allergies Current Outpatient Medications Medication Sig Dispense Refill BABY ASPIRIN ORAL Take 81 mg by mouth. cholecalciferol, vitamin D3, (VITAMIN D3) 5,000 units capsule Take 1 capsule (5,000 Units total) bymouth in the morning. glyBURIDE (DIABETA) 5 mg tablet take 1 tablet twice daily 180 tablet 3 TRULICITY 3 mg/0.5 mL pen injector INJECT 3 MG (0.5 ML) UNDER THE SKIN ONCE A WEEK 6 mL 0 atorvastatin (LIPITOR) 20 mg tablet Take 1 tablet (20 mg total) by mouth nightly. 90 tablet 3 blood sugar diagnostic ([employer] ULTRA TEST) strip USE DIRECTED 2 TIMES DAILY FOR DX E11.9 100 strip 3 busPIRone (BUSPAR) 10 mg tablet Take 0.5 tablets (5 mg total) by mouth in the morning and 0.5 tablets (5 mg total) before bedtime. 180 tablet 1 escitalopram (LEXAPRO) 20 mg tablet Take 1 tablet (20 mg total) by mouth in the morning. 90 tablet 3 gabapentin (NEURONTIN) 600 mg tablet Take 1 tablet (600 mg total) by mouth in the morning and 1 tablet (600 mg total) before bedtime. 180 tablet 2 ibuprofen (MOTRIN) 800 mg tablet Take 1 tablet (800 mg total) by mouth every 12 (twelve) hours as needed for pain. 180 tablet 1 lisinopriL (PRINIVIL,ZESTRIL) 10 mg tablet Take 1 tablet (10 mg total) by mouth in the morning. 90 tablet 3 metFORMIN (GLUCOPHAGE) 1000 mg tablet Take 1 tablet (1,000 mg total) by mouth in the morning and 1 tablet (1,000 mg total) in the evening. Take with meals. 180 tablet 3 rOPINIRole (REQUIP) 0.5 mg tablet Take 1 tablet (0.5 mg total) by mouth nightly. 90 tablet 1 tiotropium (SPIRIVA) 18 mcg per inhalation capsule Place 1 capsule into inhaler and inhale in the morning. (Patient not taking: Reported on 10/28/2024) 90 capsule 3 traZODone (DESYREL) 100 mg tablet Take 2 tablets (200 mg total) by mouth nightly. 180 tablet 3 No current facility-administered medications for this [...] denies. Headache denies. Objective Physical Exam: Vitals: 10/28/24 0811 BP: 130/60 BP Site: Left Arm BP Postition: Sitting BP CUFF SIZE: L (13-17 inches) Pulse: 78 SpO2: 95% Weight: 99.8 kg (220 lb) Height: 162.6 cm (5' 4 ) Wt Readings from Last 3 Encounters: 10/28/24 99.8 kg (220 lb) 04/21/24 98 kg (216 lb) 02/12/24 98.4 kg (217 lb) Temp Readings from Last 3 Encounters: 10/03/23 36.8 C (98.2 F) 03/26/17 36.3 C (97.3 F) BP Readings from Last 3 Encounters: 10/28/24 130/60 04/21/24 122/62 02/12/24 136/70 Pulse Readings from Last 3 Encounters: 10/28/24 78 04/21/24 80 02/12/24 80 Body mass index is 37.76 kg/m . Physical Exam General Examinations: GENERAL APPEARANCE: alert, [...] intact. PSYCH: oriented x3. Mood is normal. No results found for this or any previous visit (from the past 24 hours). Results for orders placed or performed in visit on 10/21/24 CBC auto differential Collection Time: 10/21/24 8:50 AM Result Value Ref Range WBC 7.7 4 - 11 x10E9/L RBC Count 3.98 3.8 - 5.2 X10E12/L Hemoglobin 11.5 (L) 11.7 - 15.5 g/dL Hematocrit 34.7 (L) 35 - 47 % MCV 87 80 - 100 fL MCH 29.0 27 - 34 pg MCHC 33.3 32 - 36 g/dL RDW 13.8 11.5 - 15 % Platelet Count 249 150 - 450 X10E9/L MPV 8.5 7 - 12 fL Neutrophils Relative 67.6 % Lymphocytes Relative 23.7 % Monocytes Relative 7.4 % Eosinophils Relative 0.9 % Basophils Relative 0.4 % Neutrophils Absolute (A) 5.2 10*3/uL Lymphocytes Absolute 1.8 10*3/uL Monocytes Absolute 0.6 10*3/uL Eosinophils Absolute 0.1 10*3/uL Basophils Absolute 0.0 10*3/uL Differential Type AUTOMATED DIFFERENTIAL Comprehensive metabolic panel Collection Time: 10/21/24 8:50 AM Result Value Ref Range SODIUM 143 134 - 146 mmol/L POTASSIUM 4.4 3.5 - 5.0 mmol/L CHLORIDE 105 98 - 109 mmol/L CARBON DIOXIDE 27 22 - 32 mmol/L ANION GAP 11 5 - 15 mmol/L BLOOD UREA NITROGEN 17 5 - 27 mg/dL CREATININE 0.84 0.40 - 1.00 mg/dL GLUCOSE 94 65 - 99 mg/dL CALCIUM 9.4 8.5 - 10.5 mg/dL TOTAL PROTEIN 6.9 6.0 - 8.0 g/dL ALBUMIN 4.0 3.2 - 5.3 g/dL ALKALINE PHOSPHATASE 57 39 - 130 U/L AST 18 <=41 U/L ALT 14 <=31 U/L BILIRUBIN,TOTAL 0.3 0.3 - 1.2 mg/dL EGFR Non-Race Dependent 76 >=60 ml/min/1.73sq.m Hemoglobin A1c Collection Time: 10/21/24 8:50 AM Result Value Ref Range HEMOGLOBIN A1C 6.8 (H) 4.4 - 5.6 % EST. AVERAGE GLUCOSE 148 mg/dL TSH Collection Time: 10/21/24 8:50 AM Result Value Ref Range TSH 1.79 0.49 - 4.67 uIU/mL T4, free Collection Time: 10/21/24 8:50 AM Result Value Ref Range FREE T4 0.86 0.61 - 1.60 ng/dL Lipid profile Collection Time: 10/21/24 8:50 AM Result Value Ref Range CHOLESTEROL 133 (L) 150 - 200 mg/dL TRIGLYCERIDE 118 27 - 150 mg/dL HDL CHOLESTEROL 58 >39 mg/dL LDL (CALC) 51 <130 mg/dL CHOLESTEROL:HDL 2.3 1.0 - 5.0 VERY LOW LIPOPROTEIN 24 0 - 30 mg/dL CK Total Collection Time: 10/21/24 8:50 AM Result Value Ref Range CPK 73 24 - 170 U/L Uric acid Collection Time: 10/21/24 8:50 AM Result Value Ref Range URIC ACID 5.8 2.6 - 7.2 mg/dL Above labs and x-ray were reviewed. Adjustments [...] complication, without long-term current use of insulin ([facility]) - CBC auto differential; Future - Hemoglobin A1c; Future - Basic Metabolic Panel; Future - blood sugar diagnostic ([employer] ULTRA TEST) strip; USE DIRECTED 2 TIMES DAILY FOR DX E11.9 Dispense: 100 strip; Refill: 3 - metFORMIN (GLUCOPHAGE) 1000 mg tablet; Take 1 tablet (1,000 mg total) by mouth in the morning and1 tablet (1,000 mg total) in the evening. Take with meals. Dispense: 180 tablet; Refill: 3 2. Primary hypertension - lisinopriL (PRINIVIL,ZESTRIL) 10 mg tablet; Take 1 tablet (10 mg total) by mouth in the morning. Dispense: 90 tablet; Refill: 3 3. Pure hypercholesterolemia - atorvastatin (LIPITOR) 20 mg tablet; Take 1 tablet (20 mg total) by mouth nightly. Dispense: 90 tablet; Refill: 3 4. Anxiety - busPIRone (BUSPAR) 10 mg tablet; Take 0.5 tablets (5 mg total) by mouth in the morning and 0.5 tablets (5 mg total) before bedtime. Dispense: 180 tablet; Refill: 1 - escitalopram (LEXAPRO) 20 mg tablet; Take 1 tablet (20 mg total) by mouth in the morning. Dispense: 90 tablet; Refill: 3 5. Encounter for screening mammogram for malignant neoplasm of breast - Mammography screening bilateral with CAD; Future 6. Special screening for malignant neoplasm of colon - Open Access Colonoscopy; Future - Ambulatory referral to Gastroenterology (Non-[facility]); Future 7. Former cigarette smoker - CT low dose lung screening (Annual); Future 8. Degenerative joint disease of low back - ibuprofen (MOTRIN) 800 mg tablet; Take 1 tablet (800 mg total) by mouth every 12 (twelve) hours as needed for pain. Dispense: 180 tablet; Refill: 1 9. Chronic bilateral low back pain without sciatica - gabapentin (NEURONTIN) 600 mg tablet; Take 1 tablet (600 mg total) by mouth in the morning and 1 tablet (600 mg total) before bedtime. Dispense: 180 tablet; Refill: 2 10. Obesity, morbid (CMS-HCC) Medications Discontinued During This Encounter Medication Reason oxyCODONE (ROXICODONE) 5 mg immediate release tablet furosemide (LASIX) 20 mg tablet meloxicam (MOBIC) 15 mg tablet methocarbamoL (ROBAXIN) 500 mg tablet ibuprofen (MOTRIN) 800 mg tablet Reorder gabapentin (NEURONTIN) 300 mg capsule rOPINIRole (REQUIP) 0.25 mg tablet Reorder ONETOUCH ULTRA TEST strip Reorder atorvastatin (LIPITOR) 20 mg tablet Reorder traZODone (DESYREL) 100 mg tablet Reorder lisinopriL (PRINIVIL,ZESTRIL) 10 mg tablet Reorder metFORMIN (GLUCOPHAGE) 1000 mg tablet Reorder escitalopram (LEXAPRO) 20 mg tablet Reorder Plan: Blood work discussed With the patient. Her A1c is better from last time. Her diabetes is under control. She will continue with the same medication. She will continue to follow up with the Neurosurgery and pain management. She is not getting any injections in his back now. Smoking cessation discussed with her. She stopped smoking. CT chest discussed and ordered. Mammogram discussed and ordered. Her breathing is under control. Keep follow up with Rheumatology for her DAHLIA.She will follow-up with Cardiology as needed. Her mood is under control. She is having some anxiety. She is under stress at home. I will add [facility] has cleared her. Patient did not do her colonoscopy. Anotherorder was given. Colonoscopy was done in May 2018.They recommended repeat in 5 years. Patient has no GERD symptoms a Her EGD was done in November 2021. They recommended repeat in 3-5 years. Patient declined doing EGD at the same time. She will continue to follow up with her Urology. Call if any concern Patient noted to have elevated BMI and the following intervention(s) were applied: encouragement toexercise. Return in about 6 months (around 04/30/2025). Patient was advised to call us in [...] extrapolated by contextual derivation documented in this encounterMiami [facility] HospitalLRN [id number] History of Present illness Narrative* KVNG Burton - 06/18/2024 8:30 AM EST Images from the original note were not included. Follow up Diagnosis: GA Location: right upper arm Last visit: 1 month ago Symptoms: gets red when she applies the cream Status: no change Current treatment: betamethasone dipropionate 0.05 % All pertinent medical history, medications, and allergies were reviewed. General Exam: alert, oriented to person, place, and time, normal affect, well appearing Unaccompanied A focused exam completed based on patient reported problems, see below: 1. Rash and other nonspecific skin eruption Right Upper Arm - Posterior [place] annular plaque Lesion biopsy - Right Upper Arm - Posterior Type of biopsy: punch Informed consent: discussed and consent obtained Informed consent comment: The risks and benefits were discussed. Risks include, but are not limitedto, bleeding, infection, scarring, pain, & nerve damage. An opportunity to ask questions prior to the procedure was permitted and questions were answered. Patient was prepped and draped in usual sterile fashion: Area cleansed with alcohol. Anesthesia: the lesion was anesthetized in a standard fashion Anesthetic: 1% lidocaine w/ epinephrine 1-100,000 buffered w/ 8.4% NaHCO3 Punch size: 4 mm (A biopsy by punch method was performed using a dermal punch) Suture size: 4-0 Suture type: nylon Suture type comment: Hemostasis was achieved with suture. Hemostasis achieved with: suture Outcome: patient tolerated procedure well Post-procedure details: sterile dressing applied and wound care instructions given Post-procedure details comment: Emphasized the need to contact clinic for any signs of infection, uncontrollable bleeding, or complications. Dressing type: bandage Additional details: Amount of lidocaine used: 1.0 cc Number of sutures used: 2 Specimen sent for: H&E or DIF Photo taken yes Specimen A - Dermatopathology exam Differential Diagnosis: Granuloma annulare vs. Tinea corporis vs. Other Next Visit: 10-12 day S/R documented in this encounterSSM [facility] [id number] History of Present illness Narrative* KVNG Burton - 05/20/2024 1:00 PM EST Images from the original note were not included. Lesions: Location: right upper arm Duration: 3 years Quality: denies pain, denies itch, denies bleeding Associated symptoms: enlarged, non-healing Treatments: ring worm ointment it was ineffective New patient All pertinent medical history, medications, and allergies were reviewed. General Exam: alert, oriented to person, place, and time, normal affect, well appearing Unaccompanied A focused exam completed based on patient reported problems, see below: 1. Seborrheic keratosis Left Shoulder - Anterior Stuck on verrucous, barron-brown papules and plaques. Patient was counseled regarding these benign growths. Removal is normally not necessary, but they may be removed if they are symptomatic or for cosmetic reasons. 2. 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 Flaring today Discussed that GA is a benign condition that often self-resolves in 1-2 years but in some patients can become a more chronic issue. Discussed the cause of this condition is unknown and treatment can be difficult. Discussed treatment options including topical steroids and ILK. Start Betamethasone cream apply to affected areas, up to twice a day when flared, do not use one the face, groin, or underarms. Follow up 4 weeks. May consider biopsy vs. ILK at next appointment if not improved. betamethasone dipropionate 0.05 % cream - Right Upper Arm - Posterior Apply to affected areas, up to twice a day when flared, do not use one the face, groin, or underarms, 30 day supply Next Visit: 4 weeks, follow up documented in this encounterSSM [facility] [id number] Evaluation note* Diagnosis Onset Date Resolution Status Admit Date Lumbar stenosis with neurogenic claudica tion acuteOctober 2023 10:11amLumbar radiculopathyacuteNovember 2023 12:48pmSpondylolisthesis, lumbar regionacuteNovember 2023 12:48pmHistory of lumbar fusionacuteJanuary 2024 8:13amLumbar stenosis with neurogenic claudicationacuteJanuary 2024 8:13amSpondylolisthesis, lumbar regionacute [place] 2024 8:13am [facility] Phone: 1(226) 522-647410-10-2024 Hospital Discharge instructions Patient Education 03/26/2024 14:24:18 Acute Urinary Retention, Female Acute Urinary Retention, Female Acute urinary retention is a condition in which a person is unable to pass urine or can only pass alittle urine. This condition can happen suddenly and last for a short time. If left untreated, it can become long-term (chronic) and result in kidney damage or other serious complications. What are the causes? This condition may be caused by: Obstruction or narrowing of the tube that drains the bladder (urethra). This may be caused by surgery, problems with nearby organs, or injury to the bladder or urethra. Problems with the nerves in the bladder. Pelvic organ prolapse. Tumors in the area of the pelvis, bladder, or urethra. Vaginal childbirth. Bladder or urinary tract infection. Constipation. Certain medicines. What increases the risk? This condition is more likely to develop in women over age 50. Other chronic health conditions can increase the risk of acute urinary retention. These include: Diseases such as multiple sclerosis. Spinal cord injuries. Diabetes. Degenerative cognitive conditions, such as delirium or dementia. Psychological conditions. A woman may hold her urine due to trauma or because she does not want to use the bathroom. History of preexisting urinary retention. History of prior pelvic surgery, incontinence surgery, or radical pelvic surgery. What are the signs or symptoms? Symptoms of this condition include: Trouble urinating. Pain in the lower abdomen. How is this diagnosed? This condition is diagnosed based on a physical exam and your medical history. You may also have other tests, including: An ultrasound of the bladder or kidneys or both. Blood tests. A urine analysis. Additional tests may be needed, such as a CT scan, MRI, and kidney or bladder function tests. How is this treated? Treatment for this condition may include: Medicines. Placing a thin, sterile tube (catheter) into the bladder to drain urine out of the body. This is called an indwelling urinary catheter. After it is inserted, the catheter is held in place with a small balloon that is filled with sterile water. Urine drains from the catheter into a collection bag outside of the body. Behavioral therapy. Treatment for other conditions. If needed, you may be treated in the hospital for kidney function problems or to manage other complications. Follow these instructions at home: Medicines Take dhue-apc-xffxiph and prescription medicines only as told by your health care provider. Avoid certain medicines, such as decongestants, antihistamines, and some prescription medicines. Do not take any medicine unless your health care provider approves. If you were prescribed an antibiotic medicine, take it as told by your health care provider. Do notstop using the antibiotic even if you start to feel better. General instructions Do not use any products that contain nicotine or tobacco. These products include cigarettes, chewing tobacco, and vaping devices, such as e-cigarettes. If you need help quitting, ask your health careprovider. Drink enough fluid to keep your urine pale yellow. If you have an indwelling urinary catheter, follow the instructions from your health care provider. Monitor any changes in your symptoms. Tell your health care provider about any changes. If instructed, monitor your blood pressure at home. Report changes as told by your health care provider. Keep all follow-up visits. This is important. Contact a health care provider if: You have uncomfortable bladder contractions that you cannot control (spasms). You leak urine with the spasms. Get help right away if: You have chills or a fever. You have blood in your urine. You have a catheter and the following happens: ?Your catheter stops draining urine. ?Your catheter falls out. Summary Acute urinary retention is a condition in which a person is unable to pass urine or can only pass alittle urine. If left untreated, this can result in kidney damage or other serious complications. One cause of this condition may be obstruction or narrowing of the tube that drains the bladder (urethra). This may be caused by surgery, problems with nearby organs, or injury to the bladder or urethra. Treatment may include medicines and placement of an indwelling urinary catheter. Monitor any changes in your symptoms. Tell your health care provider about any changes. This information is not intended to replace advice given to you by your health care provider. Make sure you discuss any questions you have with your health care provider. Document Revised: 02/22/2021 Document Reviewed: 02/22/2021 [employer] Patient Education 2023 [employer]. Follow Up Care 03/25/2024 08:42:13 With:04/07 for PVR Address:Unknown When: Unknown [facility] 10-10-2024 NotePatient Education Obstetrics and Gynecology Acute Urinary Retention, Female Acute urinary retention is a condition in which a person is unable to pass urine or can only pass alittle urine. This condition can happen suddenly and last for a short time. If left untreated, it can become long-term (chronic) and result in kidney damage or other serious complications. What are the causes? This condition may be caused by: ? Obstruction or narrowing of the tube that drains the bladder (urethra). This may be caused by surgery, problems with nearby organs, or injury to the bladder or urethra. ? Problems with the nerves in the bladder. ? Pelvic organ prolapse. ? Tumors in the area of the pelvis, bladder, or urethra. ? Vaginal childbirth. ? Bladder or urinary tract infection. ? Constipation. ? Certain medicines. What increases the risk? This condition is more likely to develop in women over age 50. Other chronic health conditions can increase the risk of acute urinary retention. These include: ? Diseases such as multiple sclerosis. ? Spinal cord injuries. ? Diabetes. ? Degenerative cognitive conditions, such as delirium or dementia. ? Psychological conditions. A woman may hold her urine due to trauma or because she does not want to use the bathroom. ? History of preexisting urinary retention. ? History of prior pelvic surgery, incontinence surgery, or radical pelvic surgery. What are the signs or symptoms? Symptoms of this condition include: ? Trouble urinating. ? Pain in the lower abdomen. How is this diagnosed? This condition is diagnosed based on a physical exam and your medical history. You may also have other tests, including: ? An ultrasound of the bladder or kidneys or both. ? Blood tests. ? A urine analysis. ? Additional tests may be needed, such as a CT scan, MRI, and kidney or bladder function tests. How is this treated? Treatment for this condition may include: ? Medicines. ? Placing a thin, sterile tube (catheter) into the bladder to drain urine out of the body. This is called an indwelling urinary catheter. After it is inserted, the catheter is held in place with a small balloon that is filled with sterile water. Urine drains from the catheter into a collection bag outside of the body. ? Behavioral therapy. ? Treatment for other conditions. If needed, you may be treated in the hospital for kidney function problems or to manage other complications. Follow these instructions at home: Medicines ? Take ewyj-wfw-qieynge and prescription medicines only as told by your health care provider. Avoidcertain medicines, such as decongestants, antihistamines, and some prescription medicines. Do not take any medicine unless your health care provider approves. ? If you were prescribed an antibiotic medicine, take it as told by your health care provider. Do not stop using the antibiotic even if you start to feel better. General instructions ? Do not use any products that contain nicotine or tobacco. These products include cigarettes, chewing tobacco, and vaping devices, such as e-cigarettes. If you need help quitting, ask your health care provider. ? Drink enough fluid to keep your urine pale yellow. ? If you have an indwelling urinary catheter, follow the instructions from your health care provider. ? Monitor any changes in your symptoms. Tell your health care provider about any changes. ? If instructed, monitor your blood pressure at home. Report changes as told by your health care provider. ? Keep all follow-up visits. This is important. Contact a health care provider if: ? You have uncomfortable bladder contractions that you cannot control (spasms). ? You leak urine with the spasms. Get help right away if: ? You have chills or a fever. ? You have blood in your urine. ? You have a catheter and the following happens: ? Your catheter stops draining urine. ? Your catheter falls out. Summary ? Acute urinary retention is a condition in which a person is unable to pass urine or can only passa little urine. If left untreated, this can result in kidney damage or other serious complications. ? One cause of this condition may be obstruction or narrowing of the tube that drains the bladder (urethra). This may be caused by surgery, problems with nearby organs, or injury to the bladder or urethra. ? Treatment may include medicines and placement of an indwelling urinary catheter. ? Monitor any changes in your symptoms. Tell your health care provider about any changes. This information is not intended to replace advice given to you by your health care provider. Make sure you discuss any questions you have with your health care provider. Document Revised: 02/22/2021 Document Reviewed: 02/22/2021 [employer] Patient Education ? 2023 [employer] 03-12-2024 Hospital Discharge instructions Patient Education 03/12/2024 13:34:51 Acute Urinary Retention, Female Acute Urinary Retention, Female Acute urinary retention is a condition in which a person is unable to pass urine or can only pass alittle urine. This condition can happen suddenly and last for a short time. If left untreated, it can become long-term (chronic) and result in kidney damage or other serious complications. What are the causes? This condition may be caused by: Obstruction or narrowing of the tube that drains the bladder (urethra). This may be caused by surgery, problems with nearby organs, or injury to the bladder or urethra. Problems with the nerves in the bladder. Pelvic organ prolapse. Tumors in the area of the pelvis, bladder, or urethra. Vaginal childbirth. Bladder or urinary tract infection. Constipation. Certain medicines. What increases the risk? This condition is more likely to develop in women over age 50. Other chronic health conditions can increase the risk of acute urinary retention. These include: Diseases such as multiple sclerosis. Spinal cord injuries. Diabetes. Degenerative cognitive conditions, such as delirium or dementia. Psychological conditions. A woman may hold her urine due to trauma or because she does not want to use the bathroom. History of preexisting urinary retention. History of prior pelvic surgery, incontinence surgery, or radical pelvic surgery. What are the signs or symptoms? Symptoms of this condition include: Trouble urinating. Pain in the lower abdomen. How is this diagnosed? This condition is diagnosed based on a physical exam and your medical history. You may also have other tests, including: An ultrasound of the bladder or kidneys or both. Blood tests. A urine analysis. Additional tests may be needed, such as a CT scan, MRI, and kidney or bladder function tests. How is this treated? Treatment for this condition may include: Medicines. Placing a thin, sterile tube (catheter) into the bladder to drain urine out of the body. This is called an indwelling urinary catheter. After it is inserted, the catheter is held in place with a small balloon that is filled with sterile water. Urine drains from the catheter into a collection bag outside of the body. Behavioral therapy. Treatment for other conditions. If needed, you may be treated in the hospital for kidney function problems or to manage other complications. Follow these instructions at home: Medicines Take ebby-lte-ywlymne and prescription medicines only as told by your health care provider. Avoid certain medicines, such as decongestants, antihistamines, and some prescription medicines. Do not take any medicine unless your health care provider approves. If you were prescribed an antibiotic medicine, take it as told by your health care provider. Do notstop using the antibiotic even if you start to feel better. General instructions Do not use any products that contain nicotine or tobacco. These products include cigarettes, chewing tobacco, and vaping devices, such as e-cigarettes. If you need help quitting, ask your health careprovider. Drink enough fluid to keep your urine pale yellow. If you have an indwelling urinary catheter, follow the instructions from your health care provider. Monitor any changes in your symptoms. Tell your health care provider about any changes. If instructed, monitor your blood pressure at home. Report changes as told by your health care provider. Keep all follow-up visits. This is important. Contact a health care provider if: You have uncomfortable bladder contractions that you cannot control (spasms). You leak urine with the spasms. Get help right away if: You have chills or a fever. You have blood in your urine. You have a catheter and the following happens: ?Your catheter stops draining urine. ?Your catheter falls out. Summary Acute urinary retention is a condition in which a person is unable to pass urine or can only pass alittle urine. If left untreated, this can result in kidney damage or other serious complications. One cause of this condition may be obstruction or narrowing of the tube that drains the bladder (urethra). This may be caused by surgery, problems with nearby organs, or injury to the bladder or urethra. Treatment may include medicines and placement of an indwelling urinary catheter. Monitor any changes in your symptoms. Tell your health care provider about any changes. This information is not intended to replace advice given to you by your health care provider. Make sure you discuss any questions you have with your health care provider. Document Revised: 02/22/2021 Document Reviewed: 02/22/2021 [employer] Patient Education 2023 [employer]. Follow Up Care 02/27/2024 11:41:55 With:COREY ROCHA PA-C, ENEIDA Address: When:1 month [facility] 09-26-2024 NotePatient Education Obstetrics and Gynecology Acute Urinary Retention, Female Acute urinary retention is a condition in which a person is unable to pass urine or can only pass alittle urine. This condition can happen suddenly and last for a short time. If left untreated, it can become long-term (chronic) and result in kidney damage or other serious complications. What are the causes? This condition may be caused by: ? Obstruction or narrowing of the tube that drains the bladder (urethra). This may be caused by surgery, problems with nearby organs, or injury to the bladder or urethra. ? Problems with the nerves in the bladder. ? Pelvic organ prolapse. ? Tumors in the area of the pelvis, bladder, or urethra. ? Vaginal childbirth. ? Bladder or urinary tract infection. ? Constipation. ? Certain medicines. What increases the risk? This condition is more likely to develop in women over age 50. Other chronic health conditions can increase the risk of acute urinary retention. These include: ? Diseases such as multiple sclerosis. ? Spinal cord injuries. ? Diabetes. ? Degenerative cognitive conditions, such as delirium or dementia. ? Psychological conditions. A woman may hold her urine due to trauma or because she does not want to use the bathroom. ? History of preexisting urinary retention. ? History of prior pelvic surgery, incontinence surgery, or radical pelvic surgery. What are the signs or symptoms? Symptoms of this condition include: ? Trouble urinating. ? Pain in the lower abdomen. How is this diagnosed? This condition is diagnosed based on a physical exam and your medical history. You may also have other tests, including: ? An ultrasound of the bladder or kidneys or both. ? Blood tests. ? A urine analysis. ? Additional tests may be needed, such as a CT scan, MRI, and kidney or bladder function tests. How is this treated? Treatment for this condition may include: ? Medicines. ? Placing a thin, sterile tube (catheter) into the bladder to drain urine out of the body. This is called an indwelling urinary catheter. After it is inserted, the catheter is held in place with a small balloon that is filled with sterile water. Urine drains from the catheter into a collection bag outside of the body. ? Behavioral therapy. ? Treatment for other conditions. If needed, you may be treated in the hospital for kidney function problems or to manage other complications. Follow these instructions at home: Medicines ? Take trii-qka-xbopxhg and prescription medicines only as told by your health care provider. Avoidcertain medicines, such as decongestants, antihistamines, and some prescription medicines. Do not take any medicine unless your health care provider approves. ? If you were prescribed an antibiotic medicine, take it as told by your health care provider. Do not stop using the antibiotic even if you start to feel better. General instructions ? Do not use any products that contain nicotine or tobacco. These products include cigarettes, chewing tobacco, and vaping devices, such as e-cigarettes. If you need help quitting, ask your health care provider. ? Drink enough fluid to keep your urine pale yellow. ? If you have an indwelling urinary catheter, follow the instructions from your health care provider. ? Monitor any changes in your symptoms. Tell your health care provider about any changes. ? If instructed, monitor your blood pressure at home. Report changes as told by your health care provider. ? Keep all follow-up visits. This is important. Contact a health care provider if: ? You have uncomfortable bladder contractions that you cannot control (spasms). ? You leak urine with the spasms. Get help right away if: ? You have chills or a fever. ? You have blood in your urine. ? You have a catheter and the following happens: ? Your catheter stops draining urine. ? Your catheter falls out. Summary ? Acute urinary retention is a condition in which a person is unable to pass urine or can only passa little urine. If left untreated, this can result in kidney damage or other serious complications. ? One cause of this condition may be obstruction or narrowing of the tube that drains the bladder (urethra). This may be caused by surgery, problems with nearby organs, or injury to the bladder or urethra. ? Treatment may include medicines and placement of an indwelling urinary catheter. ? Monitor any changes in your symptoms. Tell your health care provider about any changes. This information is not intended to replace advice given to you by your health care provider. Make sure you discuss any questions you have with your health care provider. Document Revised: 02/22/2021 Document Reviewed: 02/22/2021 [employer] Patient Education ? 2023 [email or web address] 02-24-2024 History of Present illness Narrative* Shadia Pradhna, PT - 02/24/2024 12:00 PM EDT Physical Therapy Evaluation Visit Patient Name: Shana Lugo Today's Date: 02/24/2024 Encounter Diagnoses Name Primary? Spinal stenosis, lumbar region with neurogenic claudication Yes Visit number: 1 Timed Code Treatment Minutes: 47 minutes Total Treatment Time: 47 minutes Time In: 1200 Time Out: 1247 History: Pt states she has been having pain down right LE for at least 2 years. Was getting to point where she could barely walk. Had surgery on 01/27/[address] to stabilize spine. Pt states she was in rehab for a few weeks. Was discharged home with home health. Still taking pain medication to help her sleep at night. Pt states she has been trying to walk each day. Surgery helped with pain in right leg but now pt having a hard time with back pain and numbness and tingling in leftLE. 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 Pt ambulated independently without use of device prior to surgery. Precautions: [place] Subjective: Pain in low back and left hip, left LE numbness and tingling Pain: 12/24 Objective: PT Evaluation (02/24/2024) LUMBAR SPINE Transfers: Pt is unable to perform sit to stands without UE assistance Gait: TUG with RW: 28.55 seconds. TUG without device: 37.33 seconds Strength: left hip 3+ to 4-/5, quad 4- to 4/5; right hip and quad grossly 4/5 Functional: Five Time Sit to Stand: 36.92 seconds with left armrest only Treatment: Education: HEP education with demonstration, Educated on Eval Findings and POC Manual Therapy: Passive ROM, Joint mobilization, Soft Tissue Mobilization, Myofascial Release, Muscle Energy Technique, Neural Mobilization, Myofascial Cupping, Dry Needling, IASTM, and Scar mobilization as needed. Therapeutic Exercise: (25 minutes) Strength, Endurance, Flexibility, ROM, HEP, Neural Mobilization,Power, and Core Stability as needed. Pt instructed in and performed HEP. Discussed proper form withex to avoid compensation; pt with good understanding. Pt to work on limiting UE support [facility]. Therapeutic Activity: Exercises to improve dynamic activities, functional tasks, functional mobility to return to prior activity level as needed. Neuromuscular re-education: Balance Training, Muscle Facilitation, Dynamic Stability, Core Stabilization, and Blood Flow Restriction Training (BFRT) as needed. Modalities: Heat, Ice, Electrical Stimulation as needed. Assessment: Pt is 69 y/o female with recent low back surgery. Pt with decrease strength bilateral LE's, left > right. Reliant on RW for ambulation. Pt will benefit from PT. Outcome Measure: Back Index: 32/50 Rehab Diagnosis: low back pain, bilateral LE weakness, difficulty walking Short Term Goal: To be met in 2 weeks Goal 1: Pt to be instructed in home exercise program. 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 Goal 2: Pt to report pain no greater than 4/10 with function tasks, ADL's, and work related activities. Goal 3: Pt to score no greater than 20 on Back Index indicating improved QOL. Goal 4: Pt to complete TUG without device in less than 18 seconds indicating improved gait and mobility. Goal 5: Pt to complete 5 sit to stands with left UE only in less than 20 seconds indicating improved functional strength of bilateral LE's. Goal 6: Pt to transfer sit to stand with hands on knees indicating improved strength. Pt will benefit from skilled PT for 2x/week from 02/24/2024 to 05/04/2024 to address the above impairments. I hereby deem this POC medically necessary. Please sign below. Date: [id number] Discharge instructions Patient Education 02/18/2024 14:46:26 Acute Urinary Retention, Female Acute Urinary Retention, Female Acute urinary retention is a condition in which a person is unable to pass urine or can only pass alittle urine. This condition can happen suddenly and last for a short time. If left untreated, it can become long-term (chronic) and result in kidney damage or other serious complications. What are the causes? This condition may be caused by: Obstruction or narrowing of the tube that drains the bladder (urethra). This may be caused by surgery, problems with nearby organs, or injury to the bladder or urethra. Problems with the nerves in the bladder. Pelvic organ prolapse. Tumors in the area of the pelvis, bladder, or urethra. Vaginal childbirth. Bladder or urinary tract infection. Constipation. Certain medicines. What increases the risk? This condition is more likely to develop in women over age 50. Other chronic health conditions can increase the risk of acute urinary retention. These include: Diseases such as multiple sclerosis. Spinal cord injuries. Diabetes. Degenerative cognitive conditions, such as delirium or dementia. Psychological conditions. A woman may hold her urine due to trauma or because she does not want to use the bathroom. History of preexisting urinary retention. History of prior pelvic surgery, incontinence surgery, or radical pelvic surgery. What are the signs or symptoms? Symptoms of this condition include: Trouble urinating. Pain in the lower abdomen. How is this diagnosed? This condition is diagnosed based on a physical exam and your medical history. You may also have other tests, including: An ultrasound of the bladder or kidneys or both. Blood tests. A urine analysis. Additional tests may be needed, such as a CT scan, MRI, and kidney or bladder function tests. How is this treated? Treatment for this condition may include: Medicines. Placing a thin, sterile tube (catheter) into the bladder to drain urine out of the body. This is called an indwelling urinary catheter. After it is inserted, the catheter is held in place with a small balloon that is filled with sterile water. Urine drains from the catheter into a collection bag outside of the body. Behavioral therapy. Treatment for other conditions. If needed, you may be treated in the hospital for kidney function problems or to manage other complications. Follow these instructions at home: Medicines Take etng-pri-nbimidq and prescription medicines only as told by your health care provider. Avoid certain medicines, such as decongestants, antihistamines, and some prescription medicines. Do not take any medicine unless your health care provider approves. If you were prescribed an antibiotic medicine, take it as told by your health care provider. Do notstop using the antibiotic even if you start to feel better. General instructions Do not use any products that contain nicotine or tobacco. These products include cigarettes, chewing tobacco, and vaping devices, such as e-cigarettes. If you need help quitting, ask your health careprovider. Drink enough fluid to keep your urine pale yellow. If you have an indwelling urinary catheter, follow the instructions from your health care provider. Monitor any changes in your symptoms. Tell your health care provider about any changes. If instructed, monitor your blood pressure at home. Report changes as told by your health care provider. Keep all follow-up visits. This is important. Contact a health care provider if: You have uncomfortable bladder contractions that you cannot control (spasms). You leak urine with the spasms. Get help right away if: You have chills or a fever. You have blood in your urine. You have a catheter and the following happens: ?Your catheter stops draining urine. ?Your catheter falls out. Summary Acute urinary retention is a condition in which a person is unable to pass urine or can only pass alittle urine. If left untreated, this can result in kidney damage or other serious complications. One cause of this condition may be obstruction or narrowing of the tube that drains the bladder (urethra). This may be caused by surgery, problems with nearby organs, or injury to the bladder or urethra. Treatment may include medicines and placement of an indwelling urinary catheter. Monitor any changes in your symptoms. Tell your health care provider about any changes. This information is not intended to replace advice given to you by your health care provider. Make sure you discuss any questions you have with your health care provider. Document Revised: 02/22/2021 Document Reviewed: 02/22/2021 [employer] Patient Education 2023 [employer]. Follow Up Care 02/05/2024 14:41:20 With:COREY RCOHA PA-C, URL Address: [facility][note 3] [address] [place] [address] When:Within 1 Week(s) [facility] 09-03-2024 NotePatient Education Obstetrics and Gynecology Acute Urinary Retention, Female Acute urinary retention is a condition in which a person is unable to pass urine or can only pass alittle urine. This condition can happen suddenly and last for a short time. If left untreated, it can become long-term (chronic) and result in kidney damage or other serious complications. What are the causes? This condition may be caused by: ? Obstruction or narrowing of the tube that drains the bladder (urethra). This may be caused by surgery, problems with nearby organs, or injury to the bladder or urethra. ? Problems with the nerves in the bladder. ? Pelvic organ prolapse. ? Tumors in the area of the pelvis, bladder, or urethra. ? Vaginal childbirth. ? Bladder or urinary tract infection. ? Constipation. ? Certain medicines. What increases the risk? This condition is more likely to develop in women over age 50. Other chronic health conditions can increase the risk of acute urinary retention. These include: ? Diseases such as multiple sclerosis. ? Spinal cord injuries. ? Diabetes. ? Degenerative cognitive conditions, such as delirium or dementia. ? Psychological conditions. A woman may hold her urine due to trauma or because she does not want to use the bathroom. ? History of preexisting urinary retention. ? History of prior pelvic surgery, incontinence surgery, or radical pelvic surgery. What are the signs or symptoms? Symptoms of this condition include: ? Trouble urinating. ? Pain in the lower abdomen. How is this diagnosed? This condition is diagnosed based on a physical exam and your medical history. You may also have other tests, including: ? An ultrasound of the bladder or kidneys or both. ? Blood tests. ? A urine analysis. ? Additional tests may be needed, such as a CT scan, MRI, and kidney or bladder function tests. How is this treated? Treatment for this condition may include: ? Medicines. ? Placing a thin, sterile tube (catheter) into the bladder to drain urine out of the body. This is called an indwelling urinary catheter. After it is inserted, the catheter is held in place with a small balloon that is filled with sterile water. Urine drains from the catheter into a collection bag outside of the body. ? Behavioral therapy. ? Treatment for other conditions. If needed, you may be treated in the hospital for kidney function problems or to manage other complications. Follow these instructions at home: Medicines ? Take mahv-pzg-ylovnrg and prescription medicines only as told by your health care provider. Avoidcertain medicines, such as decongestants, antihistamines, and some prescription medicines. Do not take any medicine unless your health care provider approves. ? If you were prescribed an antibiotic medicine, take it as told by your health care provider. Do not stop using the antibiotic even if you start to feel better. General instructions ? Do not use any products that contain nicotine or tobacco. These products include cigarettes, chewing tobacco, and vaping devices, such as e-cigarettes. If you need help quitting, ask your health care provider. ? Drink enough fluid to keep your urine pale yellow. ? If you have an indwelling urinary catheter, follow the instructions from your health care provider. ? Monitor any changes in your symptoms. Tell your health care provider about any changes. ? If instructed, monitor your blood pressure at home. Report changes as told by your health care provider. ? Keep all follow-up visits. This is important. Contact a health care provider if: ? You have uncomfortable bladder contractions that you cannot control (spasms). ? You leak urine with the spasms. Get help right away if: ? You have chills or a fever. ? You have blood in your urine. ? You have a catheter and the following happens: ? Your catheter stops draining urine. ? Your catheter falls out. Summary ? Acute urinary retention is a condition in which a person is unable to pass urine or can only passa little urine. If left untreated, this can result in kidney damage or other serious complications. ? One cause of this condition may be obstruction or narrowing of the tube that drains the bladder (urethra). This may be caused by surgery, problems with nearby organs, or injury to the bladder or urethra. ? Treatment may include medicines and placement of an indwelling urinary catheter. ? Monitor any changes in your symptoms. Tell your health care provider about any changes. This information is not intended to replace advice given to you by your health care provider. Make sure you discuss any questions you have with your health care provider. Document Revised: 02/22/2021 Document Reviewed: 02/22/2021 [employer] Patient Education ? 2023 [employer] 02-06-2024 Progress note Author Blake Morris [facility] February 06, 2024 1:12pmNote Date/TimeAugust 2023 1:12[place] [address] Physiatry(Rehab) Progress Note Signed Patient: Shana Lugo MR#: [id number] : 1955 Acct:[id number] Age/Sex: 68 / F Adm Date: 4 Loc: Room: 3V2141-3 Type: ADM IN Attending Dr: Blake Morris MD Copies to: ~ Date of Service: 02/06/2024 Subjective Subjective Narrative: Ms. Lugo is a 68 year old female with past medical history is notable gknjmv-fckwglr-mngjgzbqh DM type II hypertension, HLD, GERD, DVT, who presents to acute inpatient rehab with functional impairments s/p lumbar fusion surgery. Patient was following with neural surgery regarding lumbar stenosis. Had several surgical procedures on her lumbar spine previously. She has been havinglower back discomfort radiating into her buttock and her right leg with associated weakness. Patient did receive several injections by pain management which did not relieve her symptoms. Eventually she underwent an MRI of the lumbar spine which demonstrated severe neuroforaminal narrowing at multiple levels specifically L3-4 and L4-5. Neurosurgery recommended L2-S1 fusion with interbody cages. She presented to the hospital on 01/27/2024 for an elective procedure. This was performed by Dr. Foy and vascular surgery Dr. Akhtar to assist with retroperitoneal access via left lateral approach. No major complications postoperatively. She was evaluated by PT and OT servicesand recommended acute rehab. Interval history: Patient seen and evaluated at bedside. Sitting up in WC in no distress. She has no major concerns. She continues to improve. DC planned for tomorrow. Review of Systems Review of Systems All other systems reviewed & are negative unless noted below or in HPI Exam Physical Exam Vital Signs: Temp Pulse Resp BP Pulse Ox O2 Del Method 98.8 F 81 18 116/56 L 95 Room Air 02/06/24 07:30 02/06/24 06:16 02/06/24 07:30 02/06/24 07:30 02/06/24 06:16 02/06/24 10:00 Narrative: Gen: Awake, oriented, cooperative. HEENT: Atraumatic, PERRL, EOMI Resp: No respiratory distress Cardio: Extremities well perfused MSK: Moves all extremities spontaneously Neuro: CN grossly intact Skin: No swelling, erythema, ecchymosis appreciated Psych: Mood and affect normal Objective Labs 02/03/24 06:48 01/31/24 05:12 Labs: Laboratory Results - last 24 hr 02/05/24 02/06/24 02/06/24 20:36 06:32 12:02 POC Glucose 314 86 290 POC Glucose Comment Glu2: cleaned meter Medications and Allergies Allergies and Active Meds: Allergies No Known Allergies Allergy (Verified 01/27/24 05:58) Active Medications Generic Name Dose Route Start Last Admin Trade Name Freq PRN Reason Stop Dose Admin Acetaminophen 650 mg 01/30/24 13:36 02/04/24 21:05 Acetaminophen 325 Mg Tablet PO 01/29/25 13:35 650 mg Q4H PRN Administration pain 1-5 Acetaminophen 500 mg 01/30/24 13:37 Acetaminophen 500 Mg Tablet PO 01/29/25 13:36 Q4H PRN Pain Al Hydrox/Mg Hydrox/Simethicone 30 ml 01/30/24 13:37 Mag Hydrox/Al Hydrox/Simeth 30 Ml Udc PO 01/29/25 13:36 Q4H PRN Indigestion Aspirin 81 mg 01/31/24 09:00 02/06/24 07:59 Aspirin 81 Mg Tab.Chew PO 01/30/25 08:59 81 mg DAILY RADHA Administration Atorvastatin Calcium 20 mg 01/30/24 22:00 02/05/24 22:07 Atorvastatin 20 Mg Tablet PO 01/29/25 21:59 20 mg QHS RADHA Administration Bethanechol Chloride 20 mg 02/02/24 14:00 02/06/24 07:59 Bethanechol 10 Mg Tablet PO 02/01/25 13:59 20 mg TID RADHA Administration Bisacodyl 10 mg 01/30/24 13:37 Bisacodyl 10 Mg Supp.Rect LA 01/29/25 13:36 DAILY PRN Constipation Docusate Sodium 100 mg 01/30/24 13:37 Docusate 100 Mg Capsule PO 01/29/25 13:36 BID PRN Constipation Docusate Sodium 283 mg 01/30/24 13:37 Docusate Enema 283 Mg/5 Ml Enema LA 01/29/25 13:36 DAILY PRN Constipation Escitalopram Oxalate 20 mg 01/31/24 09:00 02/06/24 08:00 Escitalopram 20 Mg Tablet PO 01/30/25 08:59 20 mg DAILY RADHA Administration Famotidine 20 mg 01/30/24 21:00 02/06/24 08:00 Famotidine 20 Mg Tablet PO 01/29/25 20:59 20 mg BID RADHA Administration Gabapentin 300 mg 01/31/24 09:00 02/06/24 07:59 Gabapentin 300 Mg Capsule PO 01/30/25 08:59 300 mg DAILY RADHA Administration Gabapentin 600 mg 01/30/24 21:00 02/05/24 22:07 Gabapentin 300 Mg Capsule PO 01/29/25 20:59 600 mg QPM RADHA Administration Glyburide 5 mg 01/30/24 21:00 02/06/24 07:59 Glyburide 5 Mg Tablet PO 01/29/25 20:59 5 mg BID RADHA Administration Insulin Aspart 0 units 01/30/24 17:00 02/06/24 12:26 Insulin Aspart 300 Units/3 Ml Insuln.Pen SUBCUT 01/29/25 16:59 7 units TID.WM.HS RADHA Administration Protocol Ipratropium [place] 0.5 mg 01/31/24 09:00 02/06/24 09:43 Ipratropium [place] 0.5 Mg/2.5 Ml Vial.Neb INHALATION 01/30/25 08:59 Not Given QID RADHA Lactulose 30 gm 01/30/24 13:37 Lactulose 20 Gm/30 Ml Udc PO 01/29/25 13:36 DAILY PRN Constipation Lisinopril 10 mg 01/30/24 22:00 02/05/24 22:11 Lisinopril 10 Mg Tablet PO 01/29/25 21:59 10 mg QHS RADHA Administration Magnesium Hydroxide 30 ml 01/30/24 13:36 Magnesium Hydroxide Susp 30 Ml Udc PO 01/29/25 13:35 HS PRN Constipation Magnesium Oxide 400 mg 01/31/24 09:00 02/06/24 07:59 Magnesium Oxide 400 Mg Tablet PO 01/30/25 08:59 400 mg DAILY RADHA Administration Metformin HCl 1,000 mg 01/30/24 21:00 02/06/24 07:59 Metformin 500 Mg Tablet PO 01/29/25 20:59 1,000 mg BID RADHA Administration Methocarbamol 1,000 mg 02/05/24 14:02 02/05/24 22:07 Methocarbamol 500 Mg Tablet PO 02/04/25 14:01 1,000 mg Q6H PRN Administration Muscle Spasm Multivitamins 1 tab 01/31/24 09:00 02/06/24 07:59 Multivitamin 1 Tab Tablet PO 01/30/25 08:59 1 tab DAILY RADHA Administration Neomycin/Polymyxin/Bacitracin 1 applic 01/31/24 09:00 02/06/24 08:00 Neomycin/Bacit/Poly Oint 14 Gm Tube TOPICAL 01/30/25 08:59 1 applic DAILY RADHA Administration Dulaglutide [ 3 mg 02/02/24 09:00 02/02/24 08:48 Trulicity] 3 Mg/0.5 SUBCUT 02/01/25 08:59 3 mg Ml Pen Injector Coy@0900 RADHA Administration Nystatin 1 applic 01/31/24 21:00 02/06/24 08:00 Nystatin 100,000 Unit/Gram Powder 15 Gm Bottle TOPICAL 01/30/25 20:59 1 applic BID RADHA Administration Oxycodone HCl 5 mg 02/01/24 10:06 Oxycodone Ir 5 Mg Tablet PO Q4HR PRN Pain Scale 6-7 Oxycodone HCl 10 mg 02/01/24 10:06 02/06/24 10:53 Oxycodone Ir 5 Mg Tablet PO 10 mg Q4HR PRN Administration Pain Scale 8-10 Prednisone 30 mg 02/02/24 09:00 02/06/24 08:00 Prednisone 10 Mg Tablet PO 02/14/24 08:59 30 mg DAILY RADHA Administration Taper Ropinirole HCl 0.5 mg 01/30/24 21:00 02/05/24 22:08 Ropinirole 0.5 Mg Tablet PO 01/29/25 20:59 Not Given QPM RADHA Senna/Docusate Sodium 2 tab 01/30/24 21:00 02/06/24 07:59 Sennosides/Docusate 8.6-50mg 1 Tab Tablet PO 01/29/25 20:59 2 tab BID RADHA Administration Sennosides 2 tab 01/31/24 12:00 Sennosides 8.6 Mg Tablet PO 01/30/25 11:59 DAILY@12 PRN If no BM in 2 days Sodium Chloride 0 ml 01/30/24 13:37 02/01/24 17:35 Sodium Chloride 0.9 % 10 Ml Syringe IV-PUSH 01/29/25 13:36 10 ml PRN PRN Administration Flush Tamsulosin HCl 0.4 mg 01/31/24 22:00 02/05/24 22:07 Tamsulosin 0.4 Mg Cap.Er.24h PO 01/30/25 21:59 0.4 mg HS RDAHA Administration Trazodone HCl 200 mg 01/30/24 21:00 02/05/24 22:08 Trazodone 100 Mg Tablet PO 01/29/25 20:59 200 mg QPM RADHA Administration Vitamin D 50 mcg 01/31/24 09:00 02/06/24 08:00 Cholecalciferol 25 Mcg (1,000 Units) Tablet PO 01/30/25 08:59 50 mcg DAILY RADHA Administration Zinc Oxide 1 applic 01/31/24 16:21 02/01/24 17:37 Zinc Oxide 20% Ointment 56 Gm Tube TOPICAL 01/30/25 16:20 1 applic TID PRN Administration excoriation Assessment/Plan Assessment/Plan (1) Lumbar stenosis with neurogenic claudication: (2) Lumbar foraminal stenosis: (3) Postoperative anemia: (4) Urinary retention: (5) Impaired mobility and activities of daily living: (6) Diabetes mellitus: Plan Patient is a 68-year-old female admitted to acute inpatient rehabilitation unit s/p extensive lumbar fusion surgery. Overall, she is doing reasonably well postoperatively. Not much pain. Does complain of some weakness in the left lower extremity, especially hamstring. She does have a mild left footdrop. Previously affected right lower extremity is better, no reports of pain, numbness or tinglingin it. * Lower extremity pain/numbness and tingling continues to resolve. * She is doing very well in therapy. Scheduled to be discharged home on Saturday Patient education Pressure ulcer prophylaxis; encourage mobilization, frequent postural changes, pressure-relief techniques DVT prophylaxis Encourage deep breathing exercise incentive spirometry. Monitor bladder. Toileting schedule. Continue current bladder management, with scans as needed and CIC if needed. Start bowel care program every day to obtain continence, prevent ileus. Maintain fall precautions Gait and balance retraining Functional training and self-care and home management, including activities of daily living and instrumental activities of daily living Provision of the necessary gait aids and functional adaptive equipment to enhance the patient's a functional gnosticist Ensure adequate nutrition and hydration Sleep Discharge planning. Patient was personally seen by me, Dr. Morris, on the day of encounter, reviewed the history and the relevant portions of the chart, including current orders, allied health and in home sales consultant notes, labs/imaging and performed [place] elements of exam and I formulated the plan of care and facilitated the medical decision making. I completed a substantive portion of this encounter, the medical decision makingportion of this note in its entirety, including Allied health note review, nursing note review, in home sales consultant note review,discussion with nursing and case management, and more than 50% of my time was spent on counseling and coordination of care, time spent 25 minutes Documented By: Blake Morris MD [id number] Signed By: <Electronically signed by Blake Morris MD> 02/06/24 1312 [facility] Work Phone: 1(494) 523-471508-21-2024 Progress note Author Blake Morris [facility] February 05, 2024 4:26pmNote Date/TimeAugust 2023 1:59[place] [address] Physiatry(Rehab) Progress Note Signed Patient: Shana Lugo MR#: [id number] : 1955 Acct:[id number] Age/Sex: 68 / F Adm Date: 4 Loc: Room: 2U2984-8 Type: ADM IN Attending Dr: Blake Morris MD Copies to: ~ <Vianney Pringle APRN - Last Filed: 02/05/24 14:05> Date of Service: 02/05/2024 Subjective <Vianney Pringle APRN - Last Filed: 02/05/24 14:05> Subjective Narrative: Ms. Lugo is a 68 year old female with past medical history is notable [id number] DM type II hypertension, HLD, GERD, DVT, who presents to acute inpatient rehab with functional impairments s/p lumbar fusion surgery. Patient was following with neural surgery regarding lumbar stenosis. Had several surgical procedures on her lumbar spine previously. She has been havinglower back discomfort radiating into her buttock and her right leg with associated weakness. Patient did receive several injections by pain management which did not relieve her symptoms. Eventually she underwent an MRI of the lumbar spine which demonstrated severe neuroforaminal narrowing at multiple levels specifically L3-4 and L4-5. Neurosurgery recommended L2-S1 fusion with interbody cages. She presented to the hospital on 01/27/2024 for an elective procedure. This was performed by Dr. Foy and vascular surgery Dr. Akhtar to assist with retroperitoneal access via left lateral approach. No major complications postoperatively. She was evaluated by PT and OT servicesand recommended acute rehab. Interval history: Is up in the wheelchair eating lunch on assessment today. is at the bedside. Patient reports no acute concerns or complaints. Her pain is getting better each day. The numbness in the left lower extremity is also improving. She is able to do more in therapy. Continues to refuse bladder scans although was able to urinate numerous times today. She has been asking to go to the bathroom about every 2 hours and was able to void each time. I will provide the patient with a referral to urology in outpatient settings to address the urinary retention. Otherwise, she is doing great. Continues to tolerate therapy to her functional baseline. [id number] feet x 2 with a walker and standby assistance. Requires SBA with transfers. Will plan to discharge home on 02/06. Review of Systems <Vianney Pringle APRN - Last Filed: 02/05/24 14:05> Review of Systems All other systems reviewed & are negative unless noted below or in HPI Exam <Vianney Pringle APRN - Last Filed: 02/05/24 14:05> Physical Exam Vital Signs: Temp Pulse Resp BP Pulse Ox O2 Del Method 98.1 F 79 18 133/54 L 96 Room Air 02/05/24 05:00 02/05/24 05:00 02/05/24 05:00 02/05/24 05:00 02/05/24 05:00 02/05/24 07:30 Narrative: General: Awake, alert, oriented x3 HENT: Normal to inspection, normocephalic, atraumatic Eyes: PERRL, normal conjunctiva and sclera Neck: Normal ROM, normal visual inspection. Trachea midline. Cardio: Regular heart rate and rhythm Respiratory: Clear to auscultation bilaterally. Normal respiratory effort. No respiratory distress. GI: Abdomen soft, nontender, nondistended, active bowel sounds x4 quadrants : Urinary retention. Neuro: CN II-XII intact. Right lower extremity strength 5/5. Left hamstring 3+/5, left foot drop. Extremities: No edema, erythema, cyanosis Psych: Mood and affect appropriate. Normal speech. Objective <Vianney Pringle APRN - Last Filed: 02/05/24 14:05> Labs 02/03/24 06:48 01/31/24 05:12 Labs: Laboratory Results - last 24 hr 02/04/24 02/04/24 02/05/24 16:42 20:06 05:58 POC Glucose 386 383 97 POC Glucose Comment Glu2: cleaned meter 02/05/24 11:25 POC Glucose 255 POC Glucose Comment Medications and Allergies Allergies and Active Meds: Allergies No Known Allergies Allergy (Verified 01/27/24 05:58) Active Medications Generic Name Dose Route Start Last Admin Trade Name Alicia PRN Reason Stop Dose Admin Acetaminophen 650 mg 01/30/24 13:36 02/04/24 21:05 Acetaminophen 325 Mg Tablet PO 01/29/25 13:35 650 mg Q4H PRN Administration pain 1-5 Acetaminophen 500 mg 01/30/24 13:37 Acetaminophen 500 Mg Tablet PO 01/29/25 13:36 Q4H PRN Pain Al Hydrox/Mg Hydrox/Simethicone 30 ml 01/30/24 13:37 Mag Hydrox/Al Hydrox/Simeth 30 Ml Udc PO 01/29/25 13:36 Q4H PRN Indigestion Aspirin 81 mg 01/31/24 09:00 02/05/24 07:58 Aspirin 81 Mg Tab.Chew PO 01/30/25 08:59 81 mg DAILY RADHA Administration Atorvastatin Calcium 20 mg 01/30/24 22:00 02/04/24 21:05 Atorvastatin 20 Mg Tablet PO 01/29/25 21:59 20 mg QHS RADHA Administration Bethanechol Chloride 20 mg 02/02/24 14:00 02/05/24 13:31 Bethanechol 10 Mg Tablet PO 02/01/25 13:59 20 mg TID RADHA Administration Bisacodyl 10 mg 01/30/24 13:37 Bisacodyl 10 Mg Supp.Rect LA 01/29/25 13:36 DAILY PRN Constipation Docusate Sodium 100 mg 01/30/24 13:37 Docusate 100 Mg Capsule PO 01/29/25 13:36 BID PRN Constipation Docusate Sodium 283 mg 01/30/24 13:37 Docusate Enema 283 Mg/5 Ml Enema LA 01/29/25 13:36 DAILY PRN Constipation Escitalopram Oxalate 20 mg 01/31/24 09:00 02/05/24 07:58 Escitalopram 20 Mg Tablet PO 01/30/25 08:59 20 mg DAILY RADHA Administration Famotidine 20 mg 01/30/24 21:00 02/05/24 07:58 Famotidine 20 Mg Tablet PO 01/29/25 20:59 20 mg BID RADHA Administration Gabapentin 300 mg 01/31/24 09:00 02/05/24 07:58 Gabapentin 300 Mg Capsule PO 01/30/25 08:59 300 mg DAILY RADHA Administration Gabapentin 600 mg 01/30/24 21:00 02/04/24 21:06 Gabapentin 300 Mg Capsule PO 01/29/25 20:59 600 mg QPM RADHA Administration Glyburide 5 mg 01/30/24 21:00 02/05/24 07:58 Glyburide 5 Mg Tablet PO 01/29/25 20:59 5 mg BID RADHA Administration Insulin Aspart 0 units 01/30/24 17:00 02/05/24 12:37 Insulin Aspart 300 Units/3 Ml Insuln.Pen SUBCUT 01/29/25 16:59 7 units TID.WM.HS RADHA Administration Protocol Ipratropium [place] 0.5 mg 01/31/24 09:00 02/05/24 12:15 Ipratropium [place] 0.5 Mg/2.5 Ml Vial.Neb INHALATION 01/30/25 08:59 Not Given QID RADHA Lactulose 30 gm 01/30/24 13:37 Lactulose 20 Gm/30 Ml Udc PO 01/29/25 13:36 DAILY PRN Constipation Lisinopril 10 mg 01/30/24 22:00 02/04/24 21:04 Lisinopril 10 Mg Tablet PO 01/29/25 21:59 10 mg QHS RADHA Administration Magnesium Hydroxide 30 ml 01/30/24 13:36 Magnesium Hydroxide Susp 30 Ml Udc PO 01/29/25 13:35 HS PRN Constipation Magnesium Oxide 400 mg 01/31/24 09:00 02/05/24 07:58 Magnesium Oxide 400 Mg Tablet PO 01/30/25 08:59 400 mg DAILY RADHA Administration Metformin HCl 1,000 mg 01/30/24 21:00 02/05/24 07:58 Metformin 500 Mg Tablet PO 01/29/25 20:59 1,000 mg BID RADHA Administration Multivitamins 1 tab 01/31/24 09:00 02/05/24 07:58 Multivitamin 1 Tab Tablet PO 01/30/25 08:59 1 tab DAILY RADHA Administration Neomycin/Polymyxin/Bacitracin 1 applic 01/31/24 09:00 02/05/24 07:59 Neomycin/Bacit/Poly Oint 14 Gm Tube TOPICAL 01/30/25 08:59 1 applic DAILY RADHA Administration Dulaglutide [ 3 mg 02/02/24 09:00 02/02/24 08:48 Trulicity] 3 Mg/0.5 SUBCUT 02/01/25 08:59 3 mg Ml Pen Injector Coy@0900 RADHA Administration Nystatin 1 applic 01/31/24 21:00 02/05/24 07:59 Nystatin 100,000 Unit/Gram Powder 15 Gm Bottle TOPICAL 01/30/25 20:59 1 applic BID RADHA Administration Oxycodone HCl 5 mg 02/01/24 10:06 Oxycodone Ir 5 Mg Tablet PO Q4HR PRN Pain Scale 6-7 Oxycodone HCl 10 mg 02/01/24 10:06 02/05/24 13:31 Oxycodone Ir 5 Mg Tablet PO 10 mg Q4HR PRN Administration Pain Scale 8-10 Prednisone 30 mg 02/02/24 09:00 02/05/24 07:58 Prednisone 10 Mg Tablet PO 02/14/24 08:59 40 mg DAILY RADHA Administration Taper Ropinirole HCl 0.5 mg 01/30/24 21:00 02/04/24 21:07 Ropinirole 0.5 Mg Tablet PO 01/29/25 20:59 Not Given QPM RADHA Senna/Docusate Sodium 2 tab 01/30/24 21:00 02/05/24 07:58 Sennosides/Docusate 8.6-50mg 1 Tab Tablet PO 01/29/25 20:59 2 tab BID RADHA Administration Sennosides 2 tab 01/31/24 12:00 Sennosides 8.6 Mg Tablet PO 01/30/25 11:59 DAILY@12 PRN If no BM in 2 days Sodium Chloride 0 ml 01/30/24 13:37 02/01/24 17:35 Sodium Chloride 0.9 % 10 Ml Syringe IV-PUSH 01/29/25 13:36 10 ml PRN PRN Administration Flush Tamsulosin HCl 0.4 mg 01/31/24 22:00 02/04/24 21:05 Tamsulosin 0.4 Mg Cap.Er.24h PO 01/30/25 21:59 0.4 mg HS RADHA Administration Trazodone HCl 200 mg 01/30/24 21:00 02/04/24 21:05 Trazodone 100 Mg Tablet PO 01/29/25 20:59 200 mg QPM RADHA Administration Vitamin D 50 mcg 01/31/24 09:00 02/05/24 07:57 Cholecalciferol 25 Mcg (1,000 Units) Tablet PO 01/30/25 08:59 50 mcg DAILY RADHA Administration Zinc Oxide 1 applic 01/31/24 16:21 02/01/24 17:37 Zinc Oxide 20% Ointment 56 Gm Tube TOPICAL 01/30/25 16:20 1 applic TID PRN Administration excoriation Assessment/Plan <Vianney Pringle, ROLL SLICING MACHINE TENDER - Last Filed: 02/05/24 14:05> Assessment/Plan (1) Lumbar stenosis with neurogenic claudication: (2) Lumbar foraminal stenosis: (3) Postoperative anemia: (4) Urinary retention: (5) Impaired mobility and activities of daily living: (6) Diabetes mellitus: Plan Patient is a 68-year-old female admitted to acute inpatient rehabilitation unit s/p extensive lumbar fusion surgery. Overall, she is doing reasonably well postoperatively. Not much pain. Does complain of some weakness in the left lower extremity, especially hamstring. She does have a mild left footdrop. Previously affected right lower extremity is better, no reports of pain, numbness or tinglingin it. * Ashton catheter was removed a few days ago. She is taking self to the bathroom every 2 hours and voids every time. Has no sensation of bladder discomfort, no overflow incontinence. She is refusing any more straight catheterizations/bladder scans. I will provide the patient with a referral to see the urologist soon after discharge. * Lower extremity pain/numbness and tingling continues to resolve. * She is doing very well in therapy. Scheduled to be discharged home on Saturday, FI with spouse tomorrow afternoon. Patient education Pressure ulcer prophylaxis; encourage mobilization, frequent postural changes, pressure-relief techniques DVT prophylaxis Encourage deep breathing exercise incentive spirometry. Monitor bladder. Toileting schedule. Continue current bladder management, with scans as needed and CIC if needed. Start bowel care program every day to obtain continence, prevent ileus. Maintain fall precautions Gait and balance retraining Functional training and self-care and home management, including activities of daily living and instrumental activities of daily living Provision of the necessary gait aids and functional adaptive equipment to enhance the patient's a functional gnosticist Ensure adequate nutrition and hydration Sleep Discharge planning. I spent to 26 minutes for services, including [id number] encounter with the patient, discussion of the case, plan of care, and exam; and [id number] activities, such as reviewing pertinent in home sales consultant documentation, recent therapynotes, laboratory and radiology studies, and discussion of case with care team including physician, nursing, top case assembler, and therapists. More than 50 % of time was spent on patient/family counseling or coordination ofcare. <Blake Morris MD - Last Filed: 02/05/24 16:26> Assessment/Plan (1) Lumbar stenosis with neurogenic claudication: (2) Lumbar foraminal stenosis: (3) Postoperative anemia: (4) Urinary retention: (5) Impaired mobility and activities of daily living: (6) Diabetes mellitus: Plan Patient is a 68-year-old female admitted to acute inpatient rehabilitation unit s/p extensive lumbar fusion surgery. Overall, she is doing reasonably well postoperatively. Not much pain. Does complain of some weakness in the left lower extremity, especially hamstring. She does have a mild left footdrop. Previously affected right lower extremity is better, no reports of pain, numbness or tinglingin it. * Ashton catheter was removed a few days ago. She is taking self to the bathroom every 2 hours and voids every time. Has no sensation of bladder discomfort, no overflow incontinence. She is refusing any more straight catheterizations/bladder scans. I will provide the patient with a referral to see the urologist soon after discharge. * Lower extremity pain/numbness and tingling continues to resolve. * She is doing very well in therapy. Scheduled to be discharged home on Saturday, FI with spouse tomorrow afternoon. Patient education Pressure ulcer prophylaxis; encourage mobilization, frequent postural changes, pressure-relief techniques DVT prophylaxis Encourage deep breathing exercise incentive spirometry. Monitor bladder. Toileting schedule. Continue current bladder management, with scans as needed and CIC if needed. Start bowel care program every day to obtain continence, prevent ileus. Maintain fall precautions Gait and balance retraining Functional training and self-care and home management, including activities of daily living and instrumental activities of daily living Provision of the necessary gait aids and functional adaptive equipment to enhance the patient's a functional gnosticist Ensure adequate nutrition and hydration Sleep Discharge planning. I spent to 26 minutes for services, including [id number] encounter with the patient, discussion of the case, plan of care, and exam; and [id number]-[id number] activities, such as reviewing pertinent in home sales consultant documentation, recent therapynotes, laboratory and radiology studies, and discussion of case with care team including physician, nursing, top case assembler, and therapists. More than 50 % of time was spent on patient/family counseling or coordination ofcare. Patient was personally seen by me, Dr. Morris, on the day of encounter, reviewed the history and the relevant portions of the chart, including current orders, allied health and in home sales consultant notes, labs/imaging and performed [place] elements of exam and I formulated the plan of care and facilitated the medical decision making. I completed a substantive portion of this encounter, the medical decision makingportion of this note in its entirety, including Allied health note review, nursing note review, in home sales consultant note review,discussion with nursing and case management, and more than 50% of my time was spent on counseling and coordination of care, time spent 25 minutes Documented By: Vianney Pringle APRN 02/05/24 1 359 Signed By: <Electronically signed by REILLY Pringle> 02/05/24 1405 <Electronically signed by Blake Morris MD> 02/05/24 1626 [facility] Work Phone: 1(859) 579-856008-20-2024 Progress note Author Blake Morris [facility] February 04, 2024 12:41pmNote Date/TimeAugust 2023 10:00[place] [address] Physiatry(Rehab) Progress Note Signed Patient: Shana Lugo MR#: [id number] : 1955 Acct:[id number] Age/Sex: 68 / F Adm Date: 4 Loc: Room: 2Y9949-8 Type: ADM IN Attending Dr: Blake Morris MD Copies to: ~ Date of Service: 02/04/2024 Subjective Subjective Narrative: Ms. Lugo is a 68 year old female with past medical history is notable ppczvr-[id number] DM type II hypertension, HLD, GERD, DVT, who presents to acute inpatient rehab with functional impairments s/p lumbar fusion surgery. Patient was following with neural surgery regarding lumbar stenosis. Had several surgical procedures on her lumbar spine previously. She has been havinglower back discomfort radiating into her buttock and her right leg with associated weakness. Patient did receive several injections by pain management which did not relieve her symptoms. Eventually she underwent an MRI of the lumbar spine which demonstrated severe neuroforaminal narrowing at multiple levels specifically L3-4 and L4-5. Neurosurgery recommended L2-S1 fusion with interbody cages. She presented to the hospital on 01/27/2024 for an elective procedure. This was performed by Dr. Foy and vascular surgery Dr. Akhtar to assist with retroperitoneal access via left lateral approach. No major complications postoperatively. She was evaluated by PT and OT servicesand recommended acute rehab. Interval history: Patient seen today. Sitting up in bed. Having some urinary retention after foleyremoval. Did have over 500 ml on bladder scan although refused straight cath. I discussed the risks of urinary retention with the patient including hydronephrosis. The patient endorsed understanding but would like to continue trying to urinate on her own. From a functional standpoint, the patient is doing very well. Mostly SBA and ambulating 150'. Discussed during team meeting with plan for DC this Saturday. Patient agreeable. Review of Systems Review of Systems All other systems reviewed & are negative unless noted below or in HPI Exam Physical Exam Vital Signs: Temp Pulse Resp BP Pulse Ox O2 Del Method 97.8 F 78 18 157/69 H 96 Room Air 02/04/24 03:49 02/04/24 03:49 02/04/24 03:49 02/04/24 03:49 02/04/24 03:49 02/04/24 07:30 Narrative: Gen: Awake, oriented, cooperative. HEENT: Atraumatic, PERRL, EOMI Resp: No respiratory distress Cardio: Extremities well perfused MSK: Moves all extremities spontaneously Neuro: CN grossly intact Skin: No swelling, erythema, ecchymosis appreciated Psych: Mood and affect normal Objective Labs 02/03/24 06:48 01/31/24 05:12 Labs: Laboratory Results - last 24 hr 02/03/24 02/03/24 02/03/24 11:55 16:02 20:34 POC Glucose 246 371 347 POC Glucose Comment Glu2: cleaned meter 02/04/24 06:27 POC Glucose 99 POC Glucose Comment Glu2: cleaned meter Medications and Allergies Allergies and Active Meds: Allergies No Known Allergies Allergy (Verified 01/27/24 05:58) Active Medications Generic Name Dose Route Start Last Admin Trade Name Alicia PRN Reason Stop Dose Admin Acetaminophen 650 mg 01/30/24 13:36 02/03/24 20:48 Acetaminophen 325 Mg Tablet PO 01/29/25 13:35 650 mg Q4H PRN Administration pain 1-5 Acetaminophen 500 mg 01/30/24 13:37 Acetaminophen 500 Mg Tablet PO 01/29/25 13:36 Q4H PRN Pain Al Hydrox/Mg Hydrox/Simethicone 30 ml 01/30/24 13:37 Mag Hydrox/Al Hydrox/Simeth 30 Ml Udc PO 01/29/25 13:36 Q4H PRN Indigestion Aspirin 81 mg 01/31/24 09:00 02/04/24 08:14 Aspirin 81 Mg Tab.Chew PO 01/30/25 08:59 81 mg DAILY RADHA Administration Atorvastatin Calcium 20 mg 01/30/24 22:00 02/03/24 20:47 Atorvastatin 20 Mg Tablet PO 01/29/25 21:59 20 mg QHS RADHA Administration Bethanechol Chloride 20 mg 02/02/24 14:00 02/04/24 08:15 Bethanechol 10 Mg Tablet PO 02/01/25 13:59 20 mg TID RADHA Administration Bisacodyl 10 mg 01/30/24 13:37 Bisacodyl 10 Mg Supp.Rect LA 01/29/25 13:36 DAILY PRN Constipation Docusate Sodium 100 mg 01/30/24 13:37 Docusate 100 Mg Capsule PO 01/29/25 13:36 BID PRN Constipation Docusate Sodium 283 mg 01/30/24 13:37 Docusate Enema 283 Mg/5 Ml Enema LA 01/29/25 13:36 DAILY PRN Constipation Escitalopram Oxalate 20 mg 01/31/24 09:00 02/04/24 08:14 Escitalopram 20 Mg Tablet PO 01/30/25 08:59 20 mg DAILY RADHA Administration Famotidine 20 mg 01/30/24 21:00 02/04/24 08:15 Famotidine 20 Mg Tablet PO 01/29/25 20:59 20 mg BID RADHA Administration Gabapentin 300 mg 01/31/24 09:00 02/04/24 08:15 Gabapentin 300 Mg Capsule PO 01/30/25 08:59 300 mg DAILY RADHA Administration Gabapentin 600 mg 01/30/24 21:00 02/03/24 20:47 Gabapentin 300 Mg Capsule PO 01/29/25 20:59 600 mg QPM RADHA Administration Glyburide 5 mg 01/30/24 21:00 02/04/24 08:15 Glyburide 5 Mg Tablet PO 01/29/25 20:59 5 mg BID RADHA Administration Insulin Aspart 0 units 01/30/24 17:00 02/04/24 08:15 Insulin Aspart 300 Units/3 Ml Insuln.Pen SUBCUT 01/29/25 16:59 Not Given TID.WM.HS RADHA Protocol Ipratropium [place] 0.5 mg 01/31/24 09:00 02/04/24 09:58 Ipratropium [place] 0.5 Mg/2.5 Ml Vial.Neb INHALATION 01/30/25 08:59 Not Given QID RADHA Lactulose 30 gm 01/30/24 13:37 Lactulose 20 Gm/30 Ml Udc PO 01/29/25 13:36 DAILY PRN Constipation Lisinopril 10 mg 01/30/24 22:00 02/03/24 20:47 Lisinopril 10 Mg Tablet PO 01/29/25 21:59 10 mg QHS RADHA Administration Magnesium Hydroxide 30 ml 01/30/24 13:36 Magnesium Hydroxide Susp 30 Ml Udc PO 01/29/25 13:35 HS PRN Constipation Magnesium Oxide 400 mg 01/31/24 09:00 02/04/24 08:14 Magnesium Oxide 400 Mg Tablet PO 01/30/25 08:59 400 mg DAILY RADHA Administration Metformin HCl 1,000 mg 01/30/24 21:00 02/04/24 08:15 Metformin 500 Mg Tablet PO 01/29/25 20:59 1,000 mg BID RADHA Administration Multivitamins 1 tab 01/31/24 09:00 02/04/24 08:15 Multivitamin 1 Tab Tablet PO 01/30/25 08:59 1 tab DAILY RADHA Administration Neomycin/Polymyxin/Bacitracin 1 applic 01/31/24 09:00 02/04/24 08:16 Neomycin/Bacit/Poly Oint 14 Gm Tube TOPICAL 01/30/25 08:59 1 applic DAILY RADHA Administration Dulaglutide [ 3 mg 02/02/24 09:00 02/02/24 08:48 Trulicity] 3 Mg/0.5 SUBCUT 02/01/25 08:59 3 mg Ml Pen Injector Coy@0900 RADHA Administration Nystatin 1 applic 01/31/24 21:00 02/04/24 08:16 Nystatin 100,000 Unit/Gram Powder 15 Gm Bottle TOPICAL 01/30/25 20:59 1 applic BID RADHA Administration Oxycodone HCl 5 mg 02/01/24 10:06 Oxycodone Ir 5 Mg Tablet PO Q4HR PRN Pain Scale 6-7 Oxycodone HCl 10 mg 02/01/24 10:06 02/04/24 08:14 Oxycodone Ir 5 Mg Tablet PO 10 mg Q4HR PRN Administration Pain Scale 8-10 Prednisone 40 mg 02/02/24 09:00 02/04/24 08:14 Prednisone 10 Mg Tablet PO 02/14/24 08:59 40 mg DAILY RADHA Administration Taper Ropinirole HCl 0.5 mg 01/30/24 21:00 02/03/24 20:46 Ropinirole 0.5 Mg Tablet PO 01/29/25 20:59 Not Given QPM RADHA Senna/Docusate Sodium 2 tab 01/30/24 21:00 02/04/24 08:14 Sennosides/Docusate 8.6-50mg 1 Tab Tablet PO 01/29/25 20:59 2 tab BID RADHA Administration Sennosides 2 tab 01/31/24 12:00 Sennosides 8.6 Mg Tablet PO 01/30/25 11:59 DAILY@12 PRN If no BM in 2 days Sodium Chloride 0 ml 01/30/24 13:37 02/01/24 17:35 Sodium Chloride 0.9 % 10 Ml Syringe IV-PUSH 01/29/25 13:36 10 ml PRN PRN Administration Flush Tamsulosin HCl 0.4 mg 01/31/24 22:00 02/03/24 20:47 Tamsulosin 0.4 Mg Cap.Er.24h PO 01/30/25 21:59 0.4 mg HS RADHA Administration Trazodone HCl 200 mg 01/30/24 21:00 02/03/24 20:48 Trazodone 100 Mg Tablet PO 01/29/25 20:59 200 mg QPM RADHA Administration Vitamin D 50 mcg 01/31/24 09:00 02/04/24 08:15 Cholecalciferol 25 Mcg (1,000 Units) Tablet PO 01/30/25 08:59 50 mcg DAILY RADHA Administration Zinc Oxide 1 applic 01/31/24 16:21 02/01/24 17:37 Zinc Oxide 20% Ointment 56 Gm Tube TOPICAL 01/30/25 16:20 1 applic TID PRN Administration excoriation Assessment/Plan Assessment/Plan (1) Lumbar stenosis with neurogenic claudication: (2) Lumbar foraminal stenosis: (3) Postoperative anemia: (4) Urinary retention: (5) Impaired mobility and activities of daily living: (6) Diabetes mellitus: Plan Patient is a 68-year-old female admitted to acute inpatient rehabilitation unit s/p extensive lumbar fusion surgery. Overall, she is doing reasonably well postoperatively. Not much pain. Does complain of some weakness in the left lower extremity, especially hamstring. She does have a mild left footdrop. Previously affected right lower extremity is better, no reports of pain, numbness or tinglingin it. * S/p ashton removal, patient continuing to have urinary retention. Refusing straight cath at this point. Will continue void trial and recommend patient get up to the restroom every few hours. May need to discuss straight cath training vs ashton insertion prior to DC if patient continues to have difficulty voiding. * Tolerating therapy well. DC planned for this Saturday * Glucose has been elevated. Patient is on a Prednisone taper and Insulin sliding scale. Continue Sliding scale. Patient education Pressure ulcer prophylaxis; encourage mobilization, frequent postural changes, pressure-relief techniques DVT prophylaxis Encourage deep breathing exercise incentive spirometry. Monitor bladder. Toileting schedule. Continue current bladder management, with scans as needed and CIC if needed. Start bowel care program every day to obtain continence, prevent ileus. Maintain fall precautions Gait and balance retraining Functional training and self-care and home management, including activities of daily living and instrumental activities of daily living Provision of the necessary gait aids and functional adaptive equipment to enhance the patient's a functional gnosticist Ensure adequate nutrition and hydration Sleep Discharge planning. Patient was personally seen by me, Dr. Morris, on the day of encounter, reviewed the history and the relevant portions of the chart, including current orders, allied health and in home sales consultant notes, labs/imaging and performed madison elements of exam and I formulated the plan of care and facilitated the medical decision making. I completed a substantive portion of this encounter, the medical decision makingportion of this note in its entirety, including Allied health note review, nursing note review, in home sales consultant note review,discussion with nursing and case management, and more than 50% of my time was spent on counseling and coordination of care, time spent 30 minutes Case reviewed at weekly team conference, discussed progress and goals of care, barriers/problems todate and discharge planning. Documented By: Blake Morris MD [id number] Signed By: <Electronically signed by Blake Morris MD> 02/04/24 1241 [facility] Work Phone: [phone]) 568-631108-19-2024 Progress note Author Blake Morris [facility] February 03, 2024 1:37pmNote Date/TimeAugust 2023 9:56[place] [address] Physiatry(Rehab) Progress Note Signed Patient: Shana Lugo MR#: [id number] : 1955 Acct:[id number] Age/Sex: 68 / F Adm Date: 4 Loc: Room: [address] [place] [address] Type: ADM IN Attending Dr: Blake Morris MD Copies to: ~ <Ramirez Bergman DO, RES - Last Filed: 02/03/24 12:29> Date of Service: 02/03/2024 Subjective <Ramirez Bergman DO, RES - Last Filed: 02/03/24 12:29> Subjective Narrative: Ms. Lugo is a 68 year old female with past medical history is notable dayqjg-jxuxcjh-qfcwebuyf DM type II hypertension, HLD, GERD, DVT, who presents to acute inpatient rehab with functional impairments s/p lumbar fusion surgery. Patient was following with neural surgery regarding lumbar stenosis. Had several surgical procedures on her lumbar spine previously. She has been havinglower back discomfort radiating into her buttock and her right leg with associated weakness. Patient did receive several injections by pain management which did not relieve her symptoms. Eventually she underwent an MRI of the lumbar spine which demonstrated severe neuroforaminal narrowing at multiple levels specifically L3-4 and L4-5. Neurosurgery recommended L2-S1 fusion with interbody cages. She presented to the hospital on 01/27/2024 for an elective procedure. This was performed by Dr. Foy and vascular surgery Dr. Akhtar to assist with retroperitoneal access via left lateral approach. No major complications postoperatively. She was evaluated by PT and OT servicesand recommended acute rehab. Interval history: On evaluation patient is alert, pleasant, cooperative. She is not in any distress. States pain in the back is very mild. She has some numbness and tingling in the left lower extremity which she noteshas improved since startingthe steroids. Previously affected right lower extremity is actually feeling better postoperatively. She denies any pain, numbness, tingling or weakness in it. Overall, postoperative pain is well-controlled on current regimen. The patient did remark her pain medication is occasionally not given to her right away an Urinary retention - The patient was started on Flomax. Patient did report some urinary retention. States, ever since she has had a hysterectomy she has been having difficulty with retention, however after the surgery she does not have any sensation of her bladder being full. She had to be straight catheterized several times last night. I will initiate the patient on some Flomax. If she continues to retain throughout the day, will replace Ashton catheter for now. Patient was seen and examined in collaboration with Dr. Foy neurosurgery. Sheis doing well. Patient was placed on a long prednisone taper for increased lower extremity pain. She is doing much better today. Was able to tolerate therapy and walked with a walker. Still complains of some numbness in the left thigh area. Otherwise no major issues. Her Ashton catheter was replaced yesterday due to continued retention. She was started on Flomax andis already taking bethanechol. I will increase bethanechol to 20 mg 3 times daily. We can attempt another voiding trial in a day or 2. Monitor patient's blood pressure while on the medication. <Blake Morris MD - Last Filed: 02/03/24 13:37> Subjective Narrative: Ms. Lugo is a 68 year old female with past medical history is notable hunkqq-[id number]-[id number] DM type II hypertension, HLD, GERD, DVT, who presents to acute inpatient rehab with functional impairments s/p lumbar fusion surgery. Patient was following with neural surgery regarding lumbar stenosis. Had several surgical procedures on her lumbar spine previously. She has been havinglower back discomfort radiating into her buttock and her right leg with associated weakness. Patient did receive several injections by pain management which did not relieve her symptoms. Eventually she underwent an MRI of the lumbar spine which demonstrated severe neuroforaminal narrowing at multiple levels specifically L3-4 and L4-5. Neurosurgery recommended L2-S1 fusion with interbody cages. She presented to the hospital on 01/27/2024 for an elective procedure. This was performed by Dr. Foy and vascular surgery Dr. Akhtar to assist with retroperitoneal access via left lateral approach. No major complications postoperatively. She was evaluated by PT and OT servicesand recommended acute rehab. Interval history: Patient seen today. Sitting up in wheelchair. States that she would like her Ashton to be discontinued. She reports discomfort and burning with it. She is tolerating therapy well. Mobility lindo is most SBA-CGA. She denies chest pain, SOB, fever, chills. Hopeful to go home soon. Review of Systems <Blake Morris MD - Last Filed: 02/03/24 13:37> Review of Systems All other systems reviewed & are negative unless noted below or in HPI Exam <Raimrez Bergman DO, RES - Last Filed: 02/03/24 12:29> Physical Exam Vital Signs: Temp Pulse Resp BP Pulse Ox O2 Del Method 97.8 F 76 18 144/72 H 96 Room Air 02/03/24 04:46 02/03/24 04:46 02/03/24 04:46 02/03/24 04:46 02/03/24 04:46 02/03/24 04:46 <Blake Morris MD - Last Filed: 02/03/24 13:37> Physical Exam Narrative: Gen: Awake, oriented, cooperative. HEENT: Atraumatic, PERRL, EOMI Resp: No respiratory distress Cardio: Extremities well perfused MSK: Moves all extremities spontaneously Neuro: CN grossly intact Skin: No swelling, erythema, ecchymosis appreciated Psych: Mood and affect normal Objective <Ramirez Bergman DO, RES - Last Filed: 02/03/24 12:29> Labs 02/03/24 06:48 01/31/24 05:12 Labs: Laboratory Results - last 24 hr 02/02/24 02/02/24 02/02/24 12:01 16:25 19:26 Corrected WBC Uncorrected WBC Count RBC Hgb Hct MCV MCH MCHC RDW Plt Count MPV Neut % (Auto) Lymph % (Auto) Rosebud % (Auto) Eos % (Auto) Baso % (Auto) Nucleat RBC Rel Count Neut # (Auto) Lymph # (Auto) [place] # (Auto) Eos # (Auto) Baso # (Auto) Platelet Estimate Plt Morphology Comment RBC Morphology Polychromasia Anisocytosis Microcytosis POC Glucose 280 345 POC Glucose Comment Urine Color Yellow Urine Appearance Clear Urine pH 5.0 Ur Specific Portia 1.023 Urine Protein 30 H Urine Glucose (UA) >=1000 H Urine Ketones Negative Urine Occult Blood 3+ H Urine Nitrite Negative Urine Bilirubin Negative Urine Urobilinogen Normal Ur Leukocyte Esterase Negative Urine RBC Innumerable H Urine WBC 5-9 H Ur Squamous Epith Cells 1-2 Urine Bacteria None seen Hyaline Casts 0-8 Urine Mucus Rare 02/02/24 02/03/24 02/03/24 21:13 06:48 07:12 Corrected WBC 14.8 H Uncorrected WBC Count 14.8 H RBC 2.90 L Hgb 8.9 L Hct 25.9 L MCV 89.4 MCH 30.8 MCHC 34.4 RDW 13.2 Plt Count 333 MPV 8.0 Neut % (Auto) 69.1 Lymph % (Auto) 21.3 Rosebud % (Auto) 9.3 Eos % (Auto) 0.2 Baso % (Auto) 0.1 Nucleat RBC Rel Count 0.2 Neut # (Auto) 10.2 H Lymph # (Auto) 3.1 Rosebud # (Auto) 1.4 H Eos # (Auto) 0.0 Baso # (Auto) 0.0 Platelet Estimate Decreased Plt Morphology Comment Normal RBC Morphology N/A Polychromasia Slight Anisocytosis Moderate Microcytosis Moderate POC Glucose 316 133 POC Glucose Comment Glu2: cleaned meter Urine Color Urine Appearance Urine pH Ur Specific Portia Urine Protein Urine Glucose (UA) Urine Ketones Urine Occult Blood Urine Nitrite Urine Bilirubin Urine Urobilinogen Ur Leukocyte Esterase Urine RBC Urine WBC Ur Squamous Epith Cells Urine Bacteria Hyaline Casts Urine Mucus Medications and Allergies Allergies and Active Meds: Allergies No Known Allergies Allergy (Verified 01/27/24 05:58) Active Medications Generic Name Dose Route Start Last Admin Trade Name Freq PRN Reason Stop Dose Admin Acetaminophen 650 mg 01/30/24 13:36 02/02/24 21:24 Acetaminophen 325 Mg Tablet PO 01/29/25 13:35 650 mg Q4H PRN Administration pain 1-5 Acetaminophen 500 mg 01/30/24 13:37 Acetaminophen 500 Mg Tablet PO 01/29/25 13:36 Q4H PRN Pain Al Hydrox/Mg Hydrox/Simethicone 30 ml 01/30/24 13:37 Mag Hydrox/Al Hydrox/Simeth 30 Ml Udc PO 01/29/25 13:36 Q4H PRN Indigestion Aspirin 81 mg 01/31/24 09:00 02/03/24 09:05 Aspirin 81 Mg Tab.Chew PO 01/30/25 08:59 81 mg DAILY RADHA Administration Atorvastatin Calcium 20 mg 01/30/24 22:00 02/02/24 21:24 Atorvastatin 20 Mg Tablet PO 01/29/25 21:59 20 mg QHS RADHA Administration Bethanechol Chloride 20 mg 02/02/24 14:00 02/03/24 09:04 Bethanechol 10 Mg Tablet PO 02/01/25 13:59 20 mg TID RADHA Administration Bisacodyl 10 mg 01/30/24 13:37 Bisacodyl 10 Mg Supp.Rect LA 01/29/25 13:36 DAILY PRN Constipation Docusate Sodium 100 mg 01/30/24 13:37 Docusate 100 Mg Capsule PO 01/29/25 13:36 BID PRN Constipation Docusate Sodium 283 mg 01/30/24 13:37 Docusate Enema 283 Mg/5 Ml Enema LA 01/29/25 13:36 DAILY PRN Constipation Escitalopram Oxalate 20 mg 01/31/24 09:00 02/03/24 09:05 Escitalopram 20 Mg Tablet PO 01/30/25 08:59 20 mg DAILY RADHA Administration Famotidine 20 mg 01/30/24 21:00 02/03/24 09:05 Famotidine 20 Mg Tablet PO 01/29/25 20:59 20 mg BID RADHA Administration Gabapentin 300 mg 01/31/24 09:00 02/03/24 09:05 Gabapentin 300 Mg Capsule PO 01/30/25 08:59 300 mg DAILY RADHA Administration Gabapentin 600 mg 01/30/24 21:00 02/02/24 21:22 Gabapentin 300 Mg Capsule PO 01/29/25 20:59 600 mg QPM RADHA Administration Glyburide 5 mg 01/30/24 21:00 02/03/24 09:04 Glyburide 5 Mg Tablet PO 01/29/25 20:59 5 mg BID RADHA Administration Insulin Aspart 0 units 01/30/24 17:00 02/03/24 09:03 Insulin Aspart 300 Units/3 Ml Insuln.Pen SUBCUT 01/29/25 16:59 Not Given TID.WM.HS [facility] Protocol Ipratropium [place] 0.5 mg 01/31/24 09:00 02/03/24 04:31 Ipratropium [place] 0.5 Mg/2.5 Ml Vial.Neb INHALATION 01/30/25 08:59 Not Given QID RADHA Lactulose 30 gm 01/30/24 13:37 Lactulose 20 Gm/30 Ml Udc PO 01/29/25 13:36 DAILY PRN Constipation Lisinopril 10 mg 01/30/24 22:00 02/02/24 21:23 Lisinopril 10 Mg Tablet PO 01/29/25 21:59 10 mg QHS RADHA Administration Magnesium Hydroxide 30 ml 01/30/24 13:36 Magnesium Hydroxide Susp 30 Ml Udc PO 01/29/25 13:35 HS PRN Constipation Magnesium Oxide 400 mg 01/31/24 09:00 02/03/24 09:03 Magnesium Oxide 400 Mg Tablet PO 01/30/25 08:59 400 mg DAILY RADHA Administration Metformin HCl 1,000 mg 01/30/24 21:00 02/03/24 09:04 Metformin 500 Mg Tablet PO 01/29/25 20:59 1,000 mg BID RADHA Administration Multivitamins 1 tab 01/31/24 09:00 02/03/24 09:04 Multivitamin 1 Tab Tablet PO 01/30/25 08:59 1 tab DAILY RADHA Administration Neomycin/Polymyxin/Bacitracin 1 applic 01/31/24 09:00 02/03/24 09:07 Neomycin/Bacit/Poly Oint 14 Gm Tube TOPICAL 01/30/25 08:59 1 applic DAILY RADHA Administration Dulaglutide [ 3 mg 02/02/24 09:00 02/02/24 08:48 Trulicity] 3 Mg/0.5 SUBCUT 02/01/25 08:59 3 mg Ml Pen Injector Coy@0900 RADHA Administration Nystatin 1 applic 01/31/24 21:00 02/03/24 09:06 Nystatin 100,000 Unit/Gram Powder 15 Gm Bottle TOPICAL 01/30/25 20:59 1 applic BID RADHA Administration Oxycodone HCl 5 mg 02/01/24 10:06 Oxycodone Ir 5 Mg Tablet PO Q4HR PRN Pain Scale 6-7 Oxycodone HCl 10 mg 02/01/24 10:06 02/03/24 09:04 Oxycodone Ir 5 Mg Tablet PO 10 mg Q4HR PRN Administration Pain Scale 8-10 Prednisone 40 mg 02/02/24 09:00 02/03/24 09:04 Prednisone 10 Mg Tablet PO 02/14/24 08:59 40 mg DAILY RADHA Administration Taper Ropinirole HCl 0.5 mg 01/30/24 21:00 02/02/24 21:24 Ropinirole 0.5 Mg Tablet PO 01/29/25 20:59 Not Given QPM RADHA Senna/Docusate Sodium 2 tab 01/30/24 21:00 02/03/24 09:03 Sennosides/Docusate 8.6-50mg 1 Tab Tablet PO 01/29/25 20:59 2 tab BID RADHA Administration Sennosides 2 tab 01/31/24 12:00 Sennosides 8.6 Mg Tablet PO 01/30/25 11:59 DAILY@12 PRN If no BM in 2 days Sodium Chloride 0 ml 01/30/24 13:37 02/01/24 17:35 Sodium Chloride 0.9 % 10 Ml Syringe IV-PUSH 01/29/25 13:36 10 ml PRN PRN Administration Flush Tamsulosin HCl 0.4 mg 01/31/24 22:00 02/02/24 21:22 Tamsulosin 0.4 Mg Cap.Er.24h PO 01/30/25 21:59 0.4 mg HS RADHA Administration Trazodone HCl 200 mg 01/30/24 21:00 02/02/24 21:23 Trazodone 100 Mg Tablet PO 01/29/25 20:59 200 mg QPM RADHA Administration Vitamin D 50 mcg 01/31/24 09:00 02/03/24 09:04 Cholecalciferol 25 Mcg (1,000 Units) Tablet PO 01/30/25 08:59 50 mcg DAILY RADHA Administration Zinc Oxide 1 applic 01/31/24 16:21 02/01/24 17:37 Zinc Oxide 20% Ointment 56 Gm Tube TOPICAL 01/30/25 16:20 1 applic TID PRN Administration excoriation Assessment/Plan <Ramirez Jose Bergman DO, RES - Last Filed: 02/03/24 12:29> Assessment/Plan (1) Lumbar stenosis with neurogenic claudication: (2) Lumbar foraminal stenosis: (3) Postoperative anemia: (4) Urinary retention: (5) Impaired mobility and activities of daily living: (6) Diabetes mellitus: <Blake Morris MD - Last Filed: 02/03/24 13:37> Assessment/Plan (1) Lumbar stenosis with neurogenic claudication: (2) Lumbar foraminal stenosis: (3) Postoperative anemia: (4) Urinary retention: (5) Impaired mobility and activities of daily living: (6) Diabetes mellitus: Plan Patient is a 68-year-old female admitted to acute inpatient rehabilitation unit s/p extensive lumbar fusion surgery. Overall, she is doing reasonably well postoperatively. Not much pain. Does complain of some weakness in the left lower extremity, especially hamstring. She does have a mild left footdrop. Previously affected right lower extremity is better, no reports of pain, numbness or tinglingin it. * Patient requesting ashton catheter to be removed. She endorses discomfort and burning. She is on Flomax and Bethanecol. With do another void trial. UA demonstrating 5-9 WBCs but innumerable RBCs and3+ occult blood. Also noted >1000 glucose * Tolerating therapy well. Will discuss DC tomorrow at team meeting * Glucose has been elevated. Patient is on a Prednisone taper and Insulin sliding scale. Will continue with this as I do not believe patient will need to be discharged on insulin Patient education Pressure ulcer prophylaxis; encourage mobilization, frequent postural changes, pressure-relief techniques DVT prophylaxis Encourage deep breathing exercise incentive spirometry. Monitor bladder. Toileting schedule. Continue current bladder management, with scans as needed and CIC if needed. Start bowel care program every day to obtain continence, prevent ileus. Maintain fall precautions Gait and balance retraining Functional training and self-care and home management, including activities of daily living and instrumental activities of daily living Provision of the necessary gait aids and functional adaptive equipment to enhance the patient's a functional gnosticist Ensure adequate nutrition and hydration Sleep Discharge planning. Patient was personally seen by me, Dr. Morris, on the day of encounter, reviewed the history and the relevant portions of the chart, including current orders, allied health and in home sales consultant notes, labs/imaging and performed [place] elements of exam and I formulated the plan of care and facilitated the medical decision making. I completed a substantive portion of this encounter, the medical decision makingportion of this note in its entirety, including Allied health note review, nursing note review, in home sales consultant note review,discussion with nursing and case management, and more than 50% of my time was spent on counseling and coordination of care, time spent 30 minutes Documented By: Blake Morris MD [id number] Signed By: <Electronically signed by Blake Morris MD> 02/03/[address] [place] [address] Work Phone: [phone]) 826-416108-19-2024 Progress note Author Blake Morris [facility] February 03, 2024 9:44amNote Date/TimeAugust 2023 12:05[place] [address] Physiatry(Rehab) Progress Note Signed Patient: Shana Lugo MR#: [id number] : 1955 Acct:[id number] Age/Sex: 68 / F Adm Date: 4 Loc: Room: [address] [place] [address] Type: ADM IN Attending Dr: Blake Morris MD Copies to: ~ Date of Service: 02/02/2024 Subjective Subjective Narrative: Ms. Lugo is a 68 year old female with past medical history is notable [id number]-[id number] DM type II hypertension, HLD, GERD, DVT, who presents to acute inpatient rehab with functional impairments s/p lumbar fusion surgery. Patient was following with neural surgery regarding lumbar stenosis. Had several surgical procedures on her lumbar spine previously. She has been havinglower back discomfort radiating into her buttock and her right leg with associated weakness. Patient did receive several injections by pain management which did not relieve her symptoms. Eventually she underwent an MRI of the lumbar spine which demonstrated severe neuroforaminal narrowing at multiple levels specifically L3-4 and L4-5. Neurosurgery recommended L2-S1 fusion with interbody cages. She presented to the hospital on 01/27/2024 for an elective procedure. This was performed by Dr. Foy and vascular surgery Dr. Akhtar to assist with retroperitoneal access via left lateral approach. No major complications postoperatively. She was evaluated by PT and OT servicesand recommended acute rehab. On evaluation patient is alert, pleasant, cooperative. She is not in any distress. States pain in the back is very mild. She has some numbness and tingling in the left lower extremity. Does appear tohave a mild left foot drop. Has a significant quad weakness on the left. Previously affected right lower extremity is actually feeling better postoperatively. She denies any pain, numbness, tingling or weakness in it. Overall, postoperative pain is well- controlled on current regimen. Patient does report some urinary retention. States, ever since she has had a hysterectomy she has been having difficulty with retention, however after the surgery she does not have any sensation of her bladder being full. She had to be straight catheterized several times last night. I will initiatethe patient on some Flomax. If she continues to retain throughout the day, will replace Ashton catheter for now. Interval history: Patient was seen and examined in collaboration with Dr. Foy neurosurgery. Sheis doing well. Patient was placed on a long prednisone taper for increased lower extremity pain. She is doing much better today. Was able to tolerate therapy and walked with a walker. Still complains of some numbness in the left thigh area. Otherwise no major issues. Her Ashton catheter was replaced yesterday due to continued retention. She was started on Flomax andis already taking bethanechol. I will increase bethanechol to 20 mg 3 times daily. We can attempt another voiding trial in a day or 2. Monitor patient's blood pressure while on the medication. Review of Systems Review of Systems All other systems reviewed & are negative unless noted below or in HPI Exam Physical Exam Vital Signs: Temp Pulse Resp BP Pulse Ox O2 Del Method 98.0 F 92 20 135/71 93 L Room Air 02/02/24 04:57 02/02/24 04:57 02/02/24 04:57 02/02/24 04:57 02/02/24 04:57 02/02/24 08:55 Narrative: General: Awake, alert, oriented x3 HENT: Normal to inspection, normocephalic, atraumatic Eyes: PERRL, normal conjunctiva and sclera Neck: Normal ROM, normal visual inspection. Trachea midline. Cardio: Regular heart rate and rhythm Respiratory: Clear to auscultation bilaterally. Normal respiratory effort. No respiratory distress. GI: Abdomen soft, nontender, nondistended, active bowel sounds x4 quadrants : Urinary retention. Neuro: CN II-XII intact. Right lower extremity strength 5/5. Left hamstring 3+/5, left foot drop. Extremities: No edema, erythema, cyanosis Psych: Mood and affect appropriate. Normal speech. Objective Labs 01/31/24 05:12 01/31/24 05:12 Labs: Laboratory Results - last 24 hr 02/01/24 02/01/24 02/01/24 11:17 16:20 20:57 POC Glucose 294 255 374 02/02/24 07:50 POC Glucose 313 Additional Results Results Comments: I reviewed clinical lab tests, radiology reports and obtained and summated medical records and haveordered follow up lab tests and imaging studies as needed for rehabilitation care. Medications and Allergies Allergies and Active Meds: Allergies No Known Allergies Allergy (Verified 01/27/24 05:58) Active Medications Generic Name Dose Route Start Last Admin Trade Name Freq PRN Reason Stop Dose Admin Acetaminophen 650 mg 01/30/24 13:36 02/01/24 08:11 Acetaminophen 325 Mg Tablet PO 01/29/25 13:35 650 mg Q4H PRN Administration pain 1-5 Acetaminophen 500 mg 01/30/24 13:37 Acetaminophen 500 Mg Tablet PO 01/29/25 13:36 Q4H PRN Pain Al Hydrox/Mg Hydrox/Simethicone 30 ml 01/30/24 13:37 Mag Hydrox/Al Hydrox/Simeth 30 Ml Udc PO 01/29/25 13:36 Q4H PRN Indigestion Aspirin 81 mg 01/31/24 09:00 02/02/24 08:46 Aspirin 81 Mg Tab.Chew PO 01/30/25 08:59 81 mg DAILY RADHA Administration Atorvastatin Calcium 20 mg 01/30/24 22:00 02/01/24 21:56 Atorvastatin 20 Mg Tablet PO 01/29/25 21:59 20 mg QHS RADHA Administration Bethanechol Chloride 20 mg 02/02/24 14:00 Bethanechol 10 Mg Tablet PO 02/01/25 13:59 TID RADHA Bisacodyl 10 mg 01/30/24 13:37 Bisacodyl 10 Mg Supp.Rect LA 01/29/25 13:36 DAILY PRN Constipation Docusate Sodium 100 mg 01/30/24 13:37 Docusate 100 Mg Capsule PO 01/29/25 13:36 BID PRN Constipation Docusate Sodium 283 mg 01/30/24 13:37 Docusate Enema 283 Mg/5 Ml Enema LA 01/29/25 13:36 DAILY PRN Constipation Escitalopram Oxalate 20 mg 01/31/24 09:00 02/02/24 08:45 Escitalopram 20 Mg Tablet PO 01/30/25 08:59 20 mg DAILY RADHA Administration Famotidine 20 mg 01/30/24 21:00 02/02/24 08:46 Famotidine 20 Mg Tablet PO 01/29/25 20:59 20 mg BID RADHA Administration Gabapentin 300 mg 01/31/24 09:00 02/02/24 08:46 Gabapentin 300 Mg Capsule PO 01/30/25 08:59 300 mg DAILY RADHA Administration Gabapentin 600 mg 01/30/24 21:00 02/01/24 21:57 Gabapentin 300 Mg Capsule PO 01/29/25 20:59 600 mg QPM RADHA Administration Glyburide 5 mg 01/30/24 21:00 02/02/24 08:45 Glyburide 5 Mg Tablet PO 01/29/25 20:59 5 mg BID RADHA Administration Insulin Aspart 0 units 01/30/24 17:00 02/02/24 08:47 Insulin Aspart 300 Units/3 Ml Insuln.Pen SUBCUT 01/29/25 16:59 7 units TID.WM.HS RADHA Administration Protocol Ipratropium [place] 0.5 mg 01/31/24 09:00 02/02/24 09:25 Ipratropium [place] 0.5 Mg/2.5 Ml Vial.Neb INHALATION 01/30/25 08:59 Not Given QID RADHA Lactulose 30 gm 01/30/24 13:37 Lactulose 20 Gm/30 Ml Udc PO 01/29/25 13:36 DAILY PRN Constipation Lisinopril 10 mg 01/30/24 22:00 02/01/24 21:56 Lisinopril 10 Mg Tablet PO 01/29/25 21:59 10 mg QHS RADHA Administration Magnesium Hydroxide 30 ml 01/30/24 13:36 Magnesium Hydroxide Susp 30 Ml Udc PO 01/29/25 13:35 HS PRN Constipation Magnesium Oxide 400 mg 01/31/24 09:00 02/02/24 08:45 Magnesium Oxide 400 Mg Tablet PO 01/30/25 08:59 400 mg DAILY RADHA Administration Metformin HCl 1,000 mg 01/30/24 21:00 02/02/24 08:46 Metformin 500 Mg Tablet PO 01/29/25 20:59 1,000 mg BID RADHA Administration Multivitamins 1 tab 01/31/24 09:00 02/02/24 08:45 Multivitamin 1 Tab Tablet PO 01/30/25 08:59 1 tab DAILY RADHA Administration Neomycin/Polymyxin/Bacitracin 1 applic 01/31/24 09:00 02/02/24 08:47 Neomycin/Bacit/Poly Oint 14 Gm Tube TOPICAL 01/30/25 08:59 1 applic DAILY RADHA Administration Dulaglutide [ 3 mg 02/02/24 09:00 02/02/24 08:48 Trulicity] 3 Mg/0.5 SUBCUT 02/01/25 08:59 3 mg Ml Pen Injector Coy@0900 RADHA Administration Nystatin 1 applic 01/31/24 21:00 02/02/24 08:47 Nystatin 100,000 Unit/Gram Powder 15 Gm Bottle TOPICAL 01/30/25 20:59 1 applic BID RADHA Administration Oxycodone HCl 5 mg 02/01/24 10:06 Oxycodone Ir 5 Mg Tablet PO Q4HR PRN Pain Scale 6-7 Oxycodone HCl 10 mg 02/01/24 10:06 02/02/24 08:46 Oxycodone Ir 5 Mg Tablet PO 10 mg Q4HR PRN Administration Pain Scale 8-10 Prednisone 40 mg 02/02/24 09:00 02/02/24 08:46 Prednisone 10 Mg Tablet PO 02/14/24 08:59 40 mg DAILY RADHA Administration Taper Ropinirole HCl 0.5 mg 01/30/24 21:00 02/01/24 22:00 Ropinirole 0.5 Mg Tablet PO 01/29/25 20:59 Not Given QPM [facility] Senna/Docusate Sodium 2 tab 01/30/24 21:00 02/02/24 08:49 Sennosides/Docusate 8.6-50mg 1 Tab Tablet PO 01/29/25 20:59 Not Given BID RADHA Sennosides 2 tab 01/31/24 12:00 Sennosides 8.6 Mg Tablet PO 01/30/25 11:59 DAILY@12 PRN If no BM in 2 days Sodium Chloride 0 ml 01/30/24 13:37 02/01/24 17:35 Sodium Chloride 0.9 % 10 Ml Syringe IV-PUSH 01/29/25 13:36 10 ml PRN PRN Administration Flush Sodium Chloride 10 ml 02/02/24 06:00 02/02/24 06:48 Sodium Chloride 0.9 % 10 Ml Syringe IV-PUSH 02/01/25 05:59 10 ml Q8H RADHA Administration Tamsulosin HCl 0.4 mg 01/31/24 22:00 02/01/24 21:56 Tamsulosin 0.4 Mg Cap.Er.24h PO 01/30/25 21:59 0.4 mg HS RADHA Administration Trazodone HCl 200 mg 01/30/24 21:00 02/01/24 21:54 Trazodone 100 Mg Tablet PO 01/29/25 20:59 200 mg QPM RADHA Administration Vitamin D 50 mcg 01/31/24 09:00 02/02/24 08:45 Cholecalciferol 25 Mcg (1,000 Units) Tablet PO 01/30/25 08:59 50 mcg DAILY RADHA Administration Zinc Oxide 1 applic 01/31/24 16:21 02/01/24 17:37 Zinc Oxide 20% Ointment 56 Gm Tube TOPICAL 01/30/25 16:20 1 applic TID PRN Administration excoriation Assessment/Plan Assessment/Plan (1) Urinary retention: (2) Impaired mobility and activities of daily living: (3) Lumbar stenosis with neurogenic claudication: (4) Lumbar foraminal stenosis: (5) Postoperative anemia: (6) Diabetes mellitus: Plan Patient is a 68-year-old female admitted to acute inpatient rehabilitation unit s/p extensive lumbar fusion surgery. Overall, she is doing reasonably well postoperatively. Not much pain. Does complain of some weakness in the left lower extremity, especially hamstring. She does have a mild left footdrop. Previously affected right lower extremity is better, no reports of pain, numbness or tinglingin it. * Continue prednisone taper per neurosurgery recommendations. * I will escalate insulin coverage while on taper. Monitor blood glucose levels closely. * Ashton catheter replaced due to continued retention. I will increase bethanechol to 20 mg 3 times daily. Monitor BPs. Attempt a voiding trial in a day or 2. Patient education Pressure ulcer prophylaxis; encourage mobilization, frequent postural changes, pressure-relief techniques DVT prophylaxis Encourage deep breathing exercise incentive spirometry. Monitor bladder. Toileting schedule. Continue current bladder management, with scans as needed and CIC if needed. Start bowel care program every day to obtain continence, prevent ileus. Maintain fall precautions Gait and balance retraining Functional training and self-care and home management, including activities of daily living and instrumental activities of daily living Provision of the necessary gait aids and functional adaptive equipment to enhance the patient's a functional gnosticist Ensure adequate nutrition and hydration Sleep Discharge planning. I spent 23 minutes for services, including sxzj-es-sugy encounter with the patient, discussion of the case, plan of care, and exam; and [id number] activities, such as reviewing pertinent in home sales consultant documentation, recent therapynotes, laboratory and radiology studies, and discussion of case with care team including physician, nursing, top case assembler, and therapists. More than 50 % of time was spent on patient/family counseling or coordination ofcare. <Statement entered by Blake Morirs MD - 02/03/24 09:44> This documentation has been reviewed and approved. I reviewed the history and the relevant portionsof the chart, including current orders, allied health and in home sales consultant notes, labs/imaging and plan of care as above. Documented By: Vianney Pringle APRN 02/02/24 1 205 Signed By: <Electronically signed by REILLY Pringle> 02/02/24 1210 <Electronically signed by Blake Morris MD> 02/03/24 0839 [facility] Work Phone: [phone] 182-113608-19-2024 History and physical note Author Blake Morris [facility] February 03, 2024 9:42amNote Date/TimeAugust 2023 11:27[place] [address] Physiatry (Rehab) H&P Signed Patient: Shana Lguo MR#: [id number] : 1955 Acct:[id number] Age/Sex: 68 / F Adm Date: 4 Loc: 5T Room: 1I4185-8 Type: ADM IN Attending Dr: Blake Morris MD Copies to: MD Vianney Johnson APRN Mohammad M El Sayyad, MD~ Date of Service: 01/31/2024 HPI The patient was seen and examined on: 01/31/24 History of Present Illness: Ms. Lugo is a 68 year old female with past medical history is notable [id number] DM type II hypertension, HLD, GERD, DVT, who presents to acute inpatient rehab with functional impairments s/p lumbar fusion surgery. Patient was following with neural surgery regarding lumbar stenosis. Had several surgical procedures on her lumbar spine previously. She has been havinglower back discomfort radiating into her buttock and her right leg with associated weakness. Patient did receive several injections by pain management which did not relieve her symptoms. Eventually she underwent an MRI of the lumbar spine which demonstrated severe neuroforaminal narrowing at multiple levels specifically L3-4 and L4-5. Neurosurgery recommended L2-S1 fusion with interbody cages. She presented to the hospital on 01/27/2024 for an elective procedure. This was performed by Dr. Foy and vascular surgery Dr. Akhtar to assist with retroperitoneal access via left lateral approach. No major complications postoperatively. She was evaluated by PT and OT servicesand recommended acute rehab. On evaluation patient is alert, pleasant, cooperative. She is not in any distress. States pain in the back is very mild. She has some numbness and tingling in the left lower extremity. Does appear tohave a mild left foot drop. Has a significant quad weakness on the left. Previously affected right lower extremity is actually feeling better postoperatively. She denies any pain, numbness, tingling or weakness in it. Overall, postoperative pain is well- controlled on current regimen. Patient does report some urinary retention. States, ever since she has had a hysterectomy she has been having difficulty with retention, however after the surgery she does not have any sensation of her bladder being full. She had to be straight catheterized several times last night. I will initiatethe patient on some Flomax. If she continues to retain throughout the day, will replace Ashton catheter for now. [facility] Medical History Smoker Diverticulitis Peripheral vascular disease DVT (deep venous thrombosis) after back surgery 2022 Type 2 diabetes mellitus without complications Sacroiliac inflammation Recurrent herniation of lumbar disc Pure hypercholesterolemia, unspecified Essential (primary) hypertension Depression DJD (degenerative joint disease) Back pain Arthritis GERD (gastroesophageal reflux disease) HTN (hypertension) Left bundle branch block (LBBB) Murmur, cardiac Diabetes mellitus Surgical History History of knee surgery bilateral History of lumbar surgery History of carpal tunnel release bilateral Hx of cholecystectomy H/O arthroscopic knee surgery H/O: section x2 Problem List clean-up per request of Phys. EHR Cmte H/O: hysterectomy Family History Mother Diabetes Cancer Leukemia Sister Colon cancer Father Son Diabetes Sister Cancer Legacy FamHx Problem: Diagnosed with Cancer Social History Smoking Status: Current every day smoker Tobacco Type: cigarettes Substance Use Type: None Review of Systems Review of Systems All other systems reviewed & are negative unless noted below or in HPI Meds Medications and Allergies Allergies No Known Allergies Allergy (Verified 01/27/24 05:58) Home and Active Meds: Home Medications atorvastatin 20 mg tablet 20 mg PO QHS 11/20/19 [History Confirmed 01/30/24] dulaglutide 1.5 mg/0.5 mL subcutaneous pen injector (Trulicity) 1.5 mg subcut QWEEK 11/20/19 [History Confirmed 01/30/24] glyburide 5 mg tablet 5 mg PO BID 11/20/19 [History Confirmed 01/30/24] lisinopril 10 mg tablet 10 mg PO QHS 11/20/19 [History Confirmed 01/30/24] metformin 1,000 mg tablet 1,000 mg PO BID 11/20/19 [History Confirmed 01/30/24] escitalopram oxalate 20 mg tablet 20 mg PO DAILY 08/17/23 [History Confirmed 01/30/24] gabapentin 300 mg capsule 600 mg PO QPM Neuropathic pain 08/17/23 [History Confirmed 01/30/24] meloxicam 15 mg tablet 15 mg PO DAILY 08/17/23 [History Confirmed 01/30/24] aspirin 81 mg chewable tablet (Jelly Chewable Low Dose Aspirin) 81 mg PO DAILY 01/13/24 [History Confirmed 01/30/24] cholecalciferol (vitamin D3) 50 mcg (2,000 unit) tablet (Vitamin D3) 2,000 unit PO QDAY 01/13/24 [History Confirmed 01/30/24] gabapentin 300 mg capsule 300 mg PO DAILY 01/13/24 [History Confirmed 01/30/24] magnesium 250 mg tablet 500 mg PO DAILY 01/13/24 [History Confirmed 01/30/24] multivitamin (Daily Multi-Vitamin tablet) 1 tab PO DAILY 01/13/24 [History Confirmed 01/30/24] ropinirole 0.25 mg tablet 0.5 mg PO QPM 01/13/24 [History Confirmed 01/30/24] tiotropium bromide 1.25 mcg/actuation mist for inhalation (Spiriva Respimat) 2 puff inhalation DAILY 01/13/24 [History Confirmed 01/30/24] trazodone 100 mg tablet 200 mg PO QPM 01/13/24 [History Confirmed 01/30/24] acetaminophen 325 mg tablet (Tylenol) 650 mg (2 x 325 mg) PO Q4H PRN pain 1-5 #0tabs 01/30/24 [Rx Confirmed 01/30/24] bethanechol chloride 10 mg tablet 10 mg PO TID 5 days #15 tabs 01/30/24 [Rx Confirmed 01/30/24] famotidine 20 mg tablet 20 mg PO BID #0 tabs 01/30/24 [Rx Confirmed 01/30/24] insulin aspart U-100 100 unit/mL (3 mL) subcutaneous pen (Novolog FlexPen U-100 Insulin aspart) SeeProtocol subcut TID.WM.HS #0 mL 01/30/24 [Rx Confirmed 01/30/24] magnesium hydroxide 400 mg/5 mL oral suspension (Milk of Magnesia) 30 ml PO HS PRN Constipation #0 mL 01/30/24 [Rx Confirmed 01/30/24] oxycodone 5 mg tablet 5 mg PO Q6HR PRN Pain Scale 6-7 #0 tabs 01/30/24 [Rx Confirmed 01/30/24] oxycodone 5 mg tablet 10 mg (2 x 5 mg) PO Q6HR PRN Pain Scale 8-10 #0 tabs 01/30/24 [Rx Confirmed 01/30/24] sennosides 8.6 mg-docusate sodium 50 mg tablet 2 tab PO BID #0 tabs 01/30/24 [Rx Confirmed 01/30/24] Active Medications Acetaminophen (Acetaminophen 325 Mg Tablet) 650 mg PO Q4H PRN PRN Reason: pain 1-5 Stop: 01/29/25 13:35 Last Admin: 01/31/24 08:11 Dose: 650 mg Acetaminophen (Acetaminophen 500 Mg Tablet) 500 mg PO Q4H PRN PRN Reason: Pain Stop: 01/29/25 13:36 Al Hydrox/Mg Hydrox/Simethicone (Mag Hydrox/Al Hydrox/Simeth 30 Ml Udc) 30 ml PO Q4H PRN PRN Reason: Indigestion Stop: 01/29/25 13:36 Aspirin (Aspirin 81 Mg Tab.Chew) 81 mg PO DAILY RADHA Stop: 01/30/25 08:59 Last Admin: 01/31/24 08:11 Dose: 81 mg Atorvastatin Calcium (Atorvastatin 20 Mg Tablet) 20 mg PO QHS RADHA Stop: 01/29/25 21:59 Last Admin: 01/30/24 22:52 Dose: 20 mg Bethanechol Chloride (Bethanechol 10 Mg Tablet) 10 mg PO TID RADHA Stop: 01/29/25 13:59 Last Admin: 01/31/24 08:12 Dose: 10 mg Bisacodyl (Bisacodyl 10 Mg Supp.Rect) 10 mg LA DAILY PRN PRN Reason: Constipation Stop: 01/29/25 13:36 Docusate Sodium (Docusate 100 Mg Capsule) 100 mg PO BID PRN PRN Reason: Constipation Stop: 01/29/25 13:36 Docusate Sodium (Docusate Enema 283 Mg/5 Ml Enema) 283 mg LA DAILY PRN PRN Reason: Constipation Stop: 01/29/25 13:36 Escitalopram Oxalate (Escitalopram 20 Mg Tablet) 20 mg PO DAILY RADHA Stop: 01/30/25 08:59 Last Admin: 01/31/24 08:11 Dose: 20 mg Famotidine (Famotidine 20 Mg Tablet) 20 mg PO BID [facility] Stop: 01/29/25 20:59 Last Admin: 01/31/24 08:12 Dose: 20 mg Gabapentin (Gabapentin 300 Mg Capsule) 300 mg PO DAILY RADHA Stop: 01/30/25 08:59 Last Admin: 01/31/24 08:12 Dose: 300 mg Gabapentin (Gabapentin 300 Mg Capsule) 600 mg PO QPM RADHA Stop: 01/29/25 20:59 Last Admin: 01/30/24 22:55 Dose: 600 mg Glyburide (Glyburide 5 Mg Tablet) 5 mg PO BID [facility] Stop: 01/29/25 20:59 Last Admin: 01/31/24 08:12 Dose: 5 mg Insulin Aspart (Insulin Aspart 300 Units/3 Ml Insuln.Pen) [address].WM.[facility]; Protocol Stop: 01/29/25 16:59 Last Admin: 01/31/24 11:13 Dose: Not Given Ipratropium [place] (Ipratropium [place] 0.5 Mg/2.5 Ml Vial.Neb) 0.5 mg INHALATION QID [facility] Stop: 01/30/25 08:59 Last Admin: 01/31/24 10:10 Dose: 0.5 mg Lactulose (Lactulose 20 Gm/30 Ml Udc) 30 gm PO DAILY PRN PRN Reason: Constipation Stop: 01/29/25 13:36 Lisinopril (Lisinopril 10 Mg Tablet) 10 mg PO QHS [facility] Stop: 01/29/25 21:59 Last Admin: 01/30/24 22:54 Dose: 10 mg Magnesium Hydroxide (Magnesium Hydroxide Susp 30 Ml Udc) 30 ml PO HS PRN PRN Reason: Constipation Stop: 01/29/25 13:35 Magnesium Oxide (Magnesium Oxide 400 Mg Tablet) 400 mg PO DAILY [facility] Stop: 01/30/25 08:59 Last Admin: 01/31/24 08:11 Dose: 400 mg Metformin HCl (Metformin 500 Mg Tablet) 1,000 mg PO BID [facility] Stop: 01/29/25 20:59 Last Admin: 01/31/24 08:11 Dose: 1,000 mg Multivitamins (Multivitamin 1 Tab Tablet) 1 tab PO DAILY [facility] Stop: 01/30/25 08:59 Last Admin: 01/31/24 08:11 Dose: 1 tab Neomycin/Polymyxin/Bacitracin (Neomycin/Bacit/Poly Oint 14 Gm Tube) 1 applic TOPICAL DAILY [facility] Stop: 01/30/25 08:59 Last Admin: 01/31/24 08:13 Dose: 1 applic Dulaglutide [ Trulicity] 1.5 Mg/0. 5 Ml Pen Injector 1.5 mg SUBCUT QWEEK [facility] Stop: 02/05/25 08:59 Oxycodone HCl (Oxycodone Ir 5 Mg Tablet) 5 mg PO Q6HR PRN PRN Reason: Pain Scale 6-7 Oxycodone HCl (Oxycodone Ir 5 Mg Tablet) 10 mg PO Q6HR PRN PRN Reason: Pain Scale 8-10 Last Admin: 01/31/24 05:58 Dose: 10 mg Ropinirole HCl (Ropinirole 0.5 Mg Tablet) 0.5 mg PO QPM [facility] Stop: 01/29/25 20:59 Last Admin: 01/30/24 22:56 Dose: Not Given Senna/Docusate Sodium (Sennosides/Docusate 8.6-50mg 1 Tab Tablet) 2 tab PO BID [facility] Stop: 01/29/25 20:59 Last Admin: 01/31/24 08:11 Dose: 2 tab Sennosides (Sennosides 8.6 Mg Tablet) 2 tab PO DAILY@12 PRN PRN Reason: If no BM in 2 days Stop: 01/30/25 11:59 Sodium Chloride (Sodium Chloride 0.9 % 10 Ml Syringe) 0 ml IV-PUSH PRN PRN PRN Reason: Flush Stop: 01/29/25 13:36 Trazodone HCl (Trazodone 100 Mg Tablet) 200 mg PO QPM [facility] Stop: 01/29/25 20:59 Last Admin: 01/30/24 22:54 Dose: 200 mg Vitamin D (Cholecalciferol 25 Mcg (1,000 Units) Tablet) 50 mcg PO DAILY [facility] Stop: 01/30/25 08:59 Last Admin: 01/31/24 08:12 Dose: 50 mcg Exam Physical Exam Vital Signs: Temp Pulse Resp BP Pulse Ox O2 Del Method 98 F 84 20 116/71 94 L Room Air 01/31/24 05:16 01/31/24 10:32 01/31/24 10:32 01/31/24 05:16 01/31/24 05:16 01/31/24 05:16 Narrative: General: Awake, alert, oriented x3 HENT: Normal to inspection, normocephalic, atraumatic Eyes: PERRL, normal conjunctiva and sclera Neck: Normal ROM, normal visual inspection. Trachea midline. Cardio: Regular heart rate and rhythm Respiratory: Clear to auscultation bilaterally. Normal respiratory effort. No respiratory distress. GI: Abdomen soft, nontender, nondistended, active bowel sounds x4 quadrants : Urinary retention. Neuro: CN II-XII intact. Right lower extremity strength 5/5. Left hamstring 3+/5, left foot drop. Extremities: No edema, erythema, cyanosis Psych: Mood and affect appropriate. Normal speech. Results - Phys. Rehab Labs Labs: Laboratory Results - last 24 hr 01/30/24 01/30/24 01/31/24 17:27 21:29 05:12 Corrected WBC 10.5 Uncorrected WBC Count 10.5 RBC 2.73 L Hgb 8.5 L Hct 24.9 L MCV 91.1 MCH 31.3 MCHC 34.4 RDW 12.9 Plt Count 213 MPV 8.7 Neut % (Auto) 65.4 Lymph % (Auto) 23.0 [place] % (Auto) 10.9 Eos % (Auto) 0.5 Baso % (Auto) 0.2 Nucleat RBC Rel Count 0.1 Neut # (Auto) 6.9 Lymph # (Auto) 2.4 [place] # (Auto) 1.1 H Eos # (Auto) 0.1 Baso # (Auto) 0.0 PHA Creatinine Clear 78.75 Sodium 138 Potassium 4.4 Chloride 105 Carbon Dioxide 25.6 Anion Gap 11.8 BUN 26 H Creatinine 0.74 Est GFR (CKD-EPI) > 60.0 Glucose 77 D POC Glucose 252 234 Calcium 8.4 L Total Bilirubin 0.4 AST 21 ALT 20 Alkaline Phosphatase 48 Total Protein 5.3 L Albumin 3.1 L Globulin 2.2 Albumin/Globulin Ratio 1.4 01/31/24 01/31/24 06:04 11:10 Corrected WBC Uncorrected WBC Count RBC Hgb Hct MCV MCH MCHC RDW Plt Count MPV Neut % (Auto) Lymph % (Auto) [place] % (Auto) Eos % (Auto) Baso % (Auto) Nucleat RBC Rel Count Neut # (Auto) Lymph # (Auto) [place] # (Auto) Eos # (Auto) Baso # (Auto) PHA Creatinine Clear Sodium Potassium Chloride Carbon Dioxide Anion Gap BUN Creatinine Est GFR (CKD-EPI) Glucose POC Glucose 95 133 Calcium Total Bilirubin AST ALT Alkaline Phosphatase Total Protein Albumin Globulin Albumin/Globulin Ratio Additional Results Results Comment: I reviewed clinical lab tests, radiology reports and obtained and summated medical records and haveordered follow up lab tests and imaging studies as needed for rehabilitation care. Functional Status Prior Level of Function Narrative: Was previously independent Current Level of Function Narrative: Requires mod assist with transfer and bed mobility. Ambulatory with a rolling walker min assist x 2. Individualized Plan of Care Individualized Plan of Care Plan of Care: Individualized Overall Plan of Care: Admit Date/Time: 01/30/24 Expected LOS: 10 Days Expected Discharge Destination: Home Rehabilitation IGC: 3.9-Lumbar stenosis, radiculopathy s/p L4-S1 ALIF Primary Diagnosis: as above Patient?s/Family?s anticipated outcomes/personal goals: To have patient become more independent and to return home. Medical/ Functional Prognosis: Good Anticipated Functional Outcomes/Goals and Interventions: -Therapy Functional Outcome/Goal: Mobility/Locomotion: Patient likely to be independent with ambulation with assistive device. Anticipated interventions: Physician management, PT, OT, Dietitian, Rehab Nursing - Therapy Functional Outcome/Goal: Self Care: Patient likely to be functionally independent for activities of daily living using assistive / adaptive equipment as needed. Anticipated interventions: Physician management, PT, OT, Dietitian, Rehab Nursing - Therapy Functional Outcome/Goal: Bladder/Bowel Management: Patient likely to be independent with bladder care and independent with bowel care. Anticipated interventions: Physician management, PT, OT, Dietitian, Rehab Nursing -Therapy Functional Outcome/Goal: Communication/Cognition: Patient will be able to communicate fully and be safe cognitively. Anticipated interventions: Physician management, PT, OT, Dietitian, Rehab Nursing -Therapy Functional Outcome/Goal: Patient will be independent for bed mobility and transfers Anticipated interventions: Physician management, PT, OT, Dietitian, Rehab Nursing -Therapy Functional Outcome/Goal: Patient will improve endurance to be able to tolerate all daily self care activities and avocational activities. Anticipated interventions: Physician management, PT, OT, Nutrition, Rehab Nursing -Therapy Functional Outcome/Goal: Patient will understand and assimilate / integrate education regarding management of their medical conditions to maintainhealth and wellbeing. Anticipated interventions: Physician management, PT, OT, Dietitian, Rehab Nursing Required Therapy PT: 1.5 hour per day at least 5 days per week with additional therapy on as needed basis. Comments: PT to improve pt's strength, endurance, bed mobility, transfers (sit- stand), standing balance, gait quality on level surfaces and stairs, coordination and functional ADL skills. Will also work to improve pt's safety awareness during transfers and ambulation. OT: 1.5 hour per day at least 5 days per week with additional therapy on as needed basis. Comments: OT for basic ADL re-training (bathing, dressing, toileting, continence, grooming, feeding, transferring), to increase activity tolerance and functional mobility and to evaluate for adaptiveand assistive devices. Will work to improve pt's endurance and educate pt on fall prevention and energy conservation techniques-pacing strategies and proper breathing techniques duringfunctional tasks. Other: Nutrition, Rehab nursing, Wound, P&O RATIONALE FOR IRF ADMISSION: Patient has both medical and functional complexities that require 24 hour daily monitoring and intervention from Manager Of Construction as well as other consulting physicians including internal medicine as well as 24 hour daily machine former nursing - for medical safe / optimal manageme nt. Patient requires interdisciplinary therapy team rehabilitation care including OT, PT, SW, RehabNursing, requires and can tolerate at least 3 hoursof daily OT and PT therapy at least 5 days weekly. The following medical conditions significantly impact the rehabilitation process and are being addressed daily and can not be managed at home or in a lesser intense medical setting: Refer to above problem oriented plan of care Assessment/Plan (1) Lumbar stenosis with neurogenic claudication: (2) Lumbar foraminal stenosis: (3) Postoperative anemia: (4) Urinary retention: (5) Impaired mobility and activities of daily living: (6) Diabetes mellitus: Plan Patient is a 68-year-old female admitted to acute inpatient rehabilitation unit s/p extensive lumbar fusion surgery. Overall, she is doing reasonably well postoperatively. Not much pain. Does complain of some weakness in the left lower extremity, especially hamstring. She does have a mild left footdrop. Previously affected right lower extremity is better, no reports of pain, numbness or tinglingin it. * Admission labs noted. H&H trending down, 8.5/24.9. I will recheck CBC counts on Saturday. Leukocytosis resolved. Her BMP is unremarkable. * Continue current pain management min regimen. * Monitor urinary output. Bladder scans as needed. May need to replace the Ashton catheter if continues to retain throughout the day. I will start the patient on Flomax 0.4 mg at bedtime. He takes Patient education Pressure ulcer prophylaxis; encourage mobilization, frequent postural changes, pressure-relief techniques DVT prophylaxis Encourage deep breathing exercise incentive spirometry. Monitor bladder. Toileting schedule. Continue current bladder management, with scans as needed and CIC if needed. Start bowel care program every day to obtain continence, prevent ileus. Maintain fall precautions Gait and balance retraining Functional training and self-care and home management, including activities of daily living and instrumental activities of daily living Provision of the necessary gait aids and functional adaptive equipment to enhance the patient's a functional gnosticist Ensure adequate nutrition and hydration Sleep Discharge planning. I spent 43 minutes for services, including [id number] encounter with the patient, discussion of the case, plan of care, and exam; and [id number] activities, such as reviewing pertinent in home sales consultant documentation, recent therapynotes, laboratory and radiology studies, and discussion of case with care team including physician, nursing, top case assembler, and therapists. More than 50 % of time was spent on patient/family counseling or coordination ofcare. Patient was personally seen by me, Dr. Morris, on the day of encounter, within 24 hours of rehab admission, reviewed the history and the relevant portions of the chart, including current orders, allied health and in home sales consultant notes, labs/imaging and performed mad[place] elements of exam and I formulatedthe planof care and facilitated the medical decision making. I completed a substantive portion of this encounter, the medical decision makingportion of this note in its entirety, including Allied health note review, nursing note review, in home sales consultant note review,discussion with nursing and case management, and more than 50% of my time was spent on counseling and coordination of care, time spent 45 minutes Documented By: Vianney Pringle APRN 01/31/24 1 127 Signed By: <Electronically signed by REILLY Pringle> 01/31/24 1153 <Electronically signed by Blake Morris MD> 02/03/24 4881 [facility] Work Phone: [phone] 407-916908-17-2024 Consult note Author Georgie Foley [facility] February 01, 2024 9:43amNote Date/TimeAugust 2023 5:17pmJenna Ville [id number] Hospitalist Consult Note Signed Patient: Shana Lugo MR#: [id number] : 1955 Acct:[id number] Age/Sex: 68 / F Adm Date: 4 Loc: Room: 7S9126-5 Type: ADM IN Attending Dr: Blake Morris MD Copies to: MD Holli Johnson APRN Mohammad M El Sayyad, MD Rafik Massouh, MD~ HPI DATE OF CONSULTATION: 01/31/24 REQUESTING PROVIDER: Blake Morris Consult Narrative Reason for Consult: Hypertension, diabetes HPI: 68-year-old female past medical history significant for type 2 diabetes, hypertension, hyperlipidemia, GERD, DVT, lumbar stenosis. Patient initially hadpresented to the hospital January 26 for elective L2-S1 fusion. Intervention wasperformed by neurosurgery services as well as with vascular assist for retroperitoneal access via left lateral approach. Postoperative she had left foot drop, weakness and numbness tingling of the left lower extremity. She alsohad postoperative urinary retention requiring straight catheterization. She wasseen by therapy services with recommendations for ongoing rehab, subsequently transferred to the inpatient rehab unit January 29. Hospitalist team is now consultedfor management of hypertension and diabetes. Patient seen and examined. She endorses postoperative pain that is controlled, still with weakness of the left leg and some tingling. Offers no other complaints. Denies chest pain or palpitations. Nocough, dyspnea, or pain withinspiration. No abdominal pain or indigestion, constipation or diarrhea, nauseaor vomiting. No dysuria or retention. No headache or dizziness. No fevers or chills. Review of Systems Review of Systems All other systems reviewed & are negative unless noted below or in HPI [facility] Medical History Smoker Diverticulitis Peripheral vascular disease DVT (deep venous thrombosis) after back surgery 2022 Type 2 diabetes mellitus without complications Sacroiliac inflammation Recurrent herniation of lumbar disc Pure hypercholesterolemia, unspecified Essential (primary) hypertension Depression DJD (degenerative joint disease) Back pain Arthritis GERD (gastroesophageal reflux disease) HTN (hypertension) Left bundle branch block (LBBB) Murmur, cardiac Diabetes mellitus Surgical History History of knee surgery bilateral History of lumbar surgery History of carpal tunnel release bilateral Hx of cholecystectomy H/O arthroscopic knee surgery H/O: section x2 Problem List clean-up per request of Phys. EHR Cmte H/O: hysterectomy Family History Mother Diabetes Cancer Leukemia Sister Colon cancer Father Son Diabetes Sister Cancer Legacy FamHx Problem: Diagnosed with Cancer Social History Smoking Status: Current every day smoker Tobacco Type: cigarettes Substance Use Type: None Meds Medications and Allergies Allergies No Known Allergies Allergy (Verified 01/27/24 05:58) Home Medications atorvastatin 20 mg tablet 20 mg PO QHS 11/20/19 [History Confirmed 01/30/24] dulaglutide 1.5 mg/0.5 mL subcutaneous pen injector (Trulicity) 3 mg subcut QWEEK 11/20/19 [HistoryConfirmed 01/31/24] glyburide 5 mg tablet 5 mg PO BID 11/20/19 [History Confirmed 01/30/24] lisinopril 10 mg tablet 10 mg PO QHS 11/20/19 [History Confirmed 01/30/24] metformin 1,000 mg tablet 1,000 mg PO BID 11/20/19 [History Confirmed 01/30/24] escitalopram oxalate 20 mg tablet 20 mg PO DAILY 08/17/23 [History Confirmed 01/30/24] gabapentin 300 mg capsule 600 mg PO QPM Neuropathic pain 08/17/23 [History Confirmed 01/30/24] meloxicam 15 mg tablet 15 mg PO DAILY 08/17/23 [History Confirmed 01/30/24] aspirin 81 mg chewable tablet (Jelly Chewable Low Dose Aspirin) 81 mg PO DAILY 01/13/24 [History Confirmed 01/30/24] cholecalciferol (vitamin D3) 50 mcg (2,000 unit) tablet (Vitamin D3) 2,000 unit PO QDAY 01/13/24 [History Confirmed 01/30/24] gabapentin 300 mg capsule 300 mg PO DAILY 01/13/24 [History Confirmed 01/30/24] magnesium 250 mg tablet 500 mg PO DAILY 01/13/24 [History Confirmed 01/30/24] multivitamin (Daily Multi-Vitamin tablet) 1 tab PO DAILY 01/13/24 [History Confirmed 01/30/24] ropinirole 0.25 mg tablet 0.5 mg PO QPM 01/13/24 [History Confirmed 01/30/24] tiotropium bromide 1.25 mcg/actuation mist for inhalation (Spiriva Respimat) 2 puff inhalation DAILY 01/13/24 [History Confirmed 01/30/24] trazodone 100 mg tablet 200 mg PO QPM 01/13/24 [History Confirmed 01/30/24] acetaminophen 325 mg tablet (Tylenol) 650 mg (2 x 325 mg) PO Q4H PRN pain 1-5 #0tabs 01/30/24 [Rx Confirmed 01/30/24] bethanechol chloride 10 mg tablet 10 mg PO TID 5 days #15 tabs 01/30/24 [Rx Confirmed 01/30/24] famotidine 20 mg tablet 20 mg PO BID #0 tabs 01/30/24 [Rx Confirmed 01/30/24] insulin aspart U-100 100 unit/mL (3 mL) subcutaneous pen (Novolog FlexPen U-100 Insulin aspart) SeeProtocol subcut TID.WM.HS #0 mL 01/30/24 [Rx Confirmed 01/30/24] magnesium hydroxide 400 mg/5 mL oral suspension (Milk of Magnesia) 30 ml PO HS PRN Constipation #0 mL 01/30/24 [Rx Confirmed 01/30/24] oxycodone 5 mg tablet 5 mg PO Q6HR PRN Pain Scale 6-7 #0 tabs 01/30/24 [Rx Confirmed 01/30/24] oxycodone 5 mg tablet 10 mg (2 x 5 mg) PO Q6HR PRN Pain Scale 8-10 #0 tabs 01/30/24 [Rx Confirmed 01/30/24] sennosides 8.6 mg-docusate sodium 50 mg tablet 2 tab PO BID #0 tabs 01/30/24 [Rx Confirmed 01/30/24] Active Medications: Active Medications Generic Name Dose Route Start Last Admin Trade Name Freq PRN Reason Stop Dose Admin Acetaminophen 650 mg 01/30/24 13:36 01/31/24 08:11 Acetaminophen 325 Mg Tablet PO 01/29/25 13:35 650 mg Q4H PRN Administration pain 1-5 Acetaminophen 500 mg 01/30/24 13:37 Acetaminophen 500 Mg Tablet PO 01/29/25 13:36 Q4H PRN Pain Al Hydrox/Mg Hydrox/Simethicone 30 ml 01/30/24 13:37 Mag Hydrox/Al Hydrox/Simeth 30 Ml Udc PO 01/29/25 13:36 Q4H PRN Indigestion Aspirin 81 mg 01/31/24 09:00 01/31/24 08:11 Aspirin 81 Mg Tab.Chew PO 01/30/25 08:59 81 mg DAILY RADHA Administration Atorvastatin Calcium 20 mg 01/30/24 22:00 01/30/24 22:52 Atorvastatin 20 Mg Tablet PO 01/29/25 21:59 20 mg QHS RADHA Administration Bethanechol Chloride 10 mg 01/30/24 14:00 01/31/24 13:56 Bethanechol 10 Mg Tablet PO 01/29/25 13:59 10 mg TID RADHA Administration Bisacodyl 10 mg 01/30/24 13:37 Bisacodyl 10 Mg Supp.Rect LA 01/29/25 13:36 DAILY PRN Constipation Docusate Sodium 100 mg 01/30/24 13:37 Docusate 100 Mg Capsule PO 01/29/25 13:36 BID PRN Constipation Docusate Sodium 283 mg 01/30/24 13:37 Docusate Enema 283 Mg/5 Ml Enema LA 01/29/25 13:36 DAILY PRN Constipation Escitalopram Oxalate 20 mg 01/31/24 09:00 01/31/24 08:11 Escitalopram 20 Mg Tablet PO 01/30/25 08:59 20 mg DAILY RADHA Administration Famotidine 20 mg 01/30/24 21:00 01/31/24 08:12 Famotidine 20 Mg Tablet PO 01/29/25 20:59 20 mg BID RADHA Administration Gabapentin 300 mg 01/31/24 09:00 01/31/24 08:12 Gabapentin 300 Mg Capsule PO 01/30/25 08:59 300 mg DAILY RADHA Administration Gabapentin 600 mg 01/30/24 21:00 01/30/24 22:55 Gabapentin 300 Mg Capsule PO 01/29/25 20:59 600 mg QPM RADHA Administration Glyburide 5 mg 01/30/24 21:00 01/31/24 08:12 Glyburide 5 Mg Tablet PO 01/29/25 20:59 5 mg BID RADHA Administration Insulin Aspart 0 units 01/30/24 17:00 01/31/24 11:13 Insulin Aspart 300 Units/3 Ml Insuln.Pen SUBCUT 01/29/25 16:59 Not Given TID.WM.HS RADHA Protocol Ipratropium [place] 0.5 mg 01/31/24 09:00 01/31/24 10:10 Ipratropium [place] 0.5 Mg/2.5 Ml Vial.Neb INHALATION 01/30/25 08:59 0.5 mg QID RADHA Administration Lactulose 30 gm 01/30/24 13:37 Lactulose 20 Gm/30 Ml Udc PO 01/29/25 13:36 DAILY PRN Constipation Lisinopril 10 mg 01/30/24 22:00 01/30/24 22:54 Lisinopril 10 Mg Tablet PO 01/29/25 21:59 10 mg QHS RADHA Administration Magnesium Hydroxide 30 ml 01/30/24 13:36 Magnesium Hydroxide Susp 30 Ml Udc PO 01/29/25 13:35 HS PRN Constipation Magnesium Oxide 400 mg 01/31/24 09:00 01/31/24 08:11 Magnesium Oxide 400 Mg Tablet PO 01/30/25 08:59 400 mg DAILY RADHA Administration Metformin HCl 1,000 mg 01/30/24 21:00 01/31/24 08:11 Metformin 500 Mg Tablet PO 01/29/25 20:59 1,000 mg BID RADHA Administration Multivitamins 1 tab 01/31/24 09:00 01/31/24 08:11 Multivitamin 1 Tab Tablet PO 01/30/25 08:59 1 tab DAILY RADHA Administration Neomycin/Polymyxin/Bacitracin 1 applic 01/31/24 09:00 01/31/24 08:13 Neomycin/Bacit/Poly Oint 14 Gm Tube TOPICAL 01/30/25 08:59 1 applic DAILY RADHA Administration Dulaglutide [ 3 mg 02/02/24 09:00 Trulicity] 3 Mg/0.5 SUBCUT 02/01/25 08:59 Ml Pen Injector Coy@0900 RADHA Oxycodone HCl 5 mg 01/30/24 13:36 Oxycodone Ir 5 Mg Tablet PO Q6HR PRN Pain Scale 6-7 Oxycodone HCl 10 mg 01/30/24 13:36 01/31/24 12:07 Oxycodone Ir 5 Mg Tablet PO 10 mg Q6HR PRN Administration Pain Scale 8-10 Ropinirole HCl 0.5 mg 01/30/24 21:00 01/30/24 22:56 Ropinirole 0.5 Mg Tablet PO 01/29/25 20:59 Not Given QPM RADHA Senna/Docusate Sodium 2 tab 01/30/24 21:00 01/31/24 08:11 Sennosides/Docusate 8.6-50mg 1 Tab Tablet PO 01/29/25 20:59 2 tab BID RADHA Administration Sennosides 2 tab 01/31/24 12:00 Sennosides 8.6 Mg Tablet PO 01/30/25 11:59 DAILY@12 PRN If no BM in 2 days Sodium Chloride 0 ml 01/30/24 13:37 Sodium Chloride 0.9 % 10 Ml Syringe IV-PUSH 01/29/25 13:36 PRN PRN Flush Tamsulosin HCl 0.4 mg 01/31/24 22:00 Tamsulosin 0.4 Mg Cap.Er.24h PO 01/30/25 21:59 HS [facility] Trazodone HCl 200 mg 01/30/24 21:00 01/30/24 22:54 Trazodone 100 Mg Tablet PO 01/29/25 20:59 200 mg QPM RADHA Administration Vitamin D 50 mcg 01/31/24 09:00 01/31/24 08:12 Cholecalciferol 25 Mcg (1,000 Units) Tablet PO 01/30/25 08:59 50 mcg DAILY RADHA Administration Zinc Oxide 1 applic 01/31/24 16:21 Zinc Oxide 20% Ointment 56 Gm Tube TOPICAL 01/30/25 16:20 TID PRN excoriation Exam Physical Exam Vital Signs: Temp Pulse Resp BP Pulse Ox O2 Del Method 98 F 84 20 116/71 94 L Room Air 01/31/24 05:16 01/31/24 10:32 01/31/24 10:32 01/31/24 05:16 01/31/24 05:16 01/31/24 08:15 Narrative: CONST- alert, in bed, no acute distress HEAD- normocephalic and atraumatic EENT- sclera nonicteric and conjunctiva nonerythemic, moist oral mucosa, pharynxclear NECK- supple, no cervical lymphadenopathy CARDIAC- RRR no abnormal heart tones PULM- diminished without wheeze or rhonchi, RA, no accessory muscle use or coughnoted ABD- S/NT, NABS EXTREM- no edema BLE, calves nontender SKIN- W/D, good turgor, left lumbar, right lateral back incisions well- approximated no drainage MS- MAEx4 spontaneously with left leg weakness and foot drop NEURO- A&Ox3, speech clear and tongue midline, equal facial symmetry PSYCH-mood and behavior appropriate Results - Hospitalist Consult Lab Results Labs: Laboratory Results - last 72 hr 01/31/24 16:21: POC Glucose 190, POC Glucose Comment Glu2: cleaned meter 01/31/24 11:10: POC Glucose 133 01/31/24 06:04: POC Glucose 95 01/31/24 05:12: Corrected WBC 10.5, Uncorrected WBC Count 10.5, RBC 2.73 L, Hgb 8.5 L, Hct 24.9 L, MCV 91.1, MCH 31.3, MCHC 34.4, RDW 12.9, Plt Count 213, MPV 8.7, Neut % (Auto) 65.4, Lymph % (Auto) 23.0, Rosebud % (Auto) 10.9, Eos % (Auto) 0.5, Baso % (Auto) 0.2, Nucleat RBC Rel Count 0.1, Neut # (Auto) 6.9, Lymph # (Auto) 2.4, Rosebud # (Auto) 1.1 H, Eos # (Auto) 0.1, Baso # (Auto) 0.0, PHA Creatinine Clear 78.75, Sodium 138, Potassium 4.4, Chloride 105, Carbon Dioxide 25.6, Anion Gap 11.8, BUN 26 H, Creatinine 0.74, Est GFR (CKD-EPI) > 60.0, Glucose 77 D, Calcium 8.4 L, Total Bilirubin 0.4, AST 21, ALT 20, Alkaline Phosphatase 48, Total Protein 5.3 L, Albumin 3.1 L, Globulin 2.2, Albumin/Esther bulin Ratio 1.4, Prealbumin 16.6 L 01/30/24 21:29: POC Glucose 234 01/30/24 17:27: POC Glucose 252 Assessment & Plan Assessment/Plan (1) Diabetes mellitus: (2) Postoperative anemia: (3) Urinary retention: (4) Lumbar stenosis with neurogenic claudication: (5) Pure hypercholesterolemia, unspecified: (6) Essential (primary) hypertension: Plan Lumbar stenosis s/p L2-S1 fusion January 26 -Further POC per PMR team for rehabilitative therapy, pain control bowel regimen, DVT prophylaxis, surgical wound care -Please defer any postoperative questions/concerns to neurosurgery team -Preop hemoglobin 12.1, trend labs, transfuse to maintain greater than 8 -Gabapentin, ropinirole -Under urinary retention, note history of chronic, PMR team initiated tamsulosin Chronic conditions -Hyperlipidemia?atorvastatin -Urinary retention, chronic?bethanechol -Diabetes?Trulicity, metformin. SSIC and fingerstick. -Depression?escitalopram -Hypertension?lisinopril. BP reviewed and controlled Thank you for consulting us to see this pt. I will be off service starting tomorrow evening. Case will be handled by one of my partners if needed. Pt is fairly stable at this time. We will follow pt on an as needed basis. Please call or alert hospitalist if pt develops any signs or symptoms that may require medical evaluation and or intervention. Please arrange for pt after discharge follow up appts with PCP and other specialists. I may or may not have addressed all of patient symptoms, abnormal labs and imaging during this hospitalization. Please ask patient to ask PCP and out patient providers to obtain [facility] record entirely to followup on illnesses, symptoms, abnormal findings that I have and have not addressed duringthis encounter and hospitalization in out patient setting. Documented By: Holli Mcrae APRN 01/15 12/08 1658 Signed By: <Electronically signed by REILLY Mcrae> 01/31/24 1744 <Electronically signed by Georgie Foley MD> 02/01/24 0984 [facility] Work Phone: 1(811) 387-100408-15-2024 Evaluation note* Diagnosis Onset Date Resolution Status Admit Date Diabetes mellitus acuteAugust 2023 1:26pmEssential (primary) hypertensionacuteAugust 2023 1:26pmPostoperative anemiaacuteAugust 2023 1:26pmPure hypercholesterolemia, unspecifiedacuteAugust 2023 1:26pmUrinary retention acuteAugust 2023 1:26pmImpaired mobility and activities of daily living resolvedAugust 2023 1:26pmLumbar foraminal stenosisinactiveAugust 2023 1:26pmLumbar stenosis with neurogenic claudicationinactiveAugust 2023 1:26pmLumbar stenosis with neurogenic claudicationinactiveAugust 2023 2:20pmLumbar stenosis with neurogenic claudicationinactiveSeptember 2023 12:59pmLumbar stenosis with neurogenic claudicationinactiveOctober 2023 10:11amLumbar radiculopathyacuteNovember 2023 12:48pmSpondylolisthesis, lumbar regionacuteNovember 2023 12:48pm [facility] Work Phone: 1(651) 565-667208-15-2024 Progress note Author Jacques Foy [facility] January 30, 2024 8:11amNote Date/TimeAugust 2023 8:11[place] [address] Neurosurgery Progress Note Signed Patient: Shana Lugo MR#: [id number] : 1955 Acct:[id number] Age/Sex: 68 / F Adm Date: 4 Loc: Room: [address] [place] [address] Type: ADM IN Attending Dr: Jacques Foy MD Copies to: ~ Date of Service: 01/30/2024 Subjective Subjective HPI: Patient in chair at bedside awake and alert. Says her legs feel good, back is sore but feels betterwith the brace on. States she finally was able to urinatelast night Exam Physical Exam Vital Signs: Temp Pulse Resp BP Pulse Ox O2 Del Method O2 Flow Rate 98.8 F 95 18 138/77 95 Room Air 1 01/30/24 03:46 01/30/24 05:24 01/30/24 05:24 01/30/24 03:46 01/30/24 03:46 01/30/24 03:46 01/28/24 03:10 Narrative: Brace fitting appropriately Lower extremity strength and motion baseline Gait grossly normal Incisions clean dry Objective Lab Results Most Recent Labs: 01/29/24 20:39: POC Glucose 240 01/29/24 16:04: POC Glucose 389 01/29/24 11:50: POC Glucose 313 Assessment/Plan Assessment/Plan (1) Lumbar stenosis with neurogenic claudication: (2) Lumbar radiculopathy: (3) Impaired mobility and activities of daily living: Plan I will continue the bethanechol. I would imagine for 5 days. If she has more urinary problems she will need to see urology. This bladder problem I suspect is pre-existing she stated she had it when she had a hysterectomy in the past. She is very happy with her result her sensation in the left thighis getting a little bit better her strength is a little bit better she will be transferred [facility] for further care. Documented By: Jacques Foy MD 01/30/24808 Signed By: <Electronically signed by MD Jacques Foy> 01/30/2411 [facility] Work Phone: 1(274) 163-118808-14-2024 Progress note Author Jacques Foy [facility] January 29, 2024 3:56pmNote Date/TimeAugust 2023 3:56pm[place] [address] Neurosurgery Progress Note Signed Patient: Shana Lugo MR#: [id number] : 1955 Acct:[id number] Age/Sex: 68 / F Adm Date: 4 Loc: 4N Room: 2Z2821-4 Type: ADM IN Attending Dr: Jacques Foy MD Copies to: ~ Date of Service: 01/29/2024 Subjective Subjective HPI: Patient in chair at bedside awake and alert. Says her legs feel good, back is sore but feels betterwith the brace on. Exam Physical Exam Vital Signs: Temp Pulse Resp BP Pulse Ox O2 Del Method O2 Flow Rate 98.6 F 100 22 148/79 H 96 Room Air 1 01/29/24 12:00 01/29/24 13:51 01/29/24 13:51 01/29/24 12:00 01/29/24 12:00 01/29/24 12:00 01/28/24 03:10 Narrative: Brace fitting appropriately Lower extremity strength and motion baseline Gait grossly normal Incisions clean dry Objective Lab Results Most Recent Labs: 01/29/24 11:50: POC Glucose 313 01/29/24 07:20: POC Glucose 223 01/29/24 05:40: Corrected WBC 14.4 H, Uncorrected WBC Count 14.4 H, RBC 3.01 L, Hgb 9.3 L, Hct 27.1L, MCV 90.3, MCH 30.9, MCHC 34.2, RDW 13.4, Plt Count 194, MPV 8.4, Neut % (Auto) 79.2, Lymph % (Auto) 10.0, Rosebud % (Auto) 10.6, Eos % (Auto) 0.0, Baso % (Auto) 0.2, Nucleat RBC Rel Count 0.1, Neut #(Auto) 11.4 H, Lymph # (Auto) 1.4, Rosebud # (Auto) 1.5 H, Eos # (Auto) 0.0, Baso # (Auto) 0.0, PHA Creatinine Clear 81.03, Sodium 136, Potassium 4.8, Chloride 107, Carbon Dioxide 23.0, Anion Gap 10.8, BUN 16, Creatinine 0.79, Est GFR (CKD-EPI) > 60.0,Glucose 212 H, Calcium 8.5 L 01/28/24 20:40: POC Glucose 312 01/28/24 15:52: POC Glucose 250 Assessment/Plan Assessment/Plan (1) Lumbar stenosis with neurogenic claudication: (2) Lumbar radiculopathy: (3) Impaired mobility and activities of daily living: Plan Increase activity as tolerated physical therapy. Plan for transfer to rehab tomorrow. I started thepatient on bethanechol and would like to have the patient try to urinate today prior to going to rehab. Will transfer to rehab tomorrow Documented By: Jacques Foy MD 01/29/24 1551 Signed By: <Electronically signed by MD Jacques Foy> 01/29/24 1556 [facility] Work Phone: [phone]) 454-749708-13-2024 Consult note Author Blake Morris [facility] January 28, 2024 2:30pmNote Date/TimeAugust 2023 11:47[place] [address] Physiatry (Rehab) Consult Note Signed Patient: Shana Lugo MR#: [id number] : 1955 Acct:[id number] Age/Sex: 68 / F Adm Date: 4 Loc: Room: 6U7220-1 Type: ADM IN Attending Dr: Jacques Foy MD Copies to: MD Jacques Johnson MD Joseph H Patrick, DO, RES Eyad Mckeon MD~ HPI Consult Date: 01/28/24 Requesting Physician: Jacques Foy MD Primary Care Provider: Eyad Mckeon MD Consult Narrative Reason for consult: Consult for rehabilation s/p lumbar surgery HPI: Ms. Lugo is a 68 year old female with a past medical history of lumbar spondylolisthesis, lumbar radiculopathy, 2 prior lumbar surgeries, DM type II, hypercholesterolemia, and chronic pain whounderwent surgery on 01/27/2024 for elective L4-L5 and L5-S1 anterior lumbar interbody fusion with left lateral approach with Dr. Foy and Dr. Akhtar. The patient reports she has been symptomaticfor the past two years with radiculopathy and pain. She reports thather right leg feels numb where she no longer has right sided shooting pain, while she reports pain in her left lower extremity. The patient lives at home with her where they have only 5 steps into their home. She maintains an independent lifestyle and continues to work. She denies normally requiring a walker at home. OT/PT worked with the patient today and noted that she requires moderate assistance for ADLs, ambulation, and transfers. They both recommend inpatient rehabilitation. Review of Systems Review of Systems All other systems reviewed & are negative unless noted below or in HPI [facility] Medical History (Updated 01/28/24 @ 14:26 by Blake Morris MD) Smoker Diverticulitis Peripheral vascular disease DVT (deep venous thrombosis) after back surgery 2022 Type 2 diabetes mellitus without complications Sacroiliac inflammation Recurrent herniation of lumbar disc Pure hypercholesterolemia, unspecified Essential (primary) hypertension Depression DJD (degenerative joint disease) Back pain Arthritis GERD (gastroesophageal reflux disease) HTN (hypertension) Left bundle branch block (LBBB) Murmur, cardiac Diabetes mellitus Surgical History History of knee surgery bilateral History of lumbar surgery History of carpal tunnel release bilateral Hx of cholecystectomy H/O arthroscopic knee surgery H/O: section x2 Problem List clean-up per request of Phys. EHR Cmte H/O: hysterectomy Family History Mother Diabetes Cancer Leukemia Sister Colon cancer Father Son Diabetes Sister Cancer Legacy FamHx Problem: Diagnosed with Cancer Social History Smoking Status: Current some day smoker Tobacco Type: cigarettes Substance Use Type: None Meds Medications and Allergies Allergies No Known Allergies Allergy (Verified 01/27/24 05:58) Home Medications atorvastatin 20 mg tablet 20 mg PO QHS 11/20/19 [History Confirmed 01/27/24] dulaglutide 1.5 mg/0.5 mL subcutaneous pen injector (Trulicity) 1.5 mg subcut QWEEK 11/20/19 [History Confirmed 01/27/24] glyburide 5 mg tablet 5 mg PO BID 11/20/19 [History Confirmed 01/27/24] lisinopril 10 mg tablet 10 mg PO QHS 11/20/19 [History Confirmed 01/27/24] metformin 1,000 mg tablet 1,000 mg PO BID 11/20/19 [History Confirmed 01/27/24] escitalopram oxalate 20 mg tablet 20 mg PO DAILY 08/17/23 [History Confirmed 01/27/24] gabapentin 300 mg capsule 600 mg PO QPM Neuropathic pain 08/17/23 [History Confirmed 01/27/24] glyburide 2.5 mg tablet 2.5 mg PO DAILY 08/17/23 [History Confirmed 01/27/24] meloxicam 15 mg tablet 15 mg PO DAILY 08/17/23 [History Confirmed 01/27/24] tramadol 50 mg tablet 50 mg PO Q6HR PRN pain 5 days #20 tabs 12/05/23 [Rx Confirmed 01/27/24] acetaminophen 500 mg tablet (Tylenol Extra Strength) 1,000 mg PO Q6HR PRN pain 01/13/24 [History Confirmed 01/27/24] aspirin 81 mg chewable tablet (Jelly Chewable Low Dose Aspirin) 81 mg PO DAILY 01/13/24 [History Confirmed 01/27/24] cholecalciferol (vitamin D3) 50 mcg (2,000 unit) tablet (Vitamin D3) 2,000 unit PO QDAY 01/13/24 [History Confirmed 01/27/24] gabapentin 300 mg capsule 300 mg PO QHS 01/13/24 [History Confirmed 01/27/24] magnesium 250 mg tablet 500 mg PO DAILY 01/13/24 [History Confirmed 01/27/24] multivitamin (Daily Multi-Vitamin tablet) 1 tab PO DAILY 01/13/24 [History Confirmed 01/27/24] ropinirole 0.25 mg tablet 0.5 mg PO QPM 01/13/24 [History Confirmed 01/27/24] tiotropium bromide 1.25 mcg/actuation mist for inhalation (Spiriva Respimat) 2 puff inhalation DAILY 01/13/24 [History Confirmed 01/27/24] trazodone 100 mg tablet 200 mg PO QPM 01/13/24 [History Confirmed 01/27/24] Exam Physical Exam Vital Signs: Temp Pulse Resp BP Pulse Ox O2 Del Method O2 Flow Rate 98.4 F 101 H 15 134/74 95 Room Air 1 01/28/24 08:00 01/28/24 10:37 01/28/24 10:37 01/28/24 08:00 01/28/24 08:00 01/28/24 08:00 01/28/24 03:10 Narrative: Gen - cooperative, no acute distress CV - regular rate, and rhythm, no murmurs noted Lung - CTA bilaterally, no coughing or wheezing Abdomen - soft and supple, no peritoneal signs, no rebound or guarding MSK - positive straight leg raise on the left, diffusely weaker in the left lower extremity compared to the right, no hyperreflexia noted in any extremities Results - Phys. Rehab Labs Labs: Laboratory Results - last 24 hr 01/27/24 01/27/24 01/27/24 15:12 16:36 20:47 Corrected WBC Uncorrected WBC Count RBC Hgb Hct MCV MCH MCHC RDW Plt Count MPV Neut % (Auto) Lymph % (Auto) Rosebud % (Auto) Eos % (Auto) Baso % (Auto) Nucleat RBC Rel Count Neut # (Auto) Lymph # (Auto) Rosebud # (Auto) Eos # (Auto) Baso # (Auto) PHA Creatinine Clear Sodium Potassium Chloride Carbon Dioxide Anion Gap BUN Creatinine Est GFR (CKD-EPI) Glucose POC Glucose 332 327 293 Calcium 01/28/24 01/28/24 01/28/24 06:19 08:13 11:15 Corrected WBC 11.8 H Uncorrected WBC Count 11.8 H RBC 3.26 L Hgb 10.2 L Hct 30.0 L MCV 92.0 MCH 31.3 MCHC 34.0 RDW 13.3 Plt Count 214 MPV 8.1 Neut % (Auto) 77.5 Lymph % (Auto) 10.3 Rosebud % (Auto) 12.1 Eos % (Auto) 0.0 Baso % (Auto) 0.1 Nucleat RBC Rel Count 0.0 Neut # (Auto) 9.1 H Lymph # (Auto) 1.2 Rosebud # (Auto) 1.4 H Eos # (Auto) 0.0 Baso # (Auto) 0.0 PHA Creatinine Clear 78.10 Sodium 141 Potassium 4.8 Chloride 110 H Carbon Dioxide 23.3 Anion Gap 12.5 BUN 15 Creatinine 0.83 Est GFR (CKD-EPI) > 60.0 Glucose 192 H POC Glucose 328 387 Calcium 8.5 L Assessment/Plan (1) Lumbar stenosis with neurogenic claudication: (2) Lumbar radiculopathy: (3) Type 2 diabetes mellitus without complications: (4) Impaired mobility and activities of daily living: Plan Ms. Lugo is a 68 year old female with a past medical history of lumbar spondylolisthesis, lumbar radiculopathy, 2 prior lumbar surgeries, DM type II, hypercholesterolemia, and chronic pain whounderwent surgery on 01/27/2024 for elective L4-L5 and L5-S1 anterior lumbar interbody fusion with left lateral approach with Dr. Foy and Dr. Akhtar. -The patient was able to participate with therapy today. She has noticeable functional deficits below baseline and is Mod A for transfers, ambulated 3' Mod Ax1 -The patient is having some LLE weakness today which she states is new as well as some post operative pain. -This patient would be appropriate for inpatient rehab when cleared by neuro/vascular surgery. She has significant functional deficits. Suspect she will begin having rapid recovery as post surgical swelling/pain subsides. She was quite independent prior to this surgery and still working. -Thank you for the consult Patient was personally seen by me, Dr. Morris, on the day of encounter, reviewed the history and the relevant portions of the chart, including current orders, allied health and in home sales consultant notes, labs/imaging and performed madison elements of exam and I formulated the plan of care and facilitated the medical decision making. I completed a substantive portion of this encounter, the medical decision makingportion of this note in its entirety, including Allied health note review, nursing note review, in home sales consultant note review,discussion with nursing and case management, and more than 50% of my time was spent on counseling and coordination of care, time spent 65 minutes Documented By: Blake Morris MD [id number] Signed By: <Electronically signed by Blake Morris MD> 01/28/24 1430 <Electronically signed by DO JAZ Bergman> 01/28/24 1410 [facility] Work Phone: 1(470) 167-185708-13-2024 Progress note Author Robin Akhtar [facility] January 28, 2024 11:13amNote Date/TimeAugust 2023 11:13[place] [address] Vascular Surgery Progress Note Signed Patient: Shana Lugo MR#: [id number] : 1955 Acct:[id number] Age/Sex: 68 / F Adm Date: 4 Loc: 4N Room: 3Z0589-6 Type: ADM IN Attending Dr: Jacques Foy MD Copies to: ~ Date of Service: 01/28/2024 Subjective Subjective Interval history: Patient was seen on rounds this morning by myself. She was alone in the room and sitting up in a chair. She was not complaining of any abdominal pain. She denied any nausea or vomiting. Exam Physical Exam Vital Signs: Temp Pulse Resp BP Pulse Ox O2 Del Method O2 Flow Rate 98.4 F 101 H 15 134/74 95 Room Air 1 01/28/24 08:00 01/28/24 10:37 01/28/24 10:37 01/28/24 08:00 01/28/24 08:00 01/28/24 08:00 01/28/24 03:10 Const Other: Patient was pleasant quite appropriate. She was complaining of some back pain. The patient states that she has complete relief of the symptoms in her right leg. She had no longer has a shooting pain down her right leg. She has no leg swelling bilaterally. The incision is intact and the abdomen without any gross complicating features present. Abdomen is soft and nontender. She has no peritoneal signs. She has no rebound or guarding. Objective Labs 01/28/24 06:19 01/28/24 06:19 Other Labs: Laboratory Results - last 24 hr 01/27/24 01/27/24 01/27/24 15:12 16:36 20:47 Corrected WBC Uncorrected WBC Count RBC Hgb Hct MCV MCH MCHC RDW Plt Count MPV Neut % (Auto) Lymph % (Auto) Rosebud % (Auto) Eos % (Auto) Baso % (Auto) Nucleat RBC Rel Count Neut # (Auto) Lymph # (Auto) Rosebud # (Auto) Eos # (Auto) Baso # (Auto) PHA Creatinine Clear Sodium Potassium Chloride Carbon Dioxide Anion Gap BUN Creatinine Est GFR (CKD-EPI) Glucose POC Glucose 332 327 293 Calcium 01/28/24 01/28/24 06:19 08:13 Corrected WBC 11.8 H Uncorrected WBC Count 11.8 H RBC 3.26 L Hgb 10.2 L Hct 30.0 L MCV 92.0 MCH 31.3 MCHC 34.0 RDW 13.3 Plt Count 214 MPV 8.1 Neut % (Auto) 77.5 Lymph % (Auto) 10.3 Rosebud % (Auto) 12.1 Eos % (Auto) 0.0 Baso % (Auto) 0.1 Nucleat RBC Rel Count 0.0 Neut # (Auto) 9.1 H Lymph # (Auto) 1.2 Rosebud # (Auto) 1.4 H Eos # (Auto) 0.0 Baso # (Auto) 0.0 PHA Creatinine Clear 78.10 Sodium 141 Potassium 4.8 Chloride 110 H Carbon Dioxide 23.3 Anion Gap 12.5 BUN 15 Creatinine 0.83 Est GFR (CKD-EPI) > 60.0 Glucose 192 H POC Glucose 328 Calcium 8.5 L A&P - Vascular Assessment/Plan (1) Lumbar stenosis with neurogenic claudication: Plan Patient is doing well today after two-level X-ALIF. I suggest the patient initiate physical therapyand Occupational Therapy and move around a bit today. We can advance her diet. We can Hep-Lock the IVs. She is doing very well. Documented By: Robin Akhtar MD 01/28/24 1111 Signed By: <Electronically signed by Robin Akhtar MD> 01/28/24 1113 [facility] Work Phone: 1(231) 561-650608-13-2024 Progress note Author Jacques Foy [facility] January 28, 2024 7:46amNote Date/TimeAugust 2023 7:46[place] [address] Neurosurgery Progress Note Signed Patient: Shana Lugo MR#: [id number] : 1955 Acct:[id number] Age/Sex: 68 / F Adm Date: 4 Loc: 4 Room: [address] [place] [address] Type: ADM IN Attending Dr: Jacques Foy MD Copies to: ~ Date of Service: 01/28/2024 Subjective Subjective HPI: Patient in chair at bedside, says her right leg is good, left leg is numb on theanterior thigh. Back is sore. Exam Physical Exam Vital Signs: Temp Pulse Resp BP Pulse Ox O2 Del Method O2 Flow Rate 98.8 F 96 14 120/69 94 L Room Air 1 01/28/24 03:10 01/28/24 06:28 01/28/24 06:28 01/28/24 03:10 01/28/24 03:10 01/28/24 04:00 01/28/24 03:10 Narrative: Lower extremity strength and motion baseline, left iliopsoas 4-/5 Incisions clean dry Objective Lab Results Most Recent Labs: 01/28/24 06:19: Corrected WBC 11.8 H, Uncorrected WBC Count 11.8 H, RBC 3.26 L, Hgb 10.2 L, Hct 30.0 L, MCV 92.0, MCH 31.3, MCHC 34.0, RDW 13.3, Plt Count 214, MPV 8.1, Neut % (Auto) 77.5, Lymph % (Auto) 10.3, Rosebud % (Auto) 12.1, Eos % (Auto) 0.0, Baso % (Auto) 0.1, Nucleat RBC Rel Count 0.0, Neut # (Auto) 9.1 H, Lymph # (Auto) 1.2, Rosebud # (Auto) 1.4 H, Eos # (Auto) 0.0, Baso # (Auto) 0.0, PHA Creatinine Clear 78.10, Sodium 141, Potassium 4.8, Chloride 110 H, Carbon Dioxide 23.3, Anion Gap 12.5, BUN 15, Creatinine 0.83, Est GFR (CKD-EPI) > 60.0,Glucose 192 H, Calcium 8.5 L 01/27/24 20:47: POC Glucose 293 01/27/24 16:36: POC Glucose 327 01/27/24 06:20: Blood Type Recheck A Positive Assessment/Plan Assessment/Plan (1) Lumbar stenosis with neurogenic claudication: (2) Lumbar radiculopathy: Plan Increase activity as tolerated physical therapy. Documented By: Jacques Foy MD 01/28/24 0728 Signed By: <Electronically signed by MD Jacques Foy> 01/28/24 0746 [facility] Work Phone: 1([phone]) 104-834608-12-2024 [facility] Evaluation note* Encounter Date Diagnosis Assessment Notes Treatment Notes Treatment Clinical Notes Sep, Lumbar radiculopathy, acute (ICD -10 - M54.16) [place] [employer] Other 02-14-2023 NoteBilateral lower extremity venous duplex [facility]St[facility] Other 02-13-2023 Evaluation note* Encounter Date Diagnosis Assessment Notes Treatment Notes Treatment Clinical Notes Jul, Urinary tract infect ion without hematuria, site unspecified (ICD-10 - N39.0) Jul,Lumbar radiculopathy, right (ICD-10 - M54.16) Jul,Leg swelling (ICD-10 - M79.89) Jul,cute deep vein thrombosis (DVT) of distal vein of both lower extremities (ICD-10 - I82.4Z3) Jul,History of lumbar surgery (ICD-10 - Z98.890) [employer] Other 02-04-2023 Progress note Author Idalmis Rico [facility] July 21, 2022 8:52amNote Date/TimeFebruary 2022 8:52[place] [address] Neurosurgery Progress Note Signed Patient: Shana Lugo MR#: [id number] : 1955 Acct:[id number] Age/Sex: 67 / F Adm Date: 3 Loc: 4N Room: [address] [place] [address] Type: REG SDC Attending Dr: Idalmis Rico MD Copies to: ~ Date of Service: 07/21/2022 Subjective Subjective HPI: Mrs. Lugo is s/p redo lumbar laminectomy with right L2-3 discectomy to retrieve a disc fragment underneath and in the axilla of the exiting L3 nerve root. The procedure was complicated by a small dural tear, noted during the removal of the L3 lamina, and primarily repaired. The patient reports resolutionof her right leg pain and is anxious to increase her activity. She denies headache, nausea and vomiting. 07/21 - Mrs. Lugo looks great and states she feels good and is ready to go home. She denies leg pain and headache. She has worked with physical therapy andher walking has improved. Exam Physical Exam Vital Signs: Temp Pulse Resp BP Pulse Ox O2 Del Method O2 Flow Rate 98.0 F 73 12 133/69 96 Room Air 2 07/21/22 08:30 07/21/22 08:30 07/21/22 08:30 07/21/22 08:30 07/21/22 08:30 07/21/22 08:30 07/20/22 00:15 Const General: cooperative and comfortable Nutritional Appearance: overweight Orientation: alert, awake and oriented x3 HEENT Ears: hearing grossly normal bilaterally Nose: external nose normal Face and sinus: normal facial exam Eyes General: appearance normal, both eyes and all related structures Eyelids: eyelids normal Conjunctivae: conjunctivae normal Sclera: sclerae normal EOM: EOM intact bilaterally Neck Neck: full ROM Resp Effort & Inspection: normal respiratory effort Skin Other: Lumbar incision site is intact. Prineo is applied to the wound. Neuro General: patient alert, patient awake, patient oriented x3 and moves all extremities Cognition: normal cognition Speech: speech normal Motor: muscle tone normal throughout and strength 5/5 throughout (Good strength is noted along the right leg; walking well) Psych Appearance: grossly normal Mood: congruent mood Affect: normal affect Attitude: cooperative Thought Process: normal Thought Content: normal Insight: insight good Judgment: judgment good Objective Lab Results Most Recent Labs: 07/21/22 08:33: POC Glucose 192, POC Glucose Comment Glu2: cleaned meter 07/21/22 04:52: PHA Creatinine Clear 68.62, Sodium 136, Potassium 4.1, Chloride 102, Carbon Rfhbqcr07.2, Anion Gap 9.9, BUN 20, Creatinine 0.95, Est GFR ( Amer) > 60, Est GFR (Non-Af Amer)59, Glucose 158 H D, Calcium 9.0 07/21/22 04:52: Corrected WBC 15.4 H, Uncorrected WBC Count 15.4 H, RBC 3.67, Hgb 11.0 L, Hct 32.9 L, MCV 89.5, MCH 29.9, MCHC 33.4, RDW 13.2, Plt Count 244, MPV 8.5, Neut % (Auto) 69.7, Lymph % (Auto) 18.9, Rosebud % (Auto) 11.2, Eos % (Auto) 0.0, Baso % (Auto) 0.2, Nucleat RBC Rel Count 0.0, Neut # (Auto) 10.8 H, Lymph # (Auto) 2.9, Rosebud # (Auto) 1.7 H, Eos # (Auto) 0.0, Baso # (Auto) 0.0, Platelet Estimate Normal, Plt Morphology Comment Normal, RBC Morphology Normal 07/20/22 16:13: POC Glucose 420 H*, POC Glucose Comment 07/20/22 12:03: POC Glucose 428 H*, POC Glucose Comment Assessment/Plan Assessment/Plan (1) Acute lumbar radiculopathy: Plan: Mrs. Lugo is doing well. She will be discharged home today. She states she has pain medication and muscle relaxant at home. I have refilled her Neurontin, 300 mg qam, 300 qafternoon, 600mg qhs. She will followup with me on July 30. Code(s): M54.16 - Radiculopathy, lumbar region Status: Acute Time Spent With Patient (min): 20 Documented By: Idalmis Rico MD 07/21/22 084 9 Signed By: <Electronically signed by Idalmis Rico MD> 07/21/22 0852 [facility] Work Phone: 1(308) 732-311902-04-2023 Discharge summary Author Idalmis Rico [facility] July 21, 2022 8:49amNote Date/TimeFebruary 2022 8:49[place] [address] Discharge Summary Signed Patient: Shana Lugo MR#: [id number] : 1955 Acct:[id number] Age/Sex: 67 / F Adm Date: 3 Loc: Room: [address] [place] [address]: Idalmis Rico MD Copies to: NON STAFF Idalmis Rico MD~ Providers Date of Admission: 07/19/22 Date of Discharge: 07/21/22 Discharging Provider: Idalmis Rico Primary Care Provider: NON STAFF Consults: 07/20/22 09:44 Consult to Physical Therapy Routine OT [Consult to Occupational Therapy] Routine Discharge Diagnosis (1) Acute lumbar radiculopathy: Final Diagnosis Final Discharge Diagnosis: Acute lumbar radiculopathy; s/p lumbar decompression with resection of lateral recess/axillary discherniation right L2-3 Summary Hospital Course Hospital course: Mrs. Lugo is s/p lumbar discectomy right L2-3. She is doing well and willbe discharged home today. She will follow-up with Dr. Rico on July 30. She has been given instructions to walk many times daily. She may be a passengerin a car but may not drive until otherwise instructed. Time spent discussing smoking cessation with patient: 3 to 10 minutes Condition Condition at Discharge: Stable Status at Discharge Cognitive/behavioral status at discharge: Mrs. Lugo is in good spirits; she expresses some anxiety about going home. Functional status at discharge: uses cane/walker Overall status at discharge: patient is progressing back to baseline Time Spent with Patient Time spent providing/coordinating discharge services (# min): 20 Specific discharge activities: Mrs. Lugo must walk multiple times daily. She is to avoid bending at the waist, lifting anything greater than 10 pounds and reaching overhead repetitively. She may shower but not have the shower jet hit the wound directly. Surgeries and Procedures Operation Date: 07/19/22 12:20 Actual Procedures p OR Lumbar Decompression L3-4 L4-5(Not Applicable) - Idalmis Rico MD Complications Complications: A pinhole dural opening was noted at time of surgery and closed primarily. Diagnostic Studies Completed and Pending Studies Labs on day of discharge: 07/21/22 08:33: POC Glucose 192, POC Glucose Comment Glu2: cleaned meter 07/21/22 04:52: PHA Creatinine Clear 68.62, Sodium 136, Potassium 4.1, Chloride 102, Carbon Vhgjgyd58.2, Anion Gap 9.9, BUN 20, Creatinine 0.95, Est GFR ( Amer) > 60, Est GFR (Non-Af Amer)59, Glucose 158 H D, Calcium 9.0 07/21/22 04:52: Corrected WBC 15.4 H, Uncorrected WBC Count 15.4 H, RBC 3.67, Hgb 11.0 L, Hct 32.9 L, MCV 89.5, MCH 29.9, MCHC 33.4, RDW 13.2, Plt Count 244, MPV 8.5, Neut % (Auto) 69.7, Lymph % (Auto) 18.9, Rosebud % (Auto) 11.2, Eos % (Auto) 0.0, Baso % (Auto) 0.2, Nucleat RBC Rel Count 0.0, Neut # (Auto) 10.8 H, Lymph # (Auto) 2.9, [place] # (Auto) 1.7 H, Eos # (Auto) 0.0, Baso # (Auto) 0.0, Platelet Estimate Normal, Plt Morphology Comment Normal, RBC Morphology Normal 07/20/22 16:13: POC Glucose 420 H*, POC Glucose Comment 07/20/22 12:03: POC Glucose 428 H*, POC Glucose Comment Exam Physical Exam Vital Signs: Temp Pulse Resp BP Pulse Ox O2 Del Method O2 Flow Rate 98.0 F 73 12 133/69 96 Room Air 2 07/21/22 08:30 07/21/22 08:30 07/21/22 08:30 07/21/22 08:30 07/21/22 08:30 07/21/22 08:30 07/20/22 00:15 Const General: cooperative and comfortable Nutritional Appearance: overweight Orientation: alert, awake and oriented x3 HEENT Ears: hearing grossly normal bilaterally Nose: external nose normal Face and sinus: normal facial exam Eyes General: appearance normal, both eyes and all related structures Eyelids: eyelids normal Conjunctivae: conjunctivae normal Sclera: sclerae normal EOM: EOM intact bilaterally Neck Neck: full ROM Resp Effort & Inspection: normal respiratory effort Skin Other: Lumbar incision site is intact. Prineo is applied to the wound. Neuro General: patient alert, patient awake, patient oriented x3 and moves all extremities Cognition: normal cognition Speech: speech normal Motor: muscle tone normal throughout and strength 5/5 throughout (Good strength is noted along the right leg; walking well) Psych Appearance: grossly normal Mood: congruent mood Affect: normal affect Attitude: cooperative Thought Process: normal Thought Content: normal Insight: insight good Judgment: judgment good Discharge Plan Discharge Plan Activity: Ambulate as Tolerated Diet: Diabetic Comment: Please drink more water; eat a well balanced diet and avoid constipation Additional Instructions: Use Miralax twice per day as needed Instructions: Radiculopathy (DC) Prescriptions: New gabapentin 300 mg capsule 300 mg PO TID Qty: 90 0RF Rx Instructions: 300 mg p.o. q am; 300 mg p.o. q afternoon, 600 mg qhs No Action atorvastatin 20 mg Tablet 20 mg PO QHS glyburide 5 mg Tablet 5 mg PO BID trazodone 100 mg Tablet 200 mg PO QHS metformin 1,000 mg Tablet 1,000 mg PO BID Hold Instructions: Resume on 11/21/19. lisinopril 10 mg Tablet 10 mg PO QHS aspirin [Aspirin Childrens] 81 mg Tablet,Chewable 81 mg PO QPM escitalopram oxalate [Lexapro] 10 mg Tablet 20 mg PO DAILY Trulicity 1.5 mg/0.5 mL Pen Injector 1.5 mg SUBCUT QWEEK Patient Comments: takes on Sundays Rx Instructions: Saturday meloxicam 15 mg tablet 15 mg PO HS Patient Comments: TAKE 1 TABLET BY MOUTH EVERY DAY FOR 90 DAYS magnesium 250 mg Tablet 250 mg PO HS dvsmmsrnekie-Tw-cfod-minerals Tablet 1 tab PO DAILY cholecalciferol (vitamin D3) [Vitamin D3] 125 mcg (5,000 unit) Tablet 5,000 mcg PO DAILY tizanidine 4 mg Tablet 4 mg PO BID PRN (Reason: Muscle Spasm) 14 Days Qty: 28 1RF gabapentin 300 mg capsule 300 mg PO BID.PC.BKFAST.LUNCH Qty: 60 2RF oxycodone 5 mg tablet 5 mg PO Q6H PRN (Reason: pain) 14 Days Qty: 56 0RF Follow Up: Idalmis Rico MD [Active Staff] - (Please follow up with Dr. Rico on July 30. The office will call you with an appointment time.) Documented By: Idalmis Rico MD 07/21/22 084 1 Signed By: <Electronically signed by Idalmis Rico MD> 07/21/22 0849 [facility] Work Phone: 1(913) 373-730102-03-2023 Progress note Author Idalmis Rico [facility] July 20, 2022 1:16pmNote Date/TimeFebruary 2022 1:17pm[place]ell [place] [address] Neurosurgery Progress Note Signed Patient: Shana Lugo MR#: [id number] : 1955 Acct:[id number] Age/Sex: 67 / F Adm Date: 3 Loc: 4N Room: 5G3224-9 Type: REG [facility] Attending Dr: Idalmis Rico MD Copies to: ~ Date of Service: 07/20/2022 Subjective Subjective HPI: Mrs. Lugo is s/p redo lumbar laminectomy with right L2-3 discectomy to retrieve a disc fragment underneath and in the axilla of the exiting L3 nerve root. The procedure was complicated by a small dural tear, noted during the removal of the L3 lamina, and primarily repaired. The patient reports resolutionof her right leg pain and is anxious to increase her activity. She denies headache, nausea and vomiting. Exam Physical Exam Vital Signs: Temp Pulse Resp BP Pulse Ox O2 Del Method O2 Flow Rate 98.4 F 75 18 123/64 90 L Room Air 2 07/20/22 11:59 07/20/22 11:59 07/20/22 11:59 07/20/22 11:59 07/20/22 11:59 07/20/22 08:34 07/20/22 00:15 Const General: cooperative and comfortable Nutritional Appearance: overweight Orientation: alert, awake and oriented x3 Eyes General: appearance normal, both eyes and all related structures Eyelids: eyelids normal Conjunctivae: conjunctivae normal Sclera: sclerae normal EOM: EOM intact bilaterally Neck Neck: full ROM Resp Effort & Inspection: normal respiratory effort Neuro General: patient alert, patient awake, patient oriented x3 and moves all extremities Cognition: normal cognition Speech: speech normal Motor: muscle tone normal throughout and strength 5/5 throughout (Good strength is noted along the right leg) Psych Appearance: grossly normal Mood: congruent mood Affect: normal affect Attitude: cooperative Thought Process: normal Thought Content: normal Insight: insight good Judgment: judgment good Objective Lab Results Most Recent Labs: 07/20/22 12:03: POC Glucose 428 H*, POC Glucose Comment 07/20/22 08:30: POC Glucose 444 H*, POC Glucose Comment 07/20/22 04:38: PHA Creatinine Clear 60.92, Sodium 134 L, Potassium 5.2 H, Chloride 101, Carbon Dioxide 25.2, Anion Gap 13.0, BUN 21, Creatinine 1.07 H, Est GFR ( Amer) > 60, Est GFR (Non-Af Amer) 51, Glucose 356 H D, Calcium 8.2 07/20/22 04:38: Corrected WBC 12.9 H, Uncorrected WBC Count 12.9 H, RBC 3.48 L, Hgb 10.4 L, Hct 31.1 L, MCV 89.3, MCH 29.9, MCHC 33.5, RDW 13.2, Plt Count 215, MPV 8.4, Neut % (Auto) 89.0, Lymph % (Auto) 6.7, Rosebud % (Auto) 4.0, Eos % (Auto)0.0, Baso % (Auto) 0.3, Nucleat RBC Rel Count 0.1, Neut # (Auto) 11.4 H, Lymph #(Auto) 0.9 L, Rosebud # (Auto) 0.5, Eos # (Auto) 0.0, Baso # (Auto) 0.0 07/20/22 02:04: POC Glucose 292 07/19/22 20:26: POC Glucose 322 07/19/22 17:41: PHA Creatinine Clear 61.69, Sodium 135 L, Potassium 5.5 H, Chloride 102, Carbon Dioxide 26.8, Anion Gap 11.7, BUN 18, Creatinine 1.03, Est GFR ( Amer) > 60, Est GFR (Non-Af Amer) 54, Glucose 249 H, Calcium 8.4 07/19/22 17:39: Corrected WBC 11.6, Uncorrected WBC Count 11.6, RBC 3.46 L, Hgb 10.3 L, Hct 30.9 L,MCV 89.3, MCH 29.8, MCHC 33.3, RDW 13.4, Plt Count 202, MPV 8.2, Neut % (Auto) 91.1, Lymph % (Auto)6.8, Rosebud % (Auto) 1.7, Eos % (Auto) 0.1, Baso % (Auto) 0.3, Nucleat RBC Rel Count 0.1, Neut # (Auto) 10.6 H, Lymph #(Auto) 0.8 L, Rosebud # (Auto) 0.2, Eos # (Auto) 0.0, Baso # (Auto) 0.0 Assessment/Plan Assessment/Plan (1) Acute lumbar radiculopathy: Plan: Mrs. Lugo is POD#1 s/p redo lumbar decompression with discectomy right L2-3 with repair of small dural hole. She is progressing well;denies headache, nausea, vomiting and residual right leg pain. She will be working with physical and occupational therapy groups today in preparation for homegoing tomorrow. We will continue to monitor her status. Code(s): M54.16 - Radiculopathy, lumbar region Status: Acute Plan Mrs. Lugo is pod#1 s/p redo lumbar decompression with discectomy right L2-3 with repair of small dural hole. She is progressing well; denies headache, nausea, vomiting and residual right leg pain. She will be working with physical and occupational therapy groups today in preparation for homegoing tomorrow. We will continue to monitor her status. Time Spent With Patient (min): 20 Documented By: Idalmis Rico MD 07/20/22 130 6 Signed By: <Electronically signed by Idalmis Rico MD> 07/20/22 1316 [facility] Work Phone: 1(214) 948-650001-30-2023 Evaluation note* Encounter Date Diagnosis Assessment Notes Treatment Notes Treatment Clinical Notes Jun, Lumbar radiculopathy, right (ICD -10 - M54.16) [place] [employer] Other 01-26-2023 Progress note Author Idalmis Rico [facility] July 12, 2022 6:55amNote Date/TimeJanuary 2022 6:52[place] [address] Neurosurgery Progress Note Signed Patient: Shana Lugo MR#: [id number] : 1955 Acct:[id number] Age/Sex: 67 / F Adm Date: 3 Loc: 4N Room: 2H5185-6 Type: ADM IN Attending Dr: Idalmis Rico MD Copies to: ~ Date of Service: 07/12/2022 Subjective Subjective HPI: Mrs. Lugo denies right leg pain, she reports a feeling of weakness aroundthe knee. She states she is afraid the knee will buckle. She states she has had 3 falls onto her right knee recently. She has pain along the patella and states the application of heat helps. Exam Physical Exam Vital Signs: Temp Pulse Resp BP Pulse Ox O2 Del Method 98.1 F 75 18 144/87 H 96 Room Air 07/12/22 04:10 07/12/22 04:10 07/12/22 04:10 07/12/22 04:10 07/12/22 04:10 07/12/22 04:10 Const General: cooperative and healthy appearing Nutritional Appearance: overweight Orientation: alert, awake and oriented x3 HEENT Head: normal to inspection Ears: hearing grossly normal bilaterally Face and sinus: normal facial exam Eyes General: appearance normal, both eyes and all related structures Eyelids: eyelids normal Conjunctivae: conjunctivae normal Sclera: sclerae normal EOM: EOM intact bilaterally Resp Effort & Inspection: normal respiratory effort Neuro General: patient alert, patient awake, patient oriented x3 and moves all extremities Cognition: normal cognition Speech: speech normal Gait: other (Reluctant to apply full weight onto right knee) Motor: muscle tone normal throughout Extrem General: no pedal edema Psych Appearance: grossly normal Mood: congruent mood Affect: normal affect Attitude: cooperative Thought Content: normal Insight: insight good Judgment: judgment good Additional Findings Additional Findings: Point tenderness at the base of the right patella and tibial plateau. Pain with manipulation of theright knee. No evidence of radicular pain. Objective Lab Results Most Recent Labs: 07/11/22 14:33: Corrected WBC 12.6 H, Uncorrected WBC Count 12.6 H, RBC 4.11, Hgb 12.1, Hct 37.0, MCV 90.1, MCH 29.5, MCHC 32.8, RDW 13.2, Plt Count 317, MPV 7.9, Neut % (Auto) 76.2, Lymph % (Auto) 15.0, Rosebud % (Auto) 7.7, Eos % (Auto) 0.3, Baso % (Auto) 0.8, Nucleat RBC Rel Count 0.0, Neut # (Auto) 9.6 H, Lymph # (Auto) 1.9, Rosebud # (Auto) 1.0 H, Eos # (Auto) 0.0, Baso # (Auto) 0.1 07/11/22 14:33: PHA Creatinine Clear 78.67, Sodium 136, Potassium 5.1, Chloride 99, Carbon Dioxide 25.8, Anion Gap 16.3 H, BUN 18, Creatinine 0.81, Est GFR ( Amer) > 60, Est GFR (Non-Af Amer) > 60, Glucose 144 H, Calcium 10.6 H Additional Results Results Comment: Mrs. Lugo had x-rays of her right hip earlier this month which demonstrated degenerative changes along the hip and SI joints. No fractures werenoted. Assessment/Plan Assessment/Plan (1) Acute lumbar radiculopathy: Plan: Mrs. Lugo's lumbar MRI did not demonstrate evidence of recurrent disc material. Her examination is concerning for focal injury to the right knee. She has provided additional history regarding 3 serious falls she had onto her rightknee. She will undergo x-rays of the knee today in addition toMRI of the knee for further evaluation. I will review the studies with orthopedics upon availability. Code(s): M54.16 - Radiculopathy, lumbar region Status: Acute Time Spent With Patient (min): 20 Documented By: Idalmis Rico MD 07/12/22 064 5 Signed By: <Electronically signed by Idalmis Rico MD> 07/12/22 0655 [facility] Work Phone: 1(292) 741-309001-25-2023 Progress note Author Idalmis Rico [facility] July 11, 2022 8:24pmNote Date/TimeJan2022 8:24pm[place] [address] Neurosurgery Progress Note Signed Patient: Shana Lugo MR#: [id number] : 1955 Acct:[id number] Age/Sex: 67 / F Adm Date: 3 Loc: 4N Room: 6Y4517-8 Type: ADM IN Attending Dr: Idalmis Rico MD Copies to: ~ Date of Service: 07/11/2022 Subjective Subjective HPI: Mrs. Lugo is far more comfortable this evening than noted earlier. Her examination is significant for pain along the right tibial plateau. She limps when she walks as a result of right knee pain and not radicular pain. Exam Physical Exam Vital Signs: Temp Pulse Resp BP Pulse Ox O2 Del Method 98.5 F 77 18 172/96 H 97 Room Air 07/11/22 15:15 07/11/22 15:15 07/11/22 15:15 07/11/22 15:15 07/11/22 15:15 07/11/22 16:00 Const General: cooperative and no acute distress Nutritional Appearance: overweight Orientation: alert, awake and oriented x3 HEENT Head: normal to inspection Ears: hearing grossly normal bilaterally Nose: external nose normal Face and sinus: normal facial exam Mouth: oral mucosae normal Eyes General: appearance normal, both eyes and all related structures Eyelids: eyelids normal Conjunctivae: conjunctivae normal Sclera: sclerae normal EOM: EOM intact bilaterally Resp Effort & Inspection: normal respiratory effort Musc Thoracic/Lumbar Spine: other (No lumbar paraspinal tenderness is noted.) Other: No pain overlying right greater trochanter. She reports pain radiating into the right groin however, no pain with mobilizing the right hip in adduction or abduction. Neuro General: patient alert, patient awake and patient oriented x3 Cognition: normal cognition Speech: speech normal Gait: antalgic (Limps secondary to right knee pain) Motor: strength 5/5 throughout (Good strength is demonstrated) Extrem General: no clubbing, cyanosis or edema Psych Appearance: grossly normal Mood: congruent mood Affect: normal affect Attitude: cooperative Thought Process: normal Thought Content: normal Objective Lab Results Most Recent Labs: 07/11/22 14:33: Corrected WBC 12.6 H, Uncorrected WBC Count 12.6 H, RBC 4.11, Hgb 12.1, Hct 37.0, MCV 90.1, MCH 29.5, MCHC 32.8, RDW 13.2, Plt Count 317, MPV 7.9, Neut % (Auto) 76.2, Lymph % (Auto) 15.0, Rosebud % (Auto) 7.7, Eos % (Auto) 0.3, Baso % (Auto) 0.8, Nucleat RBC Rel Count 0.0, Neut # (Auto) 9.6 H, Lymph # (Auto) 1.9, Rosebud # (Auto) 1.0 H, Eos # (Auto) 0.0, Baso # (Auto) 0.1 07/11/22 14:33: PHA Creatinine Clear 78.67, Sodium 136, Potassium 5.1, Chloride 99, Carbon Dioxide 25.8, Anion Gap 16.3 H, BUN 18, Creatinine 0.81, Est GFR ( Amer) > 60, Est GFR (Non-Af Amer) > 60, Glucose 144 H, Calcium 10.6 H Imaging MRI - spine: image reviewed (Lumbar MRI shows no recurrent disc herniation.) Assessment/Plan Assessment/Plan (1) Acute lumbar radiculopathy: Plan: Mrs. Lugo's examination this evening is different than upon her admission. Her pain is undermuch better control. She does not demonstrate radicular symptoms. She has focal pain overlying the right tibial plateau. She has had 3 falls onto her knee therefore, I have recommended she undergo right knee films tomorrow, followed by MRI of the right knee for further evaluation. Iwill review these studies and her examination with the orthopedic team. Code(s): M54.16 - Radiculopathy, lumbar region Status: Acute Time Spent With Patient (min): 20 Documented By: Idalmis Rico MD 07/11/22 201 6 Signed By: <Electronically signed by Idalmis Rico MD> 07/11/222023 [facility] Work Phone: 1(908) 512-867001-25-2023 History and physical note Author Idalmis Rico [facility] July 11, 2022 2:44pmNote Date/TimeJan2022 2:09pm[place]ell [place] [address] Neurosurgery H&P Signed Patient: Shana Lugo MR#: [id number] : 1955 Acct:[id number] Age/Sex: 67 / F Adm Date: 3 Loc: Room: 1G7878-7 Type: ADM IN Attending Dr: Idalmis Rico MD Copies to: NON STAFF Idalmis Rico MD~ Date of Service: 07/11/2022 History of Present Illness History of Present Illness Chief Complaint: Severe, unremitting right leg pain HPI: Mrs. Lugo is a 67 year old woman with a medical history significant for arthritis, type 2 diabetes mellitus, hypertension and hyperlipidemia who is one week s/p lumbar discectomy right L2-3. Post-operatively she had relief of her right leg pain until July 06 at which time she reported an increasein her pain. By Saturday, she was reporting shooting pain along the thigh extending to the knee. I offered her admission to the hospital for pain control as well as to obtain an urgentMRI of the lumbar spine for further evaluation towhich she declined. I spoke with her todaywho reported increasing pain which was intolerable. I asked him to bring her for immediate admission in orderto undergo evaluation and determine the next logical step. PMFSH Vaccinated for COVID-19?: Yes Medical History Arthritis Back pain Depression Diabetes mellitus DJD (degenerative joint disease) GERD (gastroesophageal reflux disease) HTN (hypertension) Left bundle branch block (LBBB) Murmur, cardiac Surgical History H/O arthroscopic knee surgery H/O: section x2 H/O: hysterectomy Hx of cholecystectomy Family History Mother Diabetes Cancer Sister Colon cancer Social History Marital Status: Household Members: spouse Housing: house Smoking Status: Current every day smoker Tobacco Type: cigarettes Substance Use Type: Alcohol Current Occupational Exposures/ Hazards: No Hx Exposure to Communicable Disease: No Recent travel in the [place] w/in past 28 days: No Recent Out of Country Travel within the last 28 days: No Meds Medications and Allergies Allergies No Known Allergies Allergy (Verified 07/11/22 14:00) Home Medications aspirin 81 mg chewable tablet (Aspirin Childrens) 81 mg PO QPM 11/20/19 [History Confirmed 07/11/22] atorvastatin 20 mg tablet 20 mg PO QHS 11/20/19 [History Confirmed 07/11/22] dulaglutide 1.5 mg/0.5 mL subcutaneous pen injector (Trulicity) 1.5 mg subcut QWEEK 11/20/19 [History Confirmed 07/11/22] escitalopram oxalate 10 mg tablet (Lexapro) 20 mg PO DAILY 11/20/19 [History Confirmed 07/11/22] glyburide 5 mg tablet 5 mg PO BID 11/20/19 [History Confirmed 07/11/22] lisinopril 10 mg tablet 10 mg PO QHS 11/20/19 [History Confirmed 07/11/22] metformin 1,000 mg tablet 1,000 mg PO BID 11/20/19 [History Confirmed 07/11/22] trazodone 100 mg tablet 200 mg PO QHS 11/20/19 [History Confirmed 07/11/22] gabapentin 300 mg capsule 600 mg PO QHS #14 caps 06/17/22 [Rx Confirmed 07/11/22] cholecalciferol (vitamin D3) 125 mcg (5,000 unit) tablet (Vitamin D3) 5,000 mcg PO DAILY 06/29/22 [History Confirmed 07/11/22] magnesium 250 mg tablet 250 mg PO DAILY 06/29/22 [History Confirmed 07/11/22] meloxicam 15 mg tablet 15 mg PO DAILY 06/29/22 [History Confirmed 07/11/22] onowmycmwaef-Ei-jose-minerals 1 tab PO DAILY 06/29/22 [History Confirmed 07/11/22] hydrocodone 5 mg-acetaminophen 325 mg tablet 1 tab PO Q6H PRN Pain Scale 1 - 5 14 days #56 tabs 07/03/22 [Rx Confirmed 07/11/22] tizanidine 4 mg tablet 4 mg PO BID PRN Muscle Spasm 14 days #28 tabs 07/03/22 [Rx Confirmed 07/11/22] gabapentin 300 mg capsule 300 mg PO QAM 07/11/22 [History Confirmed 07/11/22] Exam Physical Exam Vital Signs: Temp Pulse Resp BP Pulse Ox O2 Del Method 98.4 F 81 18 170/82 H 98 Room Air 07/11/22 13:51 07/11/22 13:51 07/11/22 13:51 07/11/22 13:51 07/11/22 13:51 07/11/22 13:51 Narrative: Mrs. Lugo is in obvious pain along her right leg. Const General: cooperative and in distress (Uncomfortable secondary to right leg pain) Nutritional Appearance: overweight Orientation: alert, awake and oriented x3 HEENT Head: normal to inspection Ears: hearing grossly normal bilaterally Nose: external nose normal Face and sinus: normal facial exam Eyes General: appearance normal, both eyes and all related structures Eyelids: eyelids normal Conjunctivae: conjunctivae normal Sclera: sclerae normal EOM: EOM intact bilaterally Neck Neck: normal visual inspection Resp Effort & Inspection: normal respiratory effort Musc Thoracic/Lumbar Spine: surgical scar(s) present (Lumbar incision site intact) Sacroiliac joints: on the right tender to palpation Other: Right hip pain with adduction/abduction and hip flexion with radiation into the groin Skin Hair: normal Neuro General: patient alert, patient awake, patient oriented x3, moves all extremities and CN's II-XI intact bilaterally Cognition: normal cognition Speech: speech normal Gait: antalgic (Due to right leg pain) Motor: muscle tone normal throughout and strength 5/5 throughout Sensory Exam: other (Numbness noted along the right knee) Extrem General: normal to inspection and no pedal edema Psych Appearance: grossly normal Mood: congruent mood Affect: normal affect Attitude: cooperative Thought Process: normal Thought Content: normal Insight: insight good Judgment: judgment good Assessment/Plan (1) Acute lumbar radiculopathy: Code(s): M54.16 - Radiculopathy, lumbar region Status: Acute Plan Mrs. Lugo is s/p lumbar discectomy right L2-3 on 07/03. She initially had resolution of her pain and a few days later started to note increased discomfortwhich initially responded to increasingher Gabapentin and administering a Medrol Dose [place]. By Saturday, 07/09, her pain had significantly escalated which hindered her ability to bear weight on her right leg. She has been admitted for furtherevaluation including an urgent lumbar MRI without and with Gadolinium. Upon availability I will review the study and determine if she has reherniated another fragment compressing the right L3 nerve root. Time Spent With Patient (min): 20 Documented By: Idalmis Rico MD 07/11/22 140 1 Signed By: <Electronically signed by Idalmis Rico MD> 07/11/22 144 [facility] Work Phone: [phone]) [phone] Evaluation note* Encounter Date Diagnosis Assessment Notes Treatment Notes Treatment Clinical Notes Jun, Lumbar radiculopathy, acute (ICD -10 - M54.16) [employer] Other 12-30-2022 NotePROCEDURE: XR KNEE RT 4V or > COMPARISON: None. HISTORY: Pain in right knee FINDINGS: BONES:No acute fracture or dislocation. Degenerative changes with marginal osteophyte formation SOFT TISSUES:Negative. No visible soft tissue swelling. EFFUSION:None visible. OTHER: Negative. IMPRESSION: Mild osteoarthritis Electronically authenticated by: LOUISE LINDSAY Date: 2022-06-15 16:35[facility]12-28-2021 Evaluation note* Encounter Date Diagnosis Assessment Notes Treatment Notes Treatment Clinical Notes May, Communicable disease contact ( D-10 - Z20.9) May,ronchitis (ICD-10 - J40) Bronchitis is inflammation of openings of lungs. It is not caused from bacteria. Antibiotics are not needed to treat this illness. Take medications as directed. Rest and increase fluid intake. Take meds with food to prevent stomach upset. Use inhaler as needed for SOB. Blood sugars may increase dueto steroid treatment so eat lower amount of carbs. Follow up with primary care provider if symptomsdo not improve with treatment plan, although it may take a few weeks for the cough to go away. [employer] Other Chief complaint+Reason for visit Narrative* Chief Complaint follow up after abdi SI joint injection ABDI LUMBAR FACET MBB L2,L3,L4,L5 FOLLOW UP AFTER PROCEDURE RIGHT L2,3,4,5 LUMBAR FACET MBB FOLLOW UP AFTER RIGHT LUMBAR MBB right L2,3,4,5 lumbar facet MBB f/u after abdi lumbar facet MBB right L2-3, L3-4, L4-5 RFA 2 week f/u after right lumbar RFA pm follow up sign consentReason for VisitArthropathy of right hip Chronic pain Lumbosacral spondylosis Post laminectomy syndrome Sacroiliac inflammation Chronic pain Lumbar radiculopathy Lumbosacral spondylosis Chronic pain Lumbar radiculopathy Lumbosacral spondylosis Chronic pain Lumbar radiculopathy Lumbosacral spondylosis Chronic pain Lumbar radiculopathy Lumbosacral spondylosis Lumbar foraminal stenosis Lumbar radiculopathy Lumbar stenosis [facility] Work Phone: Chief complaint+Reason for visit Narrative* Chief Complaint FOLLOW UP AFTER PROC EDURE RIGHT L2,3,4,5 LUMBAR FACET MBB FOLLOW UP AFTER RIGHT LUMBAR MBB right L2,3,4,5 lumbar facet MBB f/u after abdi lumbar facet MBB right L2-3, L3-4, L4-5 RFA 2 week f/u after right lumbar RFA pm follow up sign consent Referred for anterior lumbar fusion evalReason for VisitChronic pain Lumbar radiculopathy Lumbosacral spondylosis Chronic pain Lumbar radiculopathy Lumbosacral spondylosis Chronic pain Lumbar radiculopathy Lumbosacral spondylosis Chronic pain Lumbar radiculopathy Lumbosacral spondylosis Lumbar foraminal stenosis Lumbar radiculopathy Lumbar stenosis Lumbar foraminal stenosis Lumbar radiculopathy Lumbar stenosis with neurogenic claudication Spondylolisthesis, lumbar region [facility] Work Phone: Discharge summary Author Idalmis Rico [facility] July 03, 2022 5:08pmNote Date/TimeJan2022 5:08pmEst[place] [address] Discharge Summary Signed Patient: Shana Lugo MR#: [id number] : 1955 Acct:[id number] Age/Sex: 67 / F Adm Date: 3 Loc: [place] Room: Attending Dr: Idalmis Rico MD Copies to: NON STAFF Idalmis Rico MD~ Providers Date of Admission: 07/03/22 Date of Discharge: 07/03/22 Discharging Provider: Idalmis Rico Primary Care Provider: NON STAFF Discharge Diagnosis Final Diagnosis Final Discharge Diagnosis: Lumbar radiculopathy due to disc herniation Right L2-3 Summary Hospital Course Hospital course: Mrs. Lugo developed a large disc herniation with nerve root compression right L2-3. She was admitted today for discectomy right L2-3. The surgery went well and she will be discharged home today with pain medication, Hydrocodone 5/325 mg po q 6 hours prn and Tizanidine 4 mg p.o. bid prn. She has been given instructions regarding walking and activities at home while convalescing. She will follow-up with me on July 16. She must call to make an appointment time. Time spent discussing smoking cessation with patient: 3 to 10 minutes Condition Condition at Discharge: Stable Status at Discharge Functional status at discharge: independent ambulation (At this time, she uses her for somesupport while walking.) Overall status at discharge: patient is progressing back to baseline Time Spent with Patient Time spent providing/coordinating discharge services (# min): 10 Specific discharge activities: Ms. Lugo must walk multiple times per day.She must avoid repetitive bending, twisting and overhead acitivities for now. She may drive in about one week. The white surgical dressing can be removed on morning and the entire back can get wet during showers at that time; avoid having the shower jet directly strike the incision site. Surgeries and Procedures Operation Date: 07/03/22 13:20 Actual Procedures OR Lumbar Discectomy L2-3 on Right(Not Applicable) - Idalmis Rico MD Complications Complications: None Diagnostic Studies Completed and Pending Studies Labs on day of discharge: 07/03/22 15:12: POC Glucose 161 07/03/22 11:34: POC Glucose 153 Exam Physical Exam Vital Signs: Temp Pulse Resp BP Pulse Ox O2 Del Method O2 Flow Rate 99.8 F H 81 18 114/55 L 95 Room Air 10 07/03/22 15:21 07/03/22 15:21 07/03/22 15:21 07/03/22 15:21 07/03/22 15:21 07/03/22 14:56 07/03/22 14:46 Const General: cooperative Orientation: alert, awake and oriented x3 Skin Wounds: wounds noted (Dressing intact and dry) Neuro Motor: other (Walking the hallway with light assistance; reports leg pain resolved) Psych Appearance: grossly normal Mood: congruent mood Affect: normal affect Attitude: cooperative Thought Process: normal Thought Content: normal Insight: insight good Judgment: judgment good Discharge Plan Discharge Plan Activity: Ambulate as Tolerated Diet: Diabetic Comment: Please maintain good hydration; avoid constipation Additional Instructions: No lifting greater than 10 pounds, please avoid bending at the waist >45 degreesand repetitive overhead reaching. Please remove the large white bandage on morning; do not remove the mesh overlying the incision site. You may shower on being sure to not allow the shower jet directly hit your incision site. The soapy water may run over the wound, gently rinse dry. Avoid constipation; use Miralax twice daily until you begin having bowel movements. Drink lots of fluids and walk multiple times per day. Instructions: Radiculopathy (DC) Prescriptions: New tizanidine 4 mg Tablet 4 mg PO BID PRN (Reason: Muscle Spasm) 14 Days Qty: 28 0RF hydrocodone-acetaminophen 5-325 mg Tablet 1 tab PO Q6H PRN (Reason: Pain Scale 1 - 5) 14 Days Qty: 56 0RF No Action atorvastatin 20 mg Tablet 20 mg PO QHS glyburide 5 mg Tablet 5 mg PO BID trazodone 100 mg Tablet 200 mg PO QHS metformin 1,000 mg Tablet 1,000 mg PO BID Hold Instructions: Resume on 11/21/19. lisinopril 10 mg Tablet 10 mg PO QHS aspirin [Aspirin Childrens] 81 mg Tablet,Chewable 81 mg PO QPM escitalopram oxalate [Lexapro] 10 mg Tablet 10 mg PO DAILY Trulicity 1.5 mg/0.5 mL Pen Injector 1.5 mg SUBCUT QWEEK Patient Comments: takes on Sundays gabapentin 300 mg capsule 300 mg PO DAILY Qty: 14 0RF gabapentin 300 mg Capsule 600 mg PO QHS Qty: 14 0RF meloxicam 15 mg tablet 15 mg PO DAILY Patient Comments: TAKE 1 TABLET BY MOUTH EVERY DAY FOR 90 DAYS magnesium 250 mg Tablet 250 mg PO DAILY Multiple Vitamin, Womens Tablet 1 tab PO DAILY cholecalciferol (vitamin D3) [Vitamin D3] 125 mcg (5,000 unit) Tablet 5,000 mcg PO DAILY Follow Up: Idalmis Rico MD [Active Staff] - 07/16/22 (Please call the office to confirm a time for the follow-up appointment.) Documented By: Idalmis Rico MD 07/03/22 165 7 Signed By: <Electronically signed by Idalmis Rico MD> 07/03/22 6864 [facility] Work Phone: Discharge summary Author Idalmis Rico [facility] July 12, 2022 1:40pmNote Date/TimeJanuary 2022 1:40pm[place] [address] Discharge Summary Signed Patient: Shana Lugo MR#: [id number] : 1955 Acct:[id number] Age/Sex: 67 / F Adm Date: 3 Loc: 4N Room: 3A2045-[address]: Idalmis Rico MD Copies to: NON STAFF Idalmis Rico MD~ Providers Date of Admission: 07/11/22 Date of Discharge: 07/12/22 Discharging Provider: Idalmis Rico Primary Care Provider: NON STAFF Discharge Diagnosis (1) Acute lumbar radiculopathy: Final Diagnosis Final Discharge Diagnosis: Lumbar radiculopathy; right knee pain s/p multiple falls Summary Hospital Course Hospital course: Mrs. Lugo was admitted secondary to refractory right knee pain and unstable gait. She is s/plumbar discectomy 07/03 and did well for several days until she noted severe pain. She was admitted for further evaluation. Follow-up lumbar MRI did not demonstrate a recurrent fragment. She underwentright knee films, which did not show a fracture. She underwent right knee MRI which will bereviewedby her orthopedic surgeon, Dr. Massey. His office will call to provide a follow-up appointment. Condition Condition at Discharge: Stable Status at Discharge Functional status at discharge: independent ambulation (Should use a cane to stabilize her gait.) Overall status at discharge: patient is not back to baseline Time Spent with Patient Time spent providing/coordinating discharge services (# min): 30 Surgeries and Procedures Operation Date: 07/12/22 15:35 <No data on this case meets the specified criteria> Complications Complications: None Diagnostic Studies Completed and Pending Studies Pending studies at discharge: 07/12/22 05:00 MR knee RT wo con IN AM Labs on day of discharge: 07/11/22 14:33: Corrected WBC 12.6 H, Uncorrected WBC Count 12.6 H, RBC 4.11, Hgb 12.1, Hct 37.0, MCV 90.1, MCH 29.5, MCHC 32.8, RDW 13.2, Plt Count 317, MPV 7.9, Neut % (Auto) 76.2, Lymph % (Auto) 15.0, Rosebud % (Auto) 7.7, Eos % (Auto) 0.3, Baso % (Auto) 0.8, Nucleat RBC Rel Count 0.0, Neut # (Auto) 9.6 H, Lymph # (Auto) 1.9, Rosebud # (Auto) 1.0 H, Eos # (Auto) 0.0, Baso # (Auto) 0.1 07/11/22 14:33: PHA Creatinine Clear 78.67, Sodium 136, Potassium 5.1, Chloride 99, Carbon Dioxide 25.8, Anion Gap 16.3 H, BUN 18, Creatinine 0.81, Est GFR ( Amer) > 60, Est GFR (Non-Af Amer) > 60, Glucose 144 H, Calcium 10.6 H Additional Comments Additional comments: Lumbar MRI without and with gadolinium did not reveal a recurrent disc herniation. Right knee filmsdid not reveal a fracture or signs of effusion. Right knee MRI is pending and will be reviewed by Dr. Massey, her orthopedic surgeon. Exam Physical Exam Vital Signs: Temp Pulse Resp BP Pulse Ox O2 Del Method 98.1 F 76 16 155/69 H 97 Room Air 07/12/22 11:09 07/12/22 11:09 07/12/22 11:09 07/12/22 11:09 07/12/22 11:09 07/12/22 11:09 Narrative: Mrs. Lugo is in obvious pain along her right leg. Const General: cooperative, healthy appearing, no acute distress and in distress (Uncomfortable secondaryto right leg pain) Nutritional Appearance: overweight Orientation: alert, awake and oriented x3 HEENT Head: normal to inspection Ears: hearing grossly normal bilaterally Nose: external nose normal Face and sinus: normal facial exam Mouth: oral mucosae normal Eyes General: appearance normal, both eyes and all related structures Eyelids: eyelids normal Conjunctivae: conjunctivae normal Sclera: sclerae normal EOM: EOM intact bilaterally Neck Neck: normal visual inspection Resp Effort & Inspection: normal respiratory effort Musc Thoracic/Lumbar Spine: surgical scar(s) present (Lumbar incision site intact) and other (No lumbar paraspinal tenderness is noted.) Sacroiliac joints: on the right tender to palpation Skin Hair: normal Neuro General: patient alert, patient awake, patient oriented x3, moves all extremities and CN's II-XI intact bilaterally Cognition: normal cognition Speech: speech normal Gait: antalgic (Limps secondary to right knee pain) and other (Reluctant to apply full weight onto right knee) Motor: muscle tone normal throughout and strength 5/5 throughout (Good strength is demonstrated) Sensory Exam: other (Numbness noted along the right knee) Extrem General: normal to inspection, no clubbing, cyanosis or edema and no pedal edema Psych Appearance: grossly normal Mood: congruent mood Affect: normal affect Attitude: cooperative Thought Process: normal Thought Content: normal Insight: insight good Judgment: judgment good Discharge Plan Discharge Plan Patient Disposition: Home Activity: Ambulate as Tolerated Comment: May require a cane for stability Diet: Diabetic Prescriptions: New oxycodone 5 mg tablet 5 mg PO Q6H PRN (Reason: pain) 14 Days Qty: 56 0RF Continued atorvastatin 20 mg Tablet 20 mg PO QHS glyburide 5 mg Tablet 5 mg PO BID trazodone 100 mg Tablet 200 mg PO QHS metformin 1,000 mg Tablet 1,000 mg PO BID Hold Instructions: Resume on 11/21/19. lisinopril 10 mg Tablet 10 mg PO QHS aspirin [Aspirin Childrens] 81 mg Tablet,Chewable 81 mg PO QPM escitalopram oxalate [Lexapro] 10 mg Tablet 20 mg PO DAILY Trulicity 1.5 mg/0.5 mL Pen Injector 1.5 mg SUBCUT QWEEK Patient Comments: takes on Sundays Rx Instructions: Saturday gabapentin 300 mg Capsule 600 mg PO QHS Qty: 14 0RF meloxicam 15 mg tablet 15 mg PO HS Patient Comments: TAKE 1 TABLET BY MOUTH EVERY DAY FOR 90 DAYS magnesium 250 mg Tablet 250 mg PO HS Multiple Vitamin, Womens Tablet 1 tab PO DAILY cholecalciferol (vitamin D3) [Vitamin D3] 125 mcg (5,000 unit) Tablet 5,000 mcg PO DAILY tizanidine 4 mg Tablet 4 mg PO BID PRN (Reason: Muscle Spasm) 14 Days Qty: 28 1RF Changed gabapentin 300 mg capsule 300 mg PO BID.PC.BKFAST.LUNCH Qty: 60 2RF No Action hydrocodone-acetaminophen 5-325 mg Tablet 1 tab PO Q6H PRN (Reason: Pain Scale 1 - 5) 14 Days Qty: 56 0RF Follow Up: Idalmis Rico MD [Active Staff] - Continuity of Care Document Care Plan Goals: When the Prineo mesh has completely fallen away from the wound, begin massaging the wound twice perday with Vitamin E gel or oil. Dr. Rico would like to begin physical therapy (outpatient) as soonas cleared by Dr. Massey. Documented By: Idalmis Rico MD 07/12/22 133 4 Signed By: <Electronically signed by Idalmis Rico MD> 07/12/22 1340 [facility] Work Phone: Evaluation + Plan note Future Appointments Appointment Date:02/27/2024 10:30:00 AM Scheduled Provider: Location:[facility] Appointment Type:URO Nurse Visit [facility] evaluation + Plan note Future Appointments Appointment Date:04/07/2024 10:30:00 AM Scheduled Provider: Location:[facility] Appointment Type:URO Nurse Visit [facility] evaluation + Plan note Future Appointments Appointment Date:04/07/2024 10:30:00 AM Scheduled Provider: Location:[facility] Appointment Type:URO Nurse Visit Diagnostic Tests Pending * Urine Culture 03/26/24 [facility] evaluation + Plan note Future Appointments Appointment Date:03/12/2024 10:40:00 AM Scheduled Provider:COREY ROCHA PA-C Location:[facility] Appointment Type:URO Office Visit [facility] evaluation noteNo assessment information available [facility] Work Phone: evaluumeus note* Diagnosis Onset Date Resolution Status Acute lumbar radiculopathy acute [facility] Work Phone: evalutnpdb note* Diagnosis Onset Date Resolution Status Acute lumbar radiculopathy acuteAcute lumbar radiculopathyacute [facility] Work Phone: evaluation noteNo [facility] [employer] Other evaluation note* Diagnosis Onset Date Resolution Status Lumbar stenosis acutePositive DAHLIA (antinuclear antibody)acuteSpondylolisthesis, lumbar region acute [facility] Work Phone: evaluuvwhb note* Diagnosis Onset Date Resolution Status Lumbar stenosis acutePositive DAHLIA (antinuclear antibody)acuteSpondylolisthesis, lumbar region acuteArthropathy of right hipacuteChronic painacuteLumbar radiculopathyacutePost laminectomy syndromeacute [facility] Work Phone: evaluation note* Diagnosis Onset Date Resolution Status Lumbar stenosis acutePositive DAHLIA (antinuclear antibody)acuteSpondylolisthesis, lumbar region acuteArthropathy of right hipacuteChronic painacuteLumbar radiculopathyacutePost laminectomy syndromeacuteArthropathy of right hipacuteChronic painacuteLumbar radiculopathyacuteLumbosacral spondylosisacutePost laminectomy syndromeacute Sacroiliac inflammationacute [facility] Work Phone: Evaluation note* Diagnosis Onset Date Resolution Status Lumbar stenosis acutePositive DAHLIA (antinuclear antibody)acuteSpondylolisthesis, lumbar region acuteArthropathy of right hipacuteChronic painacuteLumbar radiculopathyacutePost laminectomy syndromeacuteArthropathy of right hipacuteChronic painacuteLumbar radiculopathyacuteLumbosacral spondylosisacutePost laminectomy syndromeacute Sacroiliac inflammationacuteArthropathy of right hipacuteChronic painacute Lumbosacral spondylosisacutePost laminectomy syndromeacuteSacroiliac inflammationacute [facility] Work Phone: Evaluation note* Diagnosis Onset Date Resolution Status Lumbar stenosis acutePositive DAHLIA (antinuclear antibody)acuteSpondylolisthesis, lumbar region acuteArthropathy of right hipacuteChronic painacuteLumbar radiculopathyacutePost laminectomy syndromeacuteArthropathy of right hipacuteChronic painacuteLumbar radiculopathyacuteLumbosacral spondylosisacutePost laminectomy syndromeacute Sacroiliac inflammationacuteArthropathy of right hipacuteChronic painacute Lumbosacral spondylosisacutePost laminectomy syndromeacuteSacroiliac inflammationacuteChronic painacuteLumbar radiculopathyacuteLumbosacral spondylosisacute [facility] Work Phone: Evaluation note* Diagnosis Onset Date Resolution Status Lumbar stenosis acutePositive DAHLIA (antinuclear antibody)acuteSpondylolisthesis, lumbar region acuteArthropathy of right hipacuteChronic painacuteLumbar radiculopathyacutePost laminectomy syndromeacuteArthropathy of right hipacuteChronic painacuteLumbar radiculopathyacuteLumbosacral spondylosisacutePost laminectomy syndromeacute Sacroiliac inflammationacuteArthropathy of right hipacuteChronic painacute Lumbosacral spondylosisacutePost laminectomy syndromeacuteSacroiliac inflammationacuteChronic painacuteLumbar radiculopathyacuteLumbosacral spondylosisacuteChronic painacuteLumbar radiculopathyacuteLumbosacral spondylosisacute [facility] Work Phone: Evaluation note* Diagnosis Onset Date Resolution Status Arthropathy of right hip acuteChronic painacuteLumbar radiculopathyacutePost laminectomy syndromeacute Arthropathy of right hipacuteChronic painacuteLumbar radiculopathyacute Lumbosacral spondylosisacutePost laminectomy syndromeacuteSacroiliac inflammationacuteArthropathy of right hipacuteChronic painacuteLumbosacral spondylosisacutePost laminectomy syndromeacuteSacroiliac inflammationacute Chronic painacuteLumbar radiculopathyacuteLumbosacral spondylosisacuteChronic painacuteLumbar radiculopathyacuteLumbosacral spondylosisacute [facility] Work Phone: Evaluation note* Diagnosis Onset Date Resolution Status Arthropathy of right hip acuteChronic painacuteLumbar radiculopathyacutePost laminectomy syndromeacute Arthropathy of right hipacuteChronic painacuteLumbar radiculopathyacute Lumbosacral spondylosisacutePost laminectomy syndromeacuteSacroiliac inflammationacuteArthropathy of right hipacuteChronic painacuteLumbosacral spondylosisacutePost laminectomy syndromeacuteSacroiliac inflammationacute Chronic painacuteLumbar radiculopathyacuteLumbosacral spondylosisacuteChronic painacuteLumbar radiculopathyacuteLumbosacral spondylosisacuteChronic painacute Lumbar radiculopathyacuteLumbosacral spondylosisacute [facility] Work Phone: Evaluation note* Diagnosis Onset Date Resolution Status Arthropathy of right hip acuteChronic painacuteLumbar radiculopathyacuteLumbosacral spondylosisacutePost laminectomy syndromeacuteSacroiliac inflammationacuteArthropathy of right hip acuteChronic painacuteLumbosacral spondylosisacutePost laminectomy syndromeacute Sacroiliac inflammationacuteChronic painacuteLumbar radiculopathyacute Lumbosacral spondylosisacuteChronic painacuteLumbar radiculopathyacute Lumbosacral spondylosisacuteChronic painacuteLumbar radiculopathyacute Lumbosacral spondylosisacute [facility] Work Phone: Evaluation note* Diagnosis Onset Date Resolution Status Arthropathy of right hip acuteChronic painacuteLumbosacral spondylosisacutePost laminectomy syndromeacute Sacroiliac inflammationacuteChronic painacuteLumbar radiculopathyacute Lumbosacral spondylosisacuteChronic painacuteLumbar radiculopathyacute Lumbosacral spondylosisacuteChronic painacuteLumbar radiculopathyacute Lumbosacral spondylosisacuteChronic painacuteLumbar radiculopathyacute Lumbosacral spondylosisacute [facility] Work Phone: Evaluation note* Diagnosis Onset Date Resolution Status Arthropathy of right hip acuteChronic painacuteLumbosacral spondylosisacutePost laminectomy syndromeacute Sacroiliac inflammationacuteChronic painacuteLumbar radiculopathyacute Lumbosacral spondylosisacuteChronic painacuteLumbar radiculopathyacute Lumbosacral spondylosisacuteChronic painacuteLumbar radiculopathyacute Lumbosacral spondylosisacuteChronic painacuteLumbar radiculopathyacute Lumbosacral spondylosisacuteLumbar foraminal stenosisacuteLumbar radiculopathy acuteLumbar stenosisacute [facility] Work Phone: Evaluation note* Diagnosis Onset Date Resolution Status Chronic pain acuteLumbar radiculopathyacuteLumbosacral spondylosisacuteChronic painacute Lumbar radiculopathyacuteLumbosacral spondylosisacuteChronic painacuteLumbar radiculopathyacuteLumbosacral spondylosisacuteChronic painacuteLumbar radiculopathyacuteLumbosacral spondylosisacuteLumbar foraminal stenosisacute Lumbar radiculopathyacuteLumbar stenosisacuteLumbar foraminal stenosisacute Lumbar radiculopathyacuteLumbar stenosis with neurogenic claudicationacute Spondylolisthesis, lumbar regionacute [facility] Work Phone: Evaluation note* Diagnosis Onset Date Resolution Status Chronic pain acuteLumbar radiculopathyacuteLumbosacral spondylosisacuteChronic painacute Lumbar radiculopathyacuteLumbosacral spondylosisacuteChronic painacuteLumbar radiculopathyacuteLumbosacral spondylosisacuteLumbar foraminal stenosisacute Lumbar radiculopathyacuteLumbar stenosisacuteLumbar foraminal stenosisacute Lumbar radiculopathyacuteLumbar stenosis with neurogenic claudicationacute Spondylolisthesis, lumbar regionacuteLumbar stenosis with neurogenic claudicationacute [facility] Work Phone: Evaluation note* Diagnosis Onset Date Resolution Status Chronic pain acuteLumbar radiculopathyacuteLumbosacral spondylosisacuteChronic painacute Lumbar radiculopathyacuteLumbosacral spondylosisacuteLumbar foraminal stenosis acuteLumbar radiculopathyacuteLumbar stenosisacuteLumbar foraminal stenosisacute Lumbar radiculopathyacuteLumbar stenosis with neurogenic claudicationacute Spondylolisthesis, lumbar regionacuteLumbar stenosis with neurogenic claudicationacuteImpaired mobility and activities of daily livingacuteLumbar radiculopathyacuteLumbar stenosis with neurogenic claudicationacuteType 2 diabetes mellitus without complicationsacute [facility] Work Phone: Evaluation note* Diagnosis Onset Date Resolution Status Chronic pain acuteLumbar radiculopathyacuteLumbosacral spondylosisacuteChronic painacute Lumbar radiculopathyacuteLumbosacral spondylosisacuteLumbar foraminal stenosis acuteLumbar radiculopathyacuteLumbar stenosisacuteLumbar foraminal stenosisacute Lumbar radiculopathyacuteLumbar stenosis with neurogenic claudicationacute Spondylolisthesis, lumbar regionacuteLumbar stenosis with neurogenic claudicationacuteImpaired mobility and activities of daily livingacuteLumbar radiculopathyacuteLumbar stenosis with neurogenic claudicationacuteType 2 diabetes mellitus without complicationsacuteDiabetes mellitusacuteEssential (primary) hypertensionacuteImpaired mobility and activities of daily livingacute Lumbar foraminal stenosisacuteLumbar stenosis with neurogenic claudicationacute Postoperative anemiaacutePure hypercholesterolemia, unspecifiedacuteUrinary retentionacute [facility] Work Phone: Evaluation note* Diagnosis Onset Date Resolution Status Lumbar radiculopathy acuteLumbar stenosisacuteLumbar radiculopathyacuteSpondylolisthesis, lumbar regionacuteLumbar radiculopathyacuteType 2 diabetes mellitus without complicationsacuteImpaired mobility and activities of daily livingresolved Diabetes mellitusacuteEssential (primary) hypertensionacutePostoperative anemia acutePure hypercholesterolemia, unspecifiedacuteUrinary retentionacuteImpaired mobility and activities of daily livingresolved [facility] Work Phone: Evaluation note* Diagnosis Onset Date Resolution Status Lumbar radiculopathy acuteSpondylolisthesis, lumbar regionacuteLumbar radiculopathyacuteType 2 diabetes mellitus without complicationsacuteImpaired mobility and activities of daily livingresolvedDiabetes mellitusacuteEssential (primary) hypertensionacute Postoperative anemiaacutePure hypercholesterolemia, unspecifiedacuteUrinary retentionacuteImpaired mobility and activities of daily livingresolved [facility] Work Phone: Evaluation note* Diagnosis Onset Date Resolution Status Lumbar radiculopathy acuteType 2 diabetes mellitus without complicationsacuteImpaired mobility and activities of daily livingresolvedDiabetes mellitusacuteEssential (primary) hypertensionacutePostoperative anemiaacutePure hypercholesterolemia, unspecified acuteUrinary retentionacuteImpaired mobility and activities of daily living resolved [facility] Work Phone: Evaluation note* Diagnosis Type 2 diabetes mellitus without complication, without long-term current use of insulin ([facility]) [facility] Diagnosis Granuloma annulare- Primary Other specified erythematous condition Seborrheic keratosis documented in this encounter [facility]* Diagnosis Spinal stenosis, lumbar region with neurogenic claudication- Primary documented in this encounter [facility]* Diagnosis Rash and other nonspecific skin eruption- Primary documented in this encounter [facility] Healthcare[facility]* Diagnosis Chronic bilateral low back pain without sciatica [facility] Diagnosis Type 2 diabetes mellitus without complication, without long-term current use of insulin ([facility])- Primary Primary hypertension Unspecified essential hypertension Pure hypercholesterolemia Anxiety Anxiety state, unspecified Encounter for screening mammogram for malignant neoplasm of breast Special screening for malignant neoplasm of colon Special screening for malignant neoplasms, colon Former cigarette smoker Personal history of tobacco use, presenting hazards to health Degenerative joint disease of low back Chronic bilateral low back pain without sciatica Obesity, morbid ([facility]) Morbid obesity [facility] Diagnosis Type 2 diabetes mellitus without complication, without long-term current use of insulin ([facility] Diagnosis Granuloma annulare Other specified erythematous condition Other specified erythematous conditions documented in this encounter [facility]* Diagnosis Type 2 diabetes mellitus without complication, without long-term current use of insulin ([facility] Diagnosis Degenerative joint disease of low back [facility] Diagnosis Granuloma annulare- Primary Other specified erythematous condition Other specified erythematous conditions documented in this encounter [facility]* Diagnosis Type 2 diabetes mellitus without complication, without long-term current use of insulin ([facility])- Primary [facility] Narrative - Reported* Type Description Date Medical History diabetes mallitus Medical HistoryHypertensionSurgical Historyknee surgerySurgical HistoryC section Surgical Historygall bladderSurgical Historycarpal tunnel releaseHospitalization HistorySee Above [employer] Other Hospital course Narrative No data available for this section [facility] Dis[facility] instructions Additional Instructions Take Tylenol 1000 mg, ibuprofen 800 mg every 8 hours Take gabapentin 300 mg during the day, 600 mg at night You can stop taking the methocarbamol and start taking Zanaflex Call the neurosurgeon tomorrow for a follow-up appointment Keep doing the back stretches and exercises Return if you develop numbness in the groin, difficulty urinating, inability to walk, worsening painPark[facility] Work Phone: Hospital Discharge instructions Additional Instructions No lifting greater than 10 pounds, please avoid bending at the waist >45 degrees and repetitive overhead reaching. Please remove the large white bandage on morning; do not remove the mesh overlying the incision site. You may shower on being sure to not allow the shower jet directly hit your incision site. The soapy water may run over the wound, gently rinse dry. Avoid constipation; use Miralax twice daily until you begin having bowel movements. Drink lots of fluids and walk multiple times per day.[facility] Work Phone: Hospital Discharge instructions Additional Instructions When the Prineo mesh has completely fallen away from the wound, begin massaging the wound twice per day with Vitamin E gel or oil. Dr. Rico would like to begin physical therapy (outpatient) as soon as cleared by Dr. Massey.[facility] Work Phone: Hospital Discharge instructions Additional Instructions Use Miralax twice per day as neededPark[facility] Work Phone: Hospital Discharge instructionsAmbulatory Orders* Referral to Neurosurgery Location: None [facility] Work Phone: Hospital Discharge instructions No data available for this section [facility] InstructionsNot on filedocumented in this encounter [facility]Not on filedocumented in this encounter [facility]InstructionsNot on filedocumented in this encounter [facility]ructionsNot on filedocumented in this encounter [facility]InstructionsNot on filedocumented in this encounter [facility]InstructionsNot on filedocumented in this encounter [facility]InstructionsNot on filedocumented in this encounter [facility] note No data available for this section [facility] reason for referral (narrative)No reason for referral information availablePark[facility] Work Phone: Summary Purpose Family History No Family History Records Found Relationship Condition Age at Onset Recorded Date/[place] Not Specified Diabetes mellitus Unknown Malignant neoplasmUnknownsisterMalignant neoplasm of colonUnknown Relationship Condition Age at Onset Recorded Date/[place] Not Specified Diabetes mellitus Unknown Malignant neoplasmUnknownsisterMalignant neoplasm of colonUnknownfatherDeceased UnknownDeceasedUnknownnatural sonDiabetes mellitusUnknownsisterDeceasedUnknown Relationship Condition Age at Onset Recorded Date/[place] mother Diabetes mellitus Unknown Malignant neoplasmUnknownsisterMalignant neoplasm of colonUnknownfatherDeceased UnknownDeceasedUnknownsonDiabetes mellitusUnknownsisterDeceasedUnknown Relationship Condition Age at Onset Recorded Date/[place] mother Diabetes mellitus Unknown Malignant neoplasmUnknownLeukemiaUnknownDeceasedUnknownsisterMalignant neoplasm of colonUnknownfatherDeceasedUnknownsonDiabetes mellitusUnknownsisterDeceased Unknown Advance Directives No Advanced Directives Records Found Advance Directive Response Recorded Date/ Time Advance Directives No May 21, 2017 9:38am Advance Directive Response Recorded Date/ Time Advance Directives No May 21, 2017 10:38am Advance Directive Response Recorded Date/ Time Advance Directives No November 12 4:22pm Advance Directive Response Recorded Date/ Time Advance Directives No December 12 9:10am Advance Directive Response Recorded Date/ Time Advance Directives No April 1:30pm Advance Directive Response Recorded Date/ Time Advance Directives No April 2:30pm Chief Complaint and Reason for Visit Chief Complaint FALL 06/15 HIP PAIN Chief Complaint FALL 06/15 HIP PAIN m54.16 Chief Complaint FALL 06/15 HIP PAIN m54.16 Radiculopathy Chief Complaint FALL 06/15 HIP PAIN m54.16 Radiculopathy Radiculopathy Chief Complaint FALL 06/15 HIP PAIN m54.16 Radiculopathy radiculopathy Radiculopathy Right Leg PainReason for VisitAcute lumbar radiculopathy Chief Complaint FALL 06/15 HIP PAIN m54.16 Radiculopathy radiculopathy Radiculopathy Right Leg Pain M54.16Reason for VisitAcute lumbar radiculopathy Chief Complaint FALL 06/15 HIP PAIN m54.16 Radiculopathy radiculopathy Radiculopathy Right Leg Pain M54.16 StenosisReason for VisitAcute lumbar radiculopathy Acute lumbar radiculopathy Chief Complaint FALL 06/15 HIP PAIN m54.16 Radiculopathy radiculopathy Radiculopathy Right Leg Pain M54.16 Stenosis [id number] for VisitAcute lumbar radiculopathy Acute lumbar radiculopathy Chief Complaint 07/09 08/09 Surgery, P revious Patient Blad m54.16 m54.16 Chief Complaint 07/09 08/09 Surgery, P revious Patient Blad m54.16 m54.16 MRI resultsReason for VisitLumbar stenosis Positive DAHLIA (antinuclear antibody) Spondylolisthesis, lumbar region Chief Complaint 07/09 08/09 Surgery, P revious Patient Blad m54.16 m54.16 MRI results M43.16/R76.8/M48.061Reason for VisitLumbar stenosis Positive DAHLIA (antinuclear antibody) Spondylolisthesis, lumbar region Chief Complaint 07/09 08/09 Surgery, P revious Patient Blad m54.16 m54.16 MRI results M43.16/R76.8/M48.061 M16.11 REFF BY NOEMY SHANE RIGHT L2,3 TRANSFORAMINAL EPIDURAL STEROID INJReason for VisitLumbar stenosis Positive DAHLIA (antinuclear antibody) Spondylolisthesis, lumbar region Arthropathy of right hip Chronic pain Lumbar radiculopathy Post laminectomy syndrome Chief Complaint 07/09 08/09 Surgery, P revious Patient Blad m54.16 m54.16 MRI results M43.16/R76.8/M48.061 M16.11 REFF BY NOEMY SHANE RIGHT L2,3 TRANSFORAMINAL EPIDURAL STEROID INJ FOLLOW UP AFTER RIGHT TRANSFORAMINALReason for VisitLumbar stenosis Positive DAHLIA (antinuclear antibody) Spondylolisthesis, lumbar region Arthropathy of right hip Chronic pain Lumbar radiculopathy Post laminectomy syndrome Arthropathy of right hip Chronic pain Lumbar radiculopathy Lumbosacral spondylosis Post laminectomy syndrome Sacroiliac inflammation Chief Complaint 07/09 08/09 Surgery, P revious Patient Blad m54.16 m54.16 MRI results M43.16/R76.8/M48.061 M16.11 REFF BY NOEMY SHANE RIGHT L2,3 TRANSFORAMINAL EPIDURAL STEROID INJ FOLLOW UP AFTER RIGHT TRANSFORAMINAL bilateral sacroiliac joint injectionReason for VisitLumbar stenosis Positive DAHLIA (antinuclear antibody) Spondylolisthesis, lumbar region Arthropathy of right hip Chronic pain Lumbar radiculopathy Post laminectomy syndrome Arthropathy of right hip Chronic pain Lumbar radiculopathy Lumbosacral spondylosis Post laminectomy syndrome Sacroiliac inflammation Chief Complaint 07/09 08/09 Surgery, P revious Patient Blad m54.16 m54.16 MRI results M43.16/R76.8/M48.061 M16.11 REFF BY NOEMY SHANE RIGHT L2,3 TRANSFORAMINAL EPIDURAL STEROID INJ FOLLOW UP AFTER RIGHT TRANSFORAMINAL bilateral sacroiliac joint injection follow up after abdi SI joint injectionReason for VisitLumbar stenosis Positive DAHLIA (antinuclear antibody) Spondylolisthesis, lumbar region Arthropathy of right hip Chronic pain Lumbar radiculopathy Post laminectomy syndrome Arthropathy of right hip Chronic pain Lumbar radiculopathy Lumbosacral spondylosis Post laminectomy syndrome Sacroiliac inflammation Arthropathy of right hip Chronic pain Lumbosacral spondylosis Post laminectomy syndrome Sacroiliac inflammation Chief Complaint 07/09 08/09 Surgery, P revious Patient Blad m54.16 m54.16 MRI results M43.16/R76.8/M48.061 M16.11 REFF BY NOEMY SHANE RIGHT L2,3 TRANSFORAMINAL EPIDURAL STEROID INJ FOLLOW UP AFTER RIGHT TRANSFORAMINAL bilateral sacroiliac joint injection follow up after abdi SI joint injection ABDI LUMBAR FACET MBB L2,L3,L4,B4Zvpmtn for VisitLumbar stenosis Positive DAHLIA (antinuclear antibody) Spondylolisthesis, lumbar region Arthropathy of right hip Chronic pain Lumbar radiculopathy Post laminectomy syndrome Arthropathy of right hip Chronic pain Lumbar radiculopathy Lumbosacral spondylosis Post laminectomy syndrome Sacroiliac inflammation Arthropathy of right hip Chronic pain Lumbosacral spondylosis Post laminectomy syndrome Sacroiliac inflammation Chief Complaint 07/09 08/09 Surgery, P revious Patient Blad m54.16 m54.16 MRI results M43.16/R76.8/M48.061 M16.11 REFF BY NOEMY SHANE RIGHT L2,3 TRANSFORAMINAL EPIDURAL STEROID INJ FOLLOW UP AFTER RIGHT TRANSFORAMINAL bilateral sacroiliac joint injection follow up after abdi SI joint injection ABDI LUMBAR FACET MBB L2,L3,L4,L5 FOLLOW UP AFTER PROCEDUREReason for VisitLumbar stenosis Positive DAHLIA (antinuclear antibody) Spondylolisthesis, lumbar region Arthropathy of right hip Chronic pain Lumbar radiculopathy Post laminectomy syndrome Arthropathy of right hip Chronic pain Lumbar radiculopathy Lumbosacral spondylosis Post laminectomy syndrome Sacroiliac inflammation Arthropathy of right hip Chronic pain Lumbosacral spondylosis Post laminectomy syndrome Sacroiliac inflammation Chronic pain Lumbar radiculopathy Lumbosacral spondylosis Chief Complaint m54.16 MRI results M43.16/R76.8/M48.061 M16.11 REFF BY NOEMY SHANE RIGHT L2,3 TRANSFORAMINAL EPIDURAL STEROID INJ FOLLOW UP AFTER RIGHT TRANSFORAMINAL bilateral sacroiliac joint injection follow up after abdi SI joint injection ABDI LUMBAR FACET MBB L2,L3,L4,L5 FOLLOW UP AFTER PROCEDURE RIGHT L2,3,4,5 LUMBAR FACET MBBReason for VisitLumbar stenosis Positive DAHLIA (antinuclear antibody) Spondylolisthesis, lumbar region Arthropathy of right hip Chronic pain Lumbar radiculopathy Post laminectomy syndrome Arthropathy of right hip Chronic pain Lumbar radiculopathy Lumbosacral spondylosis Post laminectomy syndrome Sacroiliac inflammation Arthropathy of right hip Chronic pain Lumbosacral spondylosis Post laminectomy syndrome Sacroiliac inflammation Chronic pain Lumbar radiculopathy Lumbosacral spondylosis Chief Complaint m54.16 MRI results M43.16/R76.8/M48.061 M16.11 REFF BY NOEMY SHANE RIGHT L2,3 TRANSFORAMINAL EPIDURAL STEROID INJ FOLLOW UP AFTER RIGHT TRANSFORAMINAL bilateral sacroiliac joint injection follow up after abdi SI joint injection ABDI LUMBAR FACET MBB L2,L3,L4,L5 FOLLOW UP AFTER PROCEDURE RIGHT L2,3,4,5 LUMBAR FACET MBB FOLLOW UP AFTER RIGHT LUMBAR MBBReason for VisitLumbar stenosis Positive DAHLIA (antinuclear antibody) Spondylolisthesis, lumbar region Arthropathy of right hip Chronic pain Lumbar radiculopathy Post laminectomy syndrome Arthropathy of right hip Chronic pain Lumbar radiculopathy Lumbosacral spondylosis Post laminectomy syndrome Sacroiliac inflammation Arthropathy of right hip Chronic pain Lumbosacral spondylosis Post laminectomy syndrome Sacroiliac inflammation Chronic pain Lumbar radiculopathy Lumbosacral spondylosis Chronic pain Lumbar radiculopathy Lumbosacral spondylosis Chief Complaint M16.11 REFF BY NOEMY SHANE RIGHT L2,3 TRANSFORAMINAL EPIDURAL STEROID INJ FOLLOW UP AFTER RIGHT TRANSFORAMINAL bilateral sacroiliac joint injection follow up after abdi SI joint injection ABDI LUMBAR FACET MBB L2,L3,L4,L5 FOLLOW UP AFTER PROCEDURE RIGHT L2,3,4,5 LUMBAR FACET MBB FOLLOW UP AFTER RIGHT LUMBAR MBB right L2,3,4,5 lumbar facet MBBReason for VisitArthropathy of right hip Chronic pain Lumbar radiculopathy Post laminectomy syndrome Arthropathy of right hip Chronic pain Lumbar radiculopathy Lumbosacral spondylosis Post laminectomy syndrome Sacroiliac inflammation Arthropathy of right hip Chronic pain Lumbosacral spondylosis Post laminectomy syndrome Sacroiliac inflammation Chronic pain Lumbar radiculopathy Lumbosacral spondylosis Chronic pain Lumbar radiculopathy Lumbosacral spondylosis Chief Complaint M16.11 REFF BY NOEMY SHANE RIGHT L2,3 TRANSFORAMINAL EPIDURAL STEROID INJ FOLLOW UP AFTER RIGHT TRANSFORAMINAL bilateral sacroiliac joint injection follow up after abdi SI joint injection ABDI LUMBAR FACET MBB L2,L3,L4,L5 FOLLOW UP AFTER PROCEDURE RIGHT L2,3,4,5 LUMBAR FACET MBB FOLLOW UP AFTER RIGHT LUMBAR MBB right L2,3,4,5 lumbar facet MBB f/u after abdi lumbar facet MBBReason for VisitArthropathy of right hip Chronic pain Lumbar radiculopathy Post laminectomy syndrome Arthropathy of right hip Chronic pain Lumbar radiculopathy Lumbosacral spondylosis Post laminectomy syndrome Sacroiliac inflammation Arthropathy of right hip Chronic pain Lumbosacral spondylosis Post laminectomy syndrome Sacroiliac inflammation Chronic pain Lumbar radiculopathy Lumbosacral spondylosis Chronic pain Lumbar radiculopathy Lumbosacral spondylosis Chronic pain Lumbar radiculopathy Lumbosacral spondylosis Chief Complaint RIGHT L2,3 TRANSFORA KIRBY EPIDURAL STEROID INJ FOLLOW UP AFTER RIGHT TRANSFORAMINAL bilateral sacroiliac joint injection follow up after abdi SI joint injection ABDI LUMBAR FACET MBB L2,L3,L4,L5 FOLLOW UP AFTER PROCEDURE RIGHT L2,3,4,5 LUMBAR FACET MBB FOLLOW UP AFTER RIGHT LUMBAR MBB right L2,3,4,5 lumbar facet MBB f/u after abdi lumbar facet MBB right L2-3, L3-4, L4-5 RFAReason for VisitArthropathy of right hip Chronic pain Lumbar radiculopathy Lumbosacral spondylosis Post laminectomy syndrome Sacroiliac inflammation Arthropathy of right hip Chronic pain Lumbosacral spondylosis Post laminectomy syndrome Sacroiliac inflammation Chronic pain Lumbar radiculopathy Lumbosacral spondylosis Chronic pain Lumbar radiculopathy Lumbosacral spondylosis Chronic pain Lumbar radiculopathy Lumbosacral spondylosis Chief Complaint bilateral sacroiliac joint injection follow up after abdi SI joint injection ABDI LUMBAR FACET MBB L2,L3,L4,L5 FOLLOW UP AFTER PROCEDURE RIGHT L2,3,4,5 LUMBAR FACET MBB FOLLOW UP AFTER RIGHT LUMBAR MBB right L2,3,4,5 lumbar facet MBB f/u after abdi lumbar facet MBB right L2-3, L3-4, L4-5 RFA 2 week f/u after right lumbar RFAReason for VisitArthropathy of right hip Chronic pain Lumbosacral spondylosis Post laminectomy syndrome Sacroiliac inflammation Chronic pain Lumbar radiculopathy Lumbosacral spondylosis Chronic pain Lumbar radiculopathy Lumbosacral spondylosis Chronic pain Lumbar radiculopathy Lumbosacral spondylosis Chronic pain Lumbar radiculopathy Lumbosacral spondylosis Chief Complaint bilateral sacroiliac joint injection follow up after abdi SI joint injection ABDI LUMBAR FACET MBB L2,L3,L4,L5 FOLLOW UP AFTER PROCEDURE RIGHT L2,3,4,5 LUMBAR FACET MBB FOLLOW UP AFTER RIGHT LUMBAR MBB right L2,3,4,5 lumbar facet MBB f/u after abdi lumbar facet MBB right L2-3, L3-4, L4-5 RFA 2 week f/u after right lumbar RFA pm follow upReason for VisitArthropathy of right hip Chronic pain Lumbosacral spondylosis Post laminectomy syndrome Sacroiliac inflammation Chronic pain Lumbar radiculopathy Lumbosacral spondylosis Chronic pain Lumbar radiculopathy Lumbosacral spondylosis Chronic pain Lumbar radiculopathy Lumbosacral spondylosis Chronic pain Lumbar radiculopathy Lumbosacral spondylosis Lumbar foraminal stenosis Lumbar radiculopathy Lumbar stenosis Chief Complaint RIGHT L2,3,4,5 LUMBA R FACET MBB FOLLOW UP AFTER RIGHT LUMBAR MBB right L2,3,4,5 lumbar facet MBB f/u after abdi lumbar facet MBB right L2-3, L3-4, L4-5 RFA 2 week f/u after right lumbar RFA pm follow up sign consent Referred for anterior lumbar fusion eval Lumbar StenosisReason for VisitChronic pain Lumbar radiculopathy Lumbosacral spondylosis Chronic pain Lumbar radiculopathy Lumbosacral spondylosis Chronic pain Lumbar radiculopathy Lumbosacral spondylosis Lumbar foraminal stenosis Lumbar radiculopathy Lumbar stenosis Lumbar foraminal stenosis Lumbar radiculopathy Lumbar stenosis with neurogenic claudication Spondylolisthesis, lumbar region Lumbar stenosis with neurogenic claudication Chief Complaint right L2,3,4,5 lumba r facet MBB f/u after abdi lumbar facet MBB right L2-3, L3-4, L4-5 RFA 2 week f/u after right lumbar RFA pm follow up sign consent Referred for anterior lumbar fusion eval Lumbar Stenosis Lumbar Stenosis Lumbar Stenosis Lumbar Stenosis Lumbar StenosisReason for VisitChronic pain Lumbar radiculopathy Lumbosacral spondylosis Chronic pain Lumbar radiculopathy Lumbosacral spondylosis Lumbar foraminal stenosis Lumbar radiculopathy Lumbar stenosis Lumbar foraminal stenosis Lumbar radiculopathy Lumbar stenosis with neurogenic claudication Spondylolisthesis, lumbar region Lumbar stenosis with neurogenic claudication Impaired mobility and activities of daily living Lumbar radiculopathy Lumbar stenosis with neurogenic claudication Type 2 diabetes mellitus without complications Chief Complaint f/u after abdi lumbar facet MBB right L2-3, L3-4, L4-5 RFA 2 week f/u after right lumbar RFA pm follow up sign consent Referred for anterior lumbar fusion eval Lumbar Stenosis Lumbar Stenosis Lumbar Stenosis Lumbar Stenosis Lumbar Stenosis Lumbar Stenosis Lumbar Radiculopathy s/p L2-4 XLIF/L4-S1 ALIF Lumbar Radiculopathy s/p L2-4 XLIF/L4-S1 ALIFReason for VisitChronic pain Lumbar radiculopathy Lumbosacral spondylosis Chronic pain Lumbar radiculopathy Lumbosacral spondylosis Lumbar foraminal stenosis Lumbar radiculopathy Lumbar stenosis Lumbar foraminal stenosis Lumbar radiculopathy Lumbar stenosis with neurogenic claudication Spondylolisthesis, lumbar region Lumbar stenosis with neurogenic claudication Impaired mobility and activities of daily living Lumbar radiculopathy Lumbar stenosis with neurogenic claudication Type 2 diabetes mellitus without complications Diabetes mellitus Essential (primary) hypertension Impaired mobility and activities of daily living Lumbar foraminal stenosis Lumbar stenosis with neurogenic claudication Postoperative anemia Pure hypercholesterolemia, unspecified Urinary retention Chief Complaint f/u after abdi lumbar facet MBB right L2-3, L3-4, L4-5 RFA 2 week f/u after right lumbar RFA pm follow up sign consent Referred for anterior lumbar fusion eval Lumbar Stenosis Lumbar Stenosis Lumbar Stenosis Lumbar Stenosis Lumbar Stenosis Lumbar Stenosis Lumbar Radiculopathy s/p L2-4 XLIF/L4-S1 ALIF Lumbar Radiculopathy s/p L2-4 XLIF/L4-S1 ALIF Lumbar Radiculopathy s/p L2-4 XLIF/L4-S1 ALIF f/u 2 wk poReason for VisitChronic pain Lumbar radiculopathy Lumbosacral spondylosis Chronic pain Lumbar radiculopathy Lumbosacral spondylosis Lumbar foraminal stenosis Lumbar radiculopathy Lumbar stenosis Lumbar foraminal stenosis Lumbar radiculopathy Lumbar stenosis with neurogenic claudication Spondylolisthesis, lumbar region Lumbar stenosis with neurogenic claudication Impaired mobility and activities of daily living Lumbar radiculopathy Lumbar stenosis with neurogenic claudication Type 2 diabetes mellitus without complications Diabetes mellitus Essential (primary) hypertension Impaired mobility and activities of daily living Lumbar foraminal stenosis Lumbar stenosis with neurogenic claudication Postoperative anemia Pure hypercholesterolemia, unspecified Urinary retention Chief Complaint pm follow up sign consent Referred for anterior lumbar fusion eval Lumbar Stenosis Lumbar Stenosis Lumbar Stenosis Lumbar Stenosis Lumbar Stenosis Lumbar Stenosis Lumbar Radiculopathy s/p L2-4 XLIF/L4-S1 ALIF Lumbar Radiculopathy s/p L2-4 XLIF/L4-S1 ALIF Lumbar Radiculopathy s/p L2-4 XLIF/L4-S1 ALIF f/u 2 wk po M54.16Reason for VisitLumbar radiculopathy Lumbar stenosis Lumbar radiculopathy Spondylolisthesis, lumbar region Lumbar radiculopathy Type 2 diabetes mellitus without complications Impaired mobility and activities of daily living Diabetes mellitus Essential (primary) hypertension Postoperative anemia Pure hypercholesterolemia, unspecified Urinary retention Impaired mobility and activities of daily living Chief Complaint sign consent Referred for anterior lumbar fusion eval Lumbar Stenosis Lumbar Stenosis Lumbar Stenosis Lumbar Stenosis Lumbar Stenosis Lumbar Stenosis Lumbar Radiculopathy s/p L2-4 XLIF/L4-S1 ALIF Lumbar Radiculopathy s/p L2-4 XLIF/L4-S1 ALIF Lumbar Radiculopathy s/p L2-4 XLIF/L4-S1 ALIF f/u 2 wk po M54.16 post lumbar spinal fusion 6 weeks po XLIF w/xrayReason for VisitLumbar radiculopathy Spondylolisthesis, lumbar region Lumbar radiculopathy Type 2 diabetes mellitus without complications Impaired mobility and activities of daily living Diabetes mellitus Essential (primary) hypertension Postoperative anemia Pure hypercholesterolemia, unspecified Urinary retention Impaired mobility and activities of daily living Chief Complaint Lumbar Stenosis Lumbar Stenosis Lumbar Stenosis Lumbar Stenosis Lumbar Stenosis Lumbar Stenosis Lumbar Radiculopathy s/p L2-4 XLIF/L4-S1 ALIF Lumbar Radiculopathy s/p L2-4 XLIF/L4-S1 ALIF Lumbar Radiculopathy s/p L2-4 XLIF/L4-S1 ALIF f/u 2 wk po M54.16 6 weeks po XLIF w/xray post lumbar spinal fusion 2 month po XLIF w/ xrayReason for VisitLumbar radiculopathy Type 2 diabetes mellitus without complications Impaired mobility and activities of daily living Diabetes mellitus Essential (primary) hypertension Postoperative anemia Pure hypercholesterolemia, unspecified Urinary retention Impaired mobility and activities of daily living Chief Complaint Admit Date Lumbar Radiculopathy s/p L2-4 XLIF/L4-S1 ALIF January 30, 2024 1:26pm Lumbar Radiculopathy s/p L2-4 XLIF/L4-S1 ALIF February 07, 2024 9:50am f/u 2 wk po 2024 2: 20pm M54.16 March 04, 2024 9:38am 6 weeks po XLIF w/xray March 12, 2 024 12:59pm 2 month po XLIF w/ xray April 09 10:11am post lumbar spinal fusion May 07, 2024 10:00am M47.817 May 07, 2024 11:28am 3 month po ALIF/ XLIF w/xray May 072023 12:48pm Reason for Visit Admit Date Diabetes mellitus January 30, 2024 1: 26pm Essential (primary) hypertension January 30, 2024 1:26pm Postoperative anemia January 30, 2024 1 :26pm Pure hypercholesterolemia, unspecified A ugust 2023 1:26pm Urinary retention January 30, 2024 1: 26pm Impaired mobility and activities of mike y living January 30, 2024 1:26pm Lumbar foraminal stenosis January 29 024 1:26pm Lumbar stenosis with neurogenic claudica tion January 30, 2024 1:26pm Lumbar stenosis with neurogenic claudica tion 2024 2:20pm Lumbar stenosis with neurogenic claudica tion March 12, 2024 12:59pm Lumbar stenosis with neurogenic claudica tion April 09, 2024 10:11am Lumbar radiculopathy May 07, 2024 12:48pm Spondylolisthesis, lumbar region Novembe r 2023 12:48pm Chief Complaint Admit Date 2 month po XLIF w/ xray April 09 10:11am M47.817 May 07, 2024 11:28am 3 month po ALIF/ XLIF w/xray May 072023 12:48pm post lumbar spinal fusion June 05, 2024 9:15am f/u per foy no xray June 30, 2024 8:13am Reason for Visit Admit Date Lumbar stenosis with neurogenic claudica tion April 09, 2024 10:11am Lumbar radiculopathy May 07, 2024 12:48pm Spondylolisthesis, lumbar region Novembe r 2023 12:48pm History of lumbar fusion June 30, 2 025 8:13am Lumbar stenosis with neurogenic claudica tion June 30, 2024 8:13am Spondylolisthesis, lumbar region June 30, 2024 8:13am Chief Complaint Admit Date z98.1 October 29, 2024 12:52 pm f/u November 03, 2024 8:13a m increase back pain November 20, 2024 8:54a m Reason for Visit Admit Date History of lumbar fusion November 03, 2024 8:13am Lumbar stenosis with neurogenic claudica tion November 03, 2024 8:13am Spondylolisthesis, lumbar region October 8:13am Chronic pain November 20, 2024 8:54a m Left foot pain November 20, 2024 8:54a m Lumbar stenosis with neurogenic claudica tion November 20, 2024 8:54am Lumbosacral spondylosis November 20, 2024 8 :54am Sacroiliitis November 20, 2024 8:54a m Chief Complaint Admit Date z98.1 October 29, 2024 12:52 pm f/u November 03, 2024 8:13a m increase back pain November 20, 2024 8:54a m L foot pain December 08, 2024 7:45 am FOLLOW UP AFTER LEFT SI December 08, 2024 8:52am M79.672 December 09, 2024 8:17 am Reason for Visit Admit Date History of lumbar fusion November 03, 2024 8:13am Lumbar stenosis with neurogenic claudica tion November 03, 2024 8:13am Spondylolisthesis, lumbar region October 8:13am Chronic pain November 20, 2024 8:54a m Left foot pain November 20, 2024 8:54a m Lumbar stenosis with neurogenic claudica tion November 20, 2024 8:54am Lumbosacral spondylosis November 20, 2024 8 :54am Sacroiliitis November 20, 2024 8:54a m Chronic pain December 08, 2024 8:52 am Lumbosacral spondylosis December 08, 2024 8:52am Sacroiliitis December 08, 2024 8:52 am Chief Complaint Admit Date z98.1 October 29, 2024 12:52 pm f/u November 03, 2024 8:13a m increase back pain November 20, 2024 8:54a m FOLLOW UP AFTER LEFT SI December 08, 2024 8:52am M79.672 December 09, 2024 8:17 am L foot pain December 11, 2024 7:00 am M47.817 December 21, 2024 7:11a m Chief Complaint Admit Date z98.1 October 29, 2024 12:52 pm f/u November 03, 2024 8:13a m increase back pain November 20, 2024 8:54a m FOLLOW UP AFTER LEFT SI December 08, 2024 8:52am M79.672 December 09, 2024 8:17 am M47.817 December 21, 2024 7:11a m L foot pain December 30, 2024 7:00 am review imaging January 04, 2025 4:14 pm Reason for Visit Admit Date History of lumbar fusion November 03, 2024 8:13am Lumbar stenosis with neurogenic claudica tion November 03, 2024 8:13am Spondylolisthesis, lumbar region October 8:13am Chronic pain November 20, 2024 8:54a m Left foot pain November 20, 2024 8:54a m Lumbar stenosis with neurogenic claudica tion November 20, 2024 8:54am Lumbosacral spondylosis November 20, 2024 8 :54am Sacroiliitis November 20, 2024 8:54a m Chronic pain December 08, 2024 8:52 am Lumbosacral spondylosis December 08, 2024 8:52am Sacroiliitis December 08, 2024 8:52 am Chronic pain January 04, 2025 4:14 pm Lumbar radiculopathy January 04, 2025 4:1 4pm Lumbosacral spondylosis January 04, 2025 4:14pm Sacroiliitis January 04, 2025 4:14 pm Chief Complaint Admit Date z98.1 October 29, 2024 12:52 pm f/u November 03, 2024 8:13a m increase back pain November 20, 2024 8:54a m FOLLOW UP AFTER LEFT SI December 08, 2024 8:52am M79.672 December 09, 2024 8:17 am M47.817 December 21, 2024 7:11a m review imaging January 04, 2025 4:14 pm L foot pain January 18, 2025 7:3 0am Chief Complaint Admit Date z98.1 October 29, 2024 12:52 pm f/u November 03, 2024 8:13a m increase back pain November 20, 2024 8:54a m FOLLOW UP AFTER LEFT SI December 08, 2024 8:52am M79.672 December 09, 2024 8:17 am M47.817 December 21, 2024 7:11a m review imaging January 04, 2025 4:14 pm L foot pain January 18, 2025 7:3 0am CAUDAL EPIDURAL January 26, 2025 1: 50pm Chief Complaint Admit Date increase back pain November 20, 2024 8:54a m FOLLOW UP AFTER LEFT SI December 08, 2024 8:52am M79.672 December 09, 2024 8:17 am M47.817 December 21, 2024 7:11a m review imaging January 04, 2025 4:14 pm L foot pain January 18, 2025 7:3 0am CAUDAL EPIDURAL January 26, 2025 1: 50pm [id number] February 08, 2025 6: 56am Reason for Visit Admit Date Chronic pain November 20, 2024 8:54a m Left foot pain November 20, 2024 8:54a m Lumbar stenosis with neurogenic claudica tion November 20, 2024 8:54am Lumbosacral spondylosis November 20, 2024 8 :54am Sacroiliitis November 20, 2024 8:54a m Chronic pain December 08, 2024 8:52 am Lumbosacral spondylosis December 08, 2024 8:52am Sacroiliitis December 08, 2024 8:52 am Chronic pain January 04, 2025 4:14 pm Lumbar radiculopathy January 04, 2025 4:1 4pm Lumbosacral spondylosis January 04, 2025 4:14pm Sacroiliitis January 04, 2025 4:14 pm Chief Complaint Admit Date increase back pain November 20, 2024 8:54a m FOLLOW UP AFTER LEFT SI December 08, 2024 8:52am M79.672 December 09, 2024 8:17 am M47.817 December 21, 2024 7:11a m review imaging January 04, 2025 4:14 pm L foot pain January 18, 2025 7:3 0am CAUDAL EPIDURAL January 26, 2025 1: 50pm [id number] February 08, 2025 6: 56am 1 year po PLIF w/xray 2025 8:15am Reason for Visit Admit Date Chronic pain November 20, 2024 8:54a m Left foot pain November 20, 2024 8:54a m Lumbar stenosis with neurogenic claudica tion November 20, 2024 8:54am Lumbosacral spondylosis November 20, 2024 8 :54am Sacroiliitis November 20, 2024 8:54a m Chronic pain December 08, 2024 8:52 am Lumbosacral spondylosis December 08, 2024 8:52am Sacroiliitis December 08, 2024 8:52 am Chronic pain January 04, 2025 4:14 pm Lumbar radiculopathy January 04, 2025 4:1 4pm Lumbosacral spondylosis January 04, 2025 4:14pm Sacroiliitis January 04, 2025 4:14 pm History of lumbar fusion February 11 8:15am Lumbar stenosis with neurogenic claudica tion 2025 8:15am Spondylolisthesis, lumbar region 2025 8:15am Chief Complaint Admit Date FOLLOW UP AFTER LEFT SI December 08, 2024 8:52am M79.672 December 09, 2024 8:17 am M47.817 December 21, 2024 7:11a m review imaging January 04, 2025 4:14 pm L foot pain January 18, 2025 7:3 0am CAUDAL EPIDURAL January 26, 2025 1: 50pm [id number] February 08, 2025 6: 56am 1 year po PLIF w/xray 2025 8:15am Z98.1 M48.062 February 25, 2025 7:40pm Reason for Visit Admit Date Chronic pain December 08, 2024 8:52 am Lumbosacral spondylosis December 08, 2024 8:52am Sacroiliitis December 08, 2024 8:52 am Chronic pain January 04, 2025 4:14 pm Lumbar radiculopathy January 04, 2025 4:1 4pm Lumbosacral spondylosis January 04, 2025 4:14pm Sacroiliitis January 04, 2025 4:14 pm History of lumbar fusion February 11 8:15am Lumbar stenosis with neurogenic claudica tion 2025 8:15am Spondylolisthesis, lumbar region 2025 8:15am Chief Complaint Admit Date FOLLOW UP AFTER LEFT SI December 08, 2024 8:52am M79.672 December 09, 2024 8:17 am M47.817 December 21, 2024 7:11a m review imaging January 04, 2025 4:14 pm L foot pain January 18, 2025 7:3 0am CAUDAL EPIDURAL January 26, 2025 1: 50pm [id number] February 08, 2025 6: 56am 1 year po PLIF w/xray 2025 8:15am Z98.1 M48.062 February 25, 2025 7:40pm FOLLOW UP AFTER CAUDAL March 02, 025 10:26am Reason for Visit Admit Date Chronic pain December 08, 2024 8:52 am Lumbosacral spondylosis December 08, 2024 8:52am Sacroiliitis December 08, 2024 8:52 am Chronic pain January 04, 2025 4:14 pm Lumbar radiculopathy January 04, 2025 4:1 4pm Lumbosacral spondylosis January 04, 2025 4:14pm Sacroiliitis January 04, 2025 4:14 pm History of lumbar fusion February 11 8:15am Lumbar stenosis with neurogenic claudica tion 2025 8:15am Spondylolisthesis, lumbar region 2025 8:15am Chronic pain March 02, 2025 10:26am Post laminectomy syndrome February 10:26am Sacroiliitis March 02, 2025 10:26am Chief Complaint Admit Date M47.817 December 21, 2024 7:11a m review imaging January 04, 2025 4:14 pm L foot pain January 18, 2025 7:3 0am CAUDAL EPIDURAL January 26, 2025 1: 50pm [id number] February 08, 2025 6: 56am 1 year po PLIF w/xray 2025 8:15am Z98.1 M48.062 February 25, 2025 7:40pm FOLLOW UP AFTER CAUDAL March 02 025 10:26am BILATERAL SACROILIAC JOINT INJ March 182024 11:16am Reason for Visit Admit Date Chronic pain January 04, 2025 4:14 pm Lumbar radiculopathy January 04, 2025 4:1 4pm Lumbosacral spondylosis January 04, 2025 4:14pm Sacroiliitis January 04, 2025 4:14 pm History of lumbar fusion February 11 8:15am Lumbar stenosis with neurogenic claudica tion 2025 8:15am Spondylolisthesis, lumbar region 2025 8:15am Chronic pain March 02, 2025 10:26am Post laminectomy syndrome February 10:26am Sacroiliitis March 02, 2025 10:26am Chief Complaint Admit Date review imaging January 04, 2025 4:14 pm L foot pain January 18, 2025 7:3 0am CAUDAL EPIDURAL January 26, 2025 1: 50pm [id number] February 08, 2025 6: 56am 1 year po PLIF w/xray 2025 8:15am Z98.1 M48.062 February 25, 2025 7:40pm FOLLOW UP AFTER CAUDAL March 02 025 10:26am BILATERAL SACROILIAC JOINT INJ March 182024 11:16am FOLLOW UP AFTER ABDI SI March 25, 2025 4:11pm Reason for Visit Admit Date Chronic pain January 04, 2025 4:14 pm Lumbar radiculopathy January 04, 2025 4:1 4pm Lumbosacral spondylosis January 04, 2025 4:14pm Sacroiliitis January 04, 2025 4:14 pm History of lumbar fusion February 11 8:15am Lumbar stenosis with neurogenic claudica tion 2025 8:15am Spondylolisthesis, lumbar region 2025 8:15am Chronic pain March 02, 2025 10:26am Post laminectomy syndrome February 10:26am Sacroiliitis March 02, 2025 10:26am Chronic pain March 25, 2025 4: 11pm Lumbosacral spondylosis March 25 4:11pm Sacroiliitis March 25, 2025 4: 11pm Chief Complaint Admit Date L foot pain January 18, 2025 7:3 0am CAUDAL EPIDURAL January 26, 2025 1: 50pm [id number] February 08, 2025 6: 56am 1 year po PLIF w/xray 2025 8:15am Z98.1 M48.062 February 25, 2025 7:40pm FOLLOW UP AFTER CAUDAL March 02 10:26am BILATERAL SACROILIAC JOINT INJ March 182024 11:16am FOLLOW UP AFTER ABDI SI March 25, 2025 4:11pm f/u after injections April 06, 2025 7:59am Reason for Visit Admit Date History of lumbar fusion February 11 8:15am Lumbar stenosis with neurogenic claudica tion 2025 8:15am Spondylolisthesis, lumbar region 2025 8:15am Chronic pain March 02, 2025 10:26am Post laminectomy syndrome February 10:26am Sacroiliitis March 02, 2025 10:26am Chronic pain March 25, 2025 4: 11pm Lumbosacral spondylosis March 25 4:11pm Sacroiliitis March 25, 2025 4: 11pm Chronic pain April 06, 2025 7 :59am Lumbosacral spondylosis April 06 7:59am Sacroiliitis April 06, 2025 7 :59am Reason for Referral Reason Evaluate and Treat L eg Strengthening, Posture and Body Mechanics Diagnosis 1 History of lumbar coy rgery (Z98.890) Referral Organization [facility] urosurgery Referring Provider First Name Idalmis Referring Provider Last Name Jacky Referring Provider Specialty Neurologica l Surgery Referred Organization [facility] Referred Address ,[place], [place],[address] Referred Provider Specialty Physical The rapist Referral Priority Routine Additional Source Comments INFORMATION SOURCE (unrecogn ized section and content) DATE CREATED AUTHOR 01/01/2020 [facility] DATE CREATED AUTHOR AUTHOR'S ORGANIZ ATION 10/14/2021 [facility] DATE CREATED AUTHOR AUTHOR'S ORGANIZ ATION 11/23/2022 [facility] DATE CREATED AUTHOR AUTHOR'S ORGANIZ ATION 03/30/2024 [facility] DATE CREATED AUTHOR AUTHOR'S ORGANIZ ATION 04/01/2024 [facility] DATE CREATED AUTHOR AUTHOR'S ORGANIZ ATION 04/06/2024 [facility] DATE CREATED AUTHOR AUTHOR'S ORGANIZ ATION 04/23/2024 [facility] DATE CREATED AUTHOR AUTHOR'S ORGANIZ ATION 10/29/2024 [facility] DATE CREATED AUTHOR AUTHOR'S ORGANIZ ATION 04/08/2025 [facility] DATE CREATED AUTHOR AUTHOR'S ORGANIZ ATION 04/16/2025 [facility] DATE CREATED AUTHOR AUTHOR'S ORGANIZ ATION 04/28/2025 [facility] REASON FOR VISIT (unrecogniz ed section and content) ReasonCommentsMed RefillReasonCommentsSuspicious Skin LesionSpecialtyDiagnoses / ProceduresReferred By ContactReferred To ContactPhysical Therapy Diagnoses Spinal stenosis, lumbar region with neurogenic claudication Procedures LA PHYSICAL THERAPY EVALUATION LOW COMPLEX 20 MINS Jacques Foy MD [address] [place] [address], [address] [place] [address] [address] [facility] [address] [place] [address] Referral IDStatusReasonStart DateExpiration DateVisits RequestedVisits [id number]/28/[id number] DateCommentsre: OP PT02/26/2024Shpietro called noting the PT's she has scheduled out, post PT Eval on 02/23, she'd like to cx out. I asked if there was anything we can help with or need to address; and she said due to being more convenient location [place] she wants to return to Home Health. I told her if she needs anything not to hesitate and contact.ReasonCommentsFollow-upReasonCommentsreview labsReasonOnset Date CommentsMedication [id number]/15/2025 Care Teams (unrecognized sec tion and content) Team Status: Active Member Role Status Dates Eyad Mckeon MD Primary Care Provider Active Team Status: Inactive Member Role Status Dates Eyad Mckeon MD Primary Care Provider Active Start: November 13, 2023 End: November 13, 2023Thom Villarreal MDAttending ProviderActiveStart: November 13, 2023 End: November 13, 2023 Team Status: Active Member Role Status Dates Eyad Mckeon MD Primary Care Provider Active Start: November 19, 2023 Thom Villarreal MDAttending ProviderActiveStart: November 19, 2023 Team Status: Inactive Member Role Status Dates Eyad Mckeon MD Primary Care Provider Active Start: November 19, 2023 End: November 19, 2023Thom Villarreal MDAttending ProviderActiveStart: November 19, 2023 End: November 19, 2023 Team Status: Inactive Member Role Status Dates Eyda Mckeon MD Primary Care Provider Active Start: December 05, 2023 End: December 04burke Hickman NPAtttory ProviderActiveStart: December 05, 2023 End: December 05, 2023 Team Status: Inactive Member Role Status Dates Eyad Mckeon MD Primary Care Provider Active Start: December 11, 2023 End: December 10Alcides Sutton ProviderActiveStart: December 11, 2023 End: December 11, 2023 Team Status: Inactive Member Role Status Dates Eyad Mckeon MD Primary Care Provider Active Start: December 13, 2023 End: December 12Alcides Sutton ProviderActiveStart: December 13, 2023 End: December 13, 2023 Team Status: Inactive Member Role Status Dates Eyad Mckeon MD Primary Care Provider Active Start: January 09, 2024 End: January 09, 2024Alcides Muse ProviderActiveStart: January 09, 2024 End: January 08Cris Sutton ProviderActiveStart: January 09, 2024 End: January 09, 2024 Team Status: Inactive Member Role Status Dates Eyad Mckeon MD Primary Care Provider Active Start: January 13, 2024 End: January 12eddi Foy MDAttending ProviderActiveStart: January 13, 2024 End: January 13, 2024 Team Status: Inactive Member Role Status Dates Eyad Mckeon MD Primary Care Provider Active Start: January 27, 2024 End: January 29eddi Foy MDAdmit Provider, Attending ProviderActive Start: January 27, 2024 End: January 30, 2024Misty Hamilton MDOther ProviderActiveStart: January 27, 2024 End: January 30, 2024Ramirez Wallis MDOther ProviderActiveStart: January 27, 2024 End: January 30, 2024Elena Turovskaya , APRNOther ProviderActiveStart: January 27, 2024 End: January 29enedict Cathryn Chavez Jr, DOOther ProviderActiveStart: January 27, 2024 End: January 29marilyn Morris MDOther ProviderActiveStart: January 27, 2024 End: January 30, 2024 Team Status: Active Member Role Status Dates Eyad Mckeon MD Primary Care Provider Active Start: January 27, 2024 Makenzie Regan Provider, Attending Provider, Other ProviderActiveStart: January 27, 2024 Misty Hamilton MDOther ProviderActiveStart: January 27, 2024 Ramirez Wallis MDOther ProviderActiveStart: January 27, 2024 Vianney Pino , APRNOther ProviderActiveStart: January 27, 2024 Hoyt Cathryn Chavez Jr, DOOther ProviderActiveStart: January 27, 2024 Blake Morris MDOther ProviderActiveStart: January 27, 2024 Team Status: Active Member Role Status Dates Eyad Mckeon MD Primary Care Provider Active Start: January 27, 2024 Makenzie Regan Provider, Other ProviderActiveStart: January 27, 2024 Robin Akhtar MDAttending ProviderActiveStart: January 27, 2024 Team Status: Active Member Role Status Dates Eyad Mckeon MD Primary Care Provider Active Start: January 28, 2024 Makenzie Regan Provider, Attending Provider, Other ProviderActiveStart: January 28, 2024 Team Status: Active Member Role Status Dates Eyad Mckeon MD Primary Care Provider Active Start: January 28, 2024 Jacques Foy , MDAdmit Provider, Other ProviderActiveStart: January 28, 2024 Temo Chavez Jr, DOOther ProviderActiveStart: January 28, 2024 Misty Hamilton MDOther ProviderActiveStart: January 28, 2024 Ramirez Wallis MDOther ProviderActiveStart: January 28, 2024 Blake Morris MDAttending Provider, Other ProviderActiveStart: January 28, 2024 Vianney Pringle , APRNOther ProviderActiveStart: January 28, 2024 Team Status: Inactive Member Role Status Dates Eyad Mckeon MD Primary Care Provider Active Start: January 30, 2024 End: February 06marilyn Morris MDAdmit Provider, Attending ProviderActiveStart: January 30, 2024 End: February 06lexbhupendra Shah RNOther ProviderActiveStart: January 30, 2024 End: February 06sima Cordova RNOther ProviderActiveStart: January 30, 2024 End: February 07, 2024Micmargo Crowder RNOther ProviderActiveStart: January 30, 2024 End: February 07, 2024Monayana Thomas RNOther ProviderActiveStart: January 30, 2024 End: February 07, 2024Chula Nieto RNOther ProviderActiveStart: January 30, 2024 End: February 06juliocesar Foley MDOther ProviderActiveStart: January 30, 2024 End: February 06angela Sánchez DOOther ProviderActiveStart: January 30, 2024 End: February 07, 2024Titi Hare MDOther ProviderActiveStart: January 30, 2024 End: February 07, 2024Manuel Nuñez DOOther ProviderActiveStart: January 30, 2024 End: February 06sayda Mortensen MDOther ProviderActiveStart: January 30, 2024 End: February 06Valarie Purdy ProviderActiveStart: January 30, 2024 End: February 07, 2024Valarie Arias ProviderActiveStart: January 30, 2024 End: February 07, 2024Fidelia Sanchezher ProviderActiveStart: January 30, 2024 End: February 07, 2024Valarie Mar ProviderActiveStart: January 30, 2024 End: February 06kike Mckee MDOther ProviderActiveStart: January 30, 2024 End: February 07, 2024Valarie Decker ProviderActiveStart: January 30, 2024 End: February 07, 2024Valarie Anderson ProviderActiveStart: January 30, 2024 End: February 07, 2024Micsandor De La Torre DOOther ProviderActiveStart: January 30, 2024 End: February 07, 2024Jason Leung MDOther ProviderActiveStart: January 30, 2024 End: February 07, 2024Earcathryn Douglas MDOther ProviderActiveStart: January 30, 2024 End: February 06yahaira Earl NP-COther ProviderActiveStart: January 30, 2024 End: February 06disreal Espinoza APRNOther ProviderActiveStart: January 30, 2024 End: February 07, 2024Kingsley Aburto MDOther ProviderActiveStart: January 30, 2024 End: February 07, 2024Johnson Lorenz MDOther ProviderActiveStart: January 30, 2024 End: February 06Valarie Godfrey ProviderActiveStart: January 30, 2024 End: February 07, 2024Valarie Storey ProviderActiveStart: January 30, 2024 End: February 06Valarie Boudreaux ProviderActiveStart: January 30, 2024 End: February 07, 2024Abigail Morales DOOther ProviderActiveStart: January 30, 2024 End: February 07, 2024Neal R Lea , DOOther ProviderActiveStart: January 30, 2024 End: February 07, 2024Amanda Whittaker , APRNOther ProviderActiveStart: January 30, 2024 End: February 07, 2024Magdaleno Hernandez , DOOther ProviderActiveStart: January 30, 2024 End: February 07, 2024Raúl Martin MDOther ProviderActiveStart: January 30, 2024 End: February 06brennon Arthur , APRNOther ProviderActiveStart: January 30, 2024 End: February 06magaly Chiu , APRNOther ProviderActiveStart: January 30, 2024 End: February 06jon Davies MDOther ProviderActiveStart: January 30, 2024 End: February 06macie Christensen MDOther ProviderActiveStart: January 30, 2024 End: February 07, 2024Missael Hatch , DOOther ProviderActiveStart: January 30, 2024 End: February 07, 2024Dallas Ponce , DOOther ProviderActiveStart: January 30, 2024 End: February 07, 2024Barry Beverly MDOther ProviderActiveStart: January 30, 2024 End: February 06red Pike MDOther ProviderActiveStart: January 30, 2024 End: February 06álvaro Cheng , APRNOther ProviderActiveStart: January 30, 2024 End: February 07, 2024Kimberlee Lizarraga MDOther ProviderActiveStart: January 30, 2024 End: February 06yessenia Perez MDOther ProviderActiveStart: January 30, 2024 End: February 07, 2024Kristin Klein RNOther ProviderActiveStart: January 30, 2024 End: February 07, 2024 Team Status: Active Member Role Status Dates Eyad Mckeon MD Primary Care Provider Active Start: January 31, 2024 Makenzie Johnson Provider, Other ProviderActiveStart: January 31, 2024 Jessica Shah RNOther ProviderActiveStart: January 31, 2024 Elke Cordova , ROSCOEOther ProviderActiveStart: January 31, 2024 Savana Crowder , ROSCOEOther ProviderActiveStart: January 31, 2024 Michelle Thomas , ROSCOEOther ProviderActiveStart: January 31, 2024 Chula Nieto , RNOther ProviderActiveStart: January 31, 2024 Georgie Foley MDOther ProviderActiveStart: January 31, 2024 Ladan Sánchez , DOOther ProviderActiveStart: January 31, 2024 Titi Hare MDOther ProviderActiveStart: January 31, 2024 Manuel Nuñez , DOOther ProviderActiveStart: January 31, 2024 Sherwin Mortensen MDOther ProviderActiveStart: January 31, 2024 Citlaly Raymond MDOther ProviderActiveStart: January 31, 2024 Dino Herman MDOther ProviderActiveStart: January 31, 2024 Holli Mcrae , APRNOther ProviderActiveStart: January 31, 2024 Guru Batista MDOther ProviderActiveStart: January 31, 2024 Brenden Mckee MDOther ProviderActiveStart: January 31, 2024 Aliyah Jacinto MDOther ProviderActiveStart: January 31, 2024 Bri Guerrero MDOther ProviderActiveStart: January 31, 2024 Ignacio De La Torre DOOther ProviderActiveStart: January 31, 2024 Jason Leung MDOther ProviderActiveStart: January 31, 2024 Chris Douglas MDOther ProviderActiveStart: January 31, 2024 Rhina Earl NURSING UNIT COORDINATOR-COther ProviderActiveStart: January 31, 2024 Mp Espinoza , APRNOther ProviderActiveStart: January 31, 2024 Kingsley Aburto MDOther ProviderActiveStart: January 31, 2024 Johnson Lorenz MDOther ProviderActiveStart: January 31, 2024 Ish Beverly MDOther ProviderActiveStart: January 31, 2024 Ben Jacobs MDOther ProviderActiveStart: January 31, 2024 Brandon Traore MDOther ProviderActiveStart: January 31, 2024 Abigail Morales , DOOther ProviderActiveStart: January 31, 2024 Binu Tate , DOOther ProviderActiveStart: January 31, 2024 Amanda Whittaker , APRNOther ProviderActiveStart: January 31, 2024 Magdaleno Hernandez , DOOther ProviderActiveStart: January 31, 2024 Raúl Martin MDOther ProviderActiveStart: January 31, 2024 Keren Arthur , APRNOther ProviderActiveStart: January 31, 2024 Genna Chiu , APRNOther ProviderActiveStart: January 31, 2024 Raquel Davies MDOther ProviderActiveStart: January 31, 2024 Gaurav Christensen MDOther ProviderActiveStart: January 31, 2024 Missael Hatch , DOOther ProviderActiveStart: January 31, 2024 Dallas Ponce , DOOther ProviderActiveStart: January 31, 2024 Barry Beverly MDOther ProviderActiveStart: January 31, 2024 Gaston Pike MDOther ProviderActiveStart: January 31, 2024 Urvashi Cheng , APRNOther ProviderActiveStart: January 31, 2024 Kimberlee Lizarraga MDOther ProviderActiveStart: January 31, 2024 Sid Perez MDOther ProviderActiveStart: January 31, 2024 Kristin Klein RNOther ProviderActiveStart: January 31, 2024 Vianney Pringle , APRNAttending ProviderActiveStart: January 31, 2024 Team Status: Active Member Role Status Dates Eyad Mckeon MD Primary Care Provider Active Start: October 22, 2023 Thom Villarreal MDAttending ProviderActiveStart: October 22, 2023 Team Status: Inactive Member Role Status Dates Eyad Mckeon MD Primary Care Provider Active Start: October 22, 2023 End: October 22, 2023Thom Villarreal MDAttending ProviderActiveStart: October 22, 2023 End: October 22, 2023 Team Status: Inactive Member Role Status Dates Eyad Mckeon MD Primary Care Provider Active Start: October 28, 2023 End: October 28, 2023Sherif S Phil , MDAttending ProviderActiveStart: October 28, 2023 End: October 28, 2023 Team Status: Active Member Role Status Dates Eyad Mckeon MD Primary Care Provider Active Start: November 05, 2023 Thom S Phil , MDAttending ProviderActiveStart: November 05, 2023 Team Status: Inactive Member Role Status Dates Eyad Mckeon MD Primary Care Provider Active Start: November 05, 2023 End: November 05, 2023Sherif S Phil , MDAttending ProviderActiveStart: November 05, 2023 End: November 05, 2023 Team Status: Inactive Member Role Status Dates Eyad Mckeon MD Primary Care Provider Active Start: September 12, 2023 End: September 12, 2023Sherif S Phil , MDAttending ProviderActiveStart: September 12, 2023 End: September 12, 2023 Team Status: Active Member Role Status Dates Eyad Mckeon MD Primary Care Provider Active Start: September 12, 2023 Thom S Phil , MDAttending ProviderActiveStart: September 12, 2023 Team Status: Inactive Member Role Status Dates Eyad Mckeon MD Primary Care Provider Active Start: September 24, 2023 End: September 24, 2023Sherif S Phil , MDAttending ProviderActiveStart: September 24, 2023 End: September 24, 2023 Team Status: Active Member Role Status Dates Eyad Mckeon MD Primary Care Provider Active Start: October 03, 2023 Thom S Phil , MDAttending ProviderActiveStart: October 03, 2023 Team Status: Inactive Member Role Status Dates Eyad Mckeon MD Primary Care Provider Active Start: October 03, 2023 End: October 03, 2023Patriciaerif S Phil , MDAttending ProviderActiveStart: October 03, 2023 End: October 03, 2023 Team Status: Inactive Member Role Status Dates Eyad Mckeon MD Primary Care Provider Active Start: October 14, 2023 End: October 14, 2023Shcharyf S Phil , MDAttending ProviderActiveStart: October 14, 2023 End: October 14, 2023 Team Status: Active Member Role Status Dates Eyad Mckeon MD Primary Care Provider Active Start: August 27, 2023 Thom Villarreal MDAttending ProviderActiveStart: August 27, 2023 Team Status: Inactive Member Role Status Dates Eyad Mckeon MD Primary Care Provider Active Start: August 30, 2023 End: August 30, 2023Thom Villarreal MDAttending ProviderActiveStart: August 30, 2023 End: August 30, 2023 Team Status: Inactive Member Role Status Dates Eyad Mckeon MD Primary Care Provider Active Start: September 04, 2023 End: September 04, 2023Thom Villarreal MDAttending ProviderActiveStart: September 04, 2023 End: September 04, 2023 Team Status: Inactive Member Role Status Dates NON STAFF Primary Care Provider Active Joan Samuel ProviderActiveZach Rojas DO RESActive Team Status: Active Member Role Status Dates NON STAFF Primary Care Provider Active Team Status: Inactive Member Role Status Dates NON STAFF Primary Care Provider Active Raul Massey Jr, DOAtttory ProviderActive Team Status: Inactive Member Role Status Dates NON STAFF Primary Care Provider Active Idalmis Rico MDAttending ProviderActive Team Status: Inactive Member Role Status Dates NON STAFF Primary Care Provider Active Idalmis Rico MDAdmit Provider, Attending ProviderActive Team Status: Inactive Member Role Status Dates Noemy Shane NP-C Attending Provider Active Start: July 18, 2023 End: July 18, 2023 Team Status: Inactive Member Role Status Dates Noemy Shane NP-C Attending Provider Active Start: July 18, 2023 End: July 18, 2023MARY [facility] ProviderActive Start: July 18, 2023 End: July 18, 2023 Team Status: Inactive Member Role Status Dates Eyad Mckeon MD Primary Care Provider Active Start: August 02, 2023 End: August 02, 2023Lucas Grosstenaziza ProviderActiveStart: August 02, 2023 End: August 02, 2023 Team Status: Inactive Member Role Status Dates Eyad Mckeon MD Primary Care Provider Active Start: August 07, 2023 End: August 07, 2023Jedonald Shane , NURSING UNIT COORDINATOR-CAttending ProviderActiveStart: August 07, 2023 End: August 07, 2023 Team Status: Inactive Member Role Status Dates Eyad Mckeon MD Primary Care Provider Active Start: August 09, 2023 End: August 09, 2023Jedonald Shane , NURSING UNIT COORDINATOR-CAttending ProviderActiveStart: August 09, 2023 End: August 09, 2023 Team Status: Inactive Member Role Status Dates Eyad Mckeon MD Primary Care Provider Active Start: August 19, 2023 End: August 19, 2023Jedonald Shane , NURSING UNIT COORDINATOR-CAttending ProviderActiveStart: August 19, 2023 End: August 19, 2023 Team Status: Inactive Member Role Status Dates Eyad Mckeon MD Primary Care Provider Active Start: August 19, 2023 End: August 19, 2023Thom Villarreal , MDAttending ProviderActiveStart: August 19, 2023 End: August 19, 2023Noemy Shane , NURSING UNIT COORDINATOR-CReferring ProviderActiveStart: August 19, 2023 End: August 19, 2023 Team Status: Active Member Role Status Dates Eyad Mckeon MD Primary Care Provider Active Start: February 07, 2024 Blake Morris , MDAdmit Provider, Attending Provider, Other Provider ActiveStart: February 07, 2024 Jessica Shah , ROSCOEOther ProviderActiveStart: February 07, 2024 Elke Cordova , ROSCOEOther ProviderActiveStart: February 07, 2024 Savana Crowder , ROSCOEOther ProviderActiveStart: February 07, 2024 Michelle Thomas , ROSCOEOther ProviderActiveStart: February 07, 2024 Chula Nieto , ROSCOEOther ProviderActiveStart: February 07, 2024 Georgie Foley MDOther ProviderActiveStart: February 07, 2024 Ladan Sánchez , DOOther ProviderActiveStart: February 07, 2024 Titi Hare MDOther ProviderActiveStart: February 07, 2024 Manuel Nuñez , DOOther ProviderActiveStart: February 07, 2024 Sherwin Mortensen MDOther ProviderActiveStart: February 07, 2024 Citlaly Raymond MDOther ProviderActiveStart: February 07, 2024 Dino Herman MDOther ProviderActiveStart: February 07, 2024 Holli Mcrae , APRNOther ProviderActiveStart: February 07, 2024 Guru Batista MDOther ProviderActiveStart: February 07, 2024 Brenden Mckee MDOther ProviderActiveStart: February 07, 2024 Aliyah Jacinto MDOther ProviderActiveStart: February 07, 2024 Bri Guerrero MDOther ProviderActiveStart: February 07, 2024 Ignacio De La Torre DOOther ProviderActiveStart: February 07, 2024 Jason Leung MDOther ProviderActiveStart: February 07, 2024 Chris Douglas MDOther ProviderActiveStart: February 07, 2024 Rhina Earl , NURSING UNIT COORDINATOR-COther ProviderActiveStart: February 07, 2024 Mp Espinoza , APRNOther ProviderActiveStart: February 07, 2024 Kingsley Aburto MDOther ProviderActiveStart: February 07, 2024 Johnson Lorenz MDOther ProviderActiveStart: February 07, 2024 Ish Beverly MDOther ProviderActiveStart: February 07, 2024 Ben Jacobs MDOther ProviderActiveStart: February 07, 2024 Brandon Traore MDOther ProviderActiveStart: February 07, 2024 Abigail Morales , DOOther ProviderActiveStart: February 07, 2024 Binu Tate , DOOther ProviderActiveStart: February 07, 2024 Amanda Whittaker , APRNOther ProviderActiveStart: February 07, 2024 Magdaleno Hernandez , DOOther ProviderActiveStart: February 07, 2024 Raúl Martin MDOther ProviderActiveStart: February 07, 2024 Keren Arthur , APRNOther ProviderActiveStart: February 07, 2024 Genna Chiu , APRNOther ProviderActiveStart: February 07, 2024 Raquel Davies MDOther ProviderActiveStart: February 07, 2024 Gaurav Christensen MDOther ProviderActiveStart: February 07, 2024 Missael Hatch , DOOther ProviderActiveStart: February 07, 2024 Dallas Ponce , DOOther ProviderActiveStart: February 07, 2024 Barry Beverly MDOther ProviderActiveStart: February 07, 2024 Gaston Pike MDOther ProviderActiveStart: February 07, 2024 Urvashi Cheng , APRNOther ProviderActiveStart: February 07, 2024 Kimberlee Lizarraga MDOther ProviderActiveStart: February 07, 2024 Sid Perez MDOther ProviderActiveStart: February 07, 2024 Kristin Klein RNOther ProviderActiveStart: February 07, 2024 Team Status: Inactive Member Role Status Dates Eyad Mckeon MD Primary Care Provider Active Start: 2024 End: February 10Katrin Suttonending ProviderActiveStart: 2024 End: 2024 Team Status: Active Member Role Status Dates Eyad Mckeon MD Primary Care Provider Active Start: January 27, 2024 End: January 29Makenzie Sutton Provider, Attending Provider, Other ProviderActiveStart: January 27, 2024 End: January 30, 2024Valarie Fang ProviderActiveStart: January 27, 2024 End: January 30, 2024Ramirez Wallis MDOther ProviderActiveStart: January 27, 2024 End: January 30, 2024Vianney Pringle , APRNOther ProviderActiveStart: January 27, 2024 End: January 29enedict Cathryn Chavez Jr, DOOther ProviderActiveStart: January 27, 2024 End: January 29marilyn Morris MDOther ProviderActiveStart: January 27, 2024 End: January 30, 2024 Team Status: Active Member Role Status Dates Eyad Mckeon MD Primary Care Provider Active Start: January 27, 2024 End: January 29Makenzie Sutton Provider, Other ProviderActive Start: January 27, 2024 End: January 30, 2024Robin Akhtar MDAttending ProviderActiveStart: January 27, 2024 End: January 30, 2024 Team Status: Active Member Role Status Dates Eyad Mckeon MD Primary Care Provider Active Start: January 28, 2024 End: January 29eddi Foy MDAdmit Provider, Attending Provider, Other ProviderActiveStart: January 28, 2024 End: January 30, 2024 Team Status: Active Member Role Status Dates Eyad Mckeon MD Primary Care Provider Active Start: January 28, 2024 End: January 29eddi Foy MDAdmit Provider, Other ProviderActive Start: January 28, 2024 End: January 29enedict Cathryn Chavez Jr, DOOther ProviderActiveStart: January 28, 2024 End: January 30, 2024Misty Hamilton MDOther ProviderActiveStart: January 28, 2024 End: January 30, 2024Ramirez Wallis MDOther ProviderActiveStart: January 28, 2024 End: January 29marilyn Morris MDAttending Provider, Other ProviderActiveStart: January 28, 2024 End: January 30, 2024Vianney Pringle APRNOt ProviderActiveStart: January 28, 2024 End: January 30, 2024 Team Status: Inactive Member Role Status Dates Eyad Mckeon MD Primary Care Provider Active Start: March 04, 2024 End: March 04Alcides Sutton ProviderActiveStart: March 04, 2024 End: March 04, 2024 Team Status: Active Member Role Status Dates Eyad Mckeon MD Primary Care Provider Active Start: March 11, 2024 Alcides Regan ProviderActiveStart: March 11, 2024 Team Status: Inactive Member Role Status Dates Eyad Mckeon MD Primary Care Provider Active Start: March 12, 2024 End: March 12Alcides Sutton ProviderActiveStart: March 12, 2024 End: March 12, 2024 Team Status: Active Member Role Status Dates Eyad Mckeon MD Primary Care Provider Active Start: April 09, 2024 Alcides Regan ProviderActiveStart: April 09, 2024 Team Status: Inactive Member Role Status Dates Eyad Mckeon MD Primary Care Provider Active Start: April 09, 2024 End: April 09Alcides Sutton ProviderActiveStart: April 09, 2024 End: April 09, 2024Team MemberRelationshipSpecialtyStart DateEnd Date Eyad Garland MD [address], [address] [phone] [facility] - General01/26/14 Team Status: Active Member Role Status Dates Eyad Mckeon MD Primary Care Provider Active Start: February 07, 2024 End: February 06Makenzie Eubanks Provider, Attending Provider, Other ProviderActiveStart: February 07, 2024 End: February 06lexbhupendra Shah RNOther ProviderActiveStart: February 07, 2024 End: February 06sima Cordova RNOther ProviderActiveStart: February 07, 2024 End: February 07, 2024Micmargo Crowder RNOther ProviderActiveStart: February 07, 2024 End: February 07, 2024Michelle Thomas RNOther ProviderActiveStart: February 07, 2024 End: February 07, 2024Chula Nieto RNOther ProviderActiveStart: February 07, 2024 End: February 06juliocesar Foley MDOther ProviderActiveStart: February 07, 2024 End: February 06angela Sánchez DOOther ProviderActiveStart: February 07, 2024 End: February 07, 2024Valarie Lozano ProviderActiveStart: February 07, 2024 End: February 07, 2024Manuel Nuñez DOOther ProviderActiveStart: February 07, 2024 End: February 06ndValarie Castellon ProviderActiveStart: February 07, 2024 End: February 06Valarie Purdy ProviderActiveStart: February 07, 2024 End: February 07, 2024Valarie Arias ProviderActiveStart: February 07, 2024 End: February 07, 2024Fidelia Sanchezher ProviderActiveStart: February 07, 2024 End: February 07, 2024Guru Batista MDOther ProviderActiveStart: February 07, 2024 End: February 06assaelcia Mckee MDOther ProviderActiveStart: February 07, 2024 End: February 07, 2024Aliyah Jacinto MDOther ProviderActiveStart: February 07, 2024 End: February 07, 2024Sapedro pablo Guerrero MDOther ProviderActiveStart: February 07, 2024 End: February 07, 2024Micsandor De La Torre DOOther ProviderActiveStart: February 07, 2024 End: February 07, 2024Jason Leung MDOther ProviderActiveStart: February 07, 2024 End: February 07, 2024Chris Douglas MDOther ProviderActiveStart: February 07, 2024 End: February 06yahaira Earl NURSING UNIT COORDINATOR-COther ProviderActiveStart: February 07, 2024 End: February 06dFidelia Lunsfordher ProviderActiveStart: February 07, 2024 End: February 07, 2024Kingsley Aburto MDOther ProviderActiveStart: February 07, 2024 End: February 07, 2024Johnson Lorenz MDOther ProviderActiveStart: February 07, 2024 End: February 06Valarie Godfrey ProviderActiveStart: February 07, 2024 End: February 07, 2024Ben Jacobs MDOther ProviderActiveStart: February 07, 2024 End: February 06Valarie Boudreaux ProviderActiveStart: February 07, 2024 End: February 07, 2024Abigail Morales , DOOther ProviderActiveStart: February 07, 2024 End: February 07, 2024Binu Tate , DOOther ProviderActiveStart: February 07, 2024 End: February 07, 2024Amanda Whittaker , APRNOther ProviderActiveStart: February 07, 2024 End: February 07, 2024Magdaleno Hernandez , DOOther ProviderActiveStart: February 07, 2024 End: February 07, 2024Raúl Martin MDOther ProviderActiveStart: February 07, 2024 End: February 06brennon Arthur APRNOther ProviderActiveStart: February 07, 2024 End: February 06magaly Chiu , APRNOther ProviderActiveStart: February 07, 2024 End: February 06jon Davies MDOther ProviderActiveStart: February 07, 2024 End: February 06macie Christensen MDOther ProviderActiveStart: February 07, 2024 End: February 07, 2024Missael Hatch , DOOther ProviderActiveStart: February 07, 2024 End: February 07, 2024Dallas Ponce , DOOther ProviderActiveStart: February 07, 2024 End: February 07, 2024Barry Beverly MDOther ProviderActiveStart: February 07, 2024 End: February 06red Pike MDOther ProviderActiveStart: February 07, 2024 End: February 06álvaro Cheng , APRNOther ProviderActiveStart: February 07, 2024 End: February 07, 2024Kimberlee Lizarraga MDOther ProviderActiveStart: February 07, 2024 End: February 06yessenia Perez MDOther ProviderActiveStart: February 07, 2024 End: February 07, 2024Kristin Klein RNOther ProviderActiveStart: February 07, 2024 End: February 07, 2024 Team Status: Active Member Role Status Dates Eyad Mckeon MD Primary Care Provider Active Start: May 07, 2024 Alcides Regan ProviderActiveStart: May 07, 2024 Team Status: Inactive Member Role Status Dates Eyad Mckeon MD Primary Care Provider Active Start: May 07, 2024 End: May 07Alcides Sutton ProviderActiveStart: May 07, 2024 End: May 07, 2024Team MemberRelationshipSpecialtyStart DateEnd [place] [id number] [place] [address] [address] [place] [phone] PCP - GeneralInternal Medicine01/10/23Te MemberRelationshipSpecialtyStart Date End Date Amy White MD [address] [place] [address] Dr [address] [place], [place] [address] [phone] PCP - GeneralInternal Medicine01/10/23Te MemberRelationshipSpecialtyStart Date End Date Amy White MD [address] [place] [address] Dr [address] [place], [place] [address] [phone] PCP - GeneralInternal Medicine01/10/23Te MemberRelationshipSpecialtyStart Date End Date Eyad Garland MD [address] [facility] [address] [phone] PCP - General01/26/14Te MemberRelationshipSpecialtyStart DateEnd Date Amy White MD [address] [place] [address] Dr [address] [place] [phone] PCP - GeneralInternal Medicine01/10/23Te MemberRelationshipSpecialtyStart Date End Date Amy White MD [address] [place] [address] [address] [phone] [facility] - [facility]01/10/23Team MemberRelationshipSpecialtyStart [place] [address] [facility] [address] [phone] [facility]01/10/23 Team Status: Inactive Member Role Status Dates Eyad Mckeon MD Primary Care Provider Active Start: June 05, 2024 End: June 05Alcides Sutton ProviderActiveStart: June 05, 2024 End: June 05, 2024 Team Status: Inactive Member Role Status Dates Eyad Mckeon MD Primary Care Provider Active Start: June 30, 2024 End: June 30, 2024DaAlcides Mo ProviderActiveStart: June 30, 2024 End: June 30, 2024Team MemberRelationshipSpecialtyStart DateEnd Date Eyad Garland MD [address], [facility] [address] [place] [phone] [facility] - General01/26/14Team MemberRelationshipSpecialtyStart DateEnd Date Eyad Garland MD [address], [facility] [address] [place] [phone] [facility] - General01/26/14 Team Status: Inactive Member Role Status Dates Eyad Mckeon MD Primary Care Provider Active Start: October 29, 2024 End: October 29, 2024Alcides Regan ProviderActiveStart: October 29, 2024 End: October 29, 2024 Team Status: Inactive Member Role Status Dates Eyad Mckeon MD Primary Care Provider Active Start: November 03, 2024 End: November 03, 2024Jacques Foy MDAttending ProviderActiveStart: November 03, 2024 End: November 03, 2024 Team Status: Inactive Member Role Status Dates Eyad Mckeon MD Primary Care Provider Active Start: November 20, 2024 End: November 20, 2024Thom Villarreal MDAttending ProviderActiveStart: November 20, 2024 End: November 20, 2024Team MemberRelationshipSpecialtyStart DateEnd Date Eyad Garland MD [address], [address] [phone] [facility] - General01/26/14 Team Status: Active Member Role Status Dates Eyad Mckeon MD Primary Care Provider Active Start: November 24, 2024 Katrin Solisending ProviderActiveStart: November 24, 2024 Team Status: Active Member Role Status Dates Eyad Mckeon MD Primary Care Provider Active Start: December 08, 2024 Katrin Solisending ProviderActiveStart: December 08, 2024 Team Status: Inactive Member Role Status Dates Eyad Mckeon MD Primary Care Provider Active Start: December 08, 2024 End: December 08, 2024Thom Villarreal MDAttending ProviderActiveStart: December 08, 2024 End: December 08, 2024 Team Status: Inactive Member Role Status Dates Eyad Mckeon MD Primary Care Provider Active Start: December 09, 2024 End: December 09, 2024Thom Villarreal MDAttending ProviderActiveStart: December 09, 2024 End: December 09, 2024 Team Status: Active Member Role Status Dates Eyad Mckeon MD Primary Care Provider Active Start: December 09, 2024 Valarie Solis ProviderActiveStart: December 09, 2024 Blake Morris MDAttending ProviderActiveStart: December 09, 2024 Team Status: Active Member Role Status Dates Eyad Mckeon MD Primary Care Provider Active Start: December 11, 2024 Thom S Phil , MDAttending ProviderActiveStart: December 11, 2024 Team Status: Inactive Member Role Status Dates Eyad Mckeon MD Primary Care Provider Active Start: December 21, 2024 End: December 21, 2024Shjem S Phil , MDAttending ProviderActiveStart: December 21, 2024 End: December 21, 2024 Team Status: Active Member Role Status Dates Eyad Mckeon MD Primary Care Provider Active Start: December 30, 2024 Thomlive Villarreal , MDAttending ProviderActiveStart: December 30, 2024 Team Status: Inactive Member Role Status Dates Eyad Mckeon MD Primary Care Provider Active Start: January 04, 2025 End: January 04, 2025Shjem Villarreal , MDAttending ProviderActiveStart: January 04, 2025 End: January 04, 2025Team MemberRelationshipSpecialtyStart [place] [address] [facility] [address] [phone] PCP - [facility]01/10/23 Team Status: Inactive Member Role Status Dates Eyad Mckeon MD Primary Care Provider Active Start: January 18, 2025 End: January 18, 2025Thom Villarreal , MDAttending ProviderActiveStart: January 18, 2025 End: January 18, 2025 Team Status: Inactive Member Role Status Dates Eyad Mckeon MD Primary Care Provider Active Start: January 26, 2025 End: January 26, 2025Thom Villarreal , MDAttending ProviderActiveStart: January 26, 2025 End: January 26, 2025Team MemberRelationshipSpecialtyStart DateEnd Date Eyad Garland MD [address], [facility] [address] [place] [phone] PCP - General01/26/14 Team Status: Active Member Role Status Dates Eyad Mckeon MD Primary Care Provider Active Start: January 26, 2025 Thom Velazco Phil , MDAttending ProviderActiveStart: January 26, 2025 Team Status: Inactive Member Role Status Dates Eyad Mckeon MD Primary Care Provider Active Start: February 08, 2025 End: February 08, 2025Dale Pietro Foy , MDAttending ProviderActiveStart: February 08, 2025 End: February 08, 2025 Team Status: Inactive Member Role Status Dates Eyad Mckeon MD Primary Care Provider Active Start: 2025 End: February 11, 2025Daalli Foy , MDAttending ProviderActiveStart: 2025 End: 2025 Team Status: Inactive Member Role Status Dates Eyad Mckeon MD Primary Care Provider Active Start: February 25, 2025 End: February 25, 2025Daalli Foy , MDAttending ProviderActiveStart: February 25, 2025 End: February 25, 2025 Team Status: Inactive Member Role Status Dates Eyad Mckeon MD Primary Care Provider Active Start: March 02, 2025 End: March 02, 2025Shcharyf S Phil , MDAttending ProviderActiveStart: March 02, 2025 End: March 02, 2025 Team Status: Inactive Member Role Status Dates Eyad Mckeon MD Primary Care Provider Active Start: March 18, 2025 End: March 18, 2025Shcharyf S Phil , MDAttending ProviderActiveStart: March 18, 2025 End: March 18, 2025 Team Status: Inactive Member Role Status Dates Eyad Mckeon MD Primary Care Provider Active Start: March 25, 2025 End: March 25, 2025Shcharyf S Phil , MDAttending ProviderActiveStart: March 25, 2025 End: March 25, 2025 Team Status: Active Member Role/Relationship Status Dates Eyad Mckeon MD Primary Care Provider Active Team Status: Inactive Member Role/Relationship Status Dates Eyad Mckeon MD Primary Care Provider Active Start: January 18, 2025 End: January 18, 2025Sherif S Phil , MDAttending ProviderActiveStart: January 18, 2025 End: January 18, 2025 Team Status: Inactive Member Role/Relationship Status Dates Eyad Mckeon MD Primary Care Provider Active Start: January 26, 2025 End: January 26, 2025hTom Villarreal MDAttending ProviderActiveStart: January 26, 2025 End: January 26, 2025 Team Status: Active Member Role/Relationship Status Dates Eyad Mckeno MD Primary Care Provider Active Start: January 26, 2025 Thom Villarreal MDAttending ProviderActiveStart: January 26, 2025 Team Status: Inactive Member Role/Relationship Status Dates Eyad Mckeon MD Primary Care Provider Active Start: February 08, 2025 End: February 08, 2025Katrin Reganending ProviderActiveStart: February 08, 2025 End: February 08, 2025 Team Status: Inactive Member Role/Relationship Status Dates Eyad Mckeon MD Primary Care Provider Active Start: 2025 End: February 11, 2025Jacques Foy MDAttending ProviderActiveStart: 2025 End: 2025 Team Status: Inactive Member Role/Relationship Status Dates Eyad Mckeon MD Primary Care Provider Active Start: February 25, 2025 End: February 25, 2025Katrin Reganending ProviderActiveStart: February 25, 2025 End: February 25, 2025 Team Status: Inactive Member Role/Relationship Status Dates Eyad Mckeon MD Primary Care Provider Active Start: March 02, 2025 End: March 02, 2025Thom Villarreal MDAttending ProviderActiveStart: March 02, 2025 End: March 02, 2025 Team Status: Inactive Member Role/Relationship Status Dates Eyad Mckeon MD Primary Care Provider Active Start: March 18, 2025 End: March 18, 2025Thom Villarreal MDAttending ProviderActiveStart: March 18, 2025 End: March 18, 2025 Team Status: Inactive Member Role/Relationship Status Dates Eyad Mckeon MD Primary Care Provider Active Start: March 25, 2025 End: March 25, 2025Thom Villarreal MDAttending ProviderActiveStart: March 25, 2025 End: March 25, 2025 Team Status: Inactive Member Role/Relationship Status Dates Eyad Mckeon MD Primary Care Provider Active Start: April 06, 2025 End: April 06, 2025Daalli Foy MDAtttory ProviderActiveStart: April 06, 2025 End: April 06, 2025Team MemberRelationshipSpecialtyStart [place] [address] [facility] [address] [place] [phone] PCP - GeneralInternal Medicine01/10/23Team MemberRelationshipSpecialtyStart Date End Date Eyad Garland MD [address] [facility] [address] [place] [address] PCP - General01/26/14 Goals (unrecognized section and content) Goals may be documented in a n alternate section FOR RECORDS PERTAINING TO PATIENTS WHO ARE OR HAVE BEEN ENROLLED IN A CHEMICAL DEPENDENCY/SUBSTANCEABUSE PROGRAM, SOME INFORMATION MAY BE OMITTED. This clinical summary was aggregated from multiple sources. Caution should be exercised in using it in the provision of clinical care. This summary normalizes information from multiple sources, and as a consequence, information in this document may materially change the coding, format and clinical context of patient data. In addition, data may be omitted in some cases. CLINICAL DECISIONS SHOULD BE BASED ON THE PRIMARY CLINICAL RECORDS. [email or web address] [email or web address] [facility]. provides no warranty or guarantee of the accuracy or completeness of information in this document.
--- OUTSIDE RECORDS SUMMARY | 2025-05-14 07:56 | XMS_ITS | Patient Health Record ---
Author Organization Telehealth Visit Address [id number] [place], [place] [id number] Care Team Providers Care Prenatal Nurse Name Role Phone Eyad Huynh Primary Care Provider Unavail able Ignacio Michael Unavailable [phone] Reason For Referral No Information Problems Problem Type SNOMED Code ICD Code Onset Dates Problem Status W/U Status Risk Notes Problem Dyspepsia (495994744) Dyspepsia (K30) ActiveconfirmedProblemGastritis (0838955)Gastritis (K29.70)Activeconfirmed ProblemBarrett's esophagus (405940430)Potts's esophagus (K22.70)Active confirmed Encounters Encounter Location Date Provider Diagnosis [facility] [address] [facility] [address] [place], [place] [id number] 05/11/2025 Ignacio Michael Plan Of Treatment No Information Insurance Providers Payer Name Payer Address Payer Phone Subscriber Number Group Number Insured Name Patient Relationship to Insured Coverage Start Date Coverage End Date [employer] A [address] [address] [place] [address] [phone] [id number] Carol Anne - patient is the insured
--- OUTSIDE RECORDS SUMMARY | 2025-05-14 07:56 | XMS_ITS | Clinical Summary ---
Author Organization [facility] Address [address] [place] [address] Care Team Providers Care Mortar Man Name Role Phone Amy White MD Primary Care Provider [phone] Allergies Active AllergyReactionsCriticalityNoted DateCommentsNaproxenGI intolerance 05/20/2024 Medications MedicationSigDispense QuantityRefillsLast FilledStart DateEnd DateStatus traZODone (Desyrel) 100 MG tablet 1 (one) time each day at the same timeActive glyBURIDE (Diabeta) 5 MG tablet 1 (one) time each day at the same timeActive metFORMIN, MOD, (Glumetza) 1000 MG 24 hr tablet Take 1,000 mg by mouth in the morning and 1,000 mg in the evening. Take with meals.Active atorvastatin (Lipitor) 20 MG tablet Take 1 tablet by mouth Daily12/16/2022ctive dulaglutide (Trulicity) 1.5 MG/0.5ML solution pen-injector Inject 1.5 mg under the skin once a weekActive OneTouch Ultra test strip 01/02/2023ctive lisinopril 10 MG tablet 1 (one) time each day at the same timeActive gabapentin (Neurontin) 300 MG capsule 12/10/2022ctive aspirin 81 MG chewable tablet 01/13/2024ctive escitalopram (Lexapro) 20 MG tablet 06/11/2024ctive methocarbamol (Robaxin) 500 MG tablet 1,000 mg02/06/2024ctiveHospital, Clinic, or Other Facility Administered MedicationOrdered DoseRouteFrequencyStart DateEnd DateStatus triamcinolone acetonide (Kenalog) injection 2.5 mg Indications: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 yeTYGepz32/30/032657Ended Active Problems ProblemNoted DateDiagnosed DateAbnormal metabolic state due to diabetes mellitus 1992Bgiiidypqteg53/01/2023Essential jtairunmfoqi98/01/2023Internal derangement of left knee01/15/20238783Dqmzzpofzrhzhjfznuhr17/01/2023Left bundle branch block01/15/2023Lumbar rqlsdtkbpykxr72/01/2023Osteoarthritis of knee 01/15/2023Other chronic pain01/15/2023ain in right knee01/15/2023Right calf pain01/15/2023Type 2 diabetes mellitus without udkjwysusjnfi70/01/2023reast jefhsz8201/15/2023 Encounters DateTypeDepartmentCare JkgeRubtvtptcaj94/30/2025 9:10 AM EDTOffice Visit [facility] [address] [place] [address] Miri Sanchez PA Granuloma annulare (Primary Dx); Other specified erythematous bplbzietox99/30/2025amboo flowsheet [facility] [address] [place] [address] Miri Sanchez PA 04/15/20251731Bagcna80/29/2025Travelfrom Last 3 Months Immunizations ImmunizationAdministration DatesNext DueInfluenza, High-dose Seasonal, Quadrivalent, Preservative Free05/15/2022,05/01/2021Influenza, injectable, quadrivalent, preservative free09/02/2020,04/27/2020,03/30/2019,04/17/2017 Influenza, seasonal, bgtrljcehx37/01/2019Pneumococcal Conjugate PCV 13107/15/2021 Pneumococcal Polysaccharide RGUL792307/01/2020,01/04/2014,06/17/2012Td (adult), 5 Lf tetanus toxoid, preservative free, ecwpuiww71/16/2940Kkfw84/18/2012Zoster, Qzqiosvxqkj37/18/2021,04/27/2020 Family History Medical HistoryRelationNameCommentsDiabetesMotherHypertensionMotherRelationName StatusCommentsFatherDeceasedMotherDeceased Social History Tobacco UseTypesPacks/DayYears UsedDateSmoking Tobacco: Every DayCigarettes Comments:Smokes 60 mins afte r waking up Alcohol UseStandard Drinks/WeekCommentsNever0 (1 standard drink = 0.6 oz pure alcohol)CommentsUnknownSex and Gender InformationValueDate RecordedSex Assigned at OnvyaVfpxsz03/18/2023 1:46 PM EDTLegal EjsGgvzjx11/15/2023 7:30 PM EDTGender LmqisnsgEhygwt29/18/2023 1:46 PM EDTSexual OrientationNot on file Last Filed Vital Signs Vital SignReadingTime TakenCommentsBlood Zjjicuaj768/9201/15/2023 2:23 PM EDT Pulse--Temperature--Respiratory Rate--Oxygen Saturation--Inhaled Oxygen Concentration--Gnclew27.4 kg (217 lb)2023 1:54 PM NBHDvvgvp749.6 cm (5' 4 )2023 1:54 PM EDTBody Mass Index37.2508 1:54 PM EDT Plan of Treatment Health MaintenanceDue DateLast DoneCommentsCT Atmabokdqlzc1955Colonoscopy 1955olorectal Cancer Rzcxsmmav1955FIT-DNA1955FIT1955 FOBT1955 1500Inkvosjfeghrg50/27/7905Paovjywwt32OVID-19 Vaccine ( season), 02/17/2021, 01/17/2021 Influenza Vaccine (#1)/10/2023, 05/15/2022, 05/01/2021, Additional history existsPneumococcal Vaccine: 65+ SvcazZfatnncul73/29/2022, 05/01/2021, 09/19/2015, [place] [id number] Care Teams Team MemberRelationshipSpecialtyStart [place] [address] [facility] [address] [facility] [address] [place] [id number] PCP - GeneralInternal Medicine01/10/23
--- OUTSIDE RECORDS SUMMARY | 2025-05-14 07:56 | XMS_ITS | Encounter Summary ---
Author Organization [employer] [facility] Address [id number] [address] [place] [address] Care Team Providers Care Sap Solution Manager Consultant Name Role Phone Eyad Tee MD Primary Care Provider [phone] Reason for Visit * ReasonCommentsMed Refill Encounter Details DateTypeDepartmentCare Team (Latest Contact Info)Tccxhbalaas77/21/2025Refill [facility] [address] [place] [address] Eyad Tee MD [address], [address] [address] Pure hypercholesterolemia Social History Tobacco UseTypesPacks/DayYears UsedDateSmoking Tobacco: FormerCigarettes0.552.6 1971 - 01/27/2024Smokeless Tobacco: NeverAlcohol UseStandard Drinks/WeekComments Yes0 (1 standard drink = 0.6 oz pure alcohol)MONTHLYPHQ-2AnswerDate Recorded Total Sidzg999/17/2025ChildcareAnswerDate MvmqrbvhIxuhutdrgJiwmfmu72/12/2019 EmploymentAnswerDate ZdyjslxjBphupcfcffFdsonto66/12/2019Hunger ScreeningAnswer Date RecordedWithin the past 12 months we worried whether our food would run out before we got money to buy more.Never True05/03/2025Within the past 12 months the food we bought just didn't last and we didn't have money to get more.Never True05/03/2025Purpose - LifeAnswerDate RecordedPurpose and direction in life Fhasfxi35/11/2021CommentsNoSex and Gender InformationValueDate Recorded Sex Assigned at BirthNot on fileLegal XxkLlulzy56/06/2015 12:14 PM EDTGender IdentityNot on fileSexual OrientationNot on filedocumented as of this encounter Plan of Treatment DateTypeDepartmentCare Team (Latest Contact Info)Mendyycswjc77/19/2026 8:00 AM EDTOffice Visit [facility] [address] [facility] [address] [place] [address] Eyad Tee MD [address] [facility] [address] [place] [address] documented as of this encounter Visit Diagnoses Diagnosis Pure hypercholesterolemia documented in this encounter Additional Health Concerns AssessmentNoted TimePHQ-9 Depression Total Score: 8:40 AM ESTA Body Mass Index follow-up plan has been documented for the aitkdka4205/09/2025 7:03 PM ESTdocumented as of this encounter Care Teams Team MemberRelationshipSpecialtyStart DateEnd Date Eyad Tee MD [address], [facility] [address] [place] [address] PCP - General01/26/14documented as of this encounter
--- NOTE | 2025-05-14 07:58 | CT_ITS ---
The [address] [address] Patient Name: RAZA LUGO MRN: [id number] date: 1955 Sex: F Assigned Patient Location: [facility] Current Patient Location: [facility] Accession/Order Number: [id number] Exam Date: 05/14/2025 08:25 Report Date: 05/14/2025 09:08 At the request of: NON-STAFF PHYSICIAN Procedure: CT lung screening low-dose LOW-DOSE SCREENING CHEST CT WITHOUT CONTRAST COMPARISON: 11/08/2023 CLINICAL DATA: Former smoker with 40 pack year history. Spiral axial unenhanced low-dose images were obtained through the chest. Images were reviewed using both narrow and wide window settings This CT exam was performed using one or more following dose reduction techniques: Automated exposure control, adjustment of the mA and/or kV according to patient size, or use of iterative reconstruction technique. The heart is top normal in size. There is a trace amount pericardial fluid. Minor coronary disease is seen. There is no aortic aneurysm. Mild plaque is visualized at the aortic arch, descending aorta and proximal great vessels. No enlarged lymph nodes are noted. There is slight dextroscoliotic curvature and degenerative change at the spine. Mild scarring and/or atelectasis is again seen at the lingula. No new consolidation, pleural effusion or pneumothorax is identified. Similar tiny 2 mm nodules are seen at the left lower lobe laterally on axial image 185, right lower lobe laterally on axial image 170 and anterior right lower lobe on axial image 160. No new nodules are seen. Limited imaging through the upper abdomen shows adrenal nodularity, larger on the left though unchanged from the prior. CT/CT lung screening low-dose IMPRESSION: TINY STABLE PULMONARY NODULES. LINGULAR SCARRING OR ATELECTASIS. Lung RADS category 2 - benign Twelve-month low-dose CT follow-up suggested Impression dictated by: Liana Duggan M.D. 05/14/2025 9:08 AM Dictation Location: [place] [address] Electronically authenticated by: [id number] Y Date: 05/14/2025 09:08
--- NOTE | 2025-05-14 08:25 | MM_ITS ---
Patient Name: RAZA LUGO MR#: [id number] : 1955 Exam Date: 05/14/2025 Ordering Doctor: EDNA MCKEON M.D. RADIOLOGY REPORT PROCEDURE: MM TOMOSYNTHESIS SCREENING BI COMPARISON: MM TOMOSYNTHESIS SCREENING BI, 11/08/2023. MM TOMOSYNTHESIS DIAGNOSTIC RT, 12/12/2022. MG MAMM SCREEN 3D KESHA CAD, 10/31/2022. MG MAMM KESHA SCRN W CAD DIG, 01/25/2016. INDICATIONS: Screening Calculator Name NCI Breast Cancer Risk Assessment Tool 5 Year Breast Cancer Risk 1.90% Lifetime Breast Cancer Risk 5.90% Personal Breast Cancer No Personal Ovarian Cancer No Treatments None Family Cancers Mother with leukemia cancer at age 84; Sister with colon cancer at age 46. LOCATION: [facility] BREAST COMPOSITION: There are scattered areas of fibroglandular density. FINDINGS: DIAGNOSTIC CATEGORY 1--NEGATIVE. RIGHT BREAST: No significant suspicious finding. LEFT BREAST: No significant suspicious finding. RECOMMENDATIONS: ROUTINE MAMMOGRAM AND CLINICAL EVALUATION IN 12 MONTHS. Dictated by: Ramirez Whitt DO on 05/14/2025 at 09:02 Approved by: Ramirez Whitt DO on 05/14/2025 at 09:03
== END 2025-05-14 07:53 | disposition home or self-care (01) ==
LOC: MAMMO 07:52
DX: Z12.31 Encounter for screening mammogram for malignant neoplasm of breast (principal); Z87.891 Personal history of nicotine dependence; Z80.6 Family history of leukemia; Z80.0 Family history of malignant neoplasm of digestive organs
CPT/HCPCS: 71271; 77063; 77067